=== PATIENT | male | born 1995 | race Caucasian/White ===

== ENCOUNTER 2016-11-17 14:26 | Emergency (ER) | payer OTHER ==
[~2016-11-17] VITALS: Ht 172.7 cm; Wt 90.5 kg
[~2016-11-17 14:26] MED LIST: DIVA500T35 PO; LEVO50 PO; LITH600 PO; QUET200T PO; QUET300T2 PO
[2016-11-17] MEDS ORDERED: [UNRECOGNIZED DRUG - OTHER] PO (16:15)
[2016-11-17 19:36] LABS: BASOPHILS % (AUTO) 0.3 % (0.0-2.0); EOSINOPHILS % (AUTO) 1.9 % (1.0-6.0); HEMOGLOBIN 12.9 g/dL (13.5-17.5); LYMPHOCYTES # (AUTO) 1.8 K/uL (1.0-4.8); LYMPHOCYTES % (AUTO) 23.8 % (22.0-44.0); MEAN CORPUSCULAR HEMOGLOBIN 28.4 pg (26.0-34.0); MEAN CORPUSCULAR HGB CONC 32.3 G/dL (31.0-37.0); MEAN CORPUSCULAR VOLUME 88 fL (80-100); MONOCYTES # (AUTO) 0.7 K/uL (0.1-1.0); NEUTROPHILS # (AUTO) 4.8 K/uL (1.8-7.7); PLATELET COUNT (AUTO) 282 K/uL (150-450); RED BLOOD CELL COUNT(AUTO) 4.56 MIL/uL (4.50-5.90); RED CELL DISTRIBUTION WIDTH 13.2 % (11.5-14.5); WHITE BLOOD COUNT (AUTO) 7.4 K/uL (4.5-11.0)
[2016-11-17 19:43] LABS: ANION GAP 9 mmol/L (8-16); CALCIUM, TOTAL 9.4 mg/dL (8.8-10.5); CARBON DIOXIDE 28 mmol/L (22-29); CHLORIDE 104 mmol/L (98-107); CREATININE 1.08 mg/dL (0.60-1.30); GLOMERULAR FILTR. RATE CALC > 60 mL/min (>60); POTASSIUM 4.3 mmol/L (3.5-5.1); SODIUM SERUM 141 mmol/L (136-145); UREA NITROGEN, BLOOD 19 mg/dL (7-18)
[2016-11-17 20:30] VITALS: BP 132/82
== END 2016-11-17 20:56 | disposition home or self-care (01) ==
LOC: EMS 14:27
DX: R21 Rash and other nonspecific skin eruption (principal); R03.0 Elevated blood-pressure reading, without diagnosis of hypertension; M79.89 Other specified soft tissue disorders; E03.9 Hypothyroidism, unspecified; Z88.1 Allergy status to other antibiotic agents
CPT/HCPCS: 93970; 99285

== ENCOUNTER 2017-03-15 11:52 | Inpatient (IN) | payer MEDICAID, OTHER ==
[~2017-03-15] VITALS: Ht 172.7 cm; Wt 91.3 kg
[~2017-03-15 11:52] MED LIST changes: +[UNRECOGNIZED DRUG - OTHER] PO
[2017-03-15] MEDS ORDERED: PRAZ2 PO (12:03)
[2017-03-15 12:47] LABS: BASOPHILS % (AUTO) 0.4 % (0.0-2.0); EOSINOPHILS % (AUTO) 2.5 % (1.0-6.0); HEMATOCRIT 40.1 % (41-53); HEMOGLOBIN 13.7 g/dL (13.5-17.5); LYMPHOCYTES # (AUTO) 1.6 K/uL (1.0-4.8); LYMPHOCYTES % (AUTO) 26.2 % (22.0-44.0); MEAN CORPUSCULAR HEMOGLOBIN 29.6 pg (26.0-34.0); MEAN CORPUSCULAR HGB CONC 34.3 G/dL (31.0-37.0); MEAN CORPUSCULAR VOLUME 86 fL (80-100); MONOCYTES # (AUTO) 0.7 K/uL (0.1-1.0); MONOCYTES % (AUTO) 11.8 % (2.0-9.0); NEUTROPHILS # (AUTO) 3.6 K/uL (1.8-7.7); NEUTROPHILS % (AUTO) 59.1 % (40.0-70.0); PLATELET COUNT (AUTO) 258 K/uL (150-450); RED BLOOD CELL COUNT(AUTO) 4.65 MIL/uL (4.50-5.90); RED CELL DISTRIBUTION WIDTH 13.3 % (11.5-14.5); WHITE BLOOD COUNT (AUTO) 6.1 K/uL (4.5-11.0)
[2017-03-15 13:01] LABS: ALANINE AMINOTRANSFERASE 48 U/L (12-78); ALBUMIN 4.1 g/dL (3.4-5.0); ANION GAP 11 mmol/L (8-16); ASPARTATE AMINOTRANSFERASE 25 U/L (15-37); BILIRUBIN,TOTAL 0.2 mg/dL (0.1-1.0); CARBON DIOXIDE 26 mmol/L (22-29); CHLORIDE 106 mmol/L (98-107); CREATININE 1.01 mg/dL (0.60-1.30); GLOMERULAR FILTR. RATE CALC > 60 mL/min (>60); POTASSIUM 3.7 mmol/L (3.5-5.1); SODIUM SERUM 143 mmol/L (136-145); TOTAL PROTEIN, SERUM 7.9 g/dL (6.4-8.2); UREA NITROGEN, BLOOD 13 mg/dL (7-18)
[2017-03-15 13:10] LABS: CALCIUM, TOTAL 9.3 mg/dL (8.8-10.5)
[2017-03-15] MEDS: HALOPERIDOL 5 MG TABLET PO PRN (17:11)
[2017-03-15] MEDS: LORazepam 2 MG TABLET PO PRN (17:11)
[2017-03-15 17:16] VITALS: BP 115/80
[2017-03-15] MEDS: LITHIUM CARBONATE 600 MG CAPSULE PO SCH (21:00)
[2017-03-15] MEDS: DIVALPROEX SODIUM 500 MG DR TABLET PO SCH (21:00)
[2017-03-15] MEDS: PRAZOSIN HCL 2 MG CAPSULE PO SCH (21:00)
[2017-03-16 01:38] VITALS: BP 137/85
[2017-03-16 08:47] VITALS: BP 126/82
[2017-03-16 08:48] LABS: CHOL/HDL RATIO 8.5 (4.2-7.3)
[2017-03-16] MEDS: LORazepam 2 MG TABLET PO PRN ×2 (08:48→16:51)
[2017-03-16] MEDS: DIVALPROEX SODIUM 500 MG DR TABLET PO SCH ×2 (08:49→16:51)
[2017-03-16] MEDS: LITHIUM CARBONATE 600 MG CAPSULE PO SCH ×2 (08:49→16:51)
[2017-03-16] MEDS: QUEtiapine FUMARATE 200 MG TABLET PO SCH (08:50)
[2017-03-16 16:00] VITALS: BP 132/83
[2017-03-16] MEDS: HALOPERIDOL 5 MG TABLET PO PRN (16:51)
[2017-03-16] MEDS: PRAZOSIN HCL 2 MG CAPSULE PO SCH (20:40)
[2017-03-16] MEDS: ZOLPIDEM TARTRATE 10 MG TABLET PO PRN (20:40)
[2017-03-16] MEDS ORDERED: ACETAMINOPHEN 325 MG TABLET PO PRN (22:00)
[2017-03-16] MEDS ORDERED: IBUPROFEN 400 MG TABLET PO PRN (22:00)
[2017-03-17 05:55] VITALS: BP 139/86
[2017-03-17] MEDS: LEVOTHYROXINE SODIUM 50 MCG TABLET PO SCH (06:18)
[2017-03-17 08:07] LABS: BASOPHILS # (AUTO) 0.04 K/uL (0.00-0.20); BASOPHILS % (AUTO) 0.6 % (0.0-2.0); EOSINOPHILS # (AUTO) 0.18 K/uL (0.00-0.70); EOSINOPHILS % (AUTO) 2.61 % (1.0-6.0); HEMATOCRIT 40.5 % (41-53); HEMOGLOBIN 13.6 g/dL (13.5-17.5); LYMPHOCYTES # (AUTO) 2.2 K/uL (1.0-4.8); MEAN CORPUSCULAR HEMOGLOBIN 29.2 pg (26.0-34.0); MEAN CORPUSCULAR HGB CONC 33.7 G/dL (31.0-37.0); MEAN CORPUSCULAR VOLUME 87 fL (80-100); MONOCYTES # (AUTO) 0.6 K/uL (0.1-1.0); MONOCYTES % (AUTO) 8.3 % (2.0-9.0); NEUTROPHILS # (AUTO) 3.9 K/uL (1.8-7.7); NEUTROPHILS % (AUTO) 56.5 % (40.0-70.0); PLATELET COUNT (AUTO) 252 K/uL (150-450); RED BLOOD CELL COUNT(AUTO) 4.68 MIL/uL (4.50-5.90); RED CELL DISTRIBUTION WIDTH 13.5 % (11.5-14.5); WHITE BLOOD COUNT (AUTO) 6.9 K/uL (4.5-11.0)
[2017-03-17 08:10] VITALS: BP 139/76
[2017-03-17] MEDS: DIVALPROEX SODIUM 500 MG DR TABLET PO SCH ×2 (08:12→17:06)
[2017-03-17] MEDS: LITHIUM CARBONATE 600 MG CAPSULE PO SCH ×2 (08:12→17:06)
[2017-03-17] MEDS: QUEtiapine FUMARATE 200 MG TABLET PO SCH (08:14)
[2017-03-17 09:01] LABS: ALANINE AMINOTRANSFERASE 42 U/L (12-78); ALBUMIN 3.9 g/dL (3.4-5.0); ANION GAP 11 mmol/L (8-16); ASPARTATE AMINOTRANSFERASE 19 U/L (15-37); BILIRUBIN,TOTAL 0.3 mg/dL (0.1-1.0); CALCIUM, TOTAL 9.2 mg/dL (8.8-10.5); CARBON DIOXIDE 26 mmol/L (22-29); CHLORIDE 103 mmol/L (98-107); CHOL/HDL RATIO 7.5 (4.2-7.3); CREATININE 1.15 mg/dL (0.60-1.30); GLOMERULAR FILTR. RATE CALC > 60 mL/min (>60); SODIUM SERUM 140 mmol/L (136-145); TOTAL PROTEIN, SERUM 7.5 g/dL (6.4-8.2); UREA NITROGEN, BLOOD 14 mg/dL (7-18)
[2017-03-17 09:17] LABS: HEMOGLOBIN A1C 5.9 % (4.5-6.2)
[2017-03-17 16:25] VITALS: BP 125/78
[2017-03-17] MEDS: HALOPERIDOL 5 MG TABLET PO PRN (17:06)
[2017-03-17] MEDS: LORazepam 2 MG TABLET PO PRN (17:06)
[2017-03-17] MEDS: PRAZOSIN HCL 2 MG CAPSULE PO SCH (20:27)
[2017-03-18] MEDS: LEVOTHYROXINE SODIUM 50 MCG TABLET PO SCH (06:33)
[2017-03-18 06:40] VITALS: BP 120/84
[2017-03-18 08:01] VITALS: BP 137/78
[2017-03-18] MEDS: DIVALPROEX SODIUM 500 MG DR TABLET PO SCH ×2 (08:23→16:45)
[2017-03-18] MEDS: LITHIUM CARBONATE 600 MG CAPSULE PO SCH ×2 (08:23→16:45)
[2017-03-18] MEDS: QUEtiapine FUMARATE 200 MG TABLET PO SCH (08:23)
[2017-03-18 16:18] VITALS: BP 127/83
[2017-03-18] MEDS: LORazepam 2 MG TABLET PO PRN (18:25)
[2017-03-18] MEDS: HALOPERIDOL 5 MG TABLET PO PRN (18:25)
[2017-03-18] MEDS: ZOLPIDEM TARTRATE 10 MG TABLET PO PRN (20:17)
[2017-03-18] MEDS: PRAZOSIN HCL 2 MG CAPSULE PO SCH (20:18)
[2017-03-19 02:47] VITALS: BP 131/90
[2017-03-19] MEDS: LEVOTHYROXINE SODIUM 50 MCG TABLET PO SCH (06:32)
[2017-03-19] MEDS: QUEtiapine FUMARATE 200 MG TABLET PO SCH (08:35)
[2017-03-19] MEDS: LITHIUM CARBONATE 600 MG CAPSULE PO SCH ×2 (08:35→17:40)
[2017-03-19] MEDS: LORazepam 2 MG TABLET PO PRN ×2 (08:35→13:36)
[2017-03-19] MEDS: DIVALPROEX SODIUM 500 MG DR TABLET PO SCH ×2 (08:36→17:40)
[2017-03-19 09:13] VITALS: BP 123/70
[2017-03-19] MEDS: HALOPERIDOL 5 MG TABLET PO PRN (13:36)
[2017-03-19 16:00] VITALS: BP 132/86
[2017-03-19] MEDS: PRAZOSIN HCL 2 MG CAPSULE PO SCH (20:15)
[2017-03-20 03:22] VITALS: BP 120/77
[2017-03-20] MEDS: LEVOTHYROXINE SODIUM 50 MCG TABLET PO SCH (06:33)
[2017-03-20 08:00] VITALS: BP 133/88
[2017-03-20] MEDS: LORazepam 2 MG TABLET PO PRN ×2 (09:20→16:29)
[2017-03-20] MEDS: QUEtiapine FUMARATE 200 MG TABLET PO SCH (09:20)
[2017-03-20] MEDS: LITHIUM CARBONATE 600 MG CAPSULE PO SCH ×2 (09:20→16:29)
[2017-03-20] MEDS: DIVALPROEX SODIUM 500 MG DR TABLET PO SCH ×2 (09:20→16:29)
[2017-03-20 16:00] VITALS: BP 120/84
[2017-03-20] MEDS: HALOPERIDOL 5 MG TABLET PO PRN (16:29)
[2017-03-20] MEDS: PRAZOSIN HCL 2 MG CAPSULE PO SCH (20:21)
[2017-03-21 05:25] VITALS: BP 124/78
[2017-03-21] MEDS: LEVOTHYROXINE SODIUM 50 MCG TABLET PO SCH (06:35)
[2017-03-21 08:04] VITALS: BP 123/82
[2017-03-21] MEDS: LITHIUM CARBONATE 600 MG CAPSULE PO SCH (08:52)
[2017-03-21] MEDS: QUEtiapine FUMARATE 200 MG TABLET PO SCH (08:52)
[2017-03-21] MEDS: LORazepam 2 MG TABLET PO PRN (08:52)
[2017-03-21] MEDS: DIVALPROEX SODIUM 500 MG DR TABLET PO SCH (08:52)
== END 2017-03-21 13:15 | disposition home or self-care (01) | DRG 753 ==
LOC: EMS 11:53 → AHU 14:46 → B3A 23:25
DX: F31.5 Bipolar disorder, current episode depressed, severe, with psychotic features (principal); F84.0 Autistic disorder; E78.5 Hyperlipidemia, unspecified; E03.9 Hypothyroidism, unspecified; Z79.899 Other long term (current) drug therapy; Z88.1 Allergy status to other antibiotic agents
CPT/HCPCS: 83036; 84443; 99285; G0480

== ENCOUNTER 2017-04-07 20:49 | Emergency (ER) | payer MEDICAID, OTHER ==
[~2017-04-07] VITALS: Ht 172.7 cm; Wt 90.5 kg
[~2017-04-07 20:49] MED LIST changes: +PRAZ2 PO; -QUET300T2 PO; -[UNRECOGNIZED DRUG - OTHER] PO
[2017-04-07] MEDS ORDERED: RISP1 PO (20:55)
[2017-04-07] MEDS ORDERED: SENN-175 PO (20:55)
[2017-04-07] MEDS ORDERED: CLON.5 PO (20:55)
[2017-04-07] MEDS ORDERED: KETOROLAC TROMETHAMINE 60 MG/2 ML VIAL IM ONE (22:00)
[2017-04-07] MEDS ORDERED: METHOCARBAMOL 500 MG TABLET PO ONE (22:00)
[2017-04-07 22:17] VITALS: BP 137/96
== END 2017-04-07 22:31 | disposition home or self-care (01) ==
LOC: EMS 20:52
DX: M54.5 Low back pain (principal); G89.29 Other chronic pain; E03.9 Hypothyroidism, unspecified; Z88.1 Allergy status to other antibiotic agents
CPT/HCPCS: 96372; 99283; J1885

== ENCOUNTER 2017-04-09 14:48 | Emergency (ER) | payer OTHER ==
[~2017-04-09] VITALS: Ht 172.7 cm; Wt 81.4 kg
[~2017-04-09 14:48] MED LIST changes: +CLON.5 PO; -DIVA500T35 PO; -LEVO50 PO; -QUET200T PO; +RISP1 PO; +SENN-175 PO
[2017-04-09] MEDS ORDERED: NAPR-1193 PO (14:58)
[2017-04-09] MEDS ORDERED: SODIUM PHOS/SODIUM BIPHOS 133 ML ENEMA PR ONE (15:30)
[2017-04-09 16:25] LABS: BASOPHILS % (AUTO) 0.4 % (0.0-2.0); EOSINOPHILS % (AUTO) 0.9 % (1.0-6.0); LYMPHOCYTES # (AUTO) 1.4 K/uL (1.0-4.8); LYMPHOCYTES % (AUTO) 17.4 % (22.0-44.0); MEAN CORPUSCULAR HEMOGLOBIN 29.3 pg (26.0-34.0); MEAN CORPUSCULAR HGB CONC 34.2 G/dL (31.0-37.0); MEAN CORPUSCULAR VOLUME 86 fL (80-100); MONOCYTES # (AUTO) 0.6 K/uL (0.1-1.0); NEUTROPHILS # (AUTO) 6.1 K/uL (1.8-7.7); NEUTROPHILS % (AUTO) 74.3 % (40.0-70.0); PLATELET COUNT (AUTO) 338 K/uL (150-450); RED BLOOD CELL COUNT(AUTO) 4.78 MIL/uL (4.50-5.90); RED CELL DISTRIBUTION WIDTH 13.7 % (11.5-14.5); WHITE BLOOD COUNT (AUTO) 8.2 K/uL (4.5-11.0)
[2017-04-09 16:48] LABS: ANION GAP 10 mmol/L (8-16); CALCIUM, TOTAL 9.7 mg/dL (8.8-10.5); CARBON DIOXIDE 26 mmol/L (22-29); CHLORIDE 104 mmol/L (98-107); CREATININE 1.25 mg/dL (0.60-1.30); GLOMERULAR FILTR. RATE CALC > 60 mL/min (>60); SODIUM SERUM 140 mmol/L (136-145); UREA NITROGEN, BLOOD 10 mg/dL (7-18)
[2017-04-09 16:52] LABS: ALANINE AMINOTRANSFERASE 122 U/L (12-78); ALBUMIN 5.2 g/dL (3.4-5.0); ASPARTATE AMINOTRANSFERASE 56 U/L (15-37); BILIRUBIN,TOTAL 0.5 mg/dL (0.1-1.0); TOTAL PROTEIN, SERUM 8.5 g/dL (6.4-8.2)
[2017-04-09 17:04] LABS: LITHIUM 1.29 mmol/L (0.60-1.20)
[2017-04-09 17:18] VITALS: BP 126/90
== END 2017-04-09 17:26 | disposition home or self-care (01) ==
LOC: EMS 14:53
DX: K59.00 Constipation, unspecified (principal); F20.9 Schizophrenia, unspecified; E03.9 Hypothyroidism, unspecified; F31.9 Bipolar disorder, unspecified; R63.4 Abnormal weight loss; Z88.0 Allergy status to penicillin; Z68.27 Body mass index [BMI] 27.0-27.9, adult
CPT/HCPCS: 99284

== ENCOUNTER 2017-08-31 20:29 | Emergency (ER) | payer OTHER ==
[~2017-08-31] VITALS: Ht 172.7 cm; Wt 79.5 kg
[~2017-08-31 20:29] MED LIST changes: +NAPR-1193 PO
[2017-08-31] MEDS ORDERED: MACR100 PO (21:23)
[2017-08-31] MEDS ORDERED: TAMS0.4C32 PO (21:23)
[2017-08-31] MEDS ORDERED: DOXY50 PO (21:23)
[2017-08-31 23:40] VITALS: BP 134/88
== END 2017-08-31 23:48 | disposition home or self-care (01) ==
LOC: EMS 20:33
DX: Z46.6 Encounter for fitting and adjustment of urinary device (principal); E03.9 Hypothyroidism, unspecified; Z88.0 Allergy status to penicillin
CPT/HCPCS: 99283

== ENCOUNTER 2017-10-19 16:10 | Emergency (ER) | payer MEDICAID, OTHER ==
[~2017-10-19] VITALS: Ht 185.4 cm; Wt 77.0 kg
[~2017-10-19 16:10] MED LIST changes: -CLON.5 PO; +FLUO-191 PO; +LEVO125T95 PO; -LITH600 PO; +LURA80 PO; -PRAZ2 PO; -RISP1 PO; -SENN-175 PO; +TAMS0.4C32 PO
[2017-10-19 17:02] LABS: BASOPHILS % (AUTO) 0.8 % (0.0-2.0); EOSINOPHILS % (AUTO) 1.9 % (1.0-6.0); HEMATOCRIT 40.6 % (41-53); HEMOGLOBIN 13.8 g/dL (13.5-17.5); LYMPHOCYTES # (AUTO) 2.6 K/uL (1.0-4.8); LYMPHOCYTES % (AUTO) 31.6 % (22.0-44.0); MEAN CORPUSCULAR HEMOGLOBIN 26.8 pg (26.0-34.0); MEAN CORPUSCULAR HGB CONC 34.1 G/dL (31.0-37.0); MEAN CORPUSCULAR VOLUME 79 fL (80-100); MONOCYTES # (AUTO) 0.5 K/uL (0.1-1.0); MONOCYTES % (AUTO) 6.7 % (2.0-9.0); NEUTROPHILS # (AUTO) 4.9 K/uL (1.8-7.7); PLATELET COUNT (AUTO) 314 K/uL (150-450); RED BLOOD CELL COUNT(AUTO) 5.17 MIL/uL (4.50-5.90); RED CELL DISTRIBUTION WIDTH 13.3 % (11.5-14.5)
[2017-10-19 17:06] LABS: APPEARANCE,URINE CLEAR (CLEAR); BILIRUBIN,URINE NEGATIVE (NEGATIVE); GLUCOSE, URINE (UA) NEGATIVE (NEGATIVE); KETONES,URINE NEGATIVE (NEGATIVE); LEUKOCYTE ESTERASE ,URINE NEGATIVE (NEGATIVE); NITRATE,URINE NEGATIVE (NEGATIVE); OCCULT BLOOD,URINE NEGATIVE (NEGATIVE); PROTEIN,URINE NEGATIVE (NEGATIVE); UROBILINOGEN,URINE 0.2 mg/dL (<=1.0)
[2017-10-19 17:36] LABS: ANION GAP 9 mmol/L (8-16); CALCIUM, TOTAL 9.4 mg/dL (8.8-10.5); CARBON DIOXIDE 27 mmol/L (22-29); CHLORIDE 103 mmol/L (98-107); CREATININE 1.04 mg/dL (0.60-1.30); GLOMERULAR FILTR. RATE CALC > 60 mL/min (>60); GLUCOSE,RANDOM 102 mg/dL (70-110); POTASSIUM 3.5 mmol/L (3.5-5.1); SODIUM SERUM 139 mmol/L (136-145); UREA NITROGEN, BLOOD 13 mg/dL (7-18)
[2017-10-19 17:41] LABS: ALANINE AMINOTRANSFERASE 44 U/L (12-78); ALBUMIN 4.1 g/dL (3.4-5.0); ALKALINE PHOSPHATASE 60 U/L (46-116); ASPARTATE AMINOTRANSFERASE 20 U/L (15-37); BILIRUBIN,TOTAL 0.6 mg/dL (0.1-1.0); TOTAL PROTEIN, SERUM 7.6 g/dL (6.4-8.2)
[2017-10-19 20:15] VITALS: BP 127/81
== END 2017-10-19 20:48 | disposition home or self-care (01) ==
LOC: EMS 16:12
DX: M62.838 Other muscle spasm (principal); R10.9 Unspecified abdominal pain; E03.9 Hypothyroidism, unspecified; F12.90 Cannabis use, unspecified, uncomplicated
CPT/HCPCS: 74176; 99285

== ENCOUNTER 2017-11-13 19:37 | Inpatient (IN) | payer MEDICAID, OTHER ==
[~2017-11-13] VITALS: Ht 172.7 cm; Wt 72.5 kg
[~2017-11-13 19:37] MED LIST changes: -NAPR-1193 PO
[2017-11-13] MEDS ORDERED: GABA-529 PO (20:48)
[2017-11-13] MEDS ORDERED: CEPH500 PO (20:48)
[2017-11-13] MEDS ORDERED: CEPHALEXIN MONOHYDRATE 500 MG CAPSULE PO ONE (21:30)
[2017-11-13] MEDS ORDERED: GABAPENTIN 100 MG CAPSULE PO ONE (21:30)
[2017-11-13 21:34] LABS: BASOPHILS % (AUTO) 0.8 % (0.0-2.0); EOSINOPHILS % (AUTO) 2.2 % (1.0-6.0); HEMATOCRIT 40.5 % (41-53); HEMOGLOBIN 13.9 g/dL (13.5-17.5); LYMPHOCYTES # (AUTO) 2.1 K/uL (1.0-4.8); LYMPHOCYTES % (AUTO) 33.1 % (22.0-44.0); MEAN CORPUSCULAR HEMOGLOBIN 27.1 pg (26.0-34.0); MEAN CORPUSCULAR HGB CONC 34.3 G/dL (31.0-37.0); MEAN CORPUSCULAR VOLUME 79 fL (80-100); MONOCYTES # (AUTO) 0.5 K/uL (0.1-1.0); MONOCYTES % (AUTO) 8.1 % (2.0-9.0); NEUTROPHILS # (AUTO) 3.6 K/uL (1.8-7.7); NEUTROPHILS % (AUTO) 55.8 % (40.0-70.0); PLATELET COUNT (AUTO) 322 K/uL (150-450); RED BLOOD CELL COUNT(AUTO) 5.13 MIL/uL (4.50-5.90); RED CELL DISTRIBUTION WIDTH 13.8 % (11.5-14.5)
[2017-11-13 21:48] LABS: ANION GAP 8 mmol/L (8-16); CALCIUM, TOTAL 9.3 mg/dL (8.8-10.5); CARBON DIOXIDE 30 mmol/L (22-29); CHLORIDE 102 mmol/L (98-107); CREATININE 1.01 mg/dL (0.60-1.30); GLOMERULAR FILTR. RATE CALC > 60 mL/min (>60); GLUCOSE,RANDOM 100 mg/dL (70-110); POTASSIUM 3.8 mmol/L (3.5-5.1); SODIUM SERUM 140 mmol/L (136-145); UREA NITROGEN, BLOOD 19 mg/dL (7-18)
[2017-11-13 21:52] LABS: ALBUMIN 4.2 g/dL (3.4-5.0)
[2017-11-13 22:03] LABS: AMPHET/METH SCREEN,URINE NEGATIVE (NEGATIVE); BARBITURATE SCREEN, URINE NEGATIVE (NEGATIVE); BENZODIAZEPINES SCREEN,URINE NEGATIVE (NEGATIVE); CANNABINOID SCREEN,URINE NEGATIVE (NEGATIVE); COCAINE SCREEN,URINE NEGATIVE (NEGATIVE); METHADONE SCREEN, URINE NEGATIVE (NEGATIVE); OPIATE SCREEN,URINE NEGATIVE (NEGATIVE); PHENCYCLIDINE SCREEN,URINE NEGATIVE (NEGATIVE)
[2017-11-13 22:05] LABS: ALANINE AMINOTRANSFERASE 64 U/L (12-78); ALKALINE PHOSPHATASE 79 U/L (46-116); ASPARTATE AMINOTRANSFERASE 28 U/L (15-37); BILIRUBIN,TOTAL 0.3 mg/dL (0.1-1.0)
[2017-11-13] MEDS ORDERED: LORazepam 2 MG/ML VIAL IM ONE (22:30)
[2017-11-13] MEDS ORDERED: DiphenhydrAMINE HCL 50 MG/ML VIAL IM ONE (22:30)
[2017-11-14 05:03] LABS: HEMOGLOBIN A1C 6.1 % (4.5-6.2)
[2017-11-14] MEDS: LORazepam 2 MG TABLET PO PRN ×2 (08:45→22:44)
[2017-11-14] MEDS: ZOLPIDEM TARTRATE 10 MG TABLET PO PRN (20:52)
[2017-11-15 00:03] VITALS: BP 134/77
[2017-11-15 08:18] VITALS: BP 121/82
[2017-11-15] MEDS: HALOPERIDOL 5 MG TABLET PO PRN (08:21)
[2017-11-15] MEDS: LORazepam 2 MG TABLET PO PRN ×2 (08:21→17:23)
[2017-11-15] MEDS: BACITRACIN 28.4 GM OINTMENT TP SCH ×2 (09:33→17:24)
[2017-11-15 16:05] VITALS: BP 123/72
[2017-11-15] MEDS ORDERED: IBUPROFEN 400 MG TABLET PO PRN (16:15)
[2017-11-15] MEDS ORDERED: ACETAMINOPHEN 325 MG TABLET PO PRN (16:15)
[2017-11-15] MEDS: GABAPENTIN 100 MG CAPSULE PO SCH (17:23)
[2017-11-15] MEDS: LACTULOSE 20 GM/30 ML SOLUTION UDCUP PO PRN (19:06)
[2017-11-15] MEDS: ZOLPIDEM TARTRATE 10 MG TABLET PO PRN (21:16)
[2017-11-16] MEDS: LEVOTHYROXINE SODIUM 137 MCG TABLET PO SCH (06:25)
[2017-11-16] MEDS: LORazepam 2 MG TABLET PO PRN ×2 (06:30→12:10)
[2017-11-16 06:45] VITALS: BP 126/71
[2017-11-16] MEDS: LACTULOSE 20 GM/30 ML SOLUTION UDCUP PO PRN ×2 (06:58→20:59)
[2017-11-16] MEDS ORDERED: *PATIENT'S OWN MED [ENTER DRUG, DOSE, FREQUENCY IN COMMENTS] CLINICAL ONE (08:00)
[2017-11-16 08:11] VITALS: BP 121/88
[2017-11-16] MEDS: FLUoxetine HCL 20 MG CAPSULE PO SCH (08:29)
[2017-11-16] MEDS: TAMSULOSIN HCL 0.4 MG CAPSULE PO SCH (08:29)
[2017-11-16] MEDS: GABAPENTIN 100 MG CAPSULE PO SCH ×3 (08:29→16:54)
[2017-11-16] MEDS: BACITRACIN 28.4 GM OINTMENT TP SCH ×2 (08:29→16:54)
[2017-11-16 10:37] LABS: CHOL/HDL RATIO 4.5 (4.2-7.3); CHOLESTEROL 170 mg/dL (131-200); HDL CHOLESTEROL 38 mg/dL (40-60); LDL CHOL (CALC.) 111 mg/dL (0-130); TRIGLYCERIDES 105 mg/dL (15-150)
[2017-11-16 11:13] LABS: THYROID STIMULATING HORMONE < 0.01 uIU/mL (0.36-3.74)
[2017-11-16 16:00] VITALS: BP 131/85
[2017-11-16] MEDS: LATUDA 80MG TABLET PO SCH (16:56)
[2017-11-16] MEDS: ZOLPIDEM TARTRATE 10 MG TABLET PO PRN (20:59)
[2017-11-17 00:54] VITALS: BP 135/86
[2017-11-17] MEDS: LEVOTHYROXINE SODIUM 137 MCG TABLET PO SCH (06:38)
[2017-11-17] MEDS: LATUDA 80MG TABLET PO SCH ×2 (06:39→16:37)
[2017-11-17] MEDS: FLUoxetine HCL 20 MG CAPSULE PO SCH (08:07)
[2017-11-17] MEDS: TAMSULOSIN HCL 0.4 MG CAPSULE PO SCH (08:07)
[2017-11-17] MEDS: BACITRACIN 28.4 GM OINTMENT TP SCH ×2 (08:07→16:37)
[2017-11-17] MEDS: GABAPENTIN 100 MG CAPSULE PO SCH ×3 (08:07→16:36)
[2017-11-17 08:10] VITALS: BP 120/61
[2017-11-17] MEDS: LACTULOSE 20 GM/30 ML SOLUTION UDCUP PO PRN ×2 (08:37→20:36)
[2017-11-17 16:00] VITALS: BP 112/68
[2017-11-17] MEDS: LORazepam 2 MG TABLET PO PRN ×2 (16:36→20:36)
[2017-11-17] MEDS: HALOPERIDOL 5 MG TABLET PO PRN (19:46)
[2017-11-17] MEDS: ZOLPIDEM TARTRATE 10 MG TABLET PO PRN (20:40)
[2017-11-18] MEDS: LACTULOSE 20 GM/30 ML SOLUTION UDCUP PO PRN ×2 (06:14→20:49)
[2017-11-18 06:18] VITALS: BP 100/60
[2017-11-18] MEDS: LATUDA 80MG TABLET PO SCH ×2 (06:35→16:17)
[2017-11-18] MEDS: LEVOTHYROXINE SODIUM 137 MCG TABLET PO SCH (06:35)
[2017-11-18 08:20] VITALS: BP 120/79
[2017-11-18] MEDS: TAMSULOSIN HCL 0.4 MG CAPSULE PO SCH (08:40)
[2017-11-18] MEDS: GABAPENTIN 100 MG CAPSULE PO SCH ×3 (08:40→16:16)
[2017-11-18] MEDS: FLUoxetine HCL 20 MG CAPSULE PO SCH (08:40)
[2017-11-18] MEDS: BACITRACIN 28.4 GM OINTMENT TP SCH ×2 (08:40→16:17)
[2017-11-18] MEDS: HALOPERIDOL 5 MG TABLET PO PRN ×2 (11:08→15:08)
[2017-11-18] MEDS: LORazepam 2 MG TABLET PO PRN (11:08)
[2017-11-18] MEDS ORDERED: LEVO137T24 PO (14:15)
[2017-11-18] MEDS: ClonazePAM 0.5 MG TABLET PO PRN (14:56)
[2017-11-18 16:00] VITALS: BP 112/74
[2017-11-18] MEDS: TraZODone HCL 100 MG TABLET PO SCH (20:49)
[2017-11-19] MEDS: LATUDA 80MG TABLET PO SCH ×2 (06:28→17:24)
[2017-11-19] MEDS: LEVOTHYROXINE SODIUM 137 MCG TABLET PO SCH (06:28)
[2017-11-19] MEDS: LACTULOSE 20 GM/30 ML SOLUTION UDCUP PO PRN ×2 (06:29→17:25)
[2017-11-19 06:30] VITALS: BP 100/69
[2017-11-19] MEDS: TAMSULOSIN HCL 0.4 MG CAPSULE PO SCH (08:35)
[2017-11-19] MEDS: GABAPENTIN 100 MG CAPSULE PO SCH ×3 (08:35→17:24)
[2017-11-19] MEDS: FLUoxetine HCL 20 MG CAPSULE PO SCH (08:35)
[2017-11-19] MEDS: BACITRACIN 28.4 GM OINTMENT TP SCH ×2 (08:35→17:24)
[2017-11-19 08:48] VITALS: BP 123/76
[2017-11-19] MEDS: ClonazePAM 0.5 MG TABLET PO PRN ×2 (10:48→17:24)
[2017-11-19 16:32] VITALS: BP 124/78
[2017-11-19] MEDS: HALOPERIDOL 5 MG TABLET PO PRN (17:24)
[2017-11-19] MEDS: ZOLPIDEM TARTRATE 10 MG TABLET PO PRN (20:53)
[2017-11-19] MEDS: TraZODone HCL 100 MG TABLET PO SCH (20:53)
[2017-11-20] MEDS: LEVOTHYROXINE SODIUM 137 MCG TABLET PO SCH (06:15)
[2017-11-20] MEDS: LATUDA 80MG TABLET PO SCH (06:16)
[2017-11-20 06:25] VITALS: BP 113/69
[2017-11-20] MEDS: LACTULOSE 20 GM/30 ML SOLUTION UDCUP PO PRN (06:59)
[2017-11-20 08:20] VITALS: BP 114/75
[2017-11-20] MEDS: BACITRACIN 28.4 GM OINTMENT TP SCH (08:36)
[2017-11-20] MEDS: GABAPENTIN 100 MG CAPSULE PO SCH ×2 (08:36→12:48)
[2017-11-20] MEDS: FLUoxetine HCL 20 MG CAPSULE PO SCH (08:36)
[2017-11-20] MEDS: TAMSULOSIN HCL 0.4 MG CAPSULE PO SCH (08:36)
[2017-11-20] MEDS ORDERED: TRAZ-147 PO (11:22)
[2017-11-20] MEDS ORDERED: FLUO40CA7 PO (11:22)
== END 2017-11-20 15:18 | disposition home or self-care (01) | DRG 750 ==
LOC: EMS 19:38 → B3A 11-14 21:40
PROVIDERS: ADMIT Psychiatry & Neurology Psychiatry; ATTEND Psychiatry & Neurology Psychiatry
DX: F25.0 Schizoaffective disorder, bipolar type (principal); G21.0 Malignant neuroleptic syndrome; R45.851 Suicidal ideations; F41.9 Anxiety disorder, unspecified; N40.0 Benign prostatic hyperplasia without lower urinary tract symptoms; K59.00 Constipation, unspecified; E03.9 Hypothyroidism, unspecified; F32.9 Major depressive disorder, single episode, unspecified; F84.0 Autistic disorder; M54.9 Dorsalgia, unspecified; F60.3 Borderline personality disorder; F12.10 Cannabis abuse, uncomplicated; Z79.899 Other long term (current) drug therapy; Z91.5 Personal history of self-harm; Z81.8 Family history of other mental and behavioral disorders; Z71.51 Drug abuse counseling and surveillance of drug abuser
CPT/HCPCS: 83036; 84443; 99285; G0480; J1200; J2060

== ENCOUNTER 2017-11-23 21:20 | Emergency (ER) | payer MEDICAID, OTHER ==
[~2017-11-23] VITALS: Ht 172.7 cm; Wt 76.0 kg
[~2017-11-23 21:20] MED LIST changes: -FLUO-191 PO; +FLUO40CA7 PO; +GABA-529 PO; -LEVO125T95 PO; +LEVO137T24 PO; +TRAZ-147 PO
[2017-11-23] MEDS ORDERED: CEPH500 PO (21:55)
[2017-11-23] MEDS ORDERED: FLUO-191 PO (21:56)
[2017-11-23 22:45] LABS: BASOPHILS % (AUTO) 0.9 % (0.0-2.0); HEMATOCRIT 37.8 % (41-53); HEMOGLOBIN 13.1 g/dL (13.5-17.5); LYMPHOCYTES # (AUTO) 2.2 K/uL (1.0-4.8); LYMPHOCYTES % (AUTO) 29.8 % (22.0-44.0); MEAN CORPUSCULAR HEMOGLOBIN 27.1 pg (26.0-34.0); MEAN CORPUSCULAR HGB CONC 34.7 G/dL (31.0-37.0); MEAN CORPUSCULAR VOLUME 78 fL (80-100); MONOCYTES # (AUTO) 0.6 K/uL (0.1-1.0); MONOCYTES % (AUTO) 8.2 % (2.0-9.0); NEUTROPHILS # (AUTO) 4.3 K/uL (1.8-7.7); NEUTROPHILS % (AUTO) 58.1 % (40.0-70.0); PLATELET COUNT (AUTO) 271 K/uL (150-450); RED BLOOD CELL COUNT(AUTO) 4.83 MIL/uL (4.50-5.90); RED CELL DISTRIBUTION WIDTH 13.6 % (11.5-14.5)
[2017-11-23 22:48] LABS: APPEARANCE,URINE CLEAR (CLEAR); BILIRUBIN,URINE NEGATIVE (NEGATIVE); GLUCOSE, URINE (UA) NEGATIVE (NEGATIVE); KETONES,URINE NEGATIVE (NEGATIVE); LEUKOCYTE ESTERASE ,URINE NEGATIVE (NEGATIVE); NITRATE,URINE NEGATIVE (NEGATIVE); OCCULT BLOOD,URINE NEGATIVE (NEGATIVE); PROTEIN,URINE NEGATIVE (NEGATIVE); UROBILINOGEN,URINE 0.2 mg/dL (<=1.0)
[2017-11-23 22:59] LABS: ANION GAP 6 mmol/L (8-16); CARBON DIOXIDE 29 mmol/L (22-29); CHLORIDE 102 mmol/L (98-107); CREATININE 1.43 mg/dL (0.60-1.30); GLOMERULAR FILTR. RATE CALC > 60 mL/min (>60); GLUCOSE,RANDOM 98 mg/dL (70-110); SODIUM SERUM 137 mmol/L (136-145); UREA NITROGEN, BLOOD 19 mg/dL (7-18)
[2017-11-23 23:06] LABS: ALANINE AMINOTRANSFERASE 39 U/L (12-78); ALBUMIN 3.8 g/dL (3.4-5.0); ALKALINE PHOSPHATASE 71 U/L (46-116); ASPARTATE AMINOTRANSFERASE 18 U/L (15-37); BILIRUBIN,TOTAL 0.4 mg/dL (0.1-1.0); LIPASE 134 U/L (73-393); TOTAL PROTEIN, SERUM 7.4 g/dL (6.4-8.2)
[2017-11-24] MEDS ORDERED: MAGNESIUM CITRATE 300 ML ORAL SOLUTION PO ONE (01:00)
[2017-11-24 02:17] VITALS: BP 120/78
== END 2017-11-24 02:53 | disposition home or self-care (01) ==
LOC: EMS 21:21
DX: K59.00 Constipation, unspecified (principal); R47.81 Slurred speech; E03.9 Hypothyroidism, unspecified
CPT/HCPCS: 74018; 99285

== ENCOUNTER 2017-11-30 12:55 | Emergency (ER) | payer OTHER ==
[~2017-11-30] VITALS: Ht 172.7 cm; Wt 76.8 kg
[~2017-11-30 12:55] MED LIST changes: +CEPH500 PO; +FLUO-191 PO; -FLUO40CA7 PO
[2017-11-30] MEDS ORDERED: CLON.5 PO (13:02)
[2017-11-30] MEDS ORDERED: KETOROLAC TROMETHAMINE 30 MG/ML VIAL IVP ONE (15:30)
[2017-11-30] MEDS ORDERED: SODIUM CHLORIDE 0.9% 1,000 ML IV ONE (15:30)
[2017-11-30 15:54] LABS: BASOPHILS % (AUTO) 0.9 % (0.0-2.0); EOSINOPHILS % (AUTO) 2.7 % (1.0-6.0); HEMATOCRIT 39.7 % (41-53); HEMOGLOBIN 13.6 g/dL (13.5-17.5); LYMPHOCYTES # (AUTO) 1.8 K/uL (1.0-4.8); LYMPHOCYTES % (AUTO) 25.6 % (22.0-44.0); MEAN CORPUSCULAR HEMOGLOBIN 27.2 pg (26.0-34.0); MEAN CORPUSCULAR HGB CONC 34.3 G/dL (31.0-37.0); MEAN CORPUSCULAR VOLUME 79 fL (80-100); MONOCYTES # (AUTO) 0.5 K/uL (0.1-1.0); MONOCYTES % (AUTO) 7.6 % (2.0-9.0); NEUTROPHILS # (AUTO) 4.4 K/uL (1.8-7.7); NEUTROPHILS % (AUTO) 63.2 % (40.0-70.0); PLATELET COUNT (AUTO) 298 K/uL (150-450)
[2017-11-30 16:02] LABS: ANION GAP 7 mmol/L (8-16); CALCIUM, TOTAL 9.2 mg/dL (8.8-10.5); CARBON DIOXIDE 29 mmol/L (22-29); CHLORIDE 105 mmol/L (98-107); CREATININE 1.17 mg/dL (0.60-1.30); GLOMERULAR FILTR. RATE CALC > 60 mL/min (>60); GLUCOSE,RANDOM 89 mg/dL (70-110); POTASSIUM 4.7 mmol/L (3.5-5.1); SODIUM SERUM 141 mmol/L (136-145); UREA NITROGEN, BLOOD 14 mg/dL (7-18)
[2017-11-30 16:06] LABS: D-DIMER 0.17 mg/L FEU (0.00-0.50); INR 1.1 (0.9-1.1); PROTHROMBIN TIME 11.4 SEC (9.4-11.6)
[2017-11-30 16:09] LABS: ALANINE AMINOTRANSFERASE 45 U/L (12-78); ALKALINE PHOSPHATASE 78 U/L (46-116); ASPARTATE AMINOTRANSFERASE 25 U/L (15-37); BILIRUBIN,TOTAL 0.3 mg/dL (0.1-1.0); CREATINE KINASE, TOTAL 58 U/L (39-308); PHOSPHORUS 4.2 mg/dL (2.5-4.9); TOTAL PROTEIN, SERUM 7.5 g/dL (6.4-8.2)
[2017-11-30 17:07] LABS: ERYTHROCYTE SEDIMENTATION RATE 13 MM/HR (0-15)
[2017-11-30 17:34] VITALS: BP 107/64
== END 2017-11-30 17:55 | disposition home or self-care (01) ==
LOC: EMS 12:57
DX: F84.0 Autistic disorder (principal); F12.10 Cannabis abuse, uncomplicated; F32.9 Major depressive disorder, single episode, unspecified; F20.9 Schizophrenia, unspecified; E03.9 Hypothyroidism, unspecified; R79.1 Abnormal coagulation profile; Z79.899 Other long term (current) drug therapy
CPT/HCPCS: 36415; 80053; 82550; 83735; 84100; 85025; 85379; 85610; 85651; 85730; 96374; 99284; J1885; J7030

== ENCOUNTER 2017-12-02 18:51 | Emergency (ER) | payer OTHER ==
[~2017-12-02] VITALS: Ht 172.7 cm; Wt 76.8 kg
[~2017-12-02 18:51] MED LIST changes: +CLON.5 PO
[2017-12-02 21:13] VITALS: BP 120/74
== END 2017-12-02 21:52 | disposition home or self-care (01) ==
LOC: EMS 18:52
DX: S09.90XA Unspecified injury of head, initial encounter (principal); F12.10 Cannabis abuse, uncomplicated; F20.9 Schizophrenia, unspecified; F32.9 Major depressive disorder, single episode, unspecified; F84.0 Autistic disorder; E03.9 Hypothyroidism, unspecified; Z79.899 Other long term (current) drug therapy; W07.XXXA Fall from chair, initial encounter; Y93.89 Activity, other specified; Y92.89 Other specified places as the place of occurrence of the external cause; Y99.8 Other external cause status
CPT/HCPCS: 70450; 99284

== ENCOUNTER 2017-12-12 11:05 | Emergency (ER) | payer OTHER ==
[~2017-12-12] VITALS: Ht 172.7 cm; Wt 72.7 kg
[~2017-12-12 11:05] MED LIST changes: -CEPH500 PO
[2017-12-12 12:42] VITALS: BP 141/86
[2017-12-12 12:44] LABS: BASOPHILS % (AUTO) 0.6 % (0.0-2.0); EOSINOPHILS % (AUTO) 0.2 % (1.0-6.0); HEMATOCRIT 39.9 % (41-53); HEMOGLOBIN 13.9 g/dL (13.5-17.5); LYMPHOCYTES % (AUTO) 12.2 % (22.0-44.0); MEAN CORPUSCULAR HEMOGLOBIN 27.5 pg (26.0-34.0); MEAN CORPUSCULAR HGB CONC 34.8 G/dL (31.0-37.0); MEAN CORPUSCULAR VOLUME 79 fL (80-100); MONOCYTES # (AUTO) 0.5 K/uL (0.1-1.0); MONOCYTES % (AUTO) 6.3 % (2.0-9.0); NEUTROPHILS # (AUTO) 6.3 K/uL (1.8-7.7); NEUTROPHILS % (AUTO) 80.7 % (40.0-70.0); PLATELET COUNT (AUTO) 299 K/uL (150-450); RED BLOOD CELL COUNT(AUTO) 5.06 MIL/uL (4.50-5.90); RED CELL DISTRIBUTION WIDTH 14.1 % (11.5-14.5)
[2017-12-12 13:01] LABS: ANION GAP 11 mmol/L (8-16); CALCIUM, TOTAL 9.1 mg/dL (8.8-10.5); CARBON DIOXIDE 25 mmol/L (22-29); CHLORIDE 102 mmol/L (98-107); CREATININE 1.14 mg/dL (0.60-1.30); GLOMERULAR FILTR. RATE CALC > 60 mL/min (>60); GLUCOSE,RANDOM 118 mg/dL (70-110); POTASSIUM 3.6 mmol/L (3.5-5.1); SODIUM SERUM 138 mmol/L (136-145); UREA NITROGEN, BLOOD 15 mg/dL (7-18)
[2017-12-12 13:21] LABS: ALANINE AMINOTRANSFERASE 44 U/L (12-78); ALBUMIN 4.5 g/dL (3.4-5.0); ALKALINE PHOSPHATASE 60 U/L (46-116); ASPARTATE AMINOTRANSFERASE 17 U/L (15-37); BILIRUBIN,TOTAL 0.7 mg/dL (0.1-1.0); TOTAL PROTEIN, SERUM 7.9 g/dL (6.4-8.2)
[2017-12-12 13:39] LABS: APPEARANCE,URINE CLEAR (CLEAR); BILIRUBIN,URINE NEGATIVE (NEGATIVE); GLUCOSE, URINE (UA) NEGATIVE (NEGATIVE); KETONES,URINE NEGATIVE (NEGATIVE); LEUKOCYTE ESTERASE ,URINE NEGATIVE (NEGATIVE); NITRATE,URINE NEGATIVE (NEGATIVE); OCCULT BLOOD,URINE NEGATIVE (NEGATIVE); PROTEIN,URINE NEGATIVE (NEGATIVE); UROBILINOGEN,URINE 0.2 mg/dL (<=1.0)
[2017-12-12 14:00] LABS: BACTERIA,URINE None Seen /HPF (None Seen); RBC,URINE None Seen /HPF (0-2); WBC,URINE 0-2 /HPF (0-5)
[2017-12-12 14:02] LABS: SQUAMOUS EPITHELIAL CELL,UR None Seen /LPF (None Seen)
== END 2017-12-12 13:12 | disposition home or self-care (01) ==
LOC: EMS 11:06
DX: R30.0 Dysuria (principal); F12.10 Cannabis abuse, uncomplicated; F20.9 Schizophrenia, unspecified; E03.9 Hypothyroidism, unspecified; F31.9 Bipolar disorder, unspecified; F84.0 Autistic disorder; Z79.899 Other long term (current) drug therapy
CPT/HCPCS: 99284

== ENCOUNTER 2018-02-24 17:17 | Emergency (ER) | payer OTHER ==
[~2018-02-24] VITALS: Ht 172.7 cm; Wt 71.4 kg
[~2018-02-24 17:17] MED LIST changes: -TAMS0.4C32 PO; -TRAZ-147 PO; +TRAZ-220 PO
[2018-02-24] MEDS ORDERED: SODIUM CHLORIDE 0.9% 1,000 ML IV ONE (18:30)
[2018-02-24 19:04] LABS: BASOPHILS % (AUTO) 0.6 % (0.0-2.0); EOSINOPHILS % (AUTO) 1.5 % (1.0-6.0); HEMOGLOBIN 13.2 g/dL (13.5-17.5); LYMPHOCYTES # (AUTO) 1.9 K/uL (1.0-4.8); LYMPHOCYTES % (AUTO) 28.9 % (22.0-44.0); MEAN CORPUSCULAR HEMOGLOBIN 27.1 pg (26.0-34.0); MEAN CORPUSCULAR HGB CONC 33.9 G/dL (31.0-37.0); MEAN CORPUSCULAR VOLUME 80 fL (80-100); MONOCYTES # (AUTO) 0.6 K/uL (0.1-1.0); MONOCYTES % (AUTO) 8.5 % (2.0-9.0); NEUTROPHILS # (AUTO) 3.9 K/uL (1.8-7.7); NEUTROPHILS % (AUTO) 60.5 % (40.0-70.0); PLATELET COUNT (AUTO) 262 K/uL (150-450); RED BLOOD CELL COUNT(AUTO) 4.88 MIL/uL (4.50-5.90)
[2018-02-24 19:21] LABS: AMPHET/METH SCREEN,URINE NEGATIVE (NEGATIVE); BARBITURATE SCREEN, URINE NEGATIVE (NEGATIVE); BENZODIAZEPINES SCREEN,URINE NEGATIVE (NEGATIVE); CANNABINOID SCREEN,URINE POSITIVE (NEGATIVE); COCAINE SCREEN,URINE NEGATIVE (NEGATIVE); METHADONE SCREEN, URINE NEGATIVE (NEGATIVE); OPIATE SCREEN,URINE NEGATIVE (NEGATIVE); PHENCYCLIDINE SCREEN,URINE NEGATIVE (NEGATIVE)
[2018-02-24 19:24] LABS: ANION GAP 10 mmol/L (8-16); CALCIUM, TOTAL 9.4 mg/dL (8.8-10.5); CARBON DIOXIDE 27 mmol/L (22-29); CHLORIDE 106 mmol/L (98-107); CREATININE 1.09 mg/dL (0.60-1.30); GLOMERULAR FILTR. RATE CALC > 60 mL/min (>60); GLUCOSE,RANDOM 92 mg/dL (70-110); POTASSIUM 3.2 mmol/L (3.5-5.1); SODIUM SERUM 143 mmol/L (136-145); UREA NITROGEN, BLOOD 14 mg/dL (7-18)
[2018-02-24 19:26] LABS: APPEARANCE,URINE CLEAR (CLEAR); BILIRUBIN,URINE NEGATIVE (NEGATIVE); GLUCOSE, URINE (UA) NEGATIVE (NEGATIVE); KETONES,URINE TRACE mg/dL (NEGATIVE); LEUKOCYTE ESTERASE ,URINE NEGATIVE (NEGATIVE); NITRATE,URINE NEGATIVE (NEGATIVE); OCCULT BLOOD,URINE NEGATIVE (NEGATIVE); PROTEIN,URINE NEGATIVE (NEGATIVE); UROBILINOGEN,URINE 0.2 mg/dL (<=1.0)
[2018-02-24 19:39] LABS: ALANINE AMINOTRANSFERASE 29 U/L (12-78); ALBUMIN 4.2 g/dL (3.4-5.0); ALKALINE PHOSPHATASE 62 U/L (46-116); BILIRUBIN,TOTAL 0.5 mg/dL (0.1-1.0); TOTAL PROTEIN, SERUM 7.7 g/dL (6.4-8.2)
[2018-02-24 19:51] LABS: ASPARTATE AMINOTRANSFERASE 18 U/L (15-37)
[2018-02-24 20:11] LABS: THYROID STIMULATING HORMONE < 0.01 uIU/mL (0.36-3.74)
[2018-02-24] MEDS ORDERED: LORazepam 2 MG/ML VIAL IVP ONE (21:15)
[2018-02-24 21:35] LABS: FREE T4 (FREE THYROXINE) 2.69 ng/dL (0.76-1.46)
[2018-02-24] MEDS ORDERED: POTASSIUM CHLORIDE 20 MEQ ER TABLET PO ONE (22:45)
[2018-02-24 23:00] VITALS: BP 111/74
== END 2018-02-24 23:13 | disposition home or self-care (01) ==
LOC: EMS 17:18
DX: F84.0 Autistic disorder (principal); F20.9 Schizophrenia, unspecified; E05.90 Thyrotoxicosis, unspecified without thyrotoxic crisis or storm; E03.9 Hypothyroidism, unspecified; F31.9 Bipolar disorder, unspecified; F12.90 Cannabis use, unspecified, uncomplicated; Z79.899 Other long term (current) drug therapy
CPT/HCPCS: 36415; 70450; 72125; 80053; 80307; 81003; 84439; 84443; 85025; 93005; 96374; 99285; G0480; J2060; J7030; 45505

== ENCOUNTER 2018-10-31 13:31 | Inpatient (IN) | payer MEDICAID, OTHER ==
[~2018-10-31] VITALS: Ht 170.2 cm; Wt 64.4 kg
[~2018-10-31 13:31] MED LIST changes: -CLON.5 PO; -FLUO-191 PO; -LEVO137T24 PO; -TRAZ-220 PO
[2018-10-31] MEDS ORDERED: DiphenhydrAMINE HCL 50 MG/ML VIAL IM ONE (14:15)
[2018-10-31] MEDS ORDERED: HALOPERIDOL LACTATE 5 MG/ML VIAL IM ONE (14:15)
[2018-10-31] MEDS ORDERED: LORazepam 2 MG/ML VIAL IM ONE (14:15)
[2018-10-31 14:49] LABS: AMPHET/METH SCREEN,URINE NEGATIVE (NEGATIVE); BARBITURATE SCREEN, URINE NEGATIVE (NEGATIVE); BENZODIAZEPINES SCREEN,URINE NEGATIVE (NEGATIVE); CANNABINOID SCREEN,URINE POSITIVE (NEGATIVE); COCAINE SCREEN,URINE NEGATIVE (NEGATIVE); METHADONE SCREEN, URINE NEGATIVE (NEGATIVE); OPIATE SCREEN,URINE NEGATIVE (NEGATIVE)
[2018-10-31 14:50] LABS: APPEARANCE,URINE CLEAR (CLEAR); BILIRUBIN,URINE NEGATIVE (NEGATIVE); GLUCOSE, URINE (UA) NEGATIVE (NEGATIVE); KETONES,URINE NEGATIVE (NEGATIVE); LEUKOCYTE ESTERASE ,URINE NEGATIVE (NEGATIVE); NITRATE,URINE NEGATIVE (NEGATIVE); OCCULT BLOOD,URINE NEGATIVE (NEGATIVE); PH,URINE 6.5 (5.0-8.0); PROTEIN,URINE NEGATIVE (NEGATIVE); UROBILINOGEN,URINE 0.2 mg/dL (<=1.0)
[2018-10-31 14:57] LABS: PHENCYCLIDINE SCREEN,URINE NEGATIVE (NEGATIVE)
[2018-10-31] MEDS ORDERED: ACETAMINOPHEN 325 MG TABLET PO PRN (15:15)
[2018-10-31 16:13] LABS: BASOPHILS % (AUTO) 0.5 % (0.0-2.0); EOSINOPHILS % (AUTO) 0.1 % (1.0-6.0); HEMATOCRIT 39.7 % (41-53); HEMOGLOBIN 13.6 g/dL (13.5-17.5); LYMPHOCYTES # (AUTO) 1.5 K/uL (1.0-4.8); LYMPHOCYTES % (AUTO) 15.4 % (22.0-44.0); MEAN CORPUSCULAR HEMOGLOBIN 28.9 pg (26.0-34.0); MEAN CORPUSCULAR HGB CONC 34.3 G/dL (31.0-37.0); MEAN CORPUSCULAR VOLUME 84 fL (80-100); MONOCYTES # (AUTO) 0.8 K/uL (0.1-1.0); MONOCYTES % (AUTO) 8.2 % (2.0-9.0); NEUTROPHILS # (AUTO) 7.2 K/uL (1.8-7.7); NEUTROPHILS % (AUTO) 75.8 % (40.0-70.0); PLATELET COUNT (AUTO) 376 K/uL (150-450); RED BLOOD CELL COUNT(AUTO) 4.71 MIL/uL (4.50-5.90); RED CELL DISTRIBUTION WIDTH 12.9 % (11.5-14.5)
[2018-10-31 16:35] LABS: ANION GAP 7 mmol/L (8-16); CALCIUM, TOTAL 9.5 mg/dL (8.8-10.5); CARBON DIOXIDE 32 mmol/L (22-29); CHLORIDE 106 mmol/L (98-107); GLOMERULAR FILTR. RATE CALC > 60 mL/min (>60); GLUCOSE,RANDOM 82 mg/dL (70-110); POTASSIUM 3.6 mmol/L (3.5-5.1); SODIUM SERUM 145 mmol/L (136-145); UREA NITROGEN, BLOOD 14 mg/dL (7-18)
[2018-10-31 16:43] LABS: ALANINE AMINOTRANSFERASE 24 U/L (12-78); ALBUMIN 3.9 g/dL (3.4-5.0); ALKALINE PHOSPHATASE 61 U/L (46-116); ASPARTATE AMINOTRANSFERASE 37 U/L (15-37); BILIRUBIN,TOTAL 0.3 mg/dL (0.1-1.0); TOTAL PROTEIN, SERUM 7.5 g/dL (6.4-8.2)
[2018-10-31] MEDS ORDERED: TAMS-1 PO (18:18)
[2018-10-31] MEDS ORDERED: BUSP15 PO (18:18)
[2018-10-31] MEDS ORDERED: FLUO-191 PO (18:18)
[2018-10-31] MEDS ORDERED: DIVA-78 PO (18:18)
[2018-10-31] MEDS ORDERED: DEUT6TAB PO (18:18)
[2018-10-31] MEDS ORDERED: DIVA500T52 PO (18:18)
[2018-10-31] MEDS ORDERED: TRAZ-220 PO (18:18)
[2018-10-31] MEDS ORDERED: DIVA-76 PO (18:18)
[2018-11-01] MEDS: ZOLPIDEM TARTRATE 10 MG TABLET PO PRN (00:31)
[2018-11-01] MEDS: LORazepam 2 MG TABLET PO PRN ×3 (00:31→13:25)
[2018-11-01 00:51] VITALS: BP 118/91
[2018-11-01 06:34] LABS: BASOPHILS % (AUTO) 1.2 % (0.0-2.0); EOSINOPHILS % (AUTO) 1.2 % (1.0-6.0); HEMATOCRIT 40.3 % (41-53); HEMOGLOBIN 13.4 g/dL (13.5-17.5); LYMPHOCYTES # (AUTO) 2.2 K/uL (1.0-4.8); LYMPHOCYTES % (AUTO) 27.3 % (22.0-44.0); MEAN CORPUSCULAR HEMOGLOBIN 28.3 pg (26.0-34.0); MEAN CORPUSCULAR HGB CONC 33.2 G/dL (31.0-37.0); MEAN CORPUSCULAR VOLUME 85 fL (80-100); MONOCYTES # (AUTO) 0.9 K/uL (0.1-1.0); MONOCYTES % (AUTO) 10.8 % (2.0-9.0); NEUTROPHILS # (AUTO) 4.9 K/uL (1.8-7.7); NEUTROPHILS % (AUTO) 59.5 % (40.0-70.0); PLATELET COUNT (AUTO) 373 K/uL (150-450); RED BLOOD CELL COUNT(AUTO) 4.72 MIL/uL (4.50-5.90); RED CELL DISTRIBUTION WIDTH 13.2 % (11.5-14.5)
[2018-11-01 06:49] LABS: HEMOGLOBIN A1C 5.7 % (4.5-6.2)
[2018-11-01 07:05] LABS: ALANINE AMINOTRANSFERASE 36 U/L (12-78); ALBUMIN 3.8 g/dL (3.4-5.0); ALKALINE PHOSPHATASE 60 U/L (46-116); ANION GAP 7 mmol/L (8-16); ASPARTATE AMINOTRANSFERASE 49 U/L (15-37); BILIRUBIN,TOTAL 0.5 mg/dL (0.1-1.0); CALCIUM, TOTAL 9.6 mg/dL (8.8-10.5); CARBON DIOXIDE 31 mmol/L (22-29); CHLORIDE 106 mmol/L (98-107); CHOL/HDL RATIO 4.2 (4.2-7.3); CHOLESTEROL 178 mg/dL (131-200); CREATININE 1.15 mg/dL (0.60-1.30); GLOMERULAR FILTR. RATE CALC > 60 mL/min (>60); GLUCOSE,RANDOM 86 mg/dL (70-110); HDL CHOLESTEROL 42 mg/dL (40-60); LDL CHOL (CALC.) 118 mg/dL (0-130); POTASSIUM 4.2 mmol/L (3.5-5.1); SODIUM SERUM 144 mmol/L (136-145); THYROID STIMULATING HORMONE 1.96 uIU/mL (0.36-3.74); TOTAL PROTEIN, SERUM 6.8 g/dL (6.4-8.2); TRIGLYCERIDES 90 mg/dL (15-150); UREA NITROGEN, BLOOD 17 mg/dL (7-18)
[2018-11-01] MEDS: IBUPROFEN 400 MG TABLET PO PRN (09:46)
[2018-11-01] MEDS: BusPIRone HCL 15 MG TABLET PO SCH ×2 (12:27→18:25)
[2018-11-01] MEDS: GABAPENTIN 400 MG CAPSULE PO SCH ×2 (12:27→18:25)
[2018-11-01] MEDS: TAMSULOSIN HCL 0.4 MG CAPSULE PO SCH (13:25)
[2018-11-01] MEDS: HALOPERIDOL 5 MG TABLET PO PRN (13:25)
[2018-11-01 16:14] VITALS: BP 117/74
[2018-11-01] MEDS: TraZODone HCL 100 MG TABLET PO SCH (20:35)
[2018-11-01] MEDS: DIVALPROEX SODIUM 500 MG ER TABLET PO SCH (20:35)
[2018-11-02 04:40] VITALS: BP 120/77
[2018-11-02] MEDS: IBUPROFEN 400 MG TABLET PO PRN (04:47)
[2018-11-02] MEDS: HALOPERIDOL 5 MG TABLET PO PRN ×2 (07:45→12:45)
[2018-11-02] MEDS: LORazepam 2 MG TABLET PO PRN ×2 (07:45→12:45)
[2018-11-02] MEDS: FLUoxetine HCL 20 MG CAPSULE PO SCH (07:45)
[2018-11-02] MEDS: TAMSULOSIN HCL 0.4 MG CAPSULE PO SCH (07:45)
[2018-11-02] MEDS: BusPIRone HCL 15 MG TABLET PO SCH ×3 (07:45→17:34)
[2018-11-02] MEDS: GABAPENTIN 400 MG CAPSULE PO SCH ×3 (07:45→17:34)
[2018-11-02 08:37] VITALS: BP 120/90
[2018-11-02 16:28] VITALS: BP 123/73
[2018-11-02] MEDS: TraZODone HCL 100 MG TABLET PO SCH (20:23)
[2018-11-02] MEDS: DIVALPROEX SODIUM 500 MG ER TABLET PO SCH (20:23)
[2018-11-03] MEDS: LURASIDONE HCL 80 MG TABLET PO SCH ×2 (07:11→17:01)
[2018-11-03] MEDS: GABAPENTIN 400 MG CAPSULE PO SCH ×3 (08:13→17:01)
[2018-11-03] MEDS: TAMSULOSIN HCL 0.4 MG CAPSULE PO SCH (08:13)
[2018-11-03] MEDS: HALOPERIDOL 5 MG TABLET PO PRN ×2 (08:14→13:12)
[2018-11-03] MEDS: BusPIRone HCL 15 MG TABLET PO SCH ×3 (08:14→17:01)
[2018-11-03] MEDS: FLUoxetine HCL 20 MG CAPSULE PO SCH (08:14)
[2018-11-03] MEDS: LORazepam 2 MG TABLET PO PRN ×2 (08:16→13:12)
[2018-11-03] MEDS ORDERED: *PATIENT'S OWN MED [ENTER DRUG, DOSE, FREQUENCY IN COMMENTS] CLINICAL ONE (09:00)
[2018-11-03 09:03] VITALS: BP 132/82
[2018-11-03 16:07] VITALS: BP 124/78
[2018-11-03 18:32] LABS: ALANINE AMINOTRANSFERASE 36 U/L (12-78); ALBUMIN 3.5 g/dL (3.4-5.0); ALKALINE PHOSPHATASE 64 U/L (46-116); ANION GAP 8 mmol/L (8-16); ASPARTATE AMINOTRANSFERASE 32 U/L (15-37); BILIRUBIN,TOTAL 0.4 mg/dL (0.1-1.0); CARBON DIOXIDE 29 mmol/L (22-29); CHLORIDE 104 mmol/L (98-107); CREATININE 1.04 mg/dL (0.60-1.30); GLOMERULAR FILTR. RATE CALC > 60 mL/min (>60); GLUCOSE,RANDOM 98 mg/dL (70-110); POTASSIUM 4.3 mmol/L (3.5-5.1); SODIUM SERUM 141 mmol/L (136-145); TOTAL PROTEIN, SERUM 7.1 g/dL (6.4-8.2); UREA NITROGEN, BLOOD 23 mg/dL (7-18); VALPROIC ACID 77 mcg/mL (50-100)
[2018-11-03 18:33] LABS: BASOPHILS % (AUTO) 1.3 % (0.0-2.0); EOSINOPHILS % (AUTO) 2.4 % (1.0-6.0); LYMPHOCYTES % (AUTO) 25.6 % (22.0-44.0); MEAN CORPUSCULAR HEMOGLOBIN 28.3 pg (26.0-34.0); MEAN CORPUSCULAR HGB CONC 33.3 G/dL (31.0-37.0); MEAN CORPUSCULAR VOLUME 85 fL (80-100); MONOCYTES # (AUTO) 0.6 K/uL (0.1-1.0); MONOCYTES % (AUTO) 7.8 % (2.0-9.0); NEUTROPHILS # (AUTO) 4.9 K/uL (1.8-7.7); NEUTROPHILS % (AUTO) 62.9 % (40.0-70.0); PLATELET COUNT (AUTO) 360 K/uL (150-450); RED BLOOD CELL COUNT(AUTO) 4.59 MIL/uL (4.50-5.90)
[2018-11-03] MEDS: DIVALPROEX SODIUM 500 MG ER TABLET PO SCH (20:00)
[2018-11-03] MEDS: TraZODone HCL 100 MG TABLET PO SCH (20:00)
[2018-11-04] MEDS: LORazepam 2 MG TABLET PO PRN ×2 (04:09→14:54)
[2018-11-04] MEDS: HALOPERIDOL 5 MG TABLET PO PRN (04:09)
[2018-11-04] MEDS: LURASIDONE HCL 80 MG TABLET PO SCH ×2 (07:09→16:09)
[2018-11-04] MEDS: FLUoxetine HCL 20 MG CAPSULE PO SCH (08:25)
[2018-11-04] MEDS: BusPIRone HCL 15 MG TABLET PO SCH ×3 (08:25→16:09)
[2018-11-04] MEDS: GABAPENTIN 400 MG CAPSULE PO SCH ×3 (08:25→16:09)
[2018-11-04] MEDS: TAMSULOSIN HCL 0.4 MG CAPSULE PO SCH (08:25)
[2018-11-04 09:09] VITALS: BP 118/73
[2018-11-04] MEDS: IBUPROFEN 400 MG TABLET PO PRN (09:09)
[2018-11-04 16:08] VITALS: BP 102/70
[2018-11-04] MEDS: DIVALPROEX SODIUM 500 MG ER TABLET PO SCH (20:08)
[2018-11-04] MEDS: TraZODone HCL 100 MG TABLET PO SCH (20:08)
[2018-11-05] MEDS: LURASIDONE HCL 80 MG TABLET PO SCH ×2 (06:41→17:29)
[2018-11-05] MEDS: BusPIRone HCL 15 MG TABLET PO SCH ×3 (08:24→17:29)
[2018-11-05] MEDS: GABAPENTIN 400 MG CAPSULE PO SCH ×3 (08:24→17:29)
[2018-11-05] MEDS: FLUoxetine HCL 20 MG CAPSULE PO SCH (08:24)
[2018-11-05] MEDS: TAMSULOSIN HCL 0.4 MG CAPSULE PO SCH (08:24)
[2018-11-05] MEDS ORDERED: DOCUSATE SODIUM 100 MG CAPSULE PO PRN (09:00)
[2018-11-05 09:09] VITALS: BP 112/61
[2018-11-05 16:02] VITALS: BP 122/71
[2018-11-05] MEDS: TraZODone HCL 100 MG TABLET PO SCH (20:30)
[2018-11-05] MEDS: DIVALPROEX SODIUM 500 MG ER TABLET PO SCH (20:30)
[2018-11-06] MEDS: LURASIDONE HCL 80 MG TABLET PO SCH ×2 (06:42→17:10)
[2018-11-06] MEDS: GABAPENTIN 400 MG CAPSULE PO SCH ×3 (08:27→17:09)
[2018-11-06] MEDS: LORazepam 2 MG TABLET PO PRN ×2 (08:28→12:45)
[2018-11-06] MEDS: TAMSULOSIN HCL 0.4 MG CAPSULE PO SCH (08:28)
[2018-11-06] MEDS: BusPIRone HCL 15 MG TABLET PO SCH ×3 (08:28→17:10)
[2018-11-06] MEDS: FLUoxetine HCL 20 MG CAPSULE PO SCH (08:28)
[2018-11-06 08:59] VITALS: BP 123/63
[2018-11-06 16:30] VITALS: BP 118/64
[2018-11-06] MEDS: DIVALPROEX SODIUM 500 MG ER TABLET PO SCH (20:34)
[2018-11-06] MEDS: TraZODone HCL 100 MG TABLET PO SCH (20:34)
[2018-11-07 05:14] VITALS: BP 119/85
[2018-11-07] MEDS: LURASIDONE HCL 80 MG TABLET PO SCH ×2 (06:56→17:34)
[2018-11-07] MEDS: GABAPENTIN 400 MG CAPSULE PO SCH ×3 (07:38→17:34)
[2018-11-07] MEDS: FLUoxetine HCL 20 MG CAPSULE PO SCH (07:38)
[2018-11-07] MEDS: HALOPERIDOL 5 MG TABLET PO PRN (07:38)
[2018-11-07] MEDS: LORazepam 2 MG TABLET PO PRN ×2 (07:38→17:35)
[2018-11-07] MEDS: TAMSULOSIN HCL 0.4 MG CAPSULE PO SCH (07:38)
[2018-11-07] MEDS: BusPIRone HCL 15 MG TABLET PO SCH ×3 (07:38→17:34)
[2018-11-07 08:00] VITALS: BP 118/76
[2018-11-07 16:01] VITALS: BP 114/81
[2018-11-07] MEDS: DIVALPROEX SODIUM 500 MG ER TABLET PO SCH (20:28)
[2018-11-07] MEDS: TraZODone HCL 100 MG TABLET PO SCH (20:28)
[2018-11-08] MEDS: LURASIDONE HCL 80 MG TABLET PO SCH ×2 (07:04→16:21)
[2018-11-08] MEDS: GABAPENTIN 400 MG CAPSULE PO SCH ×3 (10:16→16:21)
[2018-11-08] MEDS: FLUoxetine HCL 20 MG CAPSULE PO SCH (10:16)
[2018-11-08] MEDS: BusPIRone HCL 15 MG TABLET PO SCH ×3 (10:16→16:21)
[2018-11-08] MEDS: TAMSULOSIN HCL 0.4 MG CAPSULE PO SCH (10:16)
[2018-11-08] MEDS: LORazepam 2 MG TABLET PO PRN (16:21)
[2018-11-08 16:44] VITALS: BP 105/63
[2018-11-08] MEDS: TraZODone HCL 100 MG TABLET PO SCH (20:16)
[2018-11-08] MEDS: DIVALPROEX SODIUM 500 MG ER TABLET PO SCH (20:17)
[2018-11-09] MEDS: LURASIDONE HCL 80 MG TABLET PO SCH ×2 (07:02→16:55)
[2018-11-09] MEDS: FLUoxetine HCL 20 MG CAPSULE PO SCH (08:51)
[2018-11-09] MEDS: TAMSULOSIN HCL 0.4 MG CAPSULE PO SCH (08:51)
[2018-11-09] MEDS: GABAPENTIN 400 MG CAPSULE PO SCH ×3 (08:51→16:55)
[2018-11-09] MEDS: BusPIRone HCL 15 MG TABLET PO SCH ×3 (08:51→16:55)
[2018-11-09] MEDS: LORazepam 2 MG TABLET PO PRN (08:57)
[2018-11-09] MEDS: HALOPERIDOL 5 MG TABLET PO PRN (08:57)
[2018-11-09 13:15] VITALS: BP 117/76
[2018-11-09 16:08] VITALS: BP 137/78
[2018-11-09] MEDS: DIVALPROEX SODIUM 500 MG ER TABLET PO SCH (20:43)
[2018-11-09] MEDS: TraZODone HCL 100 MG TABLET PO SCH (20:43)
[2018-11-10 00:04] VITALS: BP 130/88
[2018-11-10] MEDS: ZOLPIDEM TARTRATE 10 MG TABLET PO PRN (02:01)
[2018-11-10] MEDS: LURASIDONE HCL 80 MG TABLET PO SCH ×2 (06:48→16:04)
[2018-11-10] MEDS: GABAPENTIN 400 MG CAPSULE PO SCH ×3 (08:29→16:03)
[2018-11-10] MEDS: BusPIRone HCL 15 MG TABLET PO SCH ×3 (08:29→16:04)
[2018-11-10] MEDS: TAMSULOSIN HCL 0.4 MG CAPSULE PO SCH (08:29)
[2018-11-10] MEDS: FLUoxetine HCL 20 MG CAPSULE PO SCH (08:30)
[2018-11-10] MEDS: HALOPERIDOL 5 MG TABLET PO PRN (08:35)
[2018-11-10] MEDS: LORazepam 2 MG TABLET PO PRN (08:35)
[2018-11-10 08:44] VITALS: BP 129/69
[2018-11-10] MEDS ORDERED: GABA-533 PO (12:07)
== END 2018-11-10 17:20 | disposition home or self-care (01) | DRG 750 ==
LOC: EMS 13:31 → 3EC 23:30
PROVIDERS: ADMIT Psychiatry & Neurology Psychiatry; ATTEND Psychiatry & Neurology Psychiatry
DX: F25.0 Schizoaffective disorder, bipolar type (principal); G21.0 Malignant neuroleptic syndrome; R45.851 Suicidal ideations; E03.9 Hypothyroidism, unspecified; Z88.1 Allergy status to other antibiotic agents; Z88.8 Allergy status to other drugs, medicaments and biological substances; F43.10 Post-traumatic stress disorder, unspecified; F84.0 Autistic disorder; Z81.8 Family history of other mental and behavioral disorders; F60.3 Borderline personality disorder; N40.0 Benign prostatic hyperplasia without lower urinary tract symptoms; D64.9 Anemia, unspecified; G89.29 Other chronic pain; R74.0 Nonspecific elevation of levels of transaminase and lactic acid dehydrogenase [LDH]; F12.90 Cannabis use, unspecified, uncomplicated; F41.0 Panic disorder [episodic paroxysmal anxiety]; G47.00 Insomnia, unspecified; Z79.899 Other long term (current) drug therapy; Z91.5 Personal history of self-harm; M54.9 Dorsalgia, unspecified
CPT/HCPCS: 83036; 84443; 96372; G0480; J1200; J1630; J2060

== ENCOUNTER 2018-12-21 22:07 | Emergency (ER) | payer MEDICAID, OTHER ==
[~2018-12-21] VITALS: Ht 157.5 cm; Wt 72.1 kg
[~2018-12-21 22:07] MED LIST changes: +BUSP15 PO; +DIVA500T52 PO; +FLUO-191 PO; -GABA-529 PO; +GABA-533 PO; +TAMS-1 PO; +TRAZ-220 PO
[2018-12-21] MEDS ORDERED: LACT30L PO (22:43)
[2018-12-21] MEDS ORDERED: FLUO-191 PO (22:43)
[2018-12-21] MEDS ORDERED: DEUT6TAB PO (22:43)
[2018-12-21] MEDS ORDERED: GABA-533 PO (22:43)
[2018-12-21 22:50] LABS: BASOPHILS % (AUTO) 1.2 % (0.0-2.0); EOSINOPHILS % (AUTO) 1.9 % (1.0-6.0); HEMATOCRIT 43.4 % (41-53); HEMOGLOBIN 14.4 g/dL (13.5-17.5); LYMPHOCYTES % (AUTO) 35.2 % (22.0-44.0); MEAN CORPUSCULAR HEMOGLOBIN 29.4 pg (26.0-34.0); MEAN CORPUSCULAR HGB CONC 33.3 G/dL (31.0-37.0); MEAN CORPUSCULAR VOLUME 88 fL (80-100); MONOCYTES # (AUTO) 0.6 K/uL (0.1-1.0); MONOCYTES % (AUTO) 10.7 % (2.0-9.0); NEUTROPHILS # (AUTO) 2.8 K/uL (1.8-7.7); PLATELET COUNT (AUTO) 209 K/uL (150-450); RED BLOOD CELL COUNT(AUTO) 4.92 MIL/uL (4.50-5.90); RED CELL DISTRIBUTION WIDTH 15.6 % (11.5-14.5)
[2018-12-21] MEDS ORDERED: LORazepam 2 MG TABLET PO ONE (23:00)
[2018-12-21] MEDS ORDERED: HALOPERIDOL 5 MG TABLET PO ONE (23:00)
[2018-12-21] MEDS ORDERED: DiphenhydrAMINE HCL 25 MG CAPSULE PO ONE (23:00)
[2018-12-21 23:01] LABS: ANION GAP 8 mmol/L (8-16); CALCIUM, TOTAL 9.7 mg/dL (8.8-10.5); CARBON DIOXIDE 31 mmol/L (22-29); CHLORIDE 101 mmol/L (98-107); CREATININE 1.23 mg/dL (0.60-1.30); GLOMERULAR FILTR. RATE CALC > 60 mL/min (>60); GLUCOSE,RANDOM 101 mg/dL (70-110); POTASSIUM 3.7 mmol/L (3.5-5.1); SODIUM SERUM 140 mmol/L (136-145); UREA NITROGEN, BLOOD 22 mg/dL (7-18)
[2018-12-21 23:09] LABS: ALANINE AMINOTRANSFERASE 11 U/L (12-78); ALBUMIN 3.9 g/dL (3.4-5.0); ALKALINE PHOSPHATASE 64 U/L (46-116); ASPARTATE AMINOTRANSFERASE 12 U/L (15-37); BILIRUBIN,TOTAL 0.2 mg/dL (0.1-1.0)
[2018-12-22 00:04] LABS: AMPHET/METH SCREEN,URINE NEGATIVE (NEGATIVE); BARBITURATE SCREEN, URINE NEGATIVE (NEGATIVE); BENZODIAZEPINES SCREEN,URINE NEGATIVE (NEGATIVE); CANNABINOID SCREEN,URINE POSITIVE (NEGATIVE); COCAINE SCREEN,URINE NEGATIVE (NEGATIVE); METHADONE SCREEN, URINE NEGATIVE (NEGATIVE); OPIATE SCREEN,URINE NEGATIVE (NEGATIVE); PHENCYCLIDINE SCREEN,URINE NEGATIVE (NEGATIVE)
[2018-12-22 03:46] VITALS: BP 128/71
== END 2018-12-22 05:07 | disposition home or self-care (01) ==
LOC: EMS 22:09
DX: F29 Unspecified psychosis not due to a substance or known physiological condition (principal); E03.9 Hypothyroidism, unspecified; F20.9 Schizophrenia, unspecified; F31.9 Bipolar disorder, unspecified; F43.10 Post-traumatic stress disorder, unspecified; F12.90 Cannabis use, unspecified, uncomplicated; Z79.899 Other long term (current) drug therapy; Z88.1 Allergy status to other antibiotic agents
CPT/HCPCS: 36415; 80053; 80307; 85025; 99284; G0480

== ENCOUNTER 2019-01-11 19:47 | Inpatient (IN) | payer MEDICAID, OTHER ==
[~2019-01-11] VITALS: Ht 170.2 cm; Wt 68.8 kg
[~2019-01-11 19:47] MED LIST changes: +DEUT6TAB PO; +LACT30L PO
[2019-01-11 22:35] LABS: BASOPHILS % (AUTO) 0.5 % (0.0-2.0); EOSINOPHILS % (AUTO) 1.2 % (1.0-6.0); HEMATOCRIT 42.3 % (41-53); HEMOGLOBIN 13.9 g/dL (13.5-17.5); LYMPHOCYTES # (AUTO) 1.8 K/uL (1.0-4.8); LYMPHOCYTES % (AUTO) 26.3 % (22.0-44.0); MEAN CORPUSCULAR HEMOGLOBIN 29.4 pg (26.0-34.0); MEAN CORPUSCULAR HGB CONC 32.9 G/dL (31.0-37.0); MEAN CORPUSCULAR VOLUME 89 fL (80-100); MONOCYTES # (AUTO) 0.8 K/uL (0.1-1.0); MONOCYTES % (AUTO) 11.2 % (2.0-9.0); NEUTROPHILS # (AUTO) 4.2 K/uL (1.8-7.7); NEUTROPHILS % (AUTO) 60.8 % (40.0-70.0); PLATELET COUNT (AUTO) 146 K/uL (150-450); RED BLOOD CELL COUNT(AUTO) 4.74 MIL/uL (4.50-5.90); RED CELL DISTRIBUTION WIDTH 15.5 % (11.5-14.5)
[2019-01-11 22:51] LABS: CARBON DIOXIDE 29 mmol/L (22-29); CHLORIDE 100 mmol/L (98-107); CREATININE 1.37 mg/dL (0.60-1.30); GLOMERULAR FILTR. RATE CALC > 60 mL/min (>60); GLUCOSE,RANDOM 90 mg/dL (70-110); UREA NITROGEN, BLOOD 20 mg/dL (7-18)
[2019-01-11 22:57] LABS: ALANINE AMINOTRANSFERASE 7 U/L (12-78); ALBUMIN 3.9 g/dL (3.4-5.0); ALKALINE PHOSPHATASE 47 U/L (46-116); ANION GAP 9 mmol/L (8-16); ASPARTATE AMINOTRANSFERASE 17 U/L (15-37); BILIRUBIN,TOTAL 0.2 mg/dL (0.1-1.0); SODIUM SERUM 138 mmol/L (136-145); TOTAL PROTEIN, SERUM 8.1 g/dL (6.4-8.2)
[2019-01-11 22:58] LABS: AMPHET/METH SCREEN,URINE NEGATIVE (NEGATIVE); BARBITURATE SCREEN, URINE NEGATIVE (NEGATIVE); BENZODIAZEPINES SCREEN,URINE NEGATIVE (NEGATIVE); CANNABINOID SCREEN,URINE POSITIVE (NEGATIVE); COCAINE SCREEN,URINE NEGATIVE (NEGATIVE); METHADONE SCREEN, URINE NEGATIVE (NEGATIVE); OPIATE SCREEN,URINE NEGATIVE (NEGATIVE)
[2019-01-11 22:59] LABS: PHENCYCLIDINE SCREEN,URINE NEGATIVE (NEGATIVE)
[2019-01-12] MEDS ORDERED: HALOPERIDOL LACTATE 5 MG/ML VIAL IM ONE (01:30)
[2019-01-12] MEDS ORDERED: LORazepam 2 MG/ML VIAL IM ONE (01:30)
[2019-01-12] MEDS ORDERED: DiphenhydrAMINE HCL 50 MG/ML VIAL IM ONE (01:30)
[2019-01-12 09:07] LABS: APPEARANCE,URINE CLEAR (CLEAR); BILIRUBIN,URINE NEGATIVE (NEGATIVE); GLUCOSE, URINE (UA) NEGATIVE (NEGATIVE); KETONES,URINE NEGATIVE (NEGATIVE); LEUKOCYTE ESTERASE ,URINE NEGATIVE (NEGATIVE); NITRATE,URINE NEGATIVE (NEGATIVE); OCCULT BLOOD,URINE NEGATIVE (NEGATIVE); PROTEIN,URINE NEGATIVE (NEGATIVE)
[2019-01-12] MEDS ORDERED: MAGNESIUM HYDROXIDE SUSPENSION 30 ML UDCUP PO PRN (11:30)
[2019-01-12] MEDS ORDERED: ONDANSETRON HCL 4 MG TABLET PO PRN (11:30)
[2019-01-12] MEDS ORDERED: DOCUSATE SODIUM 100 MG CAPSULE PO PRN (11:30)
[2019-01-12] MEDS ORDERED: ALBUTEROL SULFATE HFA 90 MCG/PUFF 8 GM INHALER IH PRN (11:30)
[2019-01-12] MEDS ORDERED: CloNIDine HCL 0.1 MG TABLET PO PRN (11:30)
[2019-01-12] MEDS ORDERED: IBUPROFEN 400 MG TABLET PO PRN (11:30)
[2019-01-12] MEDS ORDERED: GuaiFENesin/D-METHORPHAN [SUGAR-FREE] 200-20MG/10 ML SYRUP UDCUP PO PRN (11:30)
[2019-01-12] MEDS ORDERED: ACETAMINOPHEN 325 MG TABLET PO PRN (11:30)
[2019-01-12] MEDS ORDERED: MAG HYDROX/AL HYDROX/SIMETH ES 30 ML SUSPENSION UDCUP PO PRN (11:30)
[2019-01-12] MEDS ORDERED: NICOTINE 14 MG/24 HOUR PATCH TD PRN (11:30)
[2019-01-12] MEDS ORDERED: LOPERAMIDE HCL 2 MG CAPSULE PO PRN (11:30)
[2019-01-12] MEDS ORDERED: PETROLATUM,WHITE 28 GM JELLY TP PRN (11:30)
[2019-01-12] MEDS ORDERED: GABA-529 PO (11:32)
[2019-01-12] MEDS ORDERED: TAMSULOSIN HCL 0.4 MG CAPSULE PO ONE (16:45)
[2019-01-12] MEDS: GABAPENTIN 100 MG CAPSULE PO SCH (20:16)
[2019-01-12] MEDS: GABAPENTIN 400 MG CAPSULE PO SCH (20:16)
[2019-01-12] MEDS: DIVALPROEX SODIUM 500 MG ER TABLET PO SCH (20:18)
[2019-01-12] MEDS: ZOLPIDEM TARTRATE 10 MG TABLET PO PRN (21:34)
[2019-01-13] MEDS: HALOPERIDOL 5 MG TABLET PO PRN ×2 (01:13→10:27)
[2019-01-13] MEDS: LORazepam 2 MG TABLET PO PRN ×3 (01:13→20:29)
[2019-01-13] MEDS: TAMSULOSIN HCL 0.4 MG CAPSULE PO SCH (08:24)
[2019-01-13] MEDS: GABAPENTIN 100 MG CAPSULE PO SCH ×2 (08:24→16:54)
[2019-01-13] MEDS: GABAPENTIN 400 MG CAPSULE PO SCH ×2 (08:24→16:55)
[2019-01-13] MEDS: LACTULOSE 20 GM/30 ML SOLUTION UDCUP PO SCH (08:25)
[2019-01-13 08:43] LABS: CHOL/HDL RATIO 4.5 (4.2-7.3)
[2019-01-13 11:59] VITALS: BP 130/87
[2019-01-13] MEDS: BusPIRone HCL 15 MG TABLET PO SCH ×2 (14:02→16:54)
[2019-01-13] MEDS: LURASIDONE HCL 80 MG TABLET PO SCH (16:55)
[2019-01-13] MEDS: DIVALPROEX SODIUM 500 MG ER TABLET PO SCH (20:41)
[2019-01-13] MEDS: TraZODone HCL 100 MG TABLET PO SCH (20:41)
[2019-01-14] MEDS: ZOLPIDEM TARTRATE 10 MG TABLET PO PRN (00:02)
[2019-01-14] MEDS: HALOPERIDOL 5 MG TABLET PO PRN ×3 (00:02→20:19)
[2019-01-14] MEDS: LURASIDONE HCL 80 MG TABLET PO SCH ×2 (06:38→16:39)
[2019-01-14] MEDS: LORazepam 2 MG TABLET PO PRN ×2 (08:26→20:19)
[2019-01-14] MEDS: FLUoxetine HCL 20 MG CAPSULE PO SCH (08:28)
[2019-01-14] MEDS: BusPIRone HCL 15 MG TABLET PO SCH ×3 (08:28→16:38)
[2019-01-14] MEDS: GABAPENTIN 100 MG CAPSULE PO SCH ×2 (08:28→16:38)
[2019-01-14] MEDS: GABAPENTIN 400 MG CAPSULE PO SCH ×2 (08:28→16:38)
[2019-01-14] MEDS: LACTULOSE 20 GM/30 ML SOLUTION UDCUP PO SCH (08:28)
[2019-01-14] MEDS: TAMSULOSIN HCL 0.4 MG CAPSULE PO SCH (08:28)
[2019-01-14 08:40] VITALS: BP 102/61
[2019-01-14 16:10] VITALS: BP 107/81
[2019-01-14] MEDS: TraZODone HCL 100 MG TABLET PO SCH (21:06)
[2019-01-14] MEDS: DIVALPROEX SODIUM 500 MG ER TABLET PO SCH (21:06)
[2019-01-15] MEDS: LORazepam 2 MG TABLET PO PRN ×3 (00:23→15:47)
[2019-01-15] MEDS: HALOPERIDOL 5 MG TABLET PO PRN ×2 (00:23→15:47)
[2019-01-15] MEDS: ZOLPIDEM TARTRATE 10 MG TABLET PO PRN ×2 (00:23→20:06)
[2019-01-15] MEDS: LURASIDONE HCL 80 MG TABLET PO SCH ×2 (06:54→17:24)
[2019-01-15] MEDS: GABAPENTIN 400 MG CAPSULE PO SCH ×2 (09:12→17:24)
[2019-01-15] MEDS: FLUoxetine HCL 20 MG CAPSULE PO SCH (09:13)
[2019-01-15] MEDS: BusPIRone HCL 15 MG TABLET PO SCH ×3 (09:13→17:24)
[2019-01-15] MEDS: GABAPENTIN 100 MG CAPSULE PO SCH ×2 (09:13→17:24)
[2019-01-15] MEDS: LACTULOSE 20 GM/30 ML SOLUTION UDCUP PO SCH (09:14)
[2019-01-15] MEDS: TAMSULOSIN HCL 0.4 MG CAPSULE PO SCH (09:15)
[2019-01-15 12:53] VITALS: BP 115/72
[2019-01-15] MEDS: DIVALPROEX SODIUM 500 MG ER TABLET PO SCH (20:06)
[2019-01-15] MEDS: TraZODone HCL 100 MG TABLET PO SCH (20:06)
[2019-01-16 00:04] VITALS: BP 114/79
[2019-01-16] MEDS: HALOPERIDOL 5 MG TABLET PO PRN ×2 (00:33→18:10)
[2019-01-16] MEDS: LORazepam 2 MG TABLET PO PRN ×2 (00:33→18:10)
[2019-01-16] MEDS: LURASIDONE HCL 80 MG TABLET PO SCH ×2 (06:45→16:33)
[2019-01-16] MEDS: TAMSULOSIN HCL 0.4 MG CAPSULE PO SCH (08:42)
[2019-01-16] MEDS: FLUoxetine HCL 20 MG CAPSULE PO SCH (08:42)
[2019-01-16] MEDS: BusPIRone HCL 15 MG TABLET PO SCH ×3 (08:42→16:33)
[2019-01-16] MEDS: GABAPENTIN 100 MG CAPSULE PO SCH ×2 (08:45→16:33)
[2019-01-16] MEDS: GABAPENTIN 400 MG CAPSULE PO SCH ×2 (08:45→16:33)
[2019-01-16] MEDS: LACTULOSE 20 GM/30 ML SOLUTION UDCUP PO SCH (08:45)
[2019-01-16 09:03] VITALS: BP 114/78
[2019-01-16] MEDS: ZOLPIDEM TARTRATE 10 MG TABLET PO PRN (20:08)
[2019-01-16] MEDS: DIVALPROEX SODIUM 500 MG ER TABLET PO SCH (20:08)
[2019-01-16] MEDS: TraZODone HCL 100 MG TABLET PO SCH (20:08)
[2019-01-16 20:41] VITALS: BP 122/79
[2019-01-17 01:22] VITALS: BP 127/85
[2019-01-17] MEDS: LURASIDONE HCL 80 MG TABLET PO SCH ×2 (07:07→16:36)
[2019-01-17 08:00] VITALS: BP 121/67
[2019-01-17] MEDS: BusPIRone HCL 15 MG TABLET PO SCH ×3 (08:29→16:36)
[2019-01-17] MEDS: GABAPENTIN 400 MG CAPSULE PO SCH ×2 (08:29→16:35)
[2019-01-17] MEDS: LACTULOSE 20 GM/30 ML SOLUTION UDCUP PO SCH (08:29)
[2019-01-17] MEDS: FLUoxetine HCL 20 MG CAPSULE PO SCH (08:30)
[2019-01-17] MEDS: LORazepam 2 MG TABLET PO PRN (08:30)
[2019-01-17] MEDS: TAMSULOSIN HCL 0.4 MG CAPSULE PO SCH (08:30)
[2019-01-17] MEDS: GABAPENTIN 100 MG CAPSULE PO SCH ×2 (08:30→16:35)
[2019-01-17] MEDS: HALOPERIDOL 5 MG TABLET PO PRN (08:31)
[2019-01-17 16:00] VITALS: BP 103/71
[2019-01-17] MEDS: DIVALPROEX SODIUM 500 MG ER TABLET PO SCH (20:35)
[2019-01-17] MEDS: TraZODone HCL 100 MG TABLET PO SCH (20:36)
[2019-01-18] MEDS: ZOLPIDEM TARTRATE 10 MG TABLET PO PRN (02:20)
[2019-01-18] MEDS: LORazepam 2 MG TABLET PO PRN (02:20)
[2019-01-18 06:55] LABS: ANION GAP 5 mmol/L (8-16); CALCIUM, TOTAL 9.2 mg/dL (8.8-10.5); CARBON DIOXIDE 32 mmol/L (22-29); CHLORIDE 103 mmol/L (98-107); CREATININE 1.29 mg/dL (0.60-1.30); GLOMERULAR FILTR. RATE CALC > 60 mL/min (>60); GLUCOSE,RANDOM 90 mg/dL (70-110); POTASSIUM 3.6 mmol/L (3.5-5.1); SODIUM SERUM 140 mmol/L (136-145); UREA NITROGEN, BLOOD 20 mg/dL (7-18)
[2019-01-18] MEDS: LURASIDONE HCL 80 MG TABLET PO SCH ×2 (07:04→16:35)
[2019-01-18] MEDS: GABAPENTIN 100 MG CAPSULE PO SCH ×2 (08:08→16:35)
[2019-01-18] MEDS: GABAPENTIN 400 MG CAPSULE PO SCH ×2 (08:08→16:36)
[2019-01-18] MEDS: LACTULOSE 20 GM/30 ML SOLUTION UDCUP PO SCH (08:09)
[2019-01-18] MEDS: FLUoxetine HCL 20 MG CAPSULE PO SCH (08:09)
[2019-01-18] MEDS: BusPIRone HCL 15 MG TABLET PO SCH ×3 (08:09→16:35)
[2019-01-18] MEDS: TAMSULOSIN HCL 0.4 MG CAPSULE PO SCH (08:09)
[2019-01-18 08:15] VITALS: BP 95/58
[2019-01-18 16:30] VITALS: BP 109/72
[2019-01-18] MEDS ORDERED: LORA0.5T2 PO ×2 (16:38→16:42)
[2019-01-18] MEDS: TraZODone HCL 100 MG TABLET PO SCH (20:14)
[2019-01-18] MEDS: DIVALPROEX SODIUM 500 MG ER TABLET PO SCH (20:14)
[2019-01-19 00:20] VITALS: BP 114/63
[2019-01-19] MEDS: ZOLPIDEM TARTRATE 10 MG TABLET PO PRN (00:21)
[2019-01-19] MEDS: LORazepam 2 MG TABLET PO PRN (00:21)
[2019-01-19] MEDS: LURASIDONE HCL 80 MG TABLET PO SCH (06:31)
[2019-01-19 09:07] VITALS: BP 137/78
[2019-01-19] MEDS: FLUoxetine HCL 20 MG CAPSULE PO SCH (09:34)
[2019-01-19] MEDS: TAMSULOSIN HCL 0.4 MG CAPSULE PO SCH (09:34)
[2019-01-19] MEDS: BusPIRone HCL 15 MG TABLET PO SCH ×2 (09:34→13:39)
[2019-01-19] MEDS: LACTULOSE 20 GM/30 ML SOLUTION UDCUP PO SCH (09:34)
[2019-01-19] MEDS: GABAPENTIN 400 MG CAPSULE PO SCH (09:34)
[2019-01-19] MEDS: GABAPENTIN 100 MG CAPSULE PO SCH (09:34)
[2019-01-19] MEDS ORDERED: LORA0.5T2 PO (13:37)
== END 2019-01-19 15:26 | disposition home or self-care (01) | DRG 750 ==
LOC: EMS 19:49 → 3EC 01-13 10:54 → 3EI 01-18 16:44
PROVIDERS: ADMIT Psychiatry & Neurology Psychiatry; ATTEND Psychiatry & Neurology Psychiatry
DX: F25.0 Schizoaffective disorder, bipolar type (principal); F30.9 Manic episode, unspecified; R45.851 Suicidal ideations; E03.9 Hypothyroidism, unspecified; F12.90 Cannabis use, unspecified, uncomplicated; F41.0 Panic disorder [episodic paroxysmal anxiety]; F43.10 Post-traumatic stress disorder, unspecified; F84.0 Autistic disorder; G40.909 Epilepsy, unspecified, not intractable, without status epilepticus; Z91.5 Personal history of self-harm; Z81.8 Family history of other mental and behavioral disorders; Z79.899 Other long term (current) drug therapy; N40.1 Benign prostatic hyperplasia with lower urinary tract symptoms; N18.9 Chronic kidney disease, unspecified; G47.00 Insomnia, unspecified; F60.3 Borderline personality disorder
CPT/HCPCS: 96372; G0480; J1200; J1630; J2060

== ENCOUNTER 2019-05-14 18:59 | Inpatient (IN) | payer MEDICAID, OTHER ==
[~2019-05-14] VITALS: Ht 170.2 cm; Wt 72.9 kg
[~2019-05-14 18:59] MED LIST changes: -DEUT6TAB PO; +GABA-529 PO; +LORA-999 PO
[2019-05-14] MEDS ORDERED: DEUT6TAB PO (19:20)
[2019-05-14 19:58] LABS: AMPHET/METH SCREEN,URINE NEGATIVE (NEGATIVE); BARBITURATE SCREEN, URINE NEGATIVE (NEGATIVE); BENZODIAZEPINES SCREEN,URINE NEGATIVE (NEGATIVE); CANNABINOID SCREEN,URINE POSITIVE (NEGATIVE); COCAINE SCREEN,URINE NEGATIVE (NEGATIVE); METHADONE SCREEN, URINE NEGATIVE (NEGATIVE); OPIATE SCREEN,URINE NEGATIVE (NEGATIVE)
[2019-05-14 19:59] LABS: BASOPHILS % (AUTO) 0.6 % (0.0-2.0); EOSINOPHILS % (AUTO) 1.3 % (1.0-6.0); HEMATOCRIT 41.5 % (41-53); LYMPHOCYTES # (AUTO) 1.7 K/uL (1.0-4.8); LYMPHOCYTES % (AUTO) 31.6 % (22.0-44.0); MEAN CORPUSCULAR HEMOGLOBIN 30.5 pg (26.0-34.0); MEAN CORPUSCULAR HGB CONC 33.8 G/dL (31.0-37.0); MEAN CORPUSCULAR VOLUME 90 fL (80-100); MONOCYTES # (AUTO) 0.6 K/uL (0.1-1.0); MONOCYTES % (AUTO) 10.9 % (2.0-9.0); NEUTROPHILS # (AUTO) 2.9 K/uL (1.8-7.7); NEUTROPHILS % (AUTO) 55.6 % (40.0-70.0); PLATELET COUNT (AUTO) 156 K/uL (150-450); RED BLOOD CELL COUNT(AUTO) 4.59 MIL/uL (4.50-5.90); RED CELL DISTRIBUTION WIDTH 13.6 % (11.5-14.5)
[2019-05-14 20:01] LABS: APPEARANCE,URINE CLEAR (CLEAR); BILIRUBIN,URINE NEGATIVE (NEGATIVE); GLUCOSE, URINE (UA) NEGATIVE (NEGATIVE); KETONES,URINE NEGATIVE (NEGATIVE); LEUKOCYTE ESTERASE ,URINE NEGATIVE (NEGATIVE); NITRATE,URINE NEGATIVE (NEGATIVE); OCCULT BLOOD,URINE NEGATIVE (NEGATIVE); PROTEIN,URINE NEGATIVE (NEGATIVE); UROBILINOGEN,URINE 0.2 mg/dL (<=1.0)
[2019-05-14 20:02] LABS: PHENCYCLIDINE SCREEN,URINE NEGATIVE (NEGATIVE)
[2019-05-14 20:12] LABS: ANION GAP 8 mmol/L (8-16); CALCIUM, TOTAL 9.2 mg/dL (8.8-10.5); CARBON DIOXIDE 30 mmol/L (22-29); CHLORIDE 101 mmol/L (98-107); CREATININE 1.08 mg/dL (0.60-1.30); GLOMERULAR FILTR. RATE CALC > 60 mL/min (>60); GLUCOSE,RANDOM 78 mg/dL (70-110); POTASSIUM 4.3 mmol/L (3.5-5.1); SODIUM SERUM 139 mmol/L (136-145); UREA NITROGEN, BLOOD 20 mg/dL (7-18)
[2019-05-14 20:18] LABS: ALANINE AMINOTRANSFERASE 15 U/L (12-78); ALBUMIN 3.7 g/dL (3.4-5.0); ALKALINE PHOSPHATASE 49 U/L (46-116); ASPARTATE AMINOTRANSFERASE 18 U/L (15-37); BILIRUBIN,TOTAL 0.3 mg/dL (0.1-1.0); TOTAL PROTEIN, SERUM 7.9 g/dL (6.4-8.2)
[2019-05-14] MEDS ORDERED: DiphenhydrAMINE HCL 50 MG/ML VIAL IM ONE (20:45)
[2019-05-14] MEDS ORDERED: HALOPERIDOL LACTATE 5 MG/ML VIAL IM ONE (20:45)
[2019-05-14] MEDS ORDERED: LORazepam 2 MG/ML VIAL IM ONE (20:45)
[2019-05-15 03:19] LABS: CHOL/HDL RATIO 4.8 (4.2-7.3); CHOLESTEROL 224 mg/dL (131-200); HDL CHOLESTEROL 47 mg/dL (40-60); LDL CHOL (CALC.) 136 mg/dL (0-130); TRIGLYCERIDES 206 mg/dL (15-150)
[2019-05-15] MEDS: LORazepam 2 MG TABLET PO PRN (09:09)
[2019-05-15] MEDS: HALOPERIDOL 5 MG TABLET PO PRN (09:09)
[2019-05-15 09:23] VITALS: BP 119/82
[2019-05-15] MEDS ORDERED: ACETAMINOPHEN 325 MG TABLET PO PRN (09:30)
[2019-05-15] MEDS ORDERED: IBUPROFEN 400 MG TABLET PO PRN (09:30)
[2019-05-15] MEDS ORDERED: GuaiFENesin/D-METHORPHAN [SUGAR-FREE] 200-20MG/10 ML SYRUP UDCUP PO PRN (09:30)
[2019-05-15] MEDS ORDERED: ALBUTEROL SULFATE HFA 90 MCG/PUFF 8 GM INHALER IH PRN (09:30)
[2019-05-15] MEDS ORDERED: ONDANSETRON HCL 4 MG TABLET PO PRN (09:30)
[2019-05-15] MEDS ORDERED: DOCUSATE SODIUM 100 MG CAPSULE PO PRN (09:30)
[2019-05-15] MEDS ORDERED: MAGNESIUM HYDROXIDE SUSPENSION 30 ML UDCUP PO PRN (09:30)
[2019-05-15] MEDS ORDERED: PETROLATUM,WHITE 28 GM JELLY TP PRN (09:30)
[2019-05-15] MEDS ORDERED: LOPERAMIDE HCL 2 MG CAPSULE PO PRN (09:30)
[2019-05-15] MEDS ORDERED: MAG HYDROX/AL HYDROX/SIMETH ES 30 ML SUSPENSION UDCUP PO PRN (09:30)
[2019-05-15] MEDS ORDERED: NICOTINE 14 MG/24 HOUR PATCH TD PRN (09:30)
[2019-05-15] MEDS ORDERED: CloNIDine HCL 0.1 MG TABLET PO PRN (09:30)
[2019-05-15] MEDS ORDERED: INFLUENZA VIRUS VACCINE QVS 2019-20 (3YR+)/PF 60 MCG/0.5 ML SYRINGE IM ONE (11:00)
[2019-05-15] MEDS: BusPIRone HCL 15 MG TABLET PO SCH (13:21)
[2019-05-15 20:27] VITALS: BP 123/88
[2019-05-15] MEDS: TraZODone HCL 100 MG TABLET PO SCH (21:21)
[2019-05-15] MEDS: DIVALPROEX SODIUM 500 MG ER TABLET PO SCH (21:21)
[2019-05-16] MEDS: LURASIDONE HCL 80 MG TABLET PO SCH ×2 (07:04→09:23)
[2019-05-16 07:17] LABS: BASOPHILS % (AUTO) 0.5 % (0.0-2.0); HEMATOCRIT 41.5 % (41-53); LYMPHOCYTES # (AUTO) 2.6 K/uL (1.0-4.8); LYMPHOCYTES % (AUTO) 36.5 % (22.0-44.0); MEAN CORPUSCULAR HEMOGLOBIN 30.5 pg (26.0-34.0); MEAN CORPUSCULAR HGB CONC 33.6 G/dL (31.0-37.0); MEAN CORPUSCULAR VOLUME 91 fL (80-100); MONOCYTES # (AUTO) 0.9 K/uL (0.1-1.0); MONOCYTES % (AUTO) 12.8 % (2.0-9.0); NEUTROPHILS # (AUTO) 3.6 K/uL (1.8-7.7); NEUTROPHILS % (AUTO) 49.2 % (40.0-70.0); PLATELET COUNT (AUTO) 166 K/uL (150-450); RED BLOOD CELL COUNT(AUTO) 4.58 MIL/uL (4.50-5.90); RED CELL DISTRIBUTION WIDTH 13.4 % (11.5-14.5)
[2019-05-16 07:29] LABS: HEMOGLOBIN A1C 5.4 % (4.5-6.2)
[2019-05-16 07:51] LABS: ALANINE AMINOTRANSFERASE 22 U/L (12-78); ALBUMIN 3.5 g/dL (3.4-5.0); ALKALINE PHOSPHATASE 44 U/L (46-116); ANION GAP 9 mmol/L (8-16); ASPARTATE AMINOTRANSFERASE 27 U/L (15-37); BILIRUBIN,TOTAL 0.4 mg/dL (0.1-1.0); CARBON DIOXIDE 28 mmol/L (22-29); CHLORIDE 103 mmol/L (98-107); CHOLESTEROL 221 mg/dL (131-200); CREATININE 1.23 mg/dL (0.60-1.30); GLOMERULAR FILTR. RATE CALC > 60 mL/min (>60); GLUCOSE,RANDOM 85 mg/dL (70-110); HDL CHOLESTEROL 44 mg/dL (40-60); LDL CHOL (CALC.) 152 mg/dL (0-130); POTASSIUM 4.2 mmol/L (3.5-5.1); SODIUM SERUM 140 mmol/L (136-145); THYROID STIMULATING HORMONE 3.15 uIU/mL (0.36-3.74); TOTAL PROTEIN, SERUM 7.4 g/dL (6.4-8.2); TRIGLYCERIDES 125 mg/dL (15-150); UREA NITROGEN, BLOOD 26 mg/dL (7-18)
[2019-05-16 08:00] VITALS: BP 125/77
[2019-05-16] MEDS: GABAPENTIN 400 MG CAPSULE PO SCH ×3 (08:45→16:19)
[2019-05-16] MEDS: LORazepam 0.5 MG TABLET PO SCH ×3 (08:45→16:19)
[2019-05-16] MEDS: BusPIRone HCL 15 MG TABLET PO SCH ×4 (08:47→16:19)
[2019-05-16] MEDS: FLUoxetine HCL 20 MG CAPSULE PO SCH (08:47)
[2019-05-16 16:02] VITALS: BP 115/92
[2019-05-16] MEDS: DIVALPROEX SODIUM 500 MG ER TABLET PO SCH (20:25)
[2019-05-16] MEDS: TraZODone HCL 100 MG TABLET PO SCH (20:25)
[2019-05-17] MEDS: LURASIDONE HCL 80 MG TABLET PO SCH ×2 (07:02→17:30)
[2019-05-17] MEDS: FLUoxetine HCL 20 MG CAPSULE PO SCH (09:21)
[2019-05-17] MEDS: GABAPENTIN 400 MG CAPSULE PO SCH ×2 (09:21→16:22)
[2019-05-17] MEDS: BusPIRone HCL 15 MG TABLET PO SCH ×3 (09:21→16:22)
[2019-05-17] MEDS: LORazepam 0.5 MG TABLET PO SCH ×2 (09:21→16:22)
[2019-05-17 13:25] VITALS: BP 134/96
[2019-05-17 16:39] VITALS: BP 115/79
[2019-05-17] MEDS: DIVALPROEX SODIUM 500 MG ER TABLET PO SCH (21:00)
[2019-05-17] MEDS: TraZODone HCL 100 MG TABLET PO SCH (21:00)
[2019-05-18] MEDS: LORazepam 2 MG TABLET PO PRN (00:39)
[2019-05-18] MEDS: ZOLPIDEM TARTRATE 10 MG TABLET PO PRN (00:39)
[2019-05-18] MEDS: LURASIDONE HCL 80 MG TABLET PO SCH ×2 (06:44→20:01)
[2019-05-18] MEDS: GABAPENTIN 400 MG CAPSULE PO SCH ×2 (10:31→20:01)
[2019-05-18] MEDS: FLUoxetine HCL 20 MG CAPSULE PO SCH (10:31)
[2019-05-18] MEDS: LORazepam 0.5 MG TABLET PO SCH ×2 (10:32→20:01)
[2019-05-18] MEDS: BusPIRone HCL 15 MG TABLET PO SCH ×3 (10:32→20:01)
[2019-05-18 11:28] VITALS: BP 110/73
[2019-05-18 16:13] VITALS: BP 116/77
[2019-05-18] MEDS: TAMSULOSIN HCL 0.4 MG CAPSULE PO SCH (20:02)
[2019-05-18] MEDS: DIVALPROEX SODIUM 500 MG ER TABLET PO SCH (20:02)
[2019-05-18] MEDS: TraZODone HCL 100 MG TABLET PO SCH (20:02)
[2019-05-19] MEDS: ZOLPIDEM TARTRATE 10 MG TABLET PO PRN (00:12)
[2019-05-19] MEDS: LORazepam 2 MG TABLET PO PRN (00:13)
[2019-05-19] MEDS: LURASIDONE HCL 80 MG TABLET PO SCH ×2 (06:57→16:40)
[2019-05-19] MEDS: GABAPENTIN 400 MG CAPSULE PO SCH ×2 (09:20→16:40)
[2019-05-19] MEDS: FLUoxetine HCL 20 MG CAPSULE PO SCH (09:20)
[2019-05-19] MEDS: BusPIRone HCL 15 MG TABLET PO SCH ×3 (09:20→16:40)
[2019-05-19] MEDS: LORazepam 0.5 MG TABLET PO SCH ×2 (09:21→16:40)
[2019-05-19 16:03] VITALS: BP 119/73
[2019-05-19] MEDS: TAMSULOSIN HCL 0.4 MG CAPSULE PO SCH (20:36)
[2019-05-19] MEDS: TraZODone HCL 100 MG TABLET PO SCH (20:36)
[2019-05-19] MEDS: DIVALPROEX SODIUM 500 MG ER TABLET PO SCH (20:36)
[2019-05-20 00:06] VITALS: BP 131/74
[2019-05-20] MEDS: ZOLPIDEM TARTRATE 10 MG TABLET PO PRN ×2 (00:17→21:09)
[2019-05-20] MEDS: LORazepam 2 MG TABLET PO PRN (00:17)
[2019-05-20] MEDS: LURASIDONE HCL 80 MG TABLET PO SCH ×2 (07:04→17:36)
[2019-05-20] MEDS: GABAPENTIN 400 MG CAPSULE PO SCH ×2 (08:27→17:19)
[2019-05-20] MEDS: BusPIRone HCL 15 MG TABLET PO SCH ×3 (08:27→17:19)
[2019-05-20] MEDS: FLUoxetine HCL 20 MG CAPSULE PO SCH (08:27)
[2019-05-20] MEDS: LORazepam 0.5 MG TABLET PO SCH ×2 (08:28→17:19)
[2019-05-20 09:43] VITALS: BP 147/92
[2019-05-20 16:08] VITALS: BP 119/74
[2019-05-20] MEDS: DIVALPROEX SODIUM 500 MG ER TABLET PO SCH (20:48)
[2019-05-20] MEDS: TAMSULOSIN HCL 0.4 MG CAPSULE PO SCH (20:48)
[2019-05-20] MEDS: TraZODone HCL 100 MG TABLET PO SCH (20:48)
[2019-05-21] MEDS: HALOPERIDOL 5 MG TABLET PO PRN (03:13)
[2019-05-21] MEDS: LORazepam 2 MG TABLET PO PRN (03:13)
[2019-05-21] MEDS: LURASIDONE HCL 80 MG TABLET PO SCH (06:49)
[2019-05-21] MEDS: GABAPENTIN 400 MG CAPSULE PO SCH (09:06)
[2019-05-21] MEDS: LORazepam 0.5 MG TABLET PO SCH (09:07)
[2019-05-21] MEDS: FLUoxetine HCL 20 MG CAPSULE PO SCH (09:07)
[2019-05-21] MEDS: BusPIRone HCL 15 MG TABLET PO SCH ×2 (09:07→12:45)
[2019-05-21 11:59] VITALS: BP 104/84
[2019-05-21] MEDS ORDERED: BUSP30TA2 PO (12:45)
[2019-05-21] MEDS ORDERED: FLUO40CA7 PO (12:46)
[2019-05-21] MEDS ORDERED: DIVA250T60 PO (12:46)
[2019-05-21] MEDS ORDERED: GABA800T PO (12:47)
[2019-05-21] MEDS ORDERED: LURA20TA PO (12:48)
[2019-05-21] MEDS ORDERED: LORA0.5T83 PO (12:48)
[2019-05-21] MEDS ORDERED: TAMS-1 PO (12:49)
[2019-05-21] MEDS ORDERED: TRAZ-186 PO (12:50)
== END 2019-05-21 14:20 | disposition home or self-care (01) | DRG 750 ==
LOC: EMS 18:59 → B3A 05-15 06:50 → 3EC 05-15 07:40
PROVIDERS: ADMIT Psychiatry & Neurology Psychiatry; ATTEND Psychiatry & Neurology Psychiatry
DX: F25.0 Schizoaffective disorder, bipolar type (principal); G21.0 Malignant neuroleptic syndrome; R45.851 Suicidal ideations; K72.90 Hepatic failure, unspecified without coma; E03.9 Hypothyroidism, unspecified; F41.0 Panic disorder [episodic paroxysmal anxiety]; F32.9 Major depressive disorder, single episode, unspecified; F43.10 Post-traumatic stress disorder, unspecified; F84.0 Autistic disorder; F12.10 Cannabis abuse, uncomplicated; F60.3 Borderline personality disorder; G40.909 Epilepsy, unspecified, not intractable, without status epilepticus; G47.00 Insomnia, unspecified; R33.8 Other retention of urine; N18.9 Chronic kidney disease, unspecified; N40.1 Benign prostatic hyperplasia with lower urinary tract symptoms; Z79.899 Other long term (current) drug therapy; Z81.8 Family history of other mental and behavioral disorders; Z91.5 Personal history of self-harm; Z28.21 Immunization not carried out because of patient refusal; Z88.1 Allergy status to other antibiotic agents; Z71.51 Drug abuse counseling and surveillance of drug abuser; Z72.89 Other problems related to lifestyle; Z71.41 Alcohol abuse counseling and surveillance of alcoholic
CPT/HCPCS: 83036; 84443; 97162; 97530; 99291; G0480; J1200; J1630; J2060

== ENCOUNTER 2019-05-15 15:49 | Emergency (ER) | payer MEDICAID ==
[~2019-05-15] VITALS: Ht 180.3 cm; Wt 79.5 kg
[~2019-05-15 15:49] MED LIST changes: +DEUT6TAB PO
[2019-05-15 17:17] VITALS: BP 155/75
== END 2019-05-15 19:00 | disposition other institution (70) ==
LOC: EMS 15:51
DX: F25.9 Schizoaffective disorder, unspecified (principal); F31.9 Bipolar disorder, unspecified; E03.9 Hypothyroidism, unspecified; F12.90 Cannabis use, unspecified, uncomplicated; Z79.899 Other long term (current) drug therapy; Z98.890 Other specified postprocedural states; Z88.1 Allergy status to other antibiotic agents

== ENCOUNTER 2021-10-22 18:51 | Emergency (ER) | payer OTHER ==
[~2021-10-22] VITALS: Ht 175.3 cm; Wt 82.0 kg
[~2021-10-22 18:51] MED LIST changes: -BUSP15 PO; +BUSP30TA2 PO; -DEUT6TAB PO; +DIVA250T60 PO; -DIVA500T52 PO; -FLUO-191 PO; +FLUO40CA7 PO; -GABA-529 PO; -GABA-533 PO; +GABA800T PO; -LACT30L PO; -LORA-999 PO; +LORA0.5T83 PO; +LURA20TA PO; -LURA80 PO; +TRAZ-186 PO; -TRAZ-220 PO
[2021-10-22 19:51] LABS: BASOPHILS % (AUTO) 0.6 % (0.0-2.0); EOSINOPHILS % (AUTO) 1.7 % (1.0-6.0); HEMATOCRIT 38.4 % (41-53); LYMPHOCYTES # (AUTO) 2.7 K/uL (1.0-4.8); LYMPHOCYTES % (AUTO) 28.3 % (22.0-44.0); MEAN CORPUSCULAR HGB CONC 33.8 G/dL (31.0-37.0); MEAN CORPUSCULAR VOLUME 83 fL (80-100); MONOCYTES # (AUTO) 0.7 K/uL (0.1-1.0); MONOCYTES % (AUTO) 7.1 % (2.0-9.0); NEUTROPHILS # (AUTO) 5.9 K/uL (1.8-7.7); NEUTROPHILS % (AUTO) 62.3 % (40.0-70.0); PLATELET COUNT (AUTO) 277 K/uL (150-450); RED BLOOD CELL COUNT(AUTO) 4.64 MIL/uL (4.50-5.90); RED CELL DISTRIBUTION WIDTH 12.8 % (11.5-14.5)
[2021-10-22 20:01] LABS: ANION GAP 8 mmol/L (8-16); CARBON DIOXIDE 29 mmol/L (22-29); CHLORIDE 101 mmol/L (98-107); CREATININE 1.11 mg/dL (0.60-1.30); GLOMERULAR FILTR. RATE CALC > 60 mL/min (>60); GLUCOSE,RANDOM 117 mg/dL (70-110); POTASSIUM 3.5 mmol/L (3.5-5.1); SODIUM SERUM 138 mmol/L (136-145); UREA NITROGEN, BLOOD 11 mg/dL (7-18)
[2021-10-22 20:04] LABS: PROTHROMBIN TIME 10.9 SEC (9.4-11.6)
[2021-10-22 20:07] LABS: ALANINE AMINOTRANSFERASE 65 U/L (12-78); ALBUMIN 3.7 g/dL (3.4-5.0); ALKALINE PHOSPHATASE 77 U/L (46-116); ASPARTATE AMINOTRANSFERASE 37 U/L (15-37); BILIRUBIN,TOTAL 0.2 mg/dL (0.1-1.0); TOTAL PROTEIN, SERUM 7.1 g/dL (6.4-8.2)
[2021-10-22 21:09] VITALS: BP 142/85
== END 2021-10-22 21:00 | disposition home or self-care (01) ==
LOC: EMS 18:55
DX: K62.5 Hemorrhage of anus and rectum (principal); F31.9 Bipolar disorder, unspecified; E03.9 Hypothyroidism, unspecified; F20.9 Schizophrenia, unspecified; F84.0 Autistic disorder; F12.90 Cannabis use, unspecified, uncomplicated; Z86.59 Personal history of other mental and behavioral disorders; Z86.69 Personal history of other diseases of the nervous system and sense organs; Z87.448 Personal history of other diseases of urinary system; Z88.1 Allergy status to other antibiotic agents
CPT/HCPCS: 80053; 84484; 85025; 85610; 85730; 93005; 99284

== ENCOUNTER 2021-10-30 09:18 | Inpatient (IN) | payer MEDICAID, OTHER ==
[~2021-10-30] VITALS: Ht 172.7 cm; Wt 86.2 kg
[2021-10-30 10:53] LABS: BASOPHILS % (AUTO) 1.2 % (0.0-2.0); EOSINOPHILS % (AUTO) 0.8 % (1.0-6.0); HEMOGLOBIN 13.8 g/dL (13.5-17.5); LYMPHOCYTES # (AUTO) 1.6 K/uL (1.0-4.8); LYMPHOCYTES % (AUTO) 21.5 % (22.0-44.0); MEAN CORPUSCULAR HEMOGLOBIN 27.9 pg (26.0-34.0); MEAN CORPUSCULAR HGB CONC 33.6 G/dL (31.0-37.0); MEAN CORPUSCULAR VOLUME 83 fL (80-100); MONOCYTES # (AUTO) 0.5 K/uL (0.1-1.0); NEUTROPHILS # (AUTO) 5.3 K/uL (1.8-7.7); NEUTROPHILS % (AUTO) 70.5 % (40.0-70.0); PLATELET COUNT (AUTO) 297 K/uL (150-450); RED BLOOD CELL COUNT(AUTO) 4.93 MIL/uL (4.50-5.90); RED CELL DISTRIBUTION WIDTH 13.1 % (11.5-14.5)
[2021-10-30 10:57] LABS: COVID AG,FIA SOURCE NASOPHARYNGEAL
[2021-10-30 11:02] LABS: ANION GAP 9 mmol/L (8-16); CALCIUM, TOTAL 9.4 mg/dL (8.8-10.5); CARBON DIOXIDE 30 mmol/L (22-29); CHLORIDE 102 mmol/L (98-107); CREATININE 1.03 mg/dL (0.60-1.30); GLOMERULAR FILTR. RATE CALC > 60 mL/min (>60); GLUCOSE,RANDOM 101 mg/dL (70-110); POTASSIUM 3.8 mmol/L (3.5-5.1); SODIUM SERUM 141 mmol/L (136-145); UREA NITROGEN, BLOOD 13 mg/dL (7-18)
[2021-10-30 11:05] LABS: ALANINE AMINOTRANSFERASE 70 U/L (12-78); ALBUMIN 4.1 g/dL (3.4-5.0); ALKALINE PHOSPHATASE 72 U/L (46-116); ASPARTATE AMINOTRANSFERASE 24 U/L (15-37); BILIRUBIN,TOTAL 0.3 mg/dL (0.1-1.0); TOTAL PROTEIN, SERUM 7.7 g/dL (6.4-8.2)
[2021-10-30 11:06] LABS: VALPROIC ACID < 3 mcg/mL (50-100)
[2021-10-30 16:30] VITALS: BP 128/84
[2021-10-30] MEDS: HALOPERIDOL 5 MG TABLET PO PRN (16:43)
[2021-10-30] MEDS: LORazepam 2 MG TABLET PO PRN ×2 (16:43→20:44)
[2021-10-30 18:31] VITALS: BP 128/84
[2021-10-30] MEDS: ZOLPIDEM TARTRATE 10 MG TABLET PO PRN (20:45)
[2021-10-31] MEDS: LORazepam 2 MG TABLET PO PRN ×3 (01:56→17:39)
[2021-10-31] MEDS: HALOPERIDOL 5 MG TABLET PO PRN ×2 (01:56→08:02)
[2021-10-31 05:16] VITALS: BP 155/104
[2021-10-31] MEDS: FLUoxetine HCL 20 MG CAPSULE PO SCH (08:02)
[2021-10-31] MEDS: LOXAPINE SUCCINATE 25 MG CAPSULE PO SCH ×3 (08:03→16:36)
[2021-10-31] MEDS: LOXAPINE SUCCINATE 5 MG CAPSULE PO SCH ×3 (08:03→16:37)
[2021-10-31] MEDS: GABAPENTIN 300 MG CAPSULE PO SCH ×3 (08:03→16:36)
[2021-10-31 08:25] VITALS: BP 125/82
[2021-10-31] MEDS: TAMSULOSIN HCL 0.4 MG CAPSULE PO SCH ×2 (09:10→16:36)
[2021-10-31] MEDS ORDERED: DOCUSATE SODIUM 100 MG CAPSULE PO PRN (11:00)
[2021-10-31] MEDS ORDERED: ALBUTEROL SULFATE HFA 90 MCG/PUFF 8 GM INHALER IH PRN (11:00)
[2021-10-31] MEDS ORDERED: GuaiFENesin/D-METHORPHAN [SUGAR-FREE] 200-20MG/10 ML SYRUP UDCUP PO PRN (11:00)
[2021-10-31] MEDS ORDERED: PETROLATUM,WHITE 28 GM JELLY TP PRN (11:00)
[2021-10-31] MEDS ORDERED: NICOTINE 14 MG/24 HOUR PATCH TD PRN (11:00)
[2021-10-31] MEDS: IBUPROFEN 400 MG TABLET PO PRN (12:16)
[2021-10-31 16:08] VITALS: BP 110/62
[2021-10-31] MEDS: DOCUSATE SODIUM 100 MG CAPSULE PO PRN (17:24)
[2021-10-31] MEDS: TraZODone HCL 100 MG TABLET PO SCH (20:34)
[2021-10-31] MEDS: MELATONIN 5 MG TABLET PO SCH (20:34)
[2021-10-31] MEDS: PRAZOSIN HCL 2 MG CAPSULE PO SCH (20:35)
[2021-11-01] MEDS: IBUPROFEN 400 MG TABLET PO PRN (01:19)
[2021-11-01] MEDS: DOCUSATE SODIUM 100 MG CAPSULE PO PRN (02:32)
[2021-11-01 03:51] VITALS: BP 108/71
[2021-11-01] MEDS: MAGNESIUM HYDROXIDE SUSPENSION 30 ML UDCUP PO PRN (05:32)
[2021-11-01] MEDS: LOXAPINE SUCCINATE 25 MG CAPSULE PO SCH ×3 (08:03→16:32)
[2021-11-01] MEDS: GABAPENTIN 300 MG CAPSULE PO SCH ×3 (08:04→16:32)
[2021-11-01] MEDS: FLUoxetine HCL 20 MG CAPSULE PO SCH (08:04)
[2021-11-01] MEDS: LOXAPINE SUCCINATE 5 MG CAPSULE PO SCH ×3 (08:04→16:32)
[2021-11-01] MEDS: TAMSULOSIN HCL 0.4 MG CAPSULE PO SCH ×2 (08:04→16:32)
[2021-11-01] MEDS: LORazepam 2 MG TABLET PO PRN ×2 (08:05→15:54)
[2021-11-01 08:10] VITALS: BP 121/76
[2021-11-01] MEDS: HALOPERIDOL 5 MG TABLET PO PRN ×2 (08:38→15:54)
[2021-11-01 16:12] VITALS: BP 113/77
[2021-11-01] MEDS: TraZODone HCL 100 MG TABLET PO SCH (20:26)
[2021-11-01] MEDS: MELATONIN 5 MG TABLET PO SCH (20:27)
[2021-11-01] MEDS: PRAZOSIN HCL 2 MG CAPSULE PO SCH (20:28)
[2021-11-02 03:30] VITALS: BP 117/72
[2021-11-02] MEDS: IBUPROFEN 400 MG TABLET PO PRN ×2 (05:21→20:54)
[2021-11-02 08:08] VITALS: BP 109/69
[2021-11-02] MEDS: GABAPENTIN 300 MG CAPSULE PO SCH ×3 (08:20→16:24)
[2021-11-02] MEDS: FLUoxetine HCL 20 MG CAPSULE PO SCH (08:21)
[2021-11-02] MEDS: LORazepam 2 MG TABLET PO PRN ×3 (08:21→20:41)
[2021-11-02] MEDS: HALOPERIDOL 5 MG TABLET PO PRN ×2 (08:21→16:23)
[2021-11-02] MEDS: TAMSULOSIN HCL 0.4 MG CAPSULE PO SCH ×2 (08:21→16:24)
[2021-11-02] MEDS: LOXAPINE SUCCINATE 5 MG CAPSULE PO SCH ×3 (08:22→16:24)
[2021-11-02] MEDS: LOXAPINE SUCCINATE 25 MG CAPSULE PO SCH ×3 (08:22→16:24)
[2021-11-02] MEDS: DOCUSATE SODIUM 100 MG CAPSULE PO PRN (09:20)
[2021-11-02] MEDS ORDERED: BUSP15 PO (12:58)
[2021-11-02] MEDS ORDERED: LURA80TA2 PO (12:58)
[2021-11-02] MEDS ORDERED: DIVA-80 PO (12:58)
[2021-11-02] MEDS ORDERED: GABA-1201 PO (12:58)
[2021-11-02 16:09] VITALS: BP 129/86
[2021-11-02] MEDS: MELATONIN 5 MG TABLET PO SCH (20:40)
[2021-11-02] MEDS: TraZODone HCL 100 MG TABLET PO SCH (20:40)
[2021-11-02] MEDS: PRAZOSIN HCL 2 MG CAPSULE PO SCH (20:41)
[2021-11-03 00:07] VITALS: BP 126/93
[2021-11-03] MEDS: ACETAMINOPHEN 325 MG TABLET PO PRN (00:12)
[2021-11-03] MEDS: LORazepam 2 MG TABLET PO PRN ×3 (00:12→20:32)
[2021-11-03] MEDS: LOXAPINE SUCCINATE 25 MG CAPSULE PO SCH ×3 (08:11→16:13)
[2021-11-03] MEDS: LOXAPINE SUCCINATE 5 MG CAPSULE PO SCH ×3 (08:12→16:13)
[2021-11-03] MEDS: FLUoxetine HCL 20 MG CAPSULE PO SCH (08:12)
[2021-11-03] MEDS: TAMSULOSIN HCL 0.4 MG CAPSULE PO SCH ×2 (08:12→16:13)
[2021-11-03] MEDS: GABAPENTIN 300 MG CAPSULE PO SCH ×3 (08:12→16:14)
[2021-11-03 08:20] VITALS: BP 120/62
[2021-11-03] MEDS: DOCUSATE SODIUM 100 MG CAPSULE PO PRN (12:44)
[2021-11-03] MEDS: HALOPERIDOL 5 MG TABLET PO PRN ×2 (12:44→16:48)
[2021-11-03 16:18] VITALS: BP 148/82
[2021-11-03] MEDS: TraZODone HCL 100 MG TABLET PO SCH (20:32)
[2021-11-03] MEDS: MELATONIN 5 MG TABLET PO SCH (20:32)
[2021-11-03] MEDS: PRAZOSIN HCL 2 MG CAPSULE PO SCH (20:32)
[2021-11-04] MEDS: ACETAMINOPHEN 325 MG TABLET PO PRN (00:19)
[2021-11-04 01:13] VITALS: BP 117/78
[2021-11-04 08:12] VITALS: BP 110/76
[2021-11-04] MEDS: LORazepam 2 MG TABLET PO PRN (08:22)
[2021-11-04] MEDS: DOCUSATE SODIUM 100 MG CAPSULE PO SCH (08:22)
[2021-11-04] MEDS: TAMSULOSIN HCL 0.4 MG CAPSULE PO SCH ×2 (08:22→18:21)
[2021-11-04] MEDS: FLUoxetine HCL 20 MG CAPSULE PO SCH (08:22)
[2021-11-04] MEDS: GABAPENTIN 300 MG CAPSULE PO SCH ×3 (08:23→18:37)
[2021-11-04] MEDS: LOXAPINE SUCCINATE 5 MG CAPSULE PO SCH ×3 (08:23→18:21)
[2021-11-04] MEDS: LOXAPINE SUCCINATE 25 MG CAPSULE PO SCH ×3 (08:23→18:21)
[2021-11-04] MEDS: IBUPROFEN 400 MG TABLET PO PRN ×2 (13:34→18:39)
[2021-11-04 16:13] VITALS: BP 118/70
[2021-11-04] MEDS: MELATONIN 5 MG TABLET PO SCH (21:05)
[2021-11-04] MEDS: TraZODone HCL 100 MG TABLET PO SCH (21:05)
[2021-11-04] MEDS: PRAZOSIN HCL 2 MG CAPSULE PO SCH (21:05)
[2021-11-05 02:51] VITALS: BP 121/72
[2021-11-05] MEDS: IBUPROFEN 400 MG TABLET PO PRN ×2 (03:00→13:23)
[2021-11-05 04:34] VITALS: BP 135/91
[2021-11-05 08:08] VITALS: BP 149/95
[2021-11-05] MEDS: TAMSULOSIN HCL 0.4 MG CAPSULE PO SCH ×2 (08:19→16:33)
[2021-11-05] MEDS: DOCUSATE SODIUM 100 MG CAPSULE PO SCH (08:19)
[2021-11-05] MEDS: LORazepam 2 MG TABLET PO PRN (08:19)
[2021-11-05] MEDS: FLUoxetine HCL 20 MG CAPSULE PO SCH (08:19)
[2021-11-05] MEDS: GABAPENTIN 300 MG CAPSULE PO SCH ×3 (08:20→16:33)
[2021-11-05] MEDS: LOXAPINE SUCCINATE 5 MG CAPSULE PO SCH ×3 (08:20→16:33)
[2021-11-05] MEDS: LOXAPINE SUCCINATE 25 MG CAPSULE PO SCH ×3 (08:20→16:33)
[2021-11-05 16:12] VITALS: BP 131/92
[2021-11-05] MEDS: MELATONIN 5 MG TABLET PO SCH (20:20)
[2021-11-05] MEDS: PRAZOSIN HCL 2 MG CAPSULE PO SCH (20:20)
[2021-11-05] MEDS: TraZODone HCL 100 MG TABLET PO SCH (20:20)
[2021-11-06] MEDS: IBUPROFEN 400 MG TABLET PO PRN (00:33)
[2021-11-06 01:05] VITALS: BP 124/83
[2021-11-06] MEDS: LORazepam 2 MG TABLET PO PRN (08:18)
[2021-11-06] MEDS: DOCUSATE SODIUM 100 MG CAPSULE PO SCH (08:19)
[2021-11-06] MEDS: TAMSULOSIN HCL 0.4 MG CAPSULE PO SCH ×2 (08:19→16:14)
[2021-11-06] MEDS: FLUoxetine HCL 20 MG CAPSULE PO SCH (08:19)
[2021-11-06] MEDS: LOXAPINE SUCCINATE 5 MG CAPSULE PO SCH ×3 (08:20→16:14)
[2021-11-06] MEDS: GABAPENTIN 300 MG CAPSULE PO SCH ×3 (08:20→16:14)
[2021-11-06] MEDS: LOXAPINE SUCCINATE 25 MG CAPSULE PO SCH ×3 (08:20→16:15)
[2021-11-06 08:31] VITALS: BP 120/83
[2021-11-06 16:08] VITALS: BP 129/82
[2021-11-06] MEDS: MELATONIN 5 MG TABLET PO SCH (20:33)
[2021-11-06] MEDS: TraZODone HCL 100 MG TABLET PO SCH (20:34)
[2021-11-06] MEDS: PRAZOSIN HCL 2 MG CAPSULE PO SCH (20:34)
[2021-11-07 05:01] VITALS: BP 121/82
[2021-11-07] MEDS: TAMSULOSIN HCL 0.4 MG CAPSULE PO SCH ×2 (08:05→16:20)
[2021-11-07] MEDS: LOXAPINE SUCCINATE 25 MG CAPSULE PO SCH ×3 (08:05→16:20)
[2021-11-07] MEDS: DOCUSATE SODIUM 100 MG CAPSULE PO SCH (08:05)
[2021-11-07] MEDS: FLUoxetine HCL 20 MG CAPSULE PO SCH (08:05)
[2021-11-07] MEDS: LOXAPINE SUCCINATE 5 MG CAPSULE PO SCH ×3 (08:05→16:20)
[2021-11-07] MEDS: GABAPENTIN 300 MG CAPSULE PO SCH ×3 (08:05→16:20)
[2021-11-07] MEDS: LORazepam 2 MG TABLET PO PRN ×3 (08:06→17:34)
[2021-11-07 08:12] VITALS: BP 118/76
[2021-11-07] MEDS: HALOPERIDOL 5 MG TABLET PO PRN ×2 (13:24→17:34)
[2021-11-07 16:10] VITALS: BP 136/89
[2021-11-07] MEDS: PRAZOSIN HCL 2 MG CAPSULE PO SCH (20:37)
[2021-11-07] MEDS: ZOLPIDEM TARTRATE 10 MG TABLET PO PRN (20:37)
[2021-11-07] MEDS: MELATONIN 5 MG TABLET PO SCH (20:37)
[2021-11-07] MEDS: TraZODone HCL 100 MG TABLET PO SCH (20:37)
[2021-11-08 00:42] VITALS: BP 122/82
[2021-11-08] MEDS: GABAPENTIN 300 MG CAPSULE PO SCH ×3 (08:11→16:02)
[2021-11-08] MEDS: LOXAPINE SUCCINATE 25 MG CAPSULE PO SCH ×3 (08:12→16:02)
[2021-11-08] MEDS: DOCUSATE SODIUM 100 MG CAPSULE PO SCH (08:12)
[2021-11-08] MEDS: TAMSULOSIN HCL 0.4 MG CAPSULE PO SCH ×2 (08:12→16:02)
[2021-11-08] MEDS: LORazepam 2 MG TABLET PO PRN ×2 (08:12→16:02)
[2021-11-08] MEDS: LOXAPINE SUCCINATE 5 MG CAPSULE PO SCH ×3 (08:12→16:02)
[2021-11-08] MEDS: FLUoxetine HCL 20 MG CAPSULE PO SCH (08:12)
[2021-11-08 08:25] VITALS: BP 128/83
[2021-11-08] MEDS: HALOPERIDOL 5 MG TABLET PO PRN ×2 (09:05→16:02)
[2021-11-08] MEDS: IBUPROFEN 400 MG TABLET PO PRN (10:24)
[2021-11-08] MEDS ORDERED: LORazepam 2 MG/ML VIAL ONE (11:44)
[2021-11-08] MEDS ORDERED: ChlorproMAZINE HCL 50 MG/2 ML AMP ONE (11:44)
[2021-11-08] MEDS ORDERED: LORazepam 2 MG/ML VIAL IM ONE (11:45)
[2021-11-08] MEDS ORDERED: ChlorproMAZINE HCL 50 MG/2 ML AMP IM ONE (11:45)
[2021-11-08 15:58] VITALS: BP 123/84
[2021-11-08] MEDS: LURASIDONE HCL 40 MG TABLET PO SCH (16:02)
[2021-11-08 17:57] VITALS: BP 123/84
[2021-11-08] MEDS: MELATONIN 5 MG TABLET PO SCH (20:19)
[2021-11-08] MEDS: TraZODone HCL 100 MG TABLET PO SCH (20:20)
[2021-11-08] MEDS: PRAZOSIN HCL 2 MG CAPSULE PO SCH (20:20)
[2021-11-08 23:52] LABS: GLUCOMETER DEV NAME(LOC) POC.BV
[2021-11-09] MEDS: LURASIDONE HCL 40 MG TABLET PO SCH ×2 (06:24→17:00)
[2021-11-09] MEDS: LORazepam 2 MG TABLET PO PRN ×4 (07:58→21:02)
[2021-11-09] MEDS: HALOPERIDOL 5 MG TABLET PO PRN ×4 (07:58→21:02)
[2021-11-09] MEDS: DOCUSATE SODIUM 100 MG CAPSULE PO SCH (08:00)
[2021-11-09] MEDS: TAMSULOSIN HCL 0.4 MG CAPSULE PO SCH ×2 (08:01→16:58)
[2021-11-09] MEDS: GABAPENTIN 300 MG CAPSULE PO SCH ×3 (08:02→16:58)
[2021-11-09] MEDS: FLUoxetine HCL 20 MG CAPSULE PO SCH (08:02)
[2021-11-09] MEDS: LOXAPINE SUCCINATE 25 MG CAPSULE PO SCH ×3 (08:02→16:58)
[2021-11-09] MEDS: LOXAPINE SUCCINATE 5 MG CAPSULE PO SCH ×3 (08:02→16:57)
[2021-11-09 08:13] VITALS: BP 134/98
[2021-11-09 16:10] VITALS: BP 130/79
[2021-11-09] MEDS ORDERED: DiphenhydrAMINE HCL 50 MG/ML VIAL IM ONE (17:45)
[2021-11-09] MEDS ORDERED: ChlorproMAZINE HCL 50 MG/2 ML AMP IM ONE (17:45)
[2021-11-09] MEDS: ZOLPIDEM TARTRATE 10 MG TABLET PO PRN (20:31)
[2021-11-09] MEDS: MELATONIN 5 MG TABLET PO SCH (20:31)
[2021-11-09] MEDS: TraZODone HCL 100 MG TABLET PO SCH (20:31)
[2021-11-09] MEDS: PRAZOSIN HCL 2 MG CAPSULE PO SCH (20:31)
[2021-11-10 04:20] VITALS: BP 128/88
[2021-11-10] MEDS: LURASIDONE HCL 40 MG TABLET PO SCH ×2 (06:26→17:04)
[2021-11-10] MEDS ORDERED: LORazepam 2 MG/ML VIAL ONE (07:56)
[2021-11-10] MEDS ORDERED: LORazepam 2 MG/ML VIAL IM ONE ×2 (08:00→14:00)
[2021-11-10] MEDS ORDERED: HALOPERIDOL LACTATE 5 MG/ML VIAL IM ONE (08:00)
[2021-11-10] MEDS ORDERED: DiphenhydrAMINE HCL 50 MG/ML VIAL IM ONE (08:00)
[2021-11-10] MEDS: DOCUSATE SODIUM 100 MG CAPSULE PO SCH (08:13)
[2021-11-10] MEDS: TAMSULOSIN HCL 0.4 MG CAPSULE PO SCH ×2 (08:14→17:04)
[2021-11-10] MEDS: LOXAPINE SUCCINATE 25 MG CAPSULE PO SCH ×3 (08:14→17:04)
[2021-11-10] MEDS: LOXAPINE SUCCINATE 5 MG CAPSULE PO SCH ×3 (08:14→17:04)
[2021-11-10] MEDS: FLUoxetine HCL 20 MG CAPSULE PO SCH (08:16)
[2021-11-10] MEDS: GABAPENTIN 300 MG CAPSULE PO SCH ×3 (08:16→17:05)
[2021-11-10 08:18] VITALS: BP 134/74
[2021-11-10] MEDS: LORazepam 2 MG TABLET PO PRN (10:02)
[2021-11-10] MEDS: HALOPERIDOL 5 MG TABLET PO PRN (10:02)
[2021-11-10] MEDS: IBUPROFEN 400 MG TABLET PO PRN (13:32)
[2021-11-10] MEDS ORDERED: ChlorproMAZINE HCL 50 MG/2 ML AMP ONE (13:58)
[2021-11-10] MEDS ORDERED: ChlorproMAZINE HCL 50 MG/2 ML AMP IM ONE (14:00)
[2021-11-10 16:17] VITALS: BP 102/68
[2021-11-10] MEDS: PRAZOSIN HCL 2 MG CAPSULE PO SCH (20:46)
[2021-11-10] MEDS: MELATONIN 5 MG TABLET PO SCH (20:46)
[2021-11-10] MEDS: TraZODone HCL 100 MG TABLET PO SCH (20:46)
[2021-11-11 06:22] VITALS: BP 110/68
[2021-11-11] MEDS: LURASIDONE HCL 40 MG TABLET PO SCH ×2 (06:51→16:44)
[2021-11-11] MEDS: DOCUSATE SODIUM 100 MG CAPSULE PO SCH (08:21)
[2021-11-11] MEDS: GABAPENTIN 300 MG CAPSULE PO SCH ×3 (08:21→16:44)
[2021-11-11] MEDS: TAMSULOSIN HCL 0.4 MG CAPSULE PO SCH ×2 (08:21→16:44)
[2021-11-11] MEDS: FLUoxetine HCL 20 MG CAPSULE PO SCH (08:21)
[2021-11-11] MEDS: LOXAPINE SUCCINATE 25 MG CAPSULE PO SCH ×3 (08:21→16:45)
[2021-11-11] MEDS: LOXAPINE SUCCINATE 5 MG CAPSULE PO SCH ×3 (08:22→16:44)
[2021-11-11 08:24] VITALS: BP 123/86
[2021-11-11] MEDS: LORazepam 2 MG TABLET PO PRN ×3 (08:25→20:26)
[2021-11-11] MEDS: HALOPERIDOL 5 MG TABLET PO PRN ×3 (08:25→20:26)
[2021-11-11] MEDS ORDERED: DiphenhydrAMINE HCL 50 MG/ML VIAL IM ONE (09:45)
[2021-11-11] MEDS ORDERED: LORazepam 2 MG/ML VIAL IM ONE (09:45)
[2021-11-11] MEDS ORDERED: HALOPERIDOL LACTATE 5 MG/ML VIAL IM ONE (09:45)
[2021-11-11 16:21] VITALS: BP 140/96
[2021-11-11] MEDS: PRAZOSIN HCL 2 MG CAPSULE PO SCH (20:26)
[2021-11-11] MEDS: MELATONIN 5 MG TABLET PO SCH (20:26)
[2021-11-11] MEDS: TraZODone HCL 100 MG TABLET PO SCH (20:26)
[2021-11-11] MEDS: ZOLPIDEM TARTRATE 10 MG TABLET PO PRN (20:26)
[2021-11-12 00:22] VITALS: BP 131/93
[2021-11-12] MEDS: LORazepam 2 MG TABLET PO PRN ×3 (06:11→20:54)
[2021-11-12] MEDS: LURASIDONE HCL 40 MG TABLET PO SCH ×2 (06:42→16:49)
[2021-11-12] MEDS: LOXAPINE SUCCINATE 5 MG CAPSULE PO SCH ×3 (08:38→16:49)
[2021-11-12] MEDS: LOXAPINE SUCCINATE 25 MG CAPSULE PO SCH ×3 (08:38→16:49)
[2021-11-12] MEDS: FLUoxetine HCL 20 MG CAPSULE PO SCH (08:39)
[2021-11-12] MEDS: DOCUSATE SODIUM 100 MG CAPSULE PO SCH (08:39)
[2021-11-12] MEDS: TAMSULOSIN HCL 0.4 MG CAPSULE PO SCH ×2 (08:39→16:49)
[2021-11-12] MEDS: GABAPENTIN 300 MG CAPSULE PO SCH ×3 (08:39→16:49)
[2021-11-12 08:44] VITALS: BP 134/89
[2021-11-12 16:09] VITALS: BP 120/83
[2021-11-12] MEDS: HALOPERIDOL 5 MG TABLET PO PRN ×2 (16:50→20:54)
[2021-11-12] MEDS: PRAZOSIN HCL 2 MG CAPSULE PO SCH (20:34)
[2021-11-12] MEDS: TraZODone HCL 100 MG TABLET PO SCH (20:34)
[2021-11-12] MEDS: ZOLPIDEM TARTRATE 10 MG TABLET PO PRN (20:34)
[2021-11-12] MEDS: MELATONIN 5 MG TABLET PO SCH (20:34)
[2021-11-13] MEDS: IBUPROFEN 400 MG TABLET PO PRN ×2 (00:46→17:39)
[2021-11-13 00:52] VITALS: BP 123/86
[2021-11-13] MEDS: ONDANSETRON HCL 4 MG TABLET PO PRN (04:07)
[2021-11-13] MEDS: LURASIDONE HCL 40 MG TABLET PO SCH ×2 (06:38→17:03)
[2021-11-13] MEDS: FLUoxetine HCL 20 MG CAPSULE PO SCH (08:12)
[2021-11-13] MEDS: LOXAPINE SUCCINATE 5 MG CAPSULE PO SCH ×3 (08:12→17:02)
[2021-11-13] MEDS: TAMSULOSIN HCL 0.4 MG CAPSULE PO SCH ×2 (08:12→17:02)
[2021-11-13] MEDS: LOXAPINE SUCCINATE 25 MG CAPSULE PO SCH ×3 (08:12→17:02)
[2021-11-13] MEDS: DOCUSATE SODIUM 100 MG CAPSULE PO SCH (08:12)
[2021-11-13] MEDS: GABAPENTIN 300 MG CAPSULE PO SCH ×3 (08:12→17:03)
[2021-11-13] MEDS: HALOPERIDOL 5 MG TABLET PO PRN ×3 (08:13→21:19)
[2021-11-13] MEDS: LORazepam 2 MG TABLET PO PRN ×3 (08:13→21:19)
[2021-11-13 08:16] VITALS: BP 137/94
[2021-11-13 16:07] VITALS: BP 132/72
[2021-11-13] MEDS: TraZODone HCL 100 MG TABLET PO SCH (21:19)
[2021-11-13] MEDS: PRAZOSIN HCL 2 MG CAPSULE PO SCH (21:19)
[2021-11-13] MEDS: ZOLPIDEM TARTRATE 10 MG TABLET PO PRN (21:19)
[2021-11-13] MEDS: MELATONIN 5 MG TABLET PO SCH (21:19)
[2021-11-14 06:13] VITALS: BP 127/84
[2021-11-14] MEDS: LURASIDONE HCL 40 MG TABLET PO SCH ×2 (06:58→16:48)
[2021-11-14] MEDS: DOCUSATE SODIUM 100 MG CAPSULE PO SCH (08:15)
[2021-11-14] MEDS: FLUoxetine HCL 20 MG CAPSULE PO SCH (08:15)
[2021-11-14] MEDS: LORazepam 2 MG TABLET PO PRN (08:15)
[2021-11-14] MEDS: TAMSULOSIN HCL 0.4 MG CAPSULE PO SCH ×2 (08:16→16:48)
[2021-11-14] MEDS: GABAPENTIN 300 MG CAPSULE PO SCH ×3 (08:16→16:48)
[2021-11-14] MEDS: HALOPERIDOL 5 MG TABLET PO PRN (08:16)
[2021-11-14] MEDS: LOXAPINE SUCCINATE 25 MG CAPSULE PO SCH ×3 (08:19→16:59)
[2021-11-14] MEDS: LOXAPINE SUCCINATE 5 MG CAPSULE PO SCH ×3 (08:19→16:59)
[2021-11-14 08:37] VITALS: BP 131/91
[2021-11-14] MEDS: MAGNESIUM HYDROXIDE SUSPENSION 30 ML UDCUP PO PRN (09:23)
[2021-11-14 16:09] VITALS: BP 112/64
[2021-11-14] MEDS: PRAZOSIN HCL 2 MG CAPSULE PO SCH (20:30)
[2021-11-14] MEDS: TraZODone HCL 100 MG TABLET PO SCH (20:30)
[2021-11-14] MEDS: MELATONIN 5 MG TABLET PO SCH (20:30)
[2021-11-15 04:05] VITALS: BP 116/77
[2021-11-15] MEDS: LURASIDONE HCL 40 MG TABLET PO SCH ×2 (06:33→16:39)
[2021-11-15 08:35] VITALS: BP 133/82
[2021-11-15] MEDS: LORazepam 2 MG TABLET PO PRN ×3 (08:53→20:40)
[2021-11-15] MEDS: DOCUSATE SODIUM 100 MG CAPSULE PO SCH (08:53)
[2021-11-15] MEDS: HALOPERIDOL 5 MG TABLET PO PRN ×2 (08:53→20:30)
[2021-11-15] MEDS: LOXAPINE SUCCINATE 5 MG CAPSULE PO SCH ×3 (08:53→16:39)
[2021-11-15] MEDS: LOXAPINE SUCCINATE 25 MG CAPSULE PO SCH ×3 (08:53→16:39)
[2021-11-15] MEDS: GABAPENTIN 300 MG CAPSULE PO SCH ×3 (08:53→16:39)
[2021-11-15] MEDS: FLUoxetine HCL 20 MG CAPSULE PO SCH (08:54)
[2021-11-15] MEDS: TAMSULOSIN HCL 0.4 MG CAPSULE PO SCH ×2 (08:54→16:39)
[2021-11-15] MEDS: MAGNESIUM HYDROXIDE SUSPENSION 30 ML UDCUP PO PRN (12:44)
[2021-11-15 16:13] VITALS: BP 131/92
[2021-11-15] MEDS: PRAZOSIN HCL 2 MG CAPSULE PO SCH (20:29)
[2021-11-15] MEDS: TraZODone HCL 100 MG TABLET PO SCH (20:29)
[2021-11-15] MEDS: MELATONIN 5 MG TABLET PO SCH (20:29)
[2021-11-16 05:43] VITALS: BP 133/90
[2021-11-16] MEDS: LURASIDONE HCL 40 MG TABLET PO SCH ×2 (06:45→16:39)
[2021-11-16] MEDS: LOXAPINE SUCCINATE 5 MG CAPSULE PO SCH ×3 (08:26→16:39)
[2021-11-16] MEDS: LOXAPINE SUCCINATE 25 MG CAPSULE PO SCH ×3 (08:26→16:39)
[2021-11-16] MEDS: FLUoxetine HCL 20 MG CAPSULE PO SCH (08:27)
[2021-11-16] MEDS: DOCUSATE SODIUM 100 MG CAPSULE PO SCH (08:27)
[2021-11-16] MEDS: LORazepam 2 MG TABLET PO PRN ×2 (08:27→20:13)
[2021-11-16] MEDS: GABAPENTIN 300 MG CAPSULE PO SCH ×3 (08:27→16:40)
[2021-11-16] MEDS: TAMSULOSIN HCL 0.4 MG CAPSULE PO SCH ×2 (08:27→16:39)
[2021-11-16] MEDS: HALOPERIDOL 5 MG TABLET PO PRN ×2 (08:27→20:13)
[2021-11-16 08:29] VITALS: BP 111/75
[2021-11-16 09:12] LABS: GLUCOMETER DEV NAME(LOC) POC.BV
[2021-11-16] MEDS: MAGNESIUM HYDROXIDE SUSPENSION 30 ML UDCUP PO PRN (14:39)
[2021-11-16 16:17] VITALS: BP 124/87
[2021-11-16] MEDS: MELATONIN 5 MG TABLET PO SCH (20:12)
[2021-11-16] MEDS: TraZODone HCL 100 MG TABLET PO SCH (20:12)
[2021-11-16] MEDS: PRAZOSIN HCL 2 MG CAPSULE PO SCH (21:03)
[2021-11-17 01:24] VITALS: BP 133/89
[2021-11-17] MEDS: LURASIDONE HCL 40 MG TABLET PO SCH ×2 (06:34→16:36)
[2021-11-17 08:20] VITALS: BP 110/64
[2021-11-17] MEDS: LOXAPINE SUCCINATE 5 MG CAPSULE PO SCH ×3 (08:22→16:36)
[2021-11-17] MEDS: LOXAPINE SUCCINATE 25 MG CAPSULE PO SCH ×3 (08:22→16:36)
[2021-11-17] MEDS: GABAPENTIN 300 MG CAPSULE PO SCH ×3 (08:22→16:36)
[2021-11-17] MEDS: DOCUSATE SODIUM 100 MG CAPSULE PO SCH (08:23)
[2021-11-17] MEDS: LORazepam 2 MG TABLET PO PRN ×2 (08:23→16:36)
[2021-11-17] MEDS: TAMSULOSIN HCL 0.4 MG CAPSULE PO SCH ×2 (08:23→16:36)
[2021-11-17] MEDS: HALOPERIDOL 5 MG TABLET PO PRN ×2 (08:23→16:36)
[2021-11-17] MEDS: FLUoxetine HCL 20 MG CAPSULE PO SCH (08:23)
[2021-11-17] MEDS ORDERED: LORazepam 2 MG/ML VIAL ONE (13:22)
[2021-11-17] MEDS ORDERED: ChlorproMAZINE HCL 50 MG/2 ML AMP IM ONE (13:25)
[2021-11-17] MEDS ORDERED: LORazepam 2 MG/ML VIAL IM ONE (13:25)
[2021-11-17 16:15] VITALS: BP 127/67
[2021-11-17] MEDS: MELATONIN 5 MG TABLET PO SCH (21:11)
[2021-11-17] MEDS: TraZODone HCL 100 MG TABLET PO SCH (21:11)
[2021-11-17] MEDS: PRAZOSIN HCL 2 MG CAPSULE PO SCH (21:11)
[2021-11-18 05:36] VITALS: BP 112/60
[2021-11-18] MEDS: LURASIDONE HCL 40 MG TABLET PO SCH ×2 (06:59→17:16)
[2021-11-18] MEDS: DOCUSATE SODIUM 100 MG CAPSULE PO SCH (08:11)
[2021-11-18] MEDS: FLUoxetine HCL 20 MG CAPSULE PO SCH (08:11)
[2021-11-18] MEDS: LOXAPINE SUCCINATE 25 MG CAPSULE PO SCH ×3 (08:11→17:16)
[2021-11-18] MEDS: LORazepam 2 MG TABLET PO PRN ×2 (08:11→17:16)
[2021-11-18] MEDS: LOXAPINE SUCCINATE 5 MG CAPSULE PO SCH ×3 (08:11→17:16)
[2021-11-18] MEDS: GABAPENTIN 300 MG CAPSULE PO SCH ×3 (08:11→17:16)
[2021-11-18] MEDS: TAMSULOSIN HCL 0.4 MG CAPSULE PO SCH ×2 (08:11→17:16)
[2021-11-18] MEDS: HALOPERIDOL 5 MG TABLET PO PRN ×2 (08:11→17:16)
[2021-11-18 08:19] VITALS: BP 129/88
[2021-11-18 16:18] VITALS: BP 130/83
[2021-11-18] MEDS: PRAZOSIN HCL 2 MG CAPSULE PO SCH (20:30)
[2021-11-18] MEDS: MELATONIN 5 MG TABLET PO SCH (20:31)
[2021-11-18] MEDS: TraZODone HCL 100 MG TABLET PO SCH (20:31)
[2021-11-19 04:07] VITALS: BP 125/85
[2021-11-19] MEDS: LURASIDONE HCL 40 MG TABLET PO SCH ×2 (06:43→17:03)
[2021-11-19 08:25] VITALS: BP 110/64
[2021-11-19] MEDS: HALOPERIDOL 5 MG TABLET PO PRN ×2 (08:25→17:03)
[2021-11-19] MEDS: GABAPENTIN 300 MG CAPSULE PO SCH ×3 (08:25→17:03)
[2021-11-19] MEDS: LOXAPINE SUCCINATE 25 MG CAPSULE PO SCH ×3 (08:25→17:03)
[2021-11-19] MEDS: TAMSULOSIN HCL 0.4 MG CAPSULE PO SCH ×2 (08:25→17:03)
[2021-11-19] MEDS: LOXAPINE SUCCINATE 5 MG CAPSULE PO SCH ×3 (08:25→17:03)
[2021-11-19] MEDS: LORazepam 2 MG TABLET PO PRN ×2 (08:25→17:03)
[2021-11-19] MEDS: FLUoxetine HCL 20 MG CAPSULE PO SCH (08:25)
[2021-11-19] MEDS: DOCUSATE SODIUM 100 MG CAPSULE PO SCH (08:25)
[2021-11-19] MEDS: IBUPROFEN 400 MG TABLET PO PRN (12:00)
[2021-11-19] MEDS: MAG HYDROX/AL HYDROX/SIMETH ES 30 ML SUSPENSION UDCUP PO PRN (12:15)
[2021-11-19 16:08] VITALS: BP 112/68
[2021-11-19] MEDS: PRAZOSIN HCL 2 MG CAPSULE PO SCH (20:24)
[2021-11-19] MEDS: MELATONIN 5 MG TABLET PO SCH (20:24)
[2021-11-19] MEDS: TraZODone HCL 100 MG TABLET PO SCH (20:24)
[2021-11-20 04:00] VITALS: BP 123/78
[2021-11-20] MEDS: LURASIDONE HCL 40 MG TABLET PO SCH ×2 (06:31→16:19)
[2021-11-20 08:16] VITALS: BP 124/75
[2021-11-20] MEDS: FLUoxetine HCL 20 MG CAPSULE PO SCH (08:17)
[2021-11-20] MEDS: HALOPERIDOL 5 MG TABLET PO PRN ×2 (08:17→13:11)
[2021-11-20] MEDS: GABAPENTIN 300 MG CAPSULE PO SCH ×3 (08:17→16:19)
[2021-11-20] MEDS: LORazepam 2 MG TABLET PO PRN ×2 (08:17→13:11)
[2021-11-20] MEDS: DOCUSATE SODIUM 100 MG CAPSULE PO SCH (08:17)
[2021-11-20] MEDS: LOXAPINE SUCCINATE 5 MG CAPSULE PO SCH ×3 (08:18→16:19)
[2021-11-20] MEDS: TAMSULOSIN HCL 0.4 MG CAPSULE PO SCH ×2 (08:18→16:19)
[2021-11-20] MEDS: LOXAPINE SUCCINATE 25 MG CAPSULE PO SCH ×3 (08:18→16:19)
[2021-11-20] MEDS: PALIPERIDONE PALMITATE 234 MG/1.5 ML SYRINGE IM SCH (08:18)
[2021-11-20 16:14] VITALS: BP 109/63
[2021-11-20] MEDS: MELATONIN 5 MG TABLET PO SCH (20:40)
[2021-11-20] MEDS: PRAZOSIN HCL 2 MG CAPSULE PO SCH (20:40)
[2021-11-20] MEDS: TraZODone HCL 100 MG TABLET PO SCH (20:40)
[2021-11-21] MEDS: LURASIDONE HCL 40 MG TABLET PO SCH ×2 (06:34→16:57)
[2021-11-21 07:03] VITALS: BP 123/91
[2021-11-21] MEDS: HALOPERIDOL 5 MG TABLET PO PRN (08:21)
[2021-11-21] MEDS: TAMSULOSIN HCL 0.4 MG CAPSULE PO SCH ×2 (08:21→16:57)
[2021-11-21] MEDS: LOXAPINE SUCCINATE 5 MG CAPSULE PO SCH ×3 (08:21→16:57)
[2021-11-21] MEDS: FLUoxetine HCL 20 MG CAPSULE PO SCH (08:21)
[2021-11-21] MEDS: LOXAPINE SUCCINATE 25 MG CAPSULE PO SCH ×3 (08:21→16:57)
[2021-11-21] MEDS: GABAPENTIN 300 MG CAPSULE PO SCH ×3 (08:21→16:57)
[2021-11-21] MEDS: DOCUSATE SODIUM 100 MG CAPSULE PO SCH (08:21)
[2021-11-21] MEDS: LORazepam 2 MG TABLET PO PRN ×2 (08:21→17:56)
[2021-11-21 08:29] VITALS: BP 113/78
[2021-11-21 16:12] VITALS: BP 128/81
[2021-11-21] MEDS: PRAZOSIN HCL 2 MG CAPSULE PO SCH (20:10)
[2021-11-21] MEDS: TraZODone HCL 100 MG TABLET PO SCH (20:10)
[2021-11-21] MEDS: MELATONIN 5 MG TABLET PO SCH (20:10)
[2021-11-22 00:01] VITALS: BP 131/85
[2021-11-22] MEDS: LORazepam 2 MG TABLET PO PRN ×2 (00:06→13:02)
[2021-11-22] MEDS: HALOPERIDOL 5 MG TABLET PO PRN (00:06)
[2021-11-22] MEDS: LURASIDONE HCL 40 MG TABLET PO SCH ×2 (06:34→17:04)
[2021-11-22] MEDS: LOXAPINE SUCCINATE 25 MG CAPSULE PO SCH ×3 (08:04→16:53)
[2021-11-22] MEDS: LOXAPINE SUCCINATE 5 MG CAPSULE PO SCH ×3 (08:04→16:53)
[2021-11-22] MEDS: DOCUSATE SODIUM 100 MG CAPSULE PO SCH (08:05)
[2021-11-22] MEDS: GABAPENTIN 300 MG CAPSULE PO SCH ×3 (08:05→16:54)
[2021-11-22] MEDS: FLUoxetine HCL 20 MG CAPSULE PO SCH (08:05)
[2021-11-22] MEDS: TAMSULOSIN HCL 0.4 MG CAPSULE PO SCH ×2 (08:05→16:53)
[2021-11-22 08:15] VITALS: BP 132/18
[2021-11-22 16:07] VITALS: BP 138/90
[2021-11-22] MEDS: PRAZOSIN HCL 2 MG CAPSULE PO SCH (21:13)
[2021-11-22] MEDS: MELATONIN 5 MG TABLET PO SCH (21:13)
[2021-11-22] MEDS: TraZODone HCL 100 MG TABLET PO SCH (21:13)
[2021-11-23 01:01] VITALS: BP 139/83
[2021-11-23] MEDS: LURASIDONE HCL 40 MG TABLET PO SCH ×2 (06:37→17:13)
[2021-11-23 08:08] VITALS: BP 130/80
[2021-11-23] MEDS: DOCUSATE SODIUM 100 MG CAPSULE PO SCH (09:03)
[2021-11-23] MEDS: GABAPENTIN 300 MG CAPSULE PO SCH ×3 (09:03→17:13)
[2021-11-23] MEDS: FLUoxetine HCL 20 MG CAPSULE PO SCH (09:03)
[2021-11-23] MEDS: TAMSULOSIN HCL 0.4 MG CAPSULE PO SCH ×2 (09:03→17:12)
[2021-11-23] MEDS: LOXAPINE SUCCINATE 5 MG CAPSULE PO SCH ×3 (09:04→17:13)
[2021-11-23] MEDS: LOXAPINE SUCCINATE 25 MG CAPSULE PO SCH ×3 (09:04→17:13)
[2021-11-23] MEDS: HALOPERIDOL 5 MG TABLET PO PRN ×2 (11:00→17:45)
[2021-11-23] MEDS: LORazepam 2 MG TABLET PO PRN ×2 (11:00→15:03)
[2021-11-23 18:02] VITALS: BP 144/86
[2021-11-23] MEDS: TraZODone HCL 100 MG TABLET PO SCH (20:05)
[2021-11-23] MEDS: MELATONIN 5 MG TABLET PO SCH (20:05)
[2021-11-23] MEDS: PRAZOSIN HCL 2 MG CAPSULE PO SCH (20:05)
[2021-11-24 00:40] VITALS: BP 141/78
[2021-11-24] MEDS: LURASIDONE HCL 40 MG TABLET PO SCH ×2 (07:02→16:39)
[2021-11-24 07:16] LABS: GLUCOMETER DEV NAME(LOC) POC.BV
[2021-11-24] MEDS: DOCUSATE SODIUM 100 MG CAPSULE PO SCH (08:16)
[2021-11-24] MEDS: FLUoxetine HCL 20 MG CAPSULE PO SCH (08:16)
[2021-11-24] MEDS: GABAPENTIN 300 MG CAPSULE PO SCH ×3 (08:17→16:39)
[2021-11-24] MEDS: LOXAPINE SUCCINATE 5 MG CAPSULE PO SCH ×3 (08:18→16:38)
[2021-11-24] MEDS: LOXAPINE SUCCINATE 25 MG CAPSULE PO SCH ×3 (08:19→16:39)
[2021-11-24] MEDS: TAMSULOSIN HCL 0.4 MG CAPSULE PO SCH ×2 (08:19→16:39)
[2021-11-24 08:38] VITALS: BP_SYST 140; BP_SYST 66; BP_DIAS 140; BP_DIAS 84
[2021-11-24] MEDS: HALOPERIDOL 5 MG TABLET PO PRN ×2 (10:29→19:24)
[2021-11-24] MEDS: LORazepam 2 MG TABLET PO PRN ×2 (12:50→17:07)
[2021-11-24 16:09] VITALS: BP 125/75
[2021-11-24 20:30] VITALS: BP 123/76
[2021-11-24] MEDS: TraZODone HCL 100 MG TABLET PO SCH (20:31)
[2021-11-24] MEDS: MELATONIN 5 MG TABLET PO SCH (20:31)
[2021-11-24] MEDS: PRAZOSIN HCL 2 MG CAPSULE PO SCH (20:32)
[2021-11-25 00:33] VITALS: BP 140/86
[2021-11-25] MEDS: LURASIDONE HCL 40 MG TABLET PO SCH ×2 (06:27→16:34)
[2021-11-25 08:02] VITALS: BP 142/96
[2021-11-25] MEDS: TAMSULOSIN HCL 0.4 MG CAPSULE PO SCH ×2 (08:44→16:34)
[2021-11-25] MEDS: GABAPENTIN 300 MG CAPSULE PO SCH ×3 (08:44→16:34)
[2021-11-25] MEDS: FLUoxetine HCL 20 MG CAPSULE PO SCH (08:44)
[2021-11-25] MEDS: DOCUSATE SODIUM 100 MG CAPSULE PO SCH (08:44)
[2021-11-25] MEDS: LOXAPINE SUCCINATE 25 MG CAPSULE PO SCH ×3 (08:45→16:33)
[2021-11-25] MEDS: LOXAPINE SUCCINATE 5 MG CAPSULE PO SCH ×3 (08:45→16:34)
[2021-11-25] MEDS: LORazepam 2 MG TABLET PO PRN ×2 (09:48→18:25)
[2021-11-25 16:06] VITALS: BP 139/84
[2021-11-25 16:46] LABS: GLUCOMETER DEV NAME(LOC) POC.BV
[2021-11-25 20:27] VITALS: BP 116/73
[2021-11-25] MEDS: MELATONIN 5 MG TABLET PO SCH (20:28)
[2021-11-25] MEDS: TraZODone HCL 100 MG TABLET PO SCH (20:28)
[2021-11-25] MEDS: PRAZOSIN HCL 2 MG CAPSULE PO SCH (20:28)
[2021-11-26 00:39] VITALS: BP 124/79
[2021-11-26] MEDS: LURASIDONE HCL 40 MG TABLET PO SCH (06:18)
[2021-11-26 08:04] VITALS: BP 133/90
[2021-11-26] MEDS: TAMSULOSIN HCL 0.4 MG CAPSULE PO SCH ×2 (08:10→16:52)
[2021-11-26] MEDS: DOCUSATE SODIUM 100 MG CAPSULE PO SCH (08:10)
[2021-11-26] MEDS: LOXAPINE SUCCINATE 5 MG CAPSULE PO SCH ×3 (08:11→16:52)
[2021-11-26] MEDS: LOXAPINE SUCCINATE 25 MG CAPSULE PO SCH ×3 (08:11→16:52)
[2021-11-26] MEDS: FLUoxetine HCL 20 MG CAPSULE PO SCH (08:11)
[2021-11-26] MEDS: GABAPENTIN 300 MG CAPSULE PO SCH ×3 (08:11→16:52)
[2021-11-26] MEDS: LORazepam 2 MG TABLET PO PRN ×2 (09:37→13:50)
[2021-11-26] MEDS: HALOPERIDOL 5 MG TABLET PO PRN (11:35)
[2021-11-26] MEDS: LURASIDONE HCL 60 MG TABLET PO SCH (16:52)
[2021-11-26] MEDS: TraZODone HCL 100 MG TABLET PO SCH (21:06)
[2021-11-26] MEDS: MELATONIN 5 MG TABLET PO SCH (21:06)
[2021-11-26] MEDS: PRAZOSIN HCL 2 MG CAPSULE PO SCH (21:07)
[2021-11-27 00:26] VITALS: BP 128/77
[2021-11-27] MEDS: LURASIDONE HCL 60 MG TABLET PO SCH ×2 (06:33→16:26)
[2021-11-27] MEDS: DOCUSATE SODIUM 100 MG CAPSULE PO SCH (08:05)
[2021-11-27] MEDS: LOXAPINE SUCCINATE 5 MG CAPSULE PO SCH ×3 (08:06→16:26)
[2021-11-27] MEDS: LORazepam 2 MG TABLET PO PRN ×2 (08:06→15:31)
[2021-11-27] MEDS: FLUoxetine HCL 20 MG CAPSULE PO SCH (08:06)
[2021-11-27] MEDS: TAMSULOSIN HCL 0.4 MG CAPSULE PO SCH ×2 (08:06→16:26)
[2021-11-27] MEDS: LOXAPINE SUCCINATE 25 MG CAPSULE PO SCH ×3 (08:06→16:26)
[2021-11-27] MEDS: GABAPENTIN 300 MG CAPSULE PO SCH ×3 (08:06→16:26)
[2021-11-27 08:14] VITALS: BP 135/85
[2021-11-27 16:09] VITALS: BP 145/84
[2021-11-27 20:25] VITALS: BP 138/78
[2021-11-27] MEDS: MELATONIN 5 MG TABLET PO SCH (20:26)
[2021-11-27] MEDS: PRAZOSIN HCL 2 MG CAPSULE PO SCH (20:26)
[2021-11-27] MEDS: TraZODone HCL 100 MG TABLET PO SCH (20:26)
[2021-11-28 06:54] VITALS: BP 132/68
[2021-11-28] MEDS: LURASIDONE HCL 60 MG TABLET PO SCH ×2 (07:14→16:44)
[2021-11-28] MEDS: DOCUSATE SODIUM 100 MG CAPSULE PO SCH (08:14)
[2021-11-28] MEDS: LOXAPINE SUCCINATE 5 MG CAPSULE PO SCH ×3 (08:14→16:44)
[2021-11-28] MEDS: TAMSULOSIN HCL 0.4 MG CAPSULE PO SCH ×2 (08:14→16:44)
[2021-11-28] MEDS: GABAPENTIN 300 MG CAPSULE PO SCH ×3 (08:14→16:44)
[2021-11-28] MEDS: FLUoxetine HCL 20 MG CAPSULE PO SCH (08:14)
[2021-11-28] MEDS: LOXAPINE SUCCINATE 25 MG CAPSULE PO SCH ×3 (08:14→16:44)
[2021-11-28 08:15] VITALS: BP 134/96
[2021-11-28] MEDS: LORazepam 2 MG TABLET PO PRN (15:23)
[2021-11-28] MEDS: HALOPERIDOL 5 MG TABLET PO PRN (15:23)
[2021-11-28 16:10] VITALS: BP 135/86
[2021-11-28] MEDS: MUPIROCIN CALCIUM 2% 22 GM OINTMENT NASAL SCH (16:44)
[2021-11-28] MEDS: PRAZOSIN HCL 2 MG CAPSULE PO SCH (20:17)
[2021-11-28] MEDS: TraZODone HCL 100 MG TABLET PO SCH (20:17)
[2021-11-28] MEDS: MELATONIN 5 MG TABLET PO SCH (20:17)
[2021-11-29 00:33] VITALS: BP 132/81
[2021-11-29] MEDS: LURASIDONE HCL 60 MG TABLET PO SCH ×2 (06:45→16:31)
[2021-11-29 08:05] VITALS: BP 124/85
[2021-11-29] MEDS: DOCUSATE SODIUM 100 MG CAPSULE PO SCH (08:12)
[2021-11-29] MEDS: LOXAPINE SUCCINATE 5 MG CAPSULE PO SCH ×3 (08:13→16:32)
[2021-11-29] MEDS: TAMSULOSIN HCL 0.4 MG CAPSULE PO SCH ×2 (08:13→16:32)
[2021-11-29] MEDS: LOXAPINE SUCCINATE 25 MG CAPSULE PO SCH ×3 (08:13→16:32)
[2021-11-29] MEDS: MUPIROCIN CALCIUM 2% 22 GM OINTMENT NASAL SCH ×2 (08:13→16:31)
[2021-11-29] MEDS: FLUoxetine HCL 20 MG CAPSULE PO SCH (08:13)
[2021-11-29] MEDS: GABAPENTIN 300 MG CAPSULE PO SCH ×3 (08:13→16:31)
[2021-11-29] MEDS: LORazepam 2 MG TABLET PO PRN (15:33)
[2021-11-29 16:14] VITALS: BP 115/80
[2021-11-29 20:47] VITALS: BP 117/72
[2021-11-29] MEDS: TraZODone HCL 100 MG TABLET PO SCH (20:47)
[2021-11-29] MEDS: PRAZOSIN HCL 2 MG CAPSULE PO SCH (20:47)
[2021-11-29] MEDS: MELATONIN 5 MG TABLET PO SCH (20:47)
[2021-11-30 00:24] VITALS: BP 119/76
[2021-11-30] MEDS: LURASIDONE HCL 60 MG TABLET PO SCH ×2 (06:13→16:18)
[2021-11-30 08:44] VITALS: BP 123/79
[2021-11-30] MEDS: MUPIROCIN CALCIUM 2% 22 GM OINTMENT NASAL SCH ×2 (08:57→16:11)
[2021-11-30] MEDS: FLUoxetine HCL 20 MG CAPSULE PO SCH (08:57)
[2021-11-30] MEDS: TAMSULOSIN HCL 0.4 MG CAPSULE PO SCH ×2 (08:57→16:18)
[2021-11-30] MEDS: LOXAPINE SUCCINATE 25 MG CAPSULE PO SCH ×3 (08:58→16:18)
[2021-11-30] MEDS: DOCUSATE SODIUM 100 MG CAPSULE PO SCH (08:58)
[2021-11-30] MEDS: LOXAPINE SUCCINATE 5 MG CAPSULE PO SCH ×3 (08:58→16:18)
[2021-11-30] MEDS: GABAPENTIN 300 MG CAPSULE PO SCH ×3 (08:58→16:18)
[2021-11-30] MEDS: LORazepam 2 MG TABLET PO PRN (12:32)
[2021-11-30 16:09] VITALS: BP 128/82
[2021-11-30] MEDS: PRAZOSIN HCL 2 MG CAPSULE PO SCH (20:33)
[2021-11-30] MEDS: MELATONIN 5 MG TABLET PO SCH (20:33)
[2021-11-30] MEDS: TraZODone HCL 100 MG TABLET PO SCH (20:33)
[2021-12-01 06:18] VITALS: BP 125/78
[2021-12-01] MEDS: LURASIDONE HCL 60 MG TABLET PO SCH ×2 (06:40→16:38)
[2021-12-01] MEDS: DOCUSATE SODIUM 100 MG CAPSULE PO SCH (08:47)
[2021-12-01] MEDS: GABAPENTIN 300 MG CAPSULE PO SCH ×3 (08:47→16:38)
[2021-12-01] MEDS: MUPIROCIN CALCIUM 2% 22 GM OINTMENT NASAL SCH ×2 (08:47→16:38)
[2021-12-01] MEDS: LOXAPINE SUCCINATE 25 MG CAPSULE PO SCH ×3 (08:48→16:38)
[2021-12-01] MEDS: LOXAPINE SUCCINATE 5 MG CAPSULE PO SCH ×3 (08:48→16:38)
[2021-12-01] MEDS: FLUoxetine HCL 20 MG CAPSULE PO SCH (08:48)
[2021-12-01] MEDS: TAMSULOSIN HCL 0.4 MG CAPSULE PO SCH ×2 (08:49→16:38)
[2021-12-01 10:15] VITALS: BP 126/71
[2021-12-01 16:40] VITALS: BP 123/83
[2021-12-01 20:34] VITALS: BP 142/85
[2021-12-01] MEDS: TraZODone HCL 100 MG TABLET PO SCH (20:36)
[2021-12-01] MEDS: PRAZOSIN HCL 2 MG CAPSULE PO SCH (20:36)
[2021-12-01] MEDS: MELATONIN 5 MG TABLET PO SCH (20:36)
[2021-12-02 00:21] VITALS: BP 127/78
[2021-12-02] MEDS: LURASIDONE HCL 60 MG TABLET PO SCH ×2 (06:32→16:52)
[2021-12-02] MEDS: LORazepam 2 MG TABLET PO PRN ×2 (07:59→12:24)
[2021-12-02] MEDS: GABAPENTIN 300 MG CAPSULE PO SCH ×3 (08:00→16:53)
[2021-12-02] MEDS: FLUoxetine HCL 20 MG CAPSULE PO SCH (08:00)
[2021-12-02] MEDS: LOXAPINE SUCCINATE 5 MG CAPSULE PO SCH ×3 (08:00→16:53)
[2021-12-02] MEDS: LOXAPINE SUCCINATE 25 MG CAPSULE PO SCH ×3 (08:00→16:53)
[2021-12-02] MEDS: DOCUSATE SODIUM 100 MG CAPSULE PO SCH (08:00)
[2021-12-02 08:15] VITALS: BP 138/88
[2021-12-02 09:20] LABS: GLUCOMETER DEV NAME(LOC) POC.BV
[2021-12-02] MEDS: TAMSULOSIN HCL 0.4 MG CAPSULE PO SCH ×2 (09:55→16:52)
[2021-12-02] MEDS: MUPIROCIN CALCIUM 2% 22 GM OINTMENT NASAL SCH ×2 (09:56→16:53)
[2021-12-02 16:14] VITALS: BP 126/83
[2021-12-02 20:33] VITALS: BP 114/68
[2021-12-02] MEDS: PRAZOSIN HCL 2 MG CAPSULE PO SCH (20:35)
[2021-12-02] MEDS: MELATONIN 5 MG TABLET PO SCH (20:35)
[2021-12-02] MEDS: TraZODone HCL 100 MG TABLET PO SCH (20:35)
[2021-12-03 00:24] VITALS: BP 117/68
[2021-12-03] MEDS: LORazepam 2 MG TABLET PO PRN ×3 (01:57→16:11)
[2021-12-03] MEDS: LURASIDONE HCL 60 MG TABLET PO SCH ×2 (06:47→16:07)
[2021-12-03 08:13] VITALS: BP 121/83
[2021-12-03] MEDS: LOXAPINE SUCCINATE 5 MG CAPSULE PO SCH ×3 (08:13→16:07)
[2021-12-03] MEDS: LOXAPINE SUCCINATE 25 MG CAPSULE PO SCH ×3 (08:13→16:07)
[2021-12-03] MEDS: TAMSULOSIN HCL 0.4 MG CAPSULE PO SCH ×2 (08:13→16:07)
[2021-12-03] MEDS: DOCUSATE SODIUM 100 MG CAPSULE PO SCH (08:13)
[2021-12-03] MEDS: FLUoxetine HCL 20 MG CAPSULE PO SCH (08:14)
[2021-12-03] MEDS: GABAPENTIN 300 MG CAPSULE PO SCH ×3 (08:14→16:08)
[2021-12-03] MEDS: MUPIROCIN CALCIUM 2% 22 GM OINTMENT NASAL SCH (08:15)
[2021-12-03 16:23] VITALS: BP 129/90
[2021-12-03 20:00] VITALS: BP 119/62
[2021-12-03] MEDS: PRAZOSIN HCL 2 MG CAPSULE PO SCH (20:01)
[2021-12-03] MEDS: MELATONIN 5 MG TABLET PO SCH (20:01)
[2021-12-03] MEDS: TraZODone HCL 100 MG TABLET PO SCH (20:02)
[2021-12-04 00:14] VITALS: BP 116/62
[2021-12-04] MEDS: LURASIDONE HCL 60 MG TABLET PO SCH ×2 (06:23→16:34)
[2021-12-04] MEDS: DOCUSATE SODIUM 100 MG CAPSULE PO SCH (08:00)
[2021-12-04] MEDS: FLUoxetine HCL 20 MG CAPSULE PO SCH (08:01)
[2021-12-04] MEDS: LOXAPINE SUCCINATE 5 MG CAPSULE PO SCH ×3 (08:01→16:34)
[2021-12-04] MEDS: GABAPENTIN 300 MG CAPSULE PO SCH ×3 (08:01→16:34)
[2021-12-04] MEDS: LOXAPINE SUCCINATE 25 MG CAPSULE PO SCH ×3 (08:01→16:33)
[2021-12-04] MEDS: TAMSULOSIN HCL 0.4 MG CAPSULE PO SCH ×2 (08:01→16:34)
[2021-12-04 08:22] VITALS: BP 140/90
[2021-12-04] MEDS: LORazepam 2 MG TABLET PO PRN (15:57)
[2021-12-04 16:04] VITALS: BP 135/79
[2021-12-04 20:29] VITALS: BP 122/90
[2021-12-04] MEDS: TraZODone HCL 100 MG TABLET PO SCH (20:30)
[2021-12-04] MEDS: PRAZOSIN HCL 2 MG CAPSULE PO SCH (20:31)
[2021-12-04] MEDS: MELATONIN 5 MG TABLET PO SCH (20:32)
[2021-12-05 00:12] VITALS: BP 118/82
[2021-12-05] MEDS: LURASIDONE HCL 60 MG TABLET PO SCH ×2 (06:17→16:21)
[2021-12-05] MEDS: TAMSULOSIN HCL 0.4 MG CAPSULE PO SCH ×2 (08:06→16:21)
[2021-12-05] MEDS: DOCUSATE SODIUM 100 MG CAPSULE PO SCH (08:06)
[2021-12-05] MEDS: LOXAPINE SUCCINATE 5 MG CAPSULE PO SCH ×3 (08:07→16:21)
[2021-12-05] MEDS: GABAPENTIN 300 MG CAPSULE PO SCH ×3 (08:07→16:21)
[2021-12-05] MEDS: FLUoxetine HCL 20 MG CAPSULE PO SCH (08:07)
[2021-12-05] MEDS: LOXAPINE SUCCINATE 25 MG CAPSULE PO SCH ×3 (08:07→16:21)
[2021-12-05 08:17] VITALS: BP 134/87
[2021-12-05] MEDS: LORazepam 2 MG TABLET PO PRN ×2 (08:40→13:05)
[2021-12-05] MEDS: HALOPERIDOL 5 MG TABLET PO PRN (13:05)
[2021-12-05 16:07] VITALS: BP 134/90
[2021-12-05] MEDS: TraZODone HCL 100 MG TABLET PO SCH (20:29)
[2021-12-05] MEDS: PRAZOSIN HCL 2 MG CAPSULE PO SCH (20:29)
[2021-12-05] MEDS: MELATONIN 5 MG TABLET PO SCH (20:29)
[2021-12-06 00:22] VITALS: BP 130/85
[2021-12-06] MEDS: LURASIDONE HCL 60 MG TABLET PO SCH ×2 (06:44→17:08)
[2021-12-06] MEDS: LORazepam 2 MG TABLET PO PRN ×2 (07:24→16:24)
[2021-12-06 08:45] VITALS: BP 141/67
[2021-12-06] MEDS: FLUoxetine HCL 20 MG CAPSULE PO SCH (09:02)
[2021-12-06] MEDS: TAMSULOSIN HCL 0.4 MG CAPSULE PO SCH ×2 (09:02→16:31)
[2021-12-06] MEDS: GABAPENTIN 300 MG CAPSULE PO SCH ×3 (09:03→16:32)
[2021-12-06] MEDS: LOXAPINE SUCCINATE 25 MG CAPSULE PO SCH ×3 (09:03→16:32)
[2021-12-06] MEDS: LOXAPINE SUCCINATE 5 MG CAPSULE PO SCH ×3 (09:03→16:32)
[2021-12-06] MEDS: DOCUSATE SODIUM 100 MG CAPSULE PO SCH (09:03)
[2021-12-06 16:13] VITALS: BP 121/73
[2021-12-06] MEDS: TraZODone HCL 100 MG TABLET PO SCH (21:49)
[2021-12-06] MEDS: MELATONIN 5 MG TABLET PO SCH (21:49)
[2021-12-06] MEDS: PRAZOSIN HCL 2 MG CAPSULE PO SCH (21:50)
[2021-12-07 00:37] VITALS: BP 125/70
[2021-12-07] MEDS: LURASIDONE HCL 60 MG TABLET PO SCH ×2 (06:30→16:43)
[2021-12-07 06:40] VITALS: BP 131/89
[2021-12-07] MEDS: LORazepam 2 MG TABLET PO PRN ×2 (06:40→11:08)
[2021-12-07] MEDS: HALOPERIDOL 5 MG TABLET PO PRN ×2 (06:40→11:08)
[2021-12-07] MEDS: DOCUSATE SODIUM 100 MG CAPSULE PO SCH (08:08)
[2021-12-07] MEDS: LOXAPINE SUCCINATE 5 MG CAPSULE PO SCH ×3 (08:08→16:43)
[2021-12-07] MEDS: LOXAPINE SUCCINATE 25 MG CAPSULE PO SCH ×3 (08:08→16:43)
[2021-12-07] MEDS: TAMSULOSIN HCL 0.4 MG CAPSULE PO SCH ×2 (08:08→16:43)
[2021-12-07] MEDS: FLUoxetine HCL 20 MG CAPSULE PO SCH (08:09)
[2021-12-07] MEDS: GABAPENTIN 300 MG CAPSULE PO SCH ×3 (08:09→16:43)
[2021-12-07 08:18] VITALS: BP 133/86
[2021-12-07 16:29] VITALS: BP 114/76
[2021-12-07 20:33] VITALS: BP 113/70
[2021-12-07] MEDS: TraZODone HCL 100 MG TABLET PO SCH (20:35)
[2021-12-07] MEDS: MELATONIN 5 MG TABLET PO SCH (20:35)
[2021-12-07] MEDS: PRAZOSIN HCL 2 MG CAPSULE PO SCH (20:35)
[2021-12-08 03:39] VITALS: BP 126/72
[2021-12-08 07:04] LABS: APPEARANCE,URINE HAZY (CLEAR); BILIRUBIN,URINE NEGATIVE (NEGATIVE); GLUCOSE, URINE (UA) NEGATIVE (NEGATIVE); KETONES,URINE NEGATIVE (NEGATIVE); LEUKOCYTE ESTERASE ,URINE NEGATIVE (NEGATIVE); NITRATE,URINE NEGATIVE (NEGATIVE); OCCULT BLOOD,URINE NEGATIVE (NEGATIVE); PROTEIN,URINE NEGATIVE (NEGATIVE); SPECIFIC GRAVITIY, URINE 1.004 (1.003-1.030); UROBILINOGEN,URINE <=1.0 mg/dL (<=1.0)
[2021-12-08] MEDS: LURASIDONE HCL 60 MG TABLET PO SCH ×2 (07:04→16:52)
[2021-12-08 07:56] LABS: SQUAMOUS EPITHELIAL CELL,UR Moderate /LPF (None Seen)
[2021-12-08 07:57] LABS: BACTERIA,URINE None Seen /HPF (None Seen); RBC,URINE None Seen /HPF (0-2); WBC,URINE 0-2 /HPF (0-5)
[2021-12-08] MEDS: LOXAPINE SUCCINATE 25 MG CAPSULE PO SCH ×3 (08:17→16:52)
[2021-12-08] MEDS: LOXAPINE SUCCINATE 5 MG CAPSULE PO SCH ×3 (08:17→16:52)
[2021-12-08] MEDS: FLUoxetine HCL 20 MG CAPSULE PO SCH (08:18)
[2021-12-08] MEDS: TAMSULOSIN HCL 0.4 MG CAPSULE PO SCH ×2 (08:18→16:52)
[2021-12-08] MEDS: GABAPENTIN 300 MG CAPSULE PO SCH ×3 (08:18→16:52)
[2021-12-08] MEDS: DOCUSATE SODIUM 100 MG CAPSULE PO SCH (08:18)
[2021-12-08 08:23] VITALS: BP 143/98
[2021-12-08] MEDS: HALOPERIDOL 5 MG TABLET PO PRN (10:13)
[2021-12-08] MEDS: LORazepam 2 MG TABLET PO PRN ×2 (10:13→16:14)
[2021-12-08] MEDS: MAG HYDROX/AL HYDROX/SIMETH ES 30 ML SUSPENSION UDCUP PO PRN (12:28)
[2021-12-08 16:03] VITALS: BP 135/86
[2021-12-08 20:44] VITALS: BP 119/69
[2021-12-08] MEDS: PRAZOSIN HCL 2 MG CAPSULE PO SCH (20:45)
[2021-12-08] MEDS: MELATONIN 5 MG TABLET PO SCH (20:45)
[2021-12-08] MEDS: TraZODone HCL 100 MG TABLET PO SCH (20:45)
[2021-12-09 02:44] VITALS: BP 137/87
[2021-12-09] MEDS: LURASIDONE HCL 60 MG TABLET PO SCH ×2 (06:34→16:16)
[2021-12-09] MEDS: DOCUSATE SODIUM 100 MG CAPSULE PO SCH (08:01)
[2021-12-09] MEDS: LOXAPINE SUCCINATE 5 MG CAPSULE PO SCH ×3 (08:02→16:16)
[2021-12-09] MEDS: FLUoxetine HCL 20 MG CAPSULE PO SCH (08:02)
[2021-12-09] MEDS: LOXAPINE SUCCINATE 25 MG CAPSULE PO SCH ×3 (08:02→16:16)
[2021-12-09] MEDS: GABAPENTIN 300 MG CAPSULE PO SCH ×3 (08:02→16:16)
[2021-12-09] MEDS: TAMSULOSIN HCL 0.4 MG CAPSULE PO SCH ×2 (08:02→16:16)
[2021-12-09 08:04] VITALS: BP 112/71
[2021-12-09] MEDS: LORazepam 2 MG TABLET PO PRN ×2 (10:50→14:55)
[2021-12-09] MEDS: HALOPERIDOL 5 MG TABLET PO PRN ×2 (10:50→14:55)
[2021-12-09 13:11] LABS: GLUCOMETER DEV NAME(LOC) POC.BV
[2021-12-09 16:06] VITALS: BP 132/83
[2021-12-09] MEDS: TraZODone HCL 100 MG TABLET PO SCH (20:17)
[2021-12-09] MEDS: MELATONIN 5 MG TABLET PO SCH (20:17)
[2021-12-09] MEDS: PRAZOSIN HCL 2 MG CAPSULE PO SCH (20:17)
[2021-12-10 00:34] VITALS: BP 127/81
[2021-12-10] MEDS: LURASIDONE HCL 60 MG TABLET PO SCH ×2 (06:26→16:08)
[2021-12-10] MEDS: TAMSULOSIN HCL 0.4 MG CAPSULE PO SCH ×2 (08:10→16:08)
[2021-12-10] MEDS: FLUoxetine HCL 20 MG CAPSULE PO SCH (08:10)
[2021-12-10] MEDS: DOCUSATE SODIUM 100 MG CAPSULE PO SCH (08:11)
[2021-12-10] MEDS: GABAPENTIN 300 MG CAPSULE PO SCH ×3 (08:11→16:08)
[2021-12-10] MEDS: LOXAPINE SUCCINATE 25 MG CAPSULE PO SCH ×3 (08:13→16:08)
[2021-12-10] MEDS: LOXAPINE SUCCINATE 5 MG CAPSULE PO SCH ×3 (08:13→16:08)
[2021-12-10 08:23] VITALS: BP 143/90
[2021-12-10] MEDS: HALOPERIDOL 5 MG TABLET PO PRN (09:59)
[2021-12-10] MEDS: LORazepam 2 MG TABLET PO PRN (09:59)
[2021-12-10 16:03] VITALS: BP 139/85
[2021-12-10] MEDS: MELATONIN 5 MG TABLET PO SCH (20:05)
[2021-12-10] MEDS: TraZODone HCL 100 MG TABLET PO SCH (20:05)
[2021-12-10] MEDS: PRAZOSIN HCL 2 MG CAPSULE PO SCH (20:05)
[2021-12-11 00:15] VITALS: BP 128/79
[2021-12-11] MEDS: LURASIDONE HCL 60 MG TABLET PO SCH ×2 (06:56→16:12)
[2021-12-11] MEDS: LORazepam 2 MG TABLET PO PRN (07:43)
[2021-12-11] MEDS: LOXAPINE SUCCINATE 25 MG CAPSULE PO SCH ×3 (08:06→16:12)
[2021-12-11] MEDS: LOXAPINE SUCCINATE 5 MG CAPSULE PO SCH ×3 (08:06→16:12)
[2021-12-11] MEDS: FLUoxetine HCL 20 MG CAPSULE PO SCH (08:06)
[2021-12-11] MEDS: TAMSULOSIN HCL 0.4 MG CAPSULE PO SCH ×2 (08:06→16:12)
[2021-12-11] MEDS: GABAPENTIN 300 MG CAPSULE PO SCH ×3 (08:06→16:12)
[2021-12-11] MEDS: DOCUSATE SODIUM 100 MG CAPSULE PO SCH (08:06)
[2021-12-11 08:24] VITALS: BP 123/71
[2021-12-11] MEDS: HALOPERIDOL 5 MG TABLET PO PRN (12:21)
[2021-12-11 16:05] VITALS: BP 124/83
[2021-12-11] MEDS: MELATONIN 5 MG TABLET PO SCH (20:05)
[2021-12-11] MEDS: PRAZOSIN HCL 2 MG CAPSULE PO SCH (20:05)
[2021-12-11] MEDS: TraZODone HCL 100 MG TABLET PO SCH (20:05)
[2021-12-12 00:24] VITALS: BP 125/79
[2021-12-12] MEDS: LURASIDONE HCL 60 MG TABLET PO SCH ×2 (06:45→16:02)
[2021-12-12 08:15] VITALS: BP 130/79
[2021-12-12] MEDS: DOCUSATE SODIUM 100 MG CAPSULE PO SCH (08:25)
[2021-12-12] MEDS: TAMSULOSIN HCL 0.4 MG CAPSULE PO SCH ×2 (08:25→16:02)
[2021-12-12] MEDS: LOXAPINE SUCCINATE 25 MG CAPSULE PO SCH ×3 (08:26→16:02)
[2021-12-12] MEDS: FLUoxetine HCL 20 MG CAPSULE PO SCH (08:26)
[2021-12-12] MEDS: GABAPENTIN 300 MG CAPSULE PO SCH ×3 (08:26→16:02)
[2021-12-12] MEDS: LOXAPINE SUCCINATE 5 MG CAPSULE PO SCH ×3 (08:26→16:02)
[2021-12-12] MEDS: LORazepam 2 MG TABLET PO PRN ×2 (10:29→19:28)
[2021-12-12] MEDS: HALOPERIDOL 5 MG TABLET PO PRN ×2 (10:29→19:28)
[2021-12-12 16:06] VITALS: BP 125/87
[2021-12-12] MEDS: TraZODone HCL 100 MG TABLET PO SCH (20:04)
[2021-12-12] MEDS: MELATONIN 5 MG TABLET PO SCH (20:04)
[2021-12-12] MEDS: PRAZOSIN HCL 2 MG CAPSULE PO SCH (20:04)
[2021-12-13] MEDS: LORazepam 2 MG TABLET PO PRN ×2 (04:54→14:30)
[2021-12-13] MEDS: HALOPERIDOL 5 MG TABLET PO PRN ×2 (04:54→14:30)
[2021-12-13] MEDS: LURASIDONE HCL 60 MG TABLET PO SCH ×2 (06:31→16:54)
[2021-12-13 08:08] VITALS: BP 138/90
[2021-12-13] MEDS: LOXAPINE SUCCINATE 5 MG CAPSULE PO SCH ×3 (08:11→16:54)
[2021-12-13] MEDS: LOXAPINE SUCCINATE 25 MG CAPSULE PO SCH ×3 (08:11→16:54)
[2021-12-13] MEDS: DOCUSATE SODIUM 100 MG CAPSULE PO SCH (08:11)
[2021-12-13] MEDS: FLUoxetine HCL 20 MG CAPSULE PO SCH (08:12)
[2021-12-13] MEDS: TAMSULOSIN HCL 0.4 MG CAPSULE PO SCH ×2 (08:12→16:54)
[2021-12-13] MEDS: GABAPENTIN 300 MG CAPSULE PO SCH ×3 (08:12→16:54)
[2021-12-13 16:12] VITALS: BP 121/84
[2021-12-13 20:00] VITALS: BP 120/82
[2021-12-13] MEDS: MELATONIN 5 MG TABLET PO SCH (20:03)
[2021-12-13] MEDS: PRAZOSIN HCL 2 MG CAPSULE PO SCH (20:03)
[2021-12-13] MEDS: TraZODone HCL 100 MG TABLET PO SCH (20:03)
[2021-12-14 01:51] VITALS: BP 113/77
[2021-12-14] MEDS: LORazepam 2 MG TABLET PO PRN ×4 (01:54→18:57)
[2021-12-14] MEDS: HALOPERIDOL 5 MG TABLET PO PRN ×4 (01:54→18:56)
[2021-12-14 02:00] VITALS: BP 124/88
[2021-12-14] MEDS: IBUPROFEN 400 MG TABLET PO PRN ×3 (02:02→21:41)
[2021-12-14] MEDS: LURASIDONE HCL 60 MG TABLET PO SCH ×2 (06:23→16:03)
[2021-12-14] MEDS: GABAPENTIN 300 MG CAPSULE PO SCH ×3 (08:04→16:02)
[2021-12-14] MEDS: DOCUSATE SODIUM 100 MG CAPSULE PO SCH (08:04)
[2021-12-14] MEDS: LOXAPINE SUCCINATE 25 MG CAPSULE PO SCH ×3 (08:04→16:02)
[2021-12-14] MEDS: LOXAPINE SUCCINATE 5 MG CAPSULE PO SCH ×3 (08:04→16:02)
[2021-12-14] MEDS: FLUoxetine HCL 20 MG CAPSULE PO SCH (08:04)
[2021-12-14 08:20] VITALS: BP 131/70
[2021-12-14 08:23] LABS: APPEARANCE,URINE CLEAR (CLEAR); BILIRUBIN,URINE NEGATIVE (NEGATIVE); GLUCOSE, URINE (UA) NEGATIVE (NEGATIVE); KETONES,URINE NEGATIVE (NEGATIVE); LEUKOCYTE ESTERASE ,URINE NEGATIVE (NEGATIVE); NITRATE,URINE NEGATIVE (NEGATIVE); OCCULT BLOOD,URINE NEGATIVE (NEGATIVE); PH,URINE 5.5 (5.0-8.0); PROTEIN,URINE NEGATIVE (NEGATIVE); SPECIFIC GRAVITIY, URINE 1.005 (1.003-1.030); UROBILINOGEN,URINE <=1.0 mg/dL (<=1.0)
[2021-12-14] MEDS: TAMSULOSIN HCL 0.4 MG CAPSULE PO SCH ×2 (08:23→16:02)
[2021-12-14 16:16] VITALS: BP 127/75
[2021-12-14] MEDS: ACETAMINOPHEN 325 MG TABLET PO PRN (19:32)
[2021-12-14] MEDS: PRAZOSIN HCL 2 MG CAPSULE PO SCH (21:11)
[2021-12-14] MEDS: TraZODone HCL 100 MG TABLET PO SCH (21:11)
[2021-12-14] MEDS: MELATONIN 5 MG TABLET PO SCH (21:12)
[2021-12-14 21:41] VITALS: BP 126/90
[2021-12-15 00:33] VITALS: BP 135/92
[2021-12-15] MEDS: ZOLPIDEM TARTRATE 10 MG TABLET PO PRN (00:57)
[2021-12-15] MEDS: LURASIDONE HCL 60 MG TABLET PO SCH ×2 (06:15→16:12)
[2021-12-15 08:05] VITALS: BP 142/83
[2021-12-15] MEDS: FLUoxetine HCL 20 MG CAPSULE PO SCH (08:08)
[2021-12-15] MEDS: DOCUSATE SODIUM 100 MG CAPSULE PO SCH (08:08)
[2021-12-15] MEDS: LOXAPINE SUCCINATE 5 MG CAPSULE PO SCH ×3 (08:09→16:11)
[2021-12-15] MEDS: LOXAPINE SUCCINATE 25 MG CAPSULE PO SCH ×3 (08:09→16:11)
[2021-12-15] MEDS: GABAPENTIN 300 MG CAPSULE PO SCH ×3 (08:09→16:11)
[2021-12-15] MEDS: TAMSULOSIN HCL 0.4 MG CAPSULE PO SCH ×2 (08:09→16:11)
[2021-12-15] MEDS: HALOPERIDOL 5 MG TABLET PO PRN ×2 (09:55→18:10)
[2021-12-15] MEDS: LORazepam 2 MG TABLET PO PRN ×2 (09:55→18:10)
[2021-12-15] MEDS: IBUPROFEN 400 MG TABLET PO PRN ×2 (10:16→18:44)
[2021-12-15] MEDS: PHENAZOPYRIDINE HCL 200 MG TABLET PO SCH (16:12)
[2021-12-15 16:29] VITALS: BP 131/97
[2021-12-15] MEDS: ACETAMINOPHEN 325 MG TABLET PO PRN (17:18)
[2021-12-15] MEDS: MELATONIN 5 MG TABLET PO SCH (21:12)
[2021-12-15] MEDS: PRAZOSIN HCL 2 MG CAPSULE PO SCH (21:12)
[2021-12-15] MEDS: TraZODone HCL 100 MG TABLET PO SCH (21:12)
[2021-12-16 00:35] VITALS: BP 139/98
[2021-12-16] MEDS: ACETAMINOPHEN 325 MG TABLET PO PRN ×3 (01:17→23:02)
[2021-12-16] MEDS: ZOLPIDEM TARTRATE 10 MG TABLET PO PRN (01:17)
[2021-12-16] MEDS: LURASIDONE HCL 60 MG TABLET PO SCH ×2 (06:26→17:03)
[2021-12-16 08:16] VITALS: BP 130/81
[2021-12-16] MEDS: LORazepam 2 MG TABLET PO PRN ×3 (08:16→23:02)
[2021-12-16] MEDS: FLUoxetine HCL 20 MG CAPSULE PO SCH (08:16)
[2021-12-16] MEDS: DOCUSATE SODIUM 100 MG CAPSULE PO SCH (08:16)
[2021-12-16] MEDS: LOXAPINE SUCCINATE 5 MG CAPSULE PO SCH ×3 (08:16→17:03)
[2021-12-16] MEDS: GABAPENTIN 300 MG CAPSULE PO SCH ×3 (08:17→17:03)
[2021-12-16] MEDS: LOXAPINE SUCCINATE 25 MG CAPSULE PO SCH ×3 (08:17→17:03)
[2021-12-16] MEDS: TAMSULOSIN HCL 0.4 MG CAPSULE PO SCH ×2 (08:17→17:03)
[2021-12-16] MEDS: PHENAZOPYRIDINE HCL 200 MG TABLET PO SCH (08:19)
[2021-12-16 11:26] LABS: GLUCOMETER DEV NAME(LOC) POC.BV
[2021-12-16] MEDS: TraZODone HCL 100 MG TABLET PO SCH (20:10)
[2021-12-16] MEDS: MELATONIN 5 MG TABLET PO SCH (20:10)
[2021-12-16] MEDS: PRAZOSIN HCL 2 MG CAPSULE PO SCH (20:10)
[2021-12-16] MEDS: IBUPROFEN 400 MG TABLET PO PRN (20:11)
[2021-12-16 23:02] VITALS: BP 128/84
[2021-12-17] VITALS: BP_SYST 115; BP_SYST 98; BP_DIAS 60; BP_DIAS 68
[2021-12-17] MEDS: ZOLPIDEM TARTRATE 10 MG TABLET PO PRN (01:26)
[2021-12-17] MEDS: LURASIDONE HCL 60 MG TABLET PO SCH ×2 (06:27→17:56)
[2021-12-17] MEDS: DOCUSATE SODIUM 100 MG CAPSULE PO SCH (08:12)
[2021-12-17] MEDS: PHENAZOPYRIDINE HCL 200 MG TABLET PO SCH (08:12)
[2021-12-17] MEDS: FLUoxetine HCL 20 MG CAPSULE PO SCH (08:12)
[2021-12-17] MEDS: GABAPENTIN 300 MG CAPSULE PO SCH ×3 (08:12→17:56)
[2021-12-17] MEDS: LOXAPINE SUCCINATE 5 MG CAPSULE PO SCH ×3 (08:13→17:56)
[2021-12-17] MEDS: LOXAPINE SUCCINATE 25 MG CAPSULE PO SCH ×3 (08:13→17:56)
[2021-12-17] MEDS: TAMSULOSIN HCL 0.4 MG CAPSULE PO SCH ×2 (08:26→17:56)
[2021-12-17] MEDS: LORazepam 2 MG TABLET PO PRN ×2 (08:27→13:43)
[2021-12-17] MEDS: HALOPERIDOL 5 MG TABLET PO PRN (08:27)
[2021-12-17 08:37] VITALS: BP 137/80
[2021-12-17] MEDS ORDERED: TUBERCULIN, PURIFIED PROTEIN DERIVATIVE 5 TU/0.1 ML SYRINGE ID ONE (09:30)
[2021-12-17] MEDS: IBUPROFEN 400 MG TABLET PO PRN (13:43)
[2021-12-17 17:01] LABS: GLUCOMETER DEV NAME(LOC) POC.BV
[2021-12-17 17:36] VITALS: BP 131/89
[2021-12-17] MEDS: TraZODone HCL 100 MG TABLET PO SCH (20:05)
[2021-12-17] MEDS: MELATONIN 5 MG TABLET PO SCH (20:05)
[2021-12-17] MEDS: PRAZOSIN HCL 2 MG CAPSULE PO SCH (23:47)
[2021-12-18 06:17] VITALS: BP 124/62
[2021-12-18] MEDS: LURASIDONE HCL 60 MG TABLET PO SCH ×2 (06:40→16:35)
[2021-12-18] MEDS: FLUoxetine HCL 20 MG CAPSULE PO SCH (08:04)
[2021-12-18] MEDS: LOXAPINE SUCCINATE 25 MG CAPSULE PO SCH ×3 (08:05→16:36)
[2021-12-18] MEDS: LOXAPINE SUCCINATE 5 MG CAPSULE PO SCH ×3 (08:05→16:36)
[2021-12-18] MEDS: DOCUSATE SODIUM 100 MG CAPSULE PO SCH (08:05)
[2021-12-18] MEDS: TAMSULOSIN HCL 0.4 MG CAPSULE PO SCH ×2 (08:06→16:36)
[2021-12-18 08:11] VITALS: BP 131/78
[2021-12-18] MEDS: GABAPENTIN 300 MG CAPSULE PO SCH ×3 (08:15→16:36)
[2021-12-18] MEDS: LORazepam 2 MG TABLET PO PRN ×2 (08:17→12:27)
[2021-12-18 08:32] VITALS: BP 131/78
[2021-12-18] MEDS: IBUPROFEN 400 MG TABLET PO PRN ×2 (08:41→23:13)
[2021-12-18] MEDS: HALOPERIDOL 5 MG TABLET PO PRN ×2 (08:53→13:02)
[2021-12-18] MEDS: PALIPERIDONE PALMITATE 234 MG/1.5 ML SYRINGE IM SCH (08:57)
[2021-12-18 17:34] VITALS: BP 149/65
[2021-12-18 20:30] VITALS: BP 123/71
[2021-12-18] MEDS: MELATONIN 5 MG TABLET PO SCH (20:31)
[2021-12-18] MEDS: TraZODone HCL 100 MG TABLET PO SCH (20:31)
[2021-12-18] MEDS: PRAZOSIN HCL 2 MG CAPSULE PO SCH (20:31)
[2021-12-18 23:13] VITALS: BP 130/84
[2021-12-19 00:33] VITALS: BP 136/84
[2021-12-19] MEDS: LURASIDONE HCL 60 MG TABLET PO SCH ×2 (06:36→17:52)
[2021-12-19] MEDS: GABAPENTIN 300 MG CAPSULE PO SCH ×3 (08:08→17:51)
[2021-12-19] MEDS: LOXAPINE SUCCINATE 5 MG CAPSULE PO SCH ×3 (08:08→17:51)
[2021-12-19] MEDS: FLUoxetine HCL 20 MG CAPSULE PO SCH (08:08)
[2021-12-19] MEDS: TAMSULOSIN HCL 0.4 MG CAPSULE PO SCH ×2 (08:09→17:51)
[2021-12-19] MEDS: LOXAPINE SUCCINATE 25 MG CAPSULE PO SCH ×3 (08:09→17:51)
[2021-12-19] MEDS: DOCUSATE SODIUM 100 MG CAPSULE PO SCH (08:09)
[2021-12-19] MEDS: ACETAMINOPHEN 325 MG TABLET PO PRN (08:09)
[2021-12-19 08:42] VITALS: BP 128/95
[2021-12-19] MEDS: IBUPROFEN 400 MG TABLET PO PRN (09:01)
[2021-12-19] MEDS: LORazepam 2 MG TABLET PO PRN (13:58)
[2021-12-19 16:08] VITALS: BP 141/84
[2021-12-19] MEDS: TraZODone HCL 100 MG TABLET PO SCH (20:22)
[2021-12-19] MEDS: MELATONIN 5 MG TABLET PO SCH (20:22)
[2021-12-19] MEDS: PRAZOSIN HCL 2 MG CAPSULE PO SCH (20:22)
[2021-12-20 00:37] VITALS: BP 129/83
[2021-12-20] MEDS: LURASIDONE HCL 60 MG TABLET PO SCH ×2 (06:41→17:03)
[2021-12-20] MEDS: GABAPENTIN 300 MG CAPSULE PO SCH ×3 (08:20→17:03)
[2021-12-20] MEDS: DOCUSATE SODIUM 100 MG CAPSULE PO SCH (08:20)
[2021-12-20] MEDS: TAMSULOSIN HCL 0.4 MG CAPSULE PO SCH ×2 (08:20→17:03)
[2021-12-20 08:21] VITALS: BP 129/90
[2021-12-20] MEDS: LOXAPINE SUCCINATE 25 MG CAPSULE PO SCH ×3 (08:21→17:03)
[2021-12-20] MEDS: LOXAPINE SUCCINATE 5 MG CAPSULE PO SCH ×3 (08:21→17:03)
[2021-12-20] MEDS: FLUoxetine HCL 20 MG CAPSULE PO SCH (08:21)
[2021-12-20] MEDS: ACETAMINOPHEN 325 MG TABLET PO PRN (08:44)
[2021-12-20] MEDS: LORazepam 2 MG TABLET PO PRN (13:13)
[2021-12-20] MEDS: IBUPROFEN 400 MG TABLET PO PRN (13:13)
[2021-12-20 16:14] VITALS: BP 137/84
[2021-12-20] MEDS: PRAZOSIN HCL 2 MG CAPSULE PO SCH (20:16)
[2021-12-20] MEDS: MELATONIN 5 MG TABLET PO SCH (20:16)
[2021-12-20] MEDS: TraZODone HCL 100 MG TABLET PO SCH (20:16)
[2021-12-21 00:44] VITALS: BP 128/81
[2021-12-21] MEDS: LORazepam 2 MG TABLET PO PRN ×2 (04:28→18:23)
[2021-12-21] MEDS: HALOPERIDOL 5 MG TABLET PO PRN ×2 (04:28→18:57)
[2021-12-21] MEDS: ACETAMINOPHEN 325 MG TABLET PO PRN (04:36)
[2021-12-21] MEDS: LURASIDONE HCL 60 MG TABLET PO SCH ×2 (06:51→16:12)
[2021-12-21 08:04] VITALS: BP 129/90
[2021-12-21] MEDS: GABAPENTIN 300 MG CAPSULE PO SCH ×3 (09:49→16:13)
[2021-12-21] MEDS: LOXAPINE SUCCINATE 25 MG CAPSULE PO SCH ×3 (09:49→16:11)
[2021-12-21] MEDS: DOCUSATE SODIUM 100 MG CAPSULE PO SCH (09:49)
[2021-12-21] MEDS: FLUoxetine HCL 20 MG CAPSULE PO SCH (09:49)
[2021-12-21] MEDS: LOXAPINE SUCCINATE 5 MG CAPSULE PO SCH ×3 (09:49→16:11)
[2021-12-21] MEDS: TAMSULOSIN HCL 0.4 MG CAPSULE PO SCH ×2 (09:56→16:12)
[2021-12-21 16:48] VITALS: BP 132/98
[2021-12-21] MEDS: IBUPROFEN 400 MG TABLET PO PRN (17:52)
[2021-12-21 20:58] VITALS: BP 124/90
[2021-12-21] MEDS: PRAZOSIN HCL 2 MG CAPSULE PO SCH (21:11)
[2021-12-21] MEDS: TraZODone HCL 100 MG TABLET PO SCH (21:12)
[2021-12-21] MEDS: MELATONIN 5 MG TABLET PO SCH (21:12)
[2021-12-22 00:09] VITALS: BP 124/82
[2021-12-22] MEDS: LURASIDONE HCL 60 MG TABLET PO SCH ×2 (06:36→16:08)
[2021-12-22 08:10] VITALS: BP 151/97
[2021-12-22] MEDS: GABAPENTIN 300 MG CAPSULE PO SCH ×3 (09:08→16:08)
[2021-12-22] MEDS: TAMSULOSIN HCL 0.4 MG CAPSULE PO SCH ×2 (09:08→16:08)
[2021-12-22] MEDS: LOXAPINE SUCCINATE 25 MG CAPSULE PO SCH ×3 (09:08→16:08)
[2021-12-22] MEDS: FLUoxetine HCL 20 MG CAPSULE PO SCH (09:08)
[2021-12-22] MEDS: LOXAPINE SUCCINATE 5 MG CAPSULE PO SCH ×3 (09:08→16:08)
[2021-12-22] MEDS: DOCUSATE SODIUM 100 MG CAPSULE PO SCH (09:20)
[2021-12-22] MEDS: HALOPERIDOL 5 MG TABLET PO PRN ×2 (10:02→22:25)
[2021-12-22] MEDS: LORazepam 2 MG TABLET PO PRN ×2 (10:02→22:25)
[2021-12-22 16:01] VITALS: BP 148/95
[2021-12-22 20:29] VITALS: BP 127/78
[2021-12-22] MEDS: MELATONIN 5 MG TABLET PO SCH (20:31)
[2021-12-22] MEDS: TraZODone HCL 100 MG TABLET PO SCH (20:31)
[2021-12-22] MEDS: PRAZOSIN HCL 2 MG CAPSULE PO SCH (20:31)
[2021-12-22 22:22] VITALS: BP 116/81
[2021-12-23 04:55] VITALS: BP 129/89
[2021-12-23] MEDS: IBUPROFEN 400 MG TABLET PO PRN (05:00)
[2021-12-23] MEDS: LURASIDONE HCL 60 MG TABLET PO SCH ×2 (06:46→16:46)
[2021-12-23 08:01] VITALS: BP 127/80
[2021-12-23] MEDS: DOCUSATE SODIUM 100 MG CAPSULE PO SCH (08:27)
[2021-12-23] MEDS: LOXAPINE SUCCINATE 25 MG CAPSULE PO SCH ×3 (08:27→16:04)
[2021-12-23] MEDS: GABAPENTIN 300 MG CAPSULE PO SCH ×3 (08:28→16:05)
[2021-12-23] MEDS: LOXAPINE SUCCINATE 5 MG CAPSULE PO SCH ×3 (08:28→16:04)
[2021-12-23] MEDS: TAMSULOSIN HCL 0.4 MG CAPSULE PO SCH ×2 (08:29→16:05)
[2021-12-23] MEDS: FLUoxetine HCL 20 MG CAPSULE PO SCH (08:29)
[2021-12-23] MEDS: ACETAMINOPHEN 325 MG TABLET PO PRN (09:21)
[2021-12-23] MEDS: LORazepam 2 MG TABLET PO PRN (12:37)
[2021-12-23] MEDS: CIPROFLOXACIN HCL 0.2%/HYDROCORT 1% 10 ML OTIC SUSPENSION AD SCH ×2 (15:44→17:51)
[2021-12-23 16:03] VITALS: BP 121/84
[2021-12-23] MEDS: PRAZOSIN HCL 2 MG CAPSULE PO SCH (20:06)
[2021-12-23] MEDS: MELATONIN 5 MG TABLET PO SCH (20:06)
[2021-12-23] MEDS: TraZODone HCL 100 MG TABLET PO SCH (20:06)
[2021-12-24 00:06] VITALS: BP 132/85
[2021-12-24] MEDS: LURASIDONE HCL 60 MG TABLET PO SCH ×2 (06:42→16:34)
[2021-12-24 08:03] VITALS: BP 139/88
[2021-12-24] MEDS: CIPROFLOXACIN HCL 0.2%/HYDROCORT 1% 10 ML OTIC SUSPENSION AD SCH ×3 (08:10→16:36)
[2021-12-24] MEDS: FLUoxetine HCL 20 MG CAPSULE PO SCH (08:11)
[2021-12-24] MEDS: GABAPENTIN 300 MG CAPSULE PO SCH ×3 (08:11→16:35)
[2021-12-24] MEDS: DOCUSATE SODIUM 100 MG CAPSULE PO SCH (08:11)
[2021-12-24] MEDS: TAMSULOSIN HCL 0.4 MG CAPSULE PO SCH ×2 (08:11→16:35)
[2021-12-24] MEDS: LOXAPINE SUCCINATE 25 MG CAPSULE PO SCH ×3 (08:12→16:35)
[2021-12-24] MEDS: LOXAPINE SUCCINATE 5 MG CAPSULE PO SCH ×3 (08:12→16:35)
[2021-12-24 08:46] LABS: GLUCOMETER DEV NAME(LOC) POC.BV
[2021-12-24] MEDS: IBUPROFEN 400 MG TABLET PO PRN ×2 (08:57→13:45)
[2021-12-24] MEDS: ACETAMINOPHEN 325 MG TABLET PO PRN ×2 (11:16→20:03)
[2021-12-24] MEDS: LORazepam 2 MG TABLET PO PRN (13:44)
[2021-12-24 16:11] VITALS: BP 134/90
[2021-12-24 20:32] VITALS: BP 118/70
[2021-12-24] MEDS: TraZODone HCL 100 MG TABLET PO SCH (20:33)
[2021-12-24] MEDS: MELATONIN 5 MG TABLET PO SCH (20:33)
[2021-12-24] MEDS: PRAZOSIN HCL 2 MG CAPSULE PO SCH (20:33)
[2021-12-25] VITALS: BP 100/64
[2021-12-25] MEDS: IBUPROFEN 400 MG TABLET PO PRN ×2 (00:01→08:08)
[2021-12-25] MEDS: LURASIDONE HCL 60 MG TABLET PO SCH ×2 (06:40→16:53)
[2021-12-25] MEDS: LOXAPINE SUCCINATE 5 MG CAPSULE PO SCH ×3 (08:07→16:53)
[2021-12-25] MEDS: GABAPENTIN 300 MG CAPSULE PO SCH ×3 (08:07→16:53)
[2021-12-25] MEDS: FLUoxetine HCL 20 MG CAPSULE PO SCH (08:07)
[2021-12-25] MEDS: LOXAPINE SUCCINATE 25 MG CAPSULE PO SCH ×3 (08:07→16:53)
[2021-12-25] MEDS: DOCUSATE SODIUM 100 MG CAPSULE PO SCH (08:08)
[2021-12-25] MEDS: TAMSULOSIN HCL 0.4 MG CAPSULE PO SCH ×2 (08:08→16:53)
[2021-12-25] MEDS: CIPROFLOXACIN HCL 0.2%/HYDROCORT 1% 10 ML OTIC SUSPENSION AD SCH ×3 (08:08→16:53)
[2021-12-25 08:30] VITALS: BP 142/98
[2021-12-25] MEDS: ONDANSETRON HCL 4 MG TABLET PO PRN (08:44)
[2021-12-25] MEDS: ACETAMINOPHEN 325 MG TABLET PO PRN (10:34)
[2021-12-25] MEDS: LORazepam 2 MG TABLET PO PRN ×2 (12:02→17:41)
[2021-12-25] MEDS: HALOPERIDOL 5 MG TABLET PO PRN (17:41)
[2021-12-25] MEDS: PRAZOSIN HCL 2 MG CAPSULE PO SCH (20:01)
[2021-12-25] MEDS: TraZODone HCL 100 MG TABLET PO SCH (20:01)
[2021-12-25] MEDS: MELATONIN 5 MG TABLET PO SCH (20:02)
[2021-12-25 20:09] VITALS: BP 131/81
[2021-12-26 02:10] VITALS: BP 131/86
[2021-12-26] MEDS: LORazepam 2 MG TABLET PO PRN ×2 (02:11→18:34)
[2021-12-26] MEDS: HALOPERIDOL 5 MG TABLET PO PRN ×2 (02:11→18:34)
[2021-12-26] MEDS: LURASIDONE HCL 60 MG TABLET PO SCH ×2 (06:44→16:09)
[2021-12-26 08:06] VITALS: BP_SYST 129; BP_SYST 137; BP_DIAS 90; BP_DIAS 99
[2021-12-26] MEDS: LOXAPINE SUCCINATE 5 MG CAPSULE PO SCH ×3 (08:06→16:09)
[2021-12-26] MEDS: TAMSULOSIN HCL 0.4 MG CAPSULE PO SCH ×2 (08:06→16:10)
[2021-12-26] MEDS: LOXAPINE SUCCINATE 25 MG CAPSULE PO SCH ×3 (08:06→16:09)
[2021-12-26] MEDS: GABAPENTIN 300 MG CAPSULE PO SCH ×3 (08:06→16:10)
[2021-12-26] MEDS: FLUoxetine HCL 20 MG CAPSULE PO SCH (08:06)
[2021-12-26] MEDS: DOCUSATE SODIUM 100 MG CAPSULE PO SCH (08:06)
[2021-12-26] MEDS: IBUPROFEN 400 MG TABLET PO PRN ×2 (08:07→16:09)
[2021-12-26] MEDS: CIPROFLOXACIN HCL 0.2%/HYDROCORT 1% 10 ML OTIC SUSPENSION AD SCH ×3 (08:07→16:10)
[2021-12-26] MEDS: MELATONIN 5 MG TABLET PO SCH (20:03)
[2021-12-26] MEDS: TraZODone HCL 100 MG TABLET PO SCH (20:03)
[2021-12-26] MEDS: PRAZOSIN HCL 2 MG CAPSULE PO SCH (20:03)
[2021-12-26 20:04] VITALS: BP_SYST 138; BP_DIAS 33; BP_DIAS 83
[2021-12-27 00:41] VITALS: BP 115/68
[2021-12-27] MEDS: LURASIDONE HCL 60 MG TABLET PO SCH ×2 (06:47→16:04)
[2021-12-27 08:00] VITALS: BP 107/67
[2021-12-27] MEDS: TAMSULOSIN HCL 0.4 MG CAPSULE PO SCH ×2 (08:11→16:04)
[2021-12-27] MEDS: CIPROFLOXACIN HCL 0.2%/HYDROCORT 1% 10 ML OTIC SUSPENSION AD SCH ×3 (08:12→16:06)
[2021-12-27] MEDS: LOXAPINE SUCCINATE 5 MG CAPSULE PO SCH ×3 (08:12→16:04)
[2021-12-27] MEDS: FLUoxetine HCL 20 MG CAPSULE PO SCH (08:12)
[2021-12-27] MEDS: DOCUSATE SODIUM 100 MG CAPSULE PO SCH (08:12)
[2021-12-27] MEDS: LOXAPINE SUCCINATE 25 MG CAPSULE PO SCH ×3 (08:12→16:04)
[2021-12-27] MEDS: LORazepam 2 MG TABLET PO PRN (08:12)
[2021-12-27] MEDS: GABAPENTIN 300 MG CAPSULE PO SCH ×3 (08:12→16:04)
[2021-12-27] MEDS: ACETAMINOPHEN 325 MG TABLET PO PRN (12:18)
[2021-12-27 20:10] VITALS: BP 138/83
[2021-12-27] MEDS: MELATONIN 5 MG TABLET PO SCH (21:11)
[2021-12-27] MEDS: TraZODone HCL 100 MG TABLET PO SCH (21:11)
[2021-12-27] MEDS: PRAZOSIN HCL 2 MG CAPSULE PO SCH (21:11)
[2021-12-28 00:30] VITALS: BP 151/95
[2021-12-28] MEDS: LORazepam 2 MG TABLET PO PRN ×2 (00:36→11:10)
[2021-12-28] MEDS: HALOPERIDOL 5 MG TABLET PO PRN ×2 (00:38→11:10)
[2021-12-28] MEDS: IBUPROFEN 400 MG TABLET PO PRN (00:38)
[2021-12-28] MEDS: LURASIDONE HCL 60 MG TABLET PO SCH ×2 (06:22→17:08)
[2021-12-28 08:20] VITALS: BP 134/99
[2021-12-28] MEDS: CIPROFLOXACIN HCL 0.2%/HYDROCORT 1% 10 ML OTIC SUSPENSION AD SCH ×3 (09:07→17:42)
[2021-12-28] MEDS: LOXAPINE SUCCINATE 5 MG CAPSULE PO SCH ×3 (09:08→17:08)
[2021-12-28] MEDS: DOCUSATE SODIUM 100 MG CAPSULE PO SCH (09:08)
[2021-12-28] MEDS: LOXAPINE SUCCINATE 25 MG CAPSULE PO SCH ×3 (09:08→17:08)
[2021-12-28] MEDS: FLUoxetine HCL 20 MG CAPSULE PO SCH (09:08)
[2021-12-28] MEDS: GABAPENTIN 300 MG CAPSULE PO SCH ×3 (09:08→17:08)
[2021-12-28] MEDS: TAMSULOSIN HCL 0.4 MG CAPSULE PO SCH ×2 (09:08→17:08)
[2021-12-28] MEDS: ACETAMINOPHEN 325 MG TABLET PO PRN (13:08)
[2021-12-28] MEDS: TraZODone HCL 100 MG TABLET PO SCH (20:03)
[2021-12-28] MEDS: MELATONIN 5 MG TABLET PO SCH (20:03)
[2021-12-28] MEDS: PRAZOSIN HCL 2 MG CAPSULE PO SCH (20:03)
[2021-12-28] MEDS: MAGNESIUM HYDROXIDE SUSPENSION 30 ML UDCUP PO PRN (20:09)
[2021-12-28 20:13] VITALS: BP 120/87
[2021-12-29] MEDS: ACETAMINOPHEN 325 MG TABLET PO PRN (06:19)
[2021-12-29] MEDS: LURASIDONE HCL 60 MG TABLET PO SCH ×2 (07:10→17:00)
[2021-12-29 08:15] VITALS: BP 117/59
[2021-12-29] MEDS: FLUoxetine HCL 20 MG CAPSULE PO SCH (08:19)
[2021-12-29] MEDS: GABAPENTIN 300 MG CAPSULE PO SCH ×3 (08:19→17:01)
[2021-12-29] MEDS: DOCUSATE SODIUM 100 MG CAPSULE PO SCH (08:19)
[2021-12-29] MEDS: LOXAPINE SUCCINATE 5 MG CAPSULE PO SCH ×3 (08:20→17:01)
[2021-12-29] MEDS: CIPROFLOXACIN HCL 0.2%/HYDROCORT 1% 10 ML OTIC SUSPENSION AD SCH ×3 (08:20→17:02)
[2021-12-29] MEDS: TAMSULOSIN HCL 0.4 MG CAPSULE PO SCH ×2 (08:20→17:01)
[2021-12-29] MEDS: LOXAPINE SUCCINATE 25 MG CAPSULE PO SCH ×3 (08:20→17:01)
[2021-12-29] MEDS: LORazepam 2 MG TABLET PO PRN ×2 (10:46→16:03)
[2021-12-29] MEDS: HALOPERIDOL 5 MG TABLET PO PRN ×2 (10:46→16:03)
[2021-12-29 16:03] VITALS: BP 130/65
[2021-12-29 20:07] VITALS: BP 139/80
[2021-12-29] MEDS: PRAZOSIN HCL 2 MG CAPSULE PO SCH (21:37)
[2021-12-29] MEDS: TraZODone HCL 100 MG TABLET PO SCH (21:37)
[2021-12-29] MEDS: MELATONIN 5 MG TABLET PO SCH (21:37)
[2021-12-30] MEDS: LURASIDONE HCL 60 MG TABLET PO SCH ×2 (06:49→17:05)
[2021-12-30 08:11] VITALS: BP 129/80
[2021-12-30] MEDS: TAMSULOSIN HCL 0.4 MG CAPSULE PO SCH ×2 (08:52→17:05)
[2021-12-30] MEDS: FLUoxetine HCL 20 MG CAPSULE PO SCH (08:52)
[2021-12-30] MEDS: DOCUSATE SODIUM 100 MG CAPSULE PO SCH (08:52)
[2021-12-30] MEDS: GABAPENTIN 300 MG CAPSULE PO SCH ×3 (08:52→17:05)
[2021-12-30] MEDS: LOXAPINE SUCCINATE 25 MG CAPSULE PO SCH ×3 (08:52→17:05)
[2021-12-30] MEDS: LOXAPINE SUCCINATE 5 MG CAPSULE PO SCH ×3 (08:52→17:05)
[2021-12-30] MEDS: CIPROFLOXACIN HCL 0.2%/HYDROCORT 1% 10 ML OTIC SUSPENSION AD SCH ×2 (08:53→13:01)
[2021-12-30] MEDS: HALOPERIDOL 5 MG TABLET PO PRN ×2 (09:04→16:07)
[2021-12-30] MEDS: LORazepam 2 MG TABLET PO PRN ×2 (09:04→16:07)
[2021-12-30 16:07] VITALS: BP 135/70
[2021-12-30] MEDS: TraZODone HCL 100 MG TABLET PO SCH (20:09)
[2021-12-30 20:10] VITALS: BP 137/89
[2021-12-30] MEDS: PRAZOSIN HCL 2 MG CAPSULE PO SCH (20:10)
[2021-12-30] MEDS: MELATONIN 5 MG TABLET PO SCH (20:10)
[2021-12-31] MEDS: LURASIDONE HCL 60 MG TABLET PO SCH ×2 (06:52→16:04)
[2021-12-31 08:02] VITALS: BP 136/90
[2021-12-31] MEDS: GABAPENTIN 300 MG CAPSULE PO SCH ×3 (08:18→16:04)
[2021-12-31] MEDS: LOXAPINE SUCCINATE 5 MG CAPSULE PO SCH ×3 (08:18→16:03)
[2021-12-31] MEDS: TAMSULOSIN HCL 0.4 MG CAPSULE PO SCH ×2 (08:18→16:04)
[2021-12-31] MEDS: FLUoxetine HCL 20 MG CAPSULE PO SCH (08:18)
[2021-12-31] MEDS: LOXAPINE SUCCINATE 25 MG CAPSULE PO SCH ×3 (08:18→16:03)
[2021-12-31] MEDS: DOCUSATE SODIUM 100 MG CAPSULE PO SCH (08:18)
[2021-12-31] MEDS: HALOPERIDOL 5 MG TABLET PO PRN (08:58)
[2021-12-31] MEDS: LORazepam 2 MG TABLET PO PRN (08:58)
[2021-12-31 10:20] LABS: GLUCOMETER DEV NAME(LOC) POC.BV
[2021-12-31 18:02] VITALS: BP 130/85
[2021-12-31] MEDS: IBUPROFEN 400 MG TABLET PO PRN (18:04)
[2021-12-31] MEDS: TraZODone HCL 100 MG TABLET PO SCH (20:06)
[2021-12-31] MEDS: MELATONIN 5 MG TABLET PO SCH (20:06)
[2021-12-31] MEDS: PRAZOSIN HCL 2 MG CAPSULE PO SCH (20:06)
[2021-12-31 20:27] VITALS: BP 132/88
[2022-01-01] MEDS: LORazepam 2 MG TABLET PO PRN ×2 (04:55→19:53)
[2022-01-01] MEDS: LURASIDONE HCL 60 MG TABLET PO SCH ×2 (06:26→16:35)
[2022-01-01] MEDS: TAMSULOSIN HCL 0.4 MG CAPSULE PO SCH ×2 (08:09→16:35)
[2022-01-01] MEDS: DOCUSATE SODIUM 100 MG CAPSULE PO SCH (08:09)
[2022-01-01] MEDS: GABAPENTIN 300 MG CAPSULE PO SCH ×3 (08:09→16:35)
[2022-01-01] MEDS: LOXAPINE SUCCINATE 5 MG CAPSULE PO SCH ×3 (08:10→16:35)
[2022-01-01] MEDS: LOXAPINE SUCCINATE 25 MG CAPSULE PO SCH ×3 (08:10→16:35)
[2022-01-01] MEDS: FLUoxetine HCL 20 MG CAPSULE PO SCH (08:10)
[2022-01-01 08:18] VITALS: BP 118/81
[2022-01-01] MEDS: HALOPERIDOL 5 MG TABLET PO PRN ×2 (08:55→20:00)
[2022-01-01 20:09] VITALS: BP 125/87
[2022-01-01] MEDS: MELATONIN 5 MG TABLET PO SCH (20:34)
[2022-01-01] MEDS: PRAZOSIN HCL 2 MG CAPSULE PO SCH (20:34)
[2022-01-01] MEDS: TraZODone HCL 100 MG TABLET PO SCH (20:35)
[2022-01-02] MEDS: LURASIDONE HCL 60 MG TABLET PO SCH ×2 (06:18→17:01)
[2022-01-02] MEDS: DOCUSATE SODIUM 100 MG CAPSULE PO SCH (08:04)
[2022-01-02] MEDS: FLUoxetine HCL 20 MG CAPSULE PO SCH (08:04)
[2022-01-02] MEDS: GABAPENTIN 300 MG CAPSULE PO SCH ×3 (08:04→17:01)
[2022-01-02] MEDS: TAMSULOSIN HCL 0.4 MG CAPSULE PO SCH ×2 (08:04→17:01)
[2022-01-02] MEDS: LOXAPINE SUCCINATE 25 MG CAPSULE PO SCH ×3 (08:04→17:01)
[2022-01-02] MEDS: LOXAPINE SUCCINATE 5 MG CAPSULE PO SCH ×3 (08:04→17:01)
[2022-01-02 08:53] VITALS: BP 148/99
[2022-01-02] MEDS: HALOPERIDOL 5 MG TABLET PO PRN (09:15)
[2022-01-02] MEDS: TraZODone HCL 100 MG TABLET PO SCH (20:09)
[2022-01-02] MEDS: MELATONIN 5 MG TABLET PO SCH (20:09)
[2022-01-02] MEDS: MAGNESIUM HYDROXIDE SUSPENSION 30 ML UDCUP PO PRN (20:09)
[2022-01-02] MEDS: PRAZOSIN HCL 2 MG CAPSULE PO SCH (20:09)
[2022-01-02 20:49] VITALS: BP 145/82
[2022-01-03] MEDS: LURASIDONE HCL 60 MG TABLET PO SCH ×2 (06:06→16:28)
[2022-01-03] MEDS: LOXAPINE SUCCINATE 5 MG CAPSULE PO SCH ×3 (08:48→16:28)
[2022-01-03] MEDS: DOCUSATE SODIUM 100 MG CAPSULE PO SCH (08:48)
[2022-01-03] MEDS: GABAPENTIN 300 MG CAPSULE PO SCH ×3 (08:48→16:28)
[2022-01-03] MEDS: LOXAPINE SUCCINATE 25 MG CAPSULE PO SCH ×3 (08:48→17:56)
[2022-01-03] MEDS: FLUoxetine HCL 20 MG CAPSULE PO SCH (08:48)
[2022-01-03] MEDS: TAMSULOSIN HCL 0.4 MG CAPSULE PO SCH ×2 (08:49→16:28)
[2022-01-03 08:50] VITALS: BP 140/100
[2022-01-03] MEDS: MELATONIN 5 MG TABLET PO SCH (20:18)
[2022-01-03] MEDS: PRAZOSIN HCL 2 MG CAPSULE PO SCH (20:18)
[2022-01-03] MEDS: TraZODone HCL 100 MG TABLET PO SCH (20:18)
[2022-01-03 20:39] VITALS: BP 123/81
[2022-01-03] MEDS: ACETAMINOPHEN 325 MG TABLET PO PRN (23:11)
[2022-01-03] MEDS: ZOLPIDEM TARTRATE 10 MG TABLET PO PRN (23:35)
[2022-01-04] MEDS: LORazepam 2 MG TABLET PO PRN (02:01)
[2022-01-04] MEDS: LURASIDONE HCL 60 MG TABLET PO SCH ×2 (06:59→17:09)
[2022-01-04 08:19] VITALS: BP 111/64
[2022-01-04] MEDS: GABAPENTIN 300 MG CAPSULE PO SCH ×3 (08:42→17:09)
[2022-01-04] MEDS: FLUoxetine HCL 20 MG CAPSULE PO SCH (08:42)
[2022-01-04] MEDS: TAMSULOSIN HCL 0.4 MG CAPSULE PO SCH ×2 (08:42→17:09)
[2022-01-04] MEDS: DOCUSATE SODIUM 100 MG CAPSULE PO SCH (08:42)
[2022-01-04] MEDS: LOXAPINE SUCCINATE 25 MG CAPSULE PO SCH ×3 (08:42→17:09)
[2022-01-04] MEDS: LOXAPINE SUCCINATE 5 MG CAPSULE PO SCH ×3 (08:42→17:09)
[2022-01-04 20:11] VITALS: BP 125/72
[2022-01-04] MEDS: PRAZOSIN HCL 2 MG CAPSULE PO SCH (20:14)
[2022-01-04] MEDS: TraZODone HCL 100 MG TABLET PO SCH (20:14)
[2022-01-04] MEDS: MELATONIN 5 MG TABLET PO SCH (20:14)
[2022-01-04] MEDS: ZOLPIDEM TARTRATE 10 MG TABLET PO PRN (20:21)
[2022-01-05] MEDS: LURASIDONE HCL 60 MG TABLET PO SCH ×2 (06:11→16:35)
[2022-01-05] MEDS: LOXAPINE SUCCINATE 5 MG CAPSULE PO SCH ×3 (08:07→16:34)
[2022-01-05] MEDS: LOXAPINE SUCCINATE 25 MG CAPSULE PO SCH ×3 (08:07→16:34)
[2022-01-05] MEDS: TAMSULOSIN HCL 0.4 MG CAPSULE PO SCH ×2 (08:08→16:35)
[2022-01-05] MEDS: GABAPENTIN 300 MG CAPSULE PO SCH ×3 (08:08→16:35)
[2022-01-05] MEDS: FLUoxetine HCL 20 MG CAPSULE PO SCH (08:08)
[2022-01-05] MEDS: DOCUSATE SODIUM 100 MG CAPSULE PO SCH (08:09)
[2022-01-05 08:33] VITALS: BP 140/80
[2022-01-05] MEDS: IBUPROFEN 400 MG TABLET PO PRN (12:28)
[2022-01-05 20:30] VITALS: BP 117/64
[2022-01-05] MEDS: MELATONIN 5 MG TABLET PO SCH (20:32)
[2022-01-05] MEDS: TraZODone HCL 100 MG TABLET PO SCH (20:32)
[2022-01-05] MEDS: PRAZOSIN HCL 2 MG CAPSULE PO SCH (20:33)
[2022-01-06] MEDS: LURASIDONE HCL 60 MG TABLET PO SCH ×2 (05:57→16:44)
[2022-01-06] MEDS: TAMSULOSIN HCL 0.4 MG CAPSULE PO SCH ×2 (08:18→16:44)
[2022-01-06] MEDS: FLUoxetine HCL 20 MG CAPSULE PO SCH (08:18)
[2022-01-06] MEDS: DOCUSATE SODIUM 100 MG CAPSULE PO SCH (08:18)
[2022-01-06] MEDS: GABAPENTIN 300 MG CAPSULE PO SCH ×3 (08:18→16:44)
[2022-01-06] MEDS: LOXAPINE SUCCINATE 5 MG CAPSULE PO SCH ×3 (08:19→16:44)
[2022-01-06] MEDS: LOXAPINE SUCCINATE 25 MG CAPSULE PO SCH ×3 (08:19→16:44)
[2022-01-06] MEDS: LORazepam 2 MG TABLET PO PRN ×2 (08:27→17:38)
[2022-01-06 08:28] VITALS: BP 128/88
[2022-01-06 20:17] VITALS: BP 135/94
[2022-01-06 20:32] VITALS: BP 113/70
[2022-01-06] MEDS: PRAZOSIN HCL 2 MG CAPSULE PO SCH (20:53)
[2022-01-06] MEDS: MELATONIN 5 MG TABLET PO SCH (20:53)
[2022-01-06] MEDS: TraZODone HCL 100 MG TABLET PO SCH (20:54)
[2022-01-07 01:43] VITALS: BP 126/88
[2022-01-07] MEDS: IBUPROFEN 400 MG TABLET PO PRN (01:50)
[2022-01-07] MEDS: LURASIDONE HCL 60 MG TABLET PO SCH ×2 (06:14→17:11)
[2022-01-07 08:15] VITALS: BP 137/90
[2022-01-07] MEDS: FLUoxetine HCL 20 MG CAPSULE PO SCH (08:41)
[2022-01-07] MEDS: GABAPENTIN 300 MG CAPSULE PO SCH ×3 (08:41→17:11)
[2022-01-07] MEDS: LOXAPINE SUCCINATE 5 MG CAPSULE PO SCH ×3 (08:42→17:11)
[2022-01-07] MEDS: LOXAPINE SUCCINATE 25 MG CAPSULE PO SCH ×3 (08:42→17:11)
[2022-01-07] MEDS: TAMSULOSIN HCL 0.4 MG CAPSULE PO SCH ×2 (08:42→17:11)
[2022-01-07] MEDS: DOCUSATE SODIUM 100 MG CAPSULE PO SCH (08:42)
[2022-01-07 16:21] LABS: GLUCOMETER DEV NAME(LOC) POC.BV
[2022-01-07] MEDS: MELATONIN 5 MG TABLET PO SCH (20:07)
[2022-01-07] MEDS: PRAZOSIN HCL 2 MG CAPSULE PO SCH (20:07)
[2022-01-07] MEDS: TraZODone HCL 100 MG TABLET PO SCH (20:07)
[2022-01-07 20:11] VITALS: BP 120/66
[2022-01-08] MEDS: LORazepam 2 MG TABLET PO PRN (00:40)
[2022-01-08] MEDS: HALOPERIDOL 5 MG TABLET PO PRN (00:40)
[2022-01-08] MEDS: LURASIDONE HCL 60 MG TABLET PO SCH ×2 (06:31→17:11)
[2022-01-08] MEDS: FLUoxetine HCL 20 MG CAPSULE PO SCH (08:29)
[2022-01-08] MEDS: LOXAPINE SUCCINATE 25 MG CAPSULE PO SCH ×3 (08:29→17:11)
[2022-01-08] MEDS: TAMSULOSIN HCL 0.4 MG CAPSULE PO SCH ×2 (08:29→17:11)
[2022-01-08] MEDS: GABAPENTIN 300 MG CAPSULE PO SCH ×3 (08:29→17:11)
[2022-01-08] MEDS: LOXAPINE SUCCINATE 5 MG CAPSULE PO SCH ×3 (08:29→17:11)
[2022-01-08] MEDS: DOCUSATE SODIUM 100 MG CAPSULE PO SCH (08:29)
[2022-01-08 09:06] VITALS: BP 131/89
[2022-01-08] MEDS: IBUPROFEN 400 MG TABLET PO PRN (10:22)
[2022-01-08] MEDS: BACITRACIN 28 GM OINTMENT TP SCH (17:11)
[2022-01-08 20:12] VITALS: BP 127/85
[2022-01-08] MEDS: TraZODone HCL 100 MG TABLET PO SCH (20:24)
[2022-01-08] MEDS: MELATONIN 5 MG TABLET PO SCH (20:24)
[2022-01-08] MEDS: PRAZOSIN HCL 2 MG CAPSULE PO SCH (20:24)
[2022-01-08] MEDS: ZOLPIDEM TARTRATE 10 MG TABLET PO PRN (22:48)
[2022-01-09] MEDS: LURASIDONE HCL 60 MG TABLET PO SCH ×2 (06:41→16:17)
[2022-01-09] MEDS: LOXAPINE SUCCINATE 5 MG CAPSULE PO SCH ×3 (08:24→16:17)
[2022-01-09] MEDS: DOCUSATE SODIUM 100 MG CAPSULE PO SCH (08:24)
[2022-01-09] MEDS: FLUoxetine HCL 20 MG CAPSULE PO SCH (08:24)
[2022-01-09] MEDS: GABAPENTIN 300 MG CAPSULE PO SCH ×3 (08:25→16:17)
[2022-01-09] MEDS: TAMSULOSIN HCL 0.4 MG CAPSULE PO SCH ×2 (08:25→16:17)
[2022-01-09] MEDS: LOXAPINE SUCCINATE 25 MG CAPSULE PO SCH ×3 (08:25→16:17)
[2022-01-09 08:39] VITALS: BP 130/78
[2022-01-09] MEDS: BACITRACIN 28 GM OINTMENT TP SCH ×2 (09:09→16:18)
[2022-01-09] MEDS: LORazepam 2 MG TABLET PO PRN (12:55)
[2022-01-09] MEDS: MELATONIN 5 MG TABLET PO SCH (20:08)
[2022-01-09] MEDS: PRAZOSIN HCL 2 MG CAPSULE PO SCH (20:08)
[2022-01-09] MEDS: TraZODone HCL 100 MG TABLET PO SCH (20:09)
[2022-01-09 20:16] VITALS: BP 133/88
[2022-01-10] MEDS: IBUPROFEN 400 MG TABLET PO PRN (01:31)
[2022-01-10 01:32] VITALS: BP 130/76
[2022-01-10] MEDS: LURASIDONE HCL 60 MG TABLET PO SCH ×2 (06:48→16:51)
[2022-01-10 08:15] VITALS: BP 113/78
[2022-01-10] MEDS: TAMSULOSIN HCL 0.4 MG CAPSULE PO SCH ×2 (08:34→16:52)
[2022-01-10] MEDS: DOCUSATE SODIUM 100 MG CAPSULE PO SCH (08:34)
[2022-01-10] MEDS: GABAPENTIN 300 MG CAPSULE PO SCH ×3 (08:34→16:51)
[2022-01-10] MEDS: FLUoxetine HCL 20 MG CAPSULE PO SCH (08:35)
[2022-01-10] MEDS: LOXAPINE SUCCINATE 25 MG CAPSULE PO SCH ×3 (08:35→16:52)
[2022-01-10] MEDS: LOXAPINE SUCCINATE 5 MG CAPSULE PO SCH ×3 (08:35→16:52)
[2022-01-10] MEDS: BACITRACIN 28 GM OINTMENT TP SCH ×2 (08:36→16:58)
[2022-01-10] MEDS: HALOPERIDOL 5 MG TABLET PO PRN (12:05)
[2022-01-10] MEDS: LORazepam 2 MG TABLET PO PRN (12:05)
[2022-01-10 20:15] VITALS: BP 132/84
[2022-01-10] MEDS: PRAZOSIN HCL 2 MG CAPSULE PO SCH (20:30)
[2022-01-10] MEDS: TraZODone HCL 100 MG TABLET PO SCH (20:30)
[2022-01-10] MEDS: MELATONIN 5 MG TABLET PO SCH (20:30)
[2022-01-11] MEDS: HALOPERIDOL 5 MG TABLET PO PRN (05:43)
[2022-01-11] MEDS: LORazepam 2 MG TABLET PO PRN (05:43)
[2022-01-11] MEDS: LURASIDONE HCL 60 MG TABLET PO SCH ×2 (06:47→16:50)
[2022-01-11 08:23] VITALS: BP 156/100
[2022-01-11] MEDS: DOCUSATE SODIUM 100 MG CAPSULE PO SCH (08:37)
[2022-01-11] MEDS: LOXAPINE SUCCINATE 5 MG CAPSULE PO SCH ×3 (08:37→16:38)
[2022-01-11] MEDS: GABAPENTIN 300 MG CAPSULE PO SCH ×3 (08:37→16:37)
[2022-01-11] MEDS: LOXAPINE SUCCINATE 25 MG CAPSULE PO SCH ×3 (08:37→16:38)
[2022-01-11] MEDS: BACITRACIN 28 GM OINTMENT TP SCH ×2 (08:38→16:50)
[2022-01-11] MEDS: FLUoxetine HCL 20 MG CAPSULE PO SCH (08:38)
[2022-01-11] MEDS: TAMSULOSIN HCL 0.4 MG CAPSULE PO SCH ×2 (09:52→16:37)
[2022-01-11 20:24] VITALS: BP 142/92
[2022-01-11] MEDS: MELATONIN 5 MG TABLET PO SCH (20:38)
[2022-01-11] MEDS: PRAZOSIN HCL 2 MG CAPSULE PO SCH (20:38)
[2022-01-11] MEDS: TraZODone HCL 100 MG TABLET PO SCH (20:38)
[2022-01-12 00:40] VITALS: BP 139/89
[2022-01-12] MEDS: ZOLPIDEM TARTRATE 10 MG TABLET PO PRN (00:55)
[2022-01-12] MEDS: LURASIDONE HCL 60 MG TABLET PO SCH ×2 (06:52→17:24)
[2022-01-12 08:40] VITALS: BP 113/72
[2022-01-12] MEDS: LORazepam 2 MG TABLET PO PRN ×2 (08:55→17:49)
[2022-01-12] MEDS: FLUoxetine HCL 20 MG CAPSULE PO SCH (09:02)
[2022-01-12] MEDS: TAMSULOSIN HCL 0.4 MG CAPSULE PO SCH ×2 (09:02→17:25)
[2022-01-12] MEDS: DOCUSATE SODIUM 100 MG CAPSULE PO SCH (09:02)
[2022-01-12] MEDS: LOXAPINE SUCCINATE 25 MG CAPSULE PO SCH ×3 (09:02→17:24)
[2022-01-12] MEDS: LOXAPINE SUCCINATE 5 MG CAPSULE PO SCH ×3 (09:02→17:24)
[2022-01-12] MEDS: GABAPENTIN 300 MG CAPSULE PO SCH ×3 (09:02→17:24)
[2022-01-12] MEDS: BACITRACIN 28 GM OINTMENT TP SCH ×2 (09:02→17:25)
[2022-01-12] MEDS: MAGNESIUM HYDROXIDE SUSPENSION 30 ML UDCUP PO PRN (14:15)
[2022-01-12] MEDS: HALOPERIDOL 5 MG TABLET PO PRN (17:49)
[2022-01-12 20:20] VITALS: BP 130/96
[2022-01-12] MEDS: PRAZOSIN HCL 2 MG CAPSULE PO SCH (20:32)
[2022-01-12] MEDS: TraZODone HCL 100 MG TABLET PO SCH (20:32)
[2022-01-12] MEDS: MELATONIN 5 MG TABLET PO SCH (20:32)
[2022-01-13] MEDS: LURASIDONE HCL 60 MG TABLET PO SCH ×2 (06:08→16:38)
[2022-01-13] MEDS: LOXAPINE SUCCINATE 5 MG CAPSULE PO SCH ×3 (08:01→16:38)
[2022-01-13] MEDS: LOXAPINE SUCCINATE 25 MG CAPSULE PO SCH ×3 (08:01→16:38)
[2022-01-13] MEDS: BACITRACIN 28 GM OINTMENT TP SCH ×2 (08:02→16:38)
[2022-01-13] MEDS: DOCUSATE SODIUM 100 MG CAPSULE PO SCH (08:02)
[2022-01-13] MEDS: TAMSULOSIN HCL 0.4 MG CAPSULE PO SCH ×2 (08:02→16:38)
[2022-01-13] MEDS: FLUoxetine HCL 20 MG CAPSULE PO SCH (08:02)
[2022-01-13] MEDS: GABAPENTIN 300 MG CAPSULE PO SCH ×3 (08:02→16:38)
[2022-01-13] MEDS: LORazepam 2 MG TABLET PO PRN ×2 (08:02→18:30)
[2022-01-13 08:31] VITALS: BP 117/87
[2022-01-13 20:15] VITALS: BP 146/84
[2022-01-13] MEDS: PRAZOSIN HCL 2 MG CAPSULE PO SCH (20:33)
[2022-01-13] MEDS: TraZODone HCL 100 MG TABLET PO SCH (20:33)
[2022-01-13] MEDS: MELATONIN 5 MG TABLET PO SCH (20:34)
[2022-01-14] MEDS: LURASIDONE HCL 60 MG TABLET PO SCH ×2 (07:04→16:28)
[2022-01-14] MEDS: TAMSULOSIN HCL 0.4 MG CAPSULE PO SCH ×2 (08:31→16:29)
[2022-01-14] MEDS: LOXAPINE SUCCINATE 5 MG CAPSULE PO SCH ×3 (08:31→16:28)
[2022-01-14] MEDS: DOCUSATE SODIUM 100 MG CAPSULE PO SCH (08:31)
[2022-01-14] MEDS: FLUoxetine HCL 20 MG CAPSULE PO SCH (08:31)
[2022-01-14] MEDS: LOXAPINE SUCCINATE 25 MG CAPSULE PO SCH ×3 (08:31→16:28)
[2022-01-14] MEDS: GABAPENTIN 300 MG CAPSULE PO SCH ×3 (08:31→16:29)
[2022-01-14] MEDS: BACITRACIN 28 GM OINTMENT TP SCH ×2 (08:33→16:35)
[2022-01-14 08:47] VITALS: BP 140/90
[2022-01-14 09:32] LABS: GLUCOMETER DEV NAME(LOC) POC.BV
[2022-01-14] MEDS: MELATONIN 5 MG TABLET PO SCH (20:13)
[2022-01-14] MEDS: TraZODone HCL 100 MG TABLET PO SCH (20:13)
[2022-01-14] MEDS: PRAZOSIN HCL 2 MG CAPSULE PO SCH (20:13)
[2022-01-14 20:24] VITALS: BP 134/83
[2022-01-15] MEDS: LURASIDONE HCL 60 MG TABLET PO SCH ×2 (06:50→16:20)
[2022-01-15 08:26] VITALS: BP 131/81
[2022-01-15] MEDS: DOCUSATE SODIUM 100 MG CAPSULE PO SCH (08:29)
[2022-01-15] MEDS: LOXAPINE SUCCINATE 5 MG CAPSULE PO SCH ×3 (08:29→16:21)
[2022-01-15] MEDS: TAMSULOSIN HCL 0.4 MG CAPSULE PO SCH ×2 (08:29→16:20)
[2022-01-15] MEDS: FLUoxetine HCL 20 MG CAPSULE PO SCH (08:29)
[2022-01-15] MEDS: LOXAPINE SUCCINATE 25 MG CAPSULE PO SCH ×3 (08:29→16:21)
[2022-01-15] MEDS: BACITRACIN 28 GM OINTMENT TP SCH ×2 (08:30→16:21)
[2022-01-15] MEDS: GABAPENTIN 300 MG CAPSULE PO SCH ×3 (08:30→16:21)
[2022-01-15] MEDS: PALIPERIDONE PALMITATE 234 MG/1.5 ML SYRINGE IM SCH (09:17)
[2022-01-15] MEDS: TraZODone HCL 100 MG TABLET PO SCH (20:03)
[2022-01-15] MEDS: PRAZOSIN HCL 2 MG CAPSULE PO SCH (20:03)
[2022-01-15] MEDS: MELATONIN 5 MG TABLET PO SCH (20:03)
[2022-01-15 20:13] VITALS: BP 133/85
[2022-01-15] MEDS: ONDANSETRON HCL 4 MG TABLET PO PRN (20:31)
[2022-01-15] MEDS: ACETAMINOPHEN 325 MG TABLET PO PRN (21:27)
[2022-01-16] MEDS: HALOPERIDOL 5 MG TABLET PO PRN (03:16)
[2022-01-16] MEDS: LURASIDONE HCL 60 MG TABLET PO SCH ×2 (06:52→17:07)
[2022-01-16 08:35] VITALS: BP 122/83
[2022-01-16] MEDS: LOXAPINE SUCCINATE 25 MG CAPSULE PO SCH ×3 (09:00→17:07)
[2022-01-16] MEDS: DOCUSATE SODIUM 100 MG CAPSULE PO SCH (09:00)
[2022-01-16] MEDS: FLUoxetine HCL 20 MG CAPSULE PO SCH (09:00)
[2022-01-16] MEDS: LOXAPINE SUCCINATE 5 MG CAPSULE PO SCH ×3 (09:01→17:07)
[2022-01-16] MEDS: GABAPENTIN 300 MG CAPSULE PO SCH ×3 (09:01→17:07)
[2022-01-16] MEDS: TAMSULOSIN HCL 0.4 MG CAPSULE PO SCH ×2 (09:01→17:07)
[2022-01-16] MEDS: LORazepam 2 MG TABLET PO PRN ×2 (09:34→18:05)
[2022-01-16] MEDS: BACITRACIN 28 GM OINTMENT TP SCH ×2 (10:32→17:07)
[2022-01-16] MEDS: TERBINAFINE HCL 1% 30 GM CREAM TP SCH ×2 (10:33→17:09)
[2022-01-16 20:05] VITALS: BP 136/83
[2022-01-16] MEDS: PRAZOSIN HCL 2 MG CAPSULE PO SCH (20:21)
[2022-01-16] MEDS: MELATONIN 5 MG TABLET PO SCH (20:21)
[2022-01-16] MEDS: TraZODone HCL 100 MG TABLET PO SCH (20:22)
[2022-01-17] MEDS: LURASIDONE HCL 60 MG TABLET PO SCH ×2 (07:06→16:39)
[2022-01-17] MEDS: FLUoxetine HCL 20 MG CAPSULE PO SCH (08:07)
[2022-01-17] MEDS: TAMSULOSIN HCL 0.4 MG CAPSULE PO SCH ×2 (08:07→16:39)
[2022-01-17] MEDS: DOCUSATE SODIUM 100 MG CAPSULE PO SCH (08:07)
[2022-01-17] MEDS: GABAPENTIN 300 MG CAPSULE PO SCH ×3 (08:07→16:39)
[2022-01-17] MEDS: LOXAPINE SUCCINATE 25 MG CAPSULE PO SCH ×3 (08:08→16:39)
[2022-01-17] MEDS: TERBINAFINE HCL 1% 30 GM CREAM TP SCH ×2 (08:08→16:47)
[2022-01-17] MEDS: LOXAPINE SUCCINATE 5 MG CAPSULE PO SCH ×3 (08:08→16:39)
[2022-01-17 08:15] VITALS: BP 142/82
[2022-01-17] MEDS: BACITRACIN 28 GM OINTMENT TP SCH ×2 (09:11→16:40)
[2022-01-17] MEDS: LORazepam 2 MG TABLET PO PRN (09:34)
[2022-01-17 20:13] VITALS: BP 133/87
[2022-01-17] MEDS: PRAZOSIN HCL 2 MG CAPSULE PO SCH (20:20)
[2022-01-17] MEDS: TraZODone HCL 100 MG TABLET PO SCH (20:20)
[2022-01-17] MEDS: MELATONIN 5 MG TABLET PO SCH (20:20)
[2022-01-18] MEDS: LURASIDONE HCL 60 MG TABLET PO SCH ×2 (06:19→16:04)
[2022-01-18 08:41] VITALS: BP 132/80
[2022-01-18] MEDS: LOXAPINE SUCCINATE 25 MG CAPSULE PO SCH ×3 (09:03→16:04)
[2022-01-18] MEDS: LOXAPINE SUCCINATE 5 MG CAPSULE PO SCH ×3 (09:03→16:04)
[2022-01-18] MEDS: FLUoxetine HCL 20 MG CAPSULE PO SCH (09:04)
[2022-01-18] MEDS: TAMSULOSIN HCL 0.4 MG CAPSULE PO SCH ×2 (09:04→16:04)
[2022-01-18] MEDS: DOCUSATE SODIUM 100 MG CAPSULE PO SCH (09:04)
[2022-01-18] MEDS: GABAPENTIN 300 MG CAPSULE PO SCH ×3 (09:04→16:04)
[2022-01-18] MEDS: BACITRACIN 28 GM OINTMENT TP SCH ×2 (10:43→16:04)
[2022-01-18] MEDS: TERBINAFINE HCL 1% 30 GM CREAM TP SCH ×2 (10:44→16:05)
[2022-01-18] MEDS: MELATONIN 5 MG TABLET PO SCH (20:19)
[2022-01-18] MEDS: PRAZOSIN HCL 2 MG CAPSULE PO SCH (20:19)
[2022-01-18] MEDS: TraZODone HCL 100 MG TABLET PO SCH (20:19)
[2022-01-18 20:28] VITALS: BP 142/76
[2022-01-19] MEDS: LURASIDONE HCL 60 MG TABLET PO SCH ×2 (06:42→16:30)
[2022-01-19 08:06] VITALS: BP 140/97
[2022-01-19] MEDS: DOCUSATE SODIUM 100 MG CAPSULE PO SCH (09:46)
[2022-01-19] MEDS: TAMSULOSIN HCL 0.4 MG CAPSULE PO SCH ×2 (09:46→16:30)
[2022-01-19] MEDS: LOXAPINE SUCCINATE 5 MG CAPSULE PO SCH ×3 (09:47→16:29)
[2022-01-19] MEDS: LOXAPINE SUCCINATE 25 MG CAPSULE PO SCH ×3 (09:47→16:29)
[2022-01-19] MEDS: TERBINAFINE HCL 1% 30 GM CREAM TP SCH ×2 (09:48→16:31)
[2022-01-19] MEDS: FLUoxetine HCL 20 MG CAPSULE PO SCH (09:48)
[2022-01-19] MEDS: BACITRACIN 28 GM OINTMENT TP SCH ×2 (09:48→16:30)
[2022-01-19] MEDS: GABAPENTIN 300 MG CAPSULE PO SCH ×3 (09:48→16:30)
[2022-01-19] MEDS: HYDROCORTISONE 2.5% 30 GM CREAM TP PRN (16:31)
[2022-01-19 20:14] VITALS: BP 116/83
[2022-01-19] MEDS: TraZODone HCL 100 MG TABLET PO SCH (20:37)
[2022-01-19] MEDS: PRAZOSIN HCL 2 MG CAPSULE PO SCH (20:37)
[2022-01-19] MEDS: MELATONIN 5 MG TABLET PO SCH (20:37)
[2022-01-20] MEDS: HALOPERIDOL 5 MG TABLET PO PRN ×2 (05:23→13:53)
[2022-01-20] MEDS: LURASIDONE HCL 60 MG TABLET PO SCH ×2 (06:39→17:03)
[2022-01-20 08:10] VITALS: BP 146/97
[2022-01-20] MEDS: DOCUSATE SODIUM 100 MG CAPSULE PO SCH (08:21)
[2022-01-20] MEDS: TAMSULOSIN HCL 0.4 MG CAPSULE PO SCH ×2 (08:21→17:04)
[2022-01-20] MEDS: LOXAPINE SUCCINATE 5 MG CAPSULE PO SCH ×3 (08:22→17:03)
[2022-01-20] MEDS: LOXAPINE SUCCINATE 25 MG CAPSULE PO SCH ×3 (08:22→17:03)
[2022-01-20] MEDS: FLUoxetine HCL 20 MG CAPSULE PO SCH (08:22)
[2022-01-20] MEDS: GABAPENTIN 300 MG CAPSULE PO SCH ×3 (08:22→17:03)
[2022-01-20] MEDS: ACETAMINOPHEN 325 MG TABLET PO PRN (09:15)
[2022-01-20] MEDS: BACITRACIN 28 GM OINTMENT TP SCH ×2 (09:58→17:04)
[2022-01-20] MEDS: TERBINAFINE HCL 1% 30 GM CREAM TP SCH ×2 (09:58→17:04)
[2022-01-20] MEDS: IBUPROFEN 400 MG TABLET PO PRN (13:10)
[2022-01-20 15:46] LABS: GLUCOMETER DEV NAME(LOC) POC.BV
[2022-01-20 20:20] VITALS: BP 115/84
[2022-01-20] MEDS: TraZODone HCL 100 MG TABLET PO SCH (20:49)
[2022-01-20] MEDS: PRAZOSIN HCL 2 MG CAPSULE PO SCH (20:49)
[2022-01-20] MEDS: MELATONIN 5 MG TABLET PO SCH (20:49)
[2022-01-21] MEDS: LORazepam 2 MG TABLET PO PRN (05:33)
[2022-01-21] MEDS: LURASIDONE HCL 60 MG TABLET PO SCH ×2 (06:28→16:49)
[2022-01-21] MEDS: DOCUSATE SODIUM 100 MG CAPSULE PO SCH (08:19)
[2022-01-21] MEDS: LOXAPINE SUCCINATE 5 MG CAPSULE PO SCH ×3 (08:19→16:49)
[2022-01-21] MEDS: LOXAPINE SUCCINATE 25 MG CAPSULE PO SCH ×3 (08:19→16:49)
[2022-01-21] MEDS: TAMSULOSIN HCL 0.4 MG CAPSULE PO SCH ×2 (08:19→16:48)
[2022-01-21] MEDS: FLUoxetine HCL 20 MG CAPSULE PO SCH (08:19)
[2022-01-21] MEDS: GABAPENTIN 300 MG CAPSULE PO SCH ×3 (08:22→16:48)
[2022-01-21 08:35] VITALS: BP 137/82
[2022-01-21] MEDS: BACITRACIN 28 GM OINTMENT TP SCH ×2 (09:05→17:09)
[2022-01-21] MEDS: TERBINAFINE HCL 1% 30 GM CREAM TP SCH ×2 (09:06→17:09)
[2022-01-21 20:08] VITALS: BP 100/61
[2022-01-21] MEDS: MELATONIN 5 MG TABLET PO SCH (20:20)
[2022-01-21] MEDS: PRAZOSIN HCL 2 MG CAPSULE PO SCH (20:20)
[2022-01-21 20:21] VITALS: BP 107/66
[2022-01-21] MEDS: TraZODone HCL 100 MG TABLET PO SCH (20:21)
[2022-01-22] MEDS: LURASIDONE HCL 60 MG TABLET PO SCH ×2 (06:37→17:04)
[2022-01-22] MEDS: FLUoxetine HCL 20 MG CAPSULE PO SCH (08:05)
[2022-01-22] MEDS: GABAPENTIN 300 MG CAPSULE PO SCH ×3 (08:05→17:04)
[2022-01-22] MEDS: TAMSULOSIN HCL 0.4 MG CAPSULE PO SCH ×2 (08:05→17:04)
[2022-01-22] MEDS: LOXAPINE SUCCINATE 5 MG CAPSULE PO SCH ×3 (08:05→17:04)
[2022-01-22] MEDS: LOXAPINE SUCCINATE 25 MG CAPSULE PO SCH ×3 (08:05→17:04)
[2022-01-22] MEDS: DOCUSATE SODIUM 100 MG CAPSULE PO SCH (08:05)
[2022-01-22] MEDS: TERBINAFINE HCL 1% 30 GM CREAM TP SCH ×2 (08:06→17:07)
[2022-01-22] MEDS: BACITRACIN 28 GM OINTMENT TP SCH ×2 (08:10→17:04)
[2022-01-22 08:32] VITALS: BP 131/82
[2022-01-22] MEDS: LORazepam 2 MG TABLET PO PRN (10:35)
[2022-01-22 20:14] VITALS: BP 140/90
[2022-01-22] MEDS: TraZODone HCL 100 MG TABLET PO SCH (22:01)
[2022-01-22] MEDS: PRAZOSIN HCL 2 MG CAPSULE PO SCH (22:01)
[2022-01-22] MEDS: MELATONIN 5 MG TABLET PO SCH (22:01)
[2022-01-23] MEDS: LURASIDONE HCL 60 MG TABLET PO SCH ×2 (06:13→16:16)
[2022-01-23 08:05] VITALS: BP 134/90
[2022-01-23] MEDS: FLUoxetine HCL 20 MG CAPSULE PO SCH (08:09)
[2022-01-23] MEDS: GABAPENTIN 300 MG CAPSULE PO SCH ×3 (08:09→16:16)
[2022-01-23] MEDS: LOXAPINE SUCCINATE 25 MG CAPSULE PO SCH ×3 (08:09→16:16)
[2022-01-23] MEDS: LOXAPINE SUCCINATE 5 MG CAPSULE PO SCH ×3 (08:09→16:16)
[2022-01-23] MEDS: TAMSULOSIN HCL 0.4 MG CAPSULE PO SCH ×2 (08:09→16:16)
[2022-01-23] MEDS: DOCUSATE SODIUM 100 MG CAPSULE PO SCH (08:09)
[2022-01-23] MEDS: BACITRACIN 28 GM OINTMENT TP SCH ×2 (08:14→16:17)
[2022-01-23] MEDS: TERBINAFINE HCL 1% 30 GM CREAM TP SCH ×2 (08:15→16:17)
[2022-01-23] MEDS: IBUPROFEN 400 MG TABLET PO PRN (13:20)
[2022-01-23 20:06] VITALS: BP 113/77
[2022-01-23] MEDS: PRAZOSIN HCL 2 MG CAPSULE PO SCH (20:09)
[2022-01-23] MEDS: TraZODone HCL 100 MG TABLET PO SCH (20:09)
[2022-01-23] MEDS: MELATONIN 5 MG TABLET PO SCH (20:09)
[2022-01-24] MEDS: LURASIDONE HCL 60 MG TABLET PO SCH ×2 (06:14→17:24)
[2022-01-24 08:04] VITALS: BP 130/78
[2022-01-24] MEDS: GABAPENTIN 300 MG CAPSULE PO SCH ×3 (08:50→17:24)
[2022-01-24] MEDS: LOXAPINE SUCCINATE 5 MG CAPSULE PO SCH ×3 (08:50→17:24)
[2022-01-24] MEDS: DOCUSATE SODIUM 100 MG CAPSULE PO SCH (08:50)
[2022-01-24] MEDS: LOXAPINE SUCCINATE 25 MG CAPSULE PO SCH ×3 (08:50→17:24)
[2022-01-24] MEDS: TAMSULOSIN HCL 0.4 MG CAPSULE PO SCH ×2 (08:50→17:24)
[2022-01-24] MEDS: FLUoxetine HCL 20 MG CAPSULE PO SCH (08:50)
[2022-01-24] MEDS: TERBINAFINE HCL 1% 30 GM CREAM TP SCH ×2 (09:00→17:25)
[2022-01-24] MEDS: IBUPROFEN 400 MG TABLET PO PRN (09:08)
[2022-01-24] MEDS: BACITRACIN 28 GM OINTMENT TP SCH ×2 (11:24→17:24)
[2022-01-24] MEDS: HALOPERIDOL 5 MG TABLET PO PRN (13:38)
[2022-01-24 20:13] VITALS: BP 142/92
[2022-01-24] MEDS: MELATONIN 5 MG TABLET PO SCH (20:29)
[2022-01-24] MEDS: TraZODone HCL 100 MG TABLET PO SCH (20:29)
[2022-01-24] MEDS: PRAZOSIN HCL 2 MG CAPSULE PO SCH (20:29)
[2022-01-25] MEDS: LURASIDONE HCL 60 MG TABLET PO SCH ×2 (06:40→17:04)
[2022-01-25 08:22] VITALS: BP 107/61
[2022-01-25] MEDS: TAMSULOSIN HCL 0.4 MG CAPSULE PO SCH ×2 (08:43→17:04)
[2022-01-25] MEDS: FLUoxetine HCL 20 MG CAPSULE PO SCH (08:43)
[2022-01-25] MEDS: GABAPENTIN 300 MG CAPSULE PO SCH ×3 (08:44→17:05)
[2022-01-25] MEDS: LOXAPINE SUCCINATE 25 MG CAPSULE PO SCH ×3 (08:44→17:05)
[2022-01-25] MEDS: LOXAPINE SUCCINATE 5 MG CAPSULE PO SCH ×3 (08:44→17:05)
[2022-01-25] MEDS: DOCUSATE SODIUM 100 MG CAPSULE PO SCH (08:44)
[2022-01-25] MEDS: TERBINAFINE HCL 1% 30 GM CREAM TP SCH ×2 (08:49→17:05)
[2022-01-25] MEDS: HALOPERIDOL 5 MG TABLET PO PRN (08:50)
[2022-01-25 17:38] VITALS: BP 133/95
[2022-01-25] MEDS: TraZODone HCL 100 MG TABLET PO SCH (20:29)
[2022-01-25] MEDS: MELATONIN 5 MG TABLET PO SCH (20:29)
[2022-01-25] MEDS: PRAZOSIN HCL 2 MG CAPSULE PO SCH (20:29)
[2022-01-26] MEDS: LURASIDONE HCL 60 MG TABLET PO SCH ×2 (06:23→17:13)
[2022-01-26] MEDS: TAMSULOSIN HCL 0.4 MG CAPSULE PO SCH ×2 (08:27→17:13)
[2022-01-26] MEDS: GABAPENTIN 300 MG CAPSULE PO SCH ×3 (08:27→17:13)
[2022-01-26] MEDS: FLUoxetine HCL 20 MG CAPSULE PO SCH (08:27)
[2022-01-26] MEDS: LOXAPINE SUCCINATE 5 MG CAPSULE PO SCH ×3 (08:27→17:13)
[2022-01-26] MEDS: LOXAPINE SUCCINATE 25 MG CAPSULE PO SCH ×3 (08:27→17:13)
[2022-01-26] MEDS: DOCUSATE SODIUM 100 MG CAPSULE PO SCH (08:27)
[2022-01-26] MEDS: TERBINAFINE HCL 1% 30 GM CREAM TP SCH ×2 (08:32→17:14)
[2022-01-26 08:46] VITALS: BP 109/79
[2022-01-26 20:12] VITALS: BP 104/75
[2022-01-26] MEDS: PRAZOSIN HCL 2 MG CAPSULE PO SCH (20:41)
[2022-01-26] MEDS: TraZODone HCL 100 MG TABLET PO SCH (20:41)
[2022-01-26] MEDS: MELATONIN 5 MG TABLET PO SCH (20:42)
[2022-01-27] MEDS: IBUPROFEN 400 MG TABLET PO PRN (03:25)
[2022-01-27 03:26] VITALS: BP 129/93
[2022-01-27] MEDS: LURASIDONE HCL 60 MG TABLET PO SCH ×2 (05:58→16:16)
[2022-01-27 08:24] VITALS: BP 140/90
[2022-01-27] MEDS: LOXAPINE SUCCINATE 25 MG CAPSULE PO SCH ×3 (08:54→16:16)
[2022-01-27] MEDS: DOCUSATE SODIUM 100 MG CAPSULE PO SCH (08:54)
[2022-01-27] MEDS: LOXAPINE SUCCINATE 5 MG CAPSULE PO SCH ×3 (08:54→16:16)
[2022-01-27] MEDS: FLUoxetine HCL 20 MG CAPSULE PO SCH (08:54)
[2022-01-27] MEDS: GABAPENTIN 300 MG CAPSULE PO SCH ×3 (08:54→16:16)
[2022-01-27] MEDS: TAMSULOSIN HCL 0.4 MG CAPSULE PO SCH ×2 (08:55→16:16)
[2022-01-27] MEDS: TERBINAFINE HCL 1% 30 GM CREAM TP SCH ×2 (09:45→16:24)
[2022-01-27 20:01] VITALS: BP 134/86
[2022-01-27] MEDS: MELATONIN 5 MG TABLET PO SCH (20:09)
[2022-01-27] MEDS: TraZODone HCL 100 MG TABLET PO SCH (20:09)
[2022-01-27] MEDS: PRAZOSIN HCL 2 MG CAPSULE PO SCH (20:09)
[2022-01-28 03:17] VITALS: BP 126/84
[2022-01-28] MEDS: LURASIDONE HCL 60 MG TABLET PO SCH ×2 (06:26→16:10)
[2022-01-28 07:36] LABS: GLUCOMETER DEV NAME(LOC) POC.BV
[2022-01-28] MEDS: FLUoxetine HCL 20 MG CAPSULE PO SCH (08:04)
[2022-01-28] MEDS: DOCUSATE SODIUM 100 MG CAPSULE PO SCH (08:04)
[2022-01-28] MEDS: TAMSULOSIN HCL 0.4 MG CAPSULE PO SCH ×2 (08:04→16:10)
[2022-01-28] MEDS: LOXAPINE SUCCINATE 25 MG CAPSULE PO SCH ×3 (08:04→16:10)
[2022-01-28] MEDS: LOXAPINE SUCCINATE 5 MG CAPSULE PO SCH ×3 (08:04→16:10)
[2022-01-28] MEDS: GABAPENTIN 300 MG CAPSULE PO SCH ×3 (08:04→16:10)
[2022-01-28 08:08] VITALS: BP 123/84
[2022-01-28] MEDS: TERBINAFINE HCL 1% 30 GM CREAM TP SCH ×2 (08:09→16:14)
[2022-01-28 15:42] VITALS: BP 112/78
[2022-01-28 21:09] VITALS: BP 121/69
[2022-01-28] MEDS: PRAZOSIN HCL 2 MG CAPSULE PO SCH (21:12)
[2022-01-28] MEDS: TraZODone HCL 100 MG TABLET PO SCH (21:12)
[2022-01-28] MEDS: MELATONIN 5 MG TABLET PO SCH (21:12)
[2022-01-29] MEDS: LURASIDONE HCL 60 MG TABLET PO SCH ×2 (06:08→16:16)
[2022-01-29] MEDS: DOCUSATE SODIUM 100 MG CAPSULE PO SCH (08:07)
[2022-01-29] MEDS: TAMSULOSIN HCL 0.4 MG CAPSULE PO SCH ×2 (08:07→16:09)
[2022-01-29] MEDS: GABAPENTIN 300 MG CAPSULE PO SCH ×3 (08:08→16:18)
[2022-01-29] MEDS: LOXAPINE SUCCINATE 5 MG CAPSULE PO SCH ×3 (08:08→16:09)
[2022-01-29] MEDS: TERBINAFINE HCL 1% 30 GM CREAM TP SCH ×2 (08:08→16:18)
[2022-01-29] MEDS: LOXAPINE SUCCINATE 25 MG CAPSULE PO SCH ×3 (08:08→16:09)
[2022-01-29] MEDS: FLUoxetine HCL 20 MG CAPSULE PO SCH (08:08)
[2022-01-29 08:27] VITALS: BP 132/79
[2022-01-29] MEDS: ACETAMINOPHEN 325 MG TABLET PO PRN (19:04)
[2022-01-29 20:05] VITALS: BP 135/75
[2022-01-29] MEDS: IBUPROFEN 400 MG TABLET PO PRN (20:35)
[2022-01-29] MEDS: PRAZOSIN HCL 2 MG CAPSULE PO SCH (21:45)
[2022-01-29] MEDS: MELATONIN 5 MG TABLET PO SCH (21:46)
[2022-01-29] MEDS: TraZODone HCL 100 MG TABLET PO SCH (21:46)
[2022-01-29 21:47] VITALS: BP 118/63
[2022-01-30 01:15] VITALS: BP 125/78
[2022-01-30] MEDS: LURASIDONE HCL 60 MG TABLET PO SCH (07:30)
[2022-01-30 08:45] VITALS: BP 145/96
[2022-01-30] MEDS: GABAPENTIN 300 MG CAPSULE PO SCH ×3 (08:48→16:34)
[2022-01-30] MEDS: FLUoxetine HCL 20 MG CAPSULE PO SCH (08:48)
[2022-01-30] MEDS: TAMSULOSIN HCL 0.4 MG CAPSULE PO SCH ×2 (08:48→16:35)
[2022-01-30] MEDS: DOCUSATE SODIUM 100 MG CAPSULE PO SCH (08:49)
[2022-01-30] MEDS: LOXAPINE SUCCINATE 5 MG CAPSULE PO SCH ×3 (10:06→17:13)
[2022-01-30] MEDS: LOXAPINE SUCCINATE 25 MG CAPSULE PO SCH ×3 (10:06→17:13)
[2022-01-30] MEDS: TERBINAFINE HCL 1% 30 GM CREAM TP SCH ×2 (13:25→16:35)
[2022-01-30 16:06] VITALS: BP 149/97
[2022-01-30] MEDS: TraZODone HCL 100 MG TABLET PO SCH (21:38)
[2022-01-30] MEDS: MELATONIN 5 MG TABLET PO SCH (21:38)
[2022-01-30] MEDS: PRAZOSIN HCL 2 MG CAPSULE PO SCH (22:10)
[2022-01-30 22:12] VITALS: BP 122/76
[2022-01-31 04:00] VITALS: BP 146/66
[2022-01-31] MEDS: LURASIDONE HCL 60 MG TABLET PO SCH ×2 (06:55→16:07)
[2022-01-31 08:00] VITALS: BP 131/96
[2022-01-31] MEDS: DOCUSATE SODIUM 100 MG CAPSULE PO SCH (09:07)
[2022-01-31] MEDS: LOXAPINE SUCCINATE 25 MG CAPSULE PO SCH ×3 (09:07→16:07)
[2022-01-31] MEDS: FLUoxetine HCL 20 MG CAPSULE PO SCH (09:07)
[2022-01-31] MEDS: TAMSULOSIN HCL 0.4 MG CAPSULE PO SCH ×2 (09:07→16:07)
[2022-01-31] MEDS: GABAPENTIN 300 MG CAPSULE PO SCH ×3 (09:07→16:07)
[2022-01-31] MEDS: LOXAPINE SUCCINATE 5 MG CAPSULE PO SCH ×3 (09:08→16:07)
[2022-01-31] MEDS: TERBINAFINE HCL 1% 30 GM CREAM TP SCH ×2 (09:13→16:07)
[2022-01-31] MEDS: MAGNESIUM HYDROXIDE SUSPENSION 30 ML UDCUP PO PRN (10:45)
[2022-01-31 12:19] VITALS: BP 128/82
[2022-01-31] MEDS: IBUPROFEN 400 MG TABLET PO PRN (12:19)
[2022-01-31 13:19] VITALS: BP 132/84
[2022-01-31 16:19] VITALS: BP 118/78
[2022-01-31] MEDS: MELATONIN 5 MG TABLET PO SCH (21:43)
[2022-01-31] MEDS: PRAZOSIN HCL 2 MG CAPSULE PO SCH (21:43)
[2022-01-31] MEDS: TraZODone HCL 100 MG TABLET PO SCH (21:43)
[2022-02-01 04:28] VITALS: BP 134/95
[2022-02-01] MEDS: LURASIDONE HCL 60 MG TABLET PO SCH ×2 (06:52→17:34)
[2022-02-01 08:29] VITALS: BP 143/92
[2022-02-01] MEDS: LOXAPINE SUCCINATE 25 MG CAPSULE PO SCH ×3 (08:59→17:26)
[2022-02-01] MEDS: FLUoxetine HCL 20 MG CAPSULE PO SCH (08:59)
[2022-02-01] MEDS: TAMSULOSIN HCL 0.4 MG CAPSULE PO SCH ×2 (08:59→17:26)
[2022-02-01] MEDS: GABAPENTIN 300 MG CAPSULE PO SCH ×3 (08:59→17:26)
[2022-02-01] MEDS: DOCUSATE SODIUM 100 MG CAPSULE PO SCH (08:59)
[2022-02-01] MEDS: TERBINAFINE HCL 1% 30 GM CREAM TP SCH ×2 (09:00→17:27)
[2022-02-01] MEDS: LOXAPINE SUCCINATE 5 MG CAPSULE PO SCH ×3 (09:00→17:26)
[2022-02-01 16:16] VITALS: BP 132/79
[2022-02-01] MEDS: MUPIROCIN CALCIUM 2% 22 GM OINTMENT NASAL SCH (17:28)
[2022-02-01] MEDS: TraZODone HCL 100 MG TABLET PO SCH (20:50)
[2022-02-01] MEDS: PRAZOSIN HCL 2 MG CAPSULE PO SCH (20:50)
[2022-02-01] MEDS: MELATONIN 5 MG TABLET PO SCH (21:13)
[2022-02-02] MEDS: LURASIDONE HCL 60 MG TABLET PO SCH ×2 (07:01→17:15)
[2022-02-02] MEDS: MUPIROCIN CALCIUM 2% 22 GM OINTMENT NASAL SCH ×2 (08:38→17:16)
[2022-02-02] MEDS: LOXAPINE SUCCINATE 5 MG CAPSULE PO SCH ×3 (08:38→16:14)
[2022-02-02] MEDS: TAMSULOSIN HCL 0.4 MG CAPSULE PO SCH ×2 (08:38→16:14)
[2022-02-02] MEDS: GABAPENTIN 300 MG CAPSULE PO SCH ×3 (08:38→16:14)
[2022-02-02] MEDS: LOXAPINE SUCCINATE 25 MG CAPSULE PO SCH ×3 (08:38→16:14)
[2022-02-02] MEDS: FLUoxetine HCL 20 MG CAPSULE PO SCH (08:38)
[2022-02-02] MEDS: DOCUSATE SODIUM 100 MG CAPSULE PO SCH (08:39)
[2022-02-02 09:07] VITALS: BP 129/94
[2022-02-02] MEDS: TERBINAFINE HCL 1% 30 GM CREAM TP SCH ×2 (13:33→16:15)
[2022-02-02] MEDS: LORazepam 2 MG TABLET PO PRN (13:33)
[2022-02-02 17:02] VITALS: BP 123/36
[2022-02-02] MEDS: PRAZOSIN HCL 2 MG CAPSULE PO SCH (21:59)
[2022-02-02] MEDS: MELATONIN 5 MG TABLET PO SCH (21:59)
[2022-02-02] MEDS: TraZODone HCL 100 MG TABLET PO SCH (21:59)
[2022-02-03] MEDS: LURASIDONE HCL 60 MG TABLET PO SCH ×2 (07:01→17:19)
[2022-02-03] MEDS: DOCUSATE SODIUM 100 MG CAPSULE PO SCH (08:55)
[2022-02-03] MEDS: LOXAPINE SUCCINATE 25 MG CAPSULE PO SCH ×3 (08:55→16:09)
[2022-02-03] MEDS: GABAPENTIN 300 MG CAPSULE PO SCH ×3 (08:55→16:08)
[2022-02-03] MEDS: LOXAPINE SUCCINATE 5 MG CAPSULE PO SCH ×3 (08:55→16:09)
[2022-02-03] MEDS: TAMSULOSIN HCL 0.4 MG CAPSULE PO SCH ×2 (08:55→16:08)
[2022-02-03] MEDS: FLUoxetine HCL 20 MG CAPSULE PO SCH (08:55)
[2022-02-03] MEDS: TERBINAFINE HCL 1% 30 GM CREAM TP SCH ×2 (08:56→16:09)
[2022-02-03] MEDS: MUPIROCIN CALCIUM 2% 22 GM OINTMENT NASAL SCH ×2 (09:04→16:07)
[2022-02-03 09:18] VITALS: BP 140/96
[2022-02-03 16:13] VITALS: BP 138/85
[2022-02-03] MEDS: MELATONIN 5 MG TABLET PO SCH (22:21)
[2022-02-03] MEDS: TraZODone HCL 100 MG TABLET PO SCH (22:21)
[2022-02-03] MEDS: PRAZOSIN HCL 2 MG CAPSULE PO SCH (22:21)
[2022-02-04] MEDS: LURASIDONE HCL 60 MG TABLET PO SCH ×2 (06:35→17:27)
[2022-02-04 06:36] LABS: COVID AG,FIA SOURCE NASAL SWAB
[2022-02-04 08:20] VITALS: BP 137/90
[2022-02-04] MEDS: DOCUSATE SODIUM 100 MG CAPSULE PO SCH (08:42)
[2022-02-04] MEDS: FLUoxetine HCL 20 MG CAPSULE PO SCH (08:42)
[2022-02-04] MEDS: GABAPENTIN 300 MG CAPSULE PO SCH ×3 (08:42→17:26)
[2022-02-04] MEDS: TAMSULOSIN HCL 0.4 MG CAPSULE PO SCH ×2 (08:42→17:26)
[2022-02-04] MEDS: LOXAPINE SUCCINATE 5 MG CAPSULE PO SCH ×3 (08:43→17:26)
[2022-02-04] MEDS: LOXAPINE SUCCINATE 25 MG CAPSULE PO SCH ×3 (08:43→17:26)
[2022-02-04] MEDS: MUPIROCIN CALCIUM 2% 22 GM OINTMENT NASAL SCH ×2 (08:46→17:26)
[2022-02-04] MEDS: TERBINAFINE HCL 1% 30 GM CREAM TP SCH ×2 (08:53→17:26)
[2022-02-04 17:32] VITALS: BP 141/89
[2022-02-04] MEDS: PRAZOSIN HCL 2 MG CAPSULE PO SCH (20:16)
[2022-02-04] MEDS: TraZODone HCL 100 MG TABLET PO SCH (20:16)
[2022-02-04] MEDS: MELATONIN 5 MG TABLET PO SCH (20:16)
[2022-02-05] MEDS: ZOLPIDEM TARTRATE 10 MG TABLET PO PRN (02:54)
[2022-02-05] MEDS: LORazepam 2 MG TABLET PO PRN ×2 (03:56→15:07)
[2022-02-05] MEDS: HALOPERIDOL 5 MG TABLET PO PRN ×2 (03:56→15:07)
[2022-02-05 04:04] VITALS: BP 160/78
[2022-02-05] MEDS: LURASIDONE HCL 60 MG TABLET PO SCH ×2 (06:51→17:55)
[2022-02-05 08:20] VITALS: BP 136/82
[2022-02-05] MEDS: TAMSULOSIN HCL 0.4 MG CAPSULE PO SCH ×2 (08:34→16:00)
[2022-02-05] MEDS: LOXAPINE SUCCINATE 25 MG CAPSULE PO SCH ×3 (08:34→16:00)
[2022-02-05] MEDS: FLUoxetine HCL 20 MG CAPSULE PO SCH (08:34)
[2022-02-05] MEDS: LOXAPINE SUCCINATE 5 MG CAPSULE PO SCH ×3 (08:35→16:00)
[2022-02-05] MEDS: DOCUSATE SODIUM 100 MG CAPSULE PO SCH (08:36)
[2022-02-05] MEDS: GABAPENTIN 300 MG CAPSULE PO SCH ×3 (08:36→16:00)
[2022-02-05] MEDS: MUPIROCIN CALCIUM 2% 22 GM OINTMENT NASAL SCH ×2 (08:37→16:01)
[2022-02-05] MEDS: TERBINAFINE HCL 1% 30 GM CREAM TP SCH ×2 (10:31→16:00)
[2022-02-05 16:03] VITALS: BP 151/96
[2022-02-05] MEDS: TraZODone HCL 100 MG TABLET PO SCH (22:15)
[2022-02-05] MEDS: PRAZOSIN HCL 2 MG CAPSULE PO SCH (22:15)
[2022-02-05] MEDS: MELATONIN 5 MG TABLET PO SCH (22:16)
[2022-02-06] MEDS: LURASIDONE HCL 60 MG TABLET PO SCH ×2 (06:56→17:04)
[2022-02-06 08:41] VITALS: BP 132/80
[2022-02-06] MEDS: TAMSULOSIN HCL 0.4 MG CAPSULE PO SCH ×2 (09:19→16:21)
[2022-02-06] MEDS: GABAPENTIN 300 MG CAPSULE PO SCH ×3 (09:19→16:21)
[2022-02-06] MEDS: LOXAPINE SUCCINATE 5 MG CAPSULE PO SCH ×3 (09:19→16:21)
[2022-02-06] MEDS: DOCUSATE SODIUM 100 MG CAPSULE PO SCH (09:19)
[2022-02-06] MEDS: FLUoxetine HCL 20 MG CAPSULE PO SCH (09:19)
[2022-02-06] MEDS: TERBINAFINE HCL 1% 30 GM CREAM TP SCH ×2 (09:20→16:22)
[2022-02-06] MEDS: LOXAPINE SUCCINATE 25 MG CAPSULE PO SCH ×3 (09:20→16:21)
[2022-02-06] MEDS: MUPIROCIN CALCIUM 2% 22 GM OINTMENT NASAL SCH (09:24)
[2022-02-06 13:20] VITALS: BP 126/72
[2022-02-06] MEDS: IBUPROFEN 400 MG TABLET PO PRN (13:20)
[2022-02-06 16:09] VITALS: BP 125/78
[2022-02-06] MEDS: MELATONIN 5 MG TABLET PO SCH (20:06)
[2022-02-06] MEDS: TraZODone HCL 100 MG TABLET PO SCH (20:06)
[2022-02-06] MEDS: PRAZOSIN HCL 2 MG CAPSULE PO SCH (20:06)
[2022-02-07] VITALS (7 sets, daily range): BP systolic 100–136; BP diastolic 70–80
[2022-02-07] MEDS: LURASIDONE HCL 60 MG TABLET PO SCH ×2 (07:06→17:00)
[2022-02-07] MEDS: IBUPROFEN 400 MG TABLET PO PRN ×2 (07:48→14:18)
[2022-02-07] MEDS: FLUoxetine HCL 20 MG CAPSULE PO SCH (09:15)
[2022-02-07] MEDS: GABAPENTIN 300 MG CAPSULE PO SCH ×3 (09:15→17:00)
[2022-02-07] MEDS: LOXAPINE SUCCINATE 5 MG CAPSULE PO SCH ×3 (09:15→16:59)
[2022-02-07] MEDS: TAMSULOSIN HCL 0.4 MG CAPSULE PO SCH ×2 (09:16→17:00)
[2022-02-07] MEDS: TERBINAFINE HCL 1% 30 GM CREAM TP SCH ×2 (09:16→17:00)
[2022-02-07] MEDS: LOXAPINE SUCCINATE 25 MG CAPSULE PO SCH ×3 (09:16→16:59)
[2022-02-07] MEDS: DOCUSATE SODIUM 100 MG CAPSULE PO SCH (09:16)
[2022-02-07] MEDS: ACETAMINOPHEN 325 MG TABLET PO PRN (12:04)
[2022-02-07] MEDS: BENZOCAINE 10% 7 GM GEL TP PRN (13:11)
[2022-02-07] MEDS: LORazepam 2 MG TABLET PO PRN (14:52)
[2022-02-07] MEDS: HALOPERIDOL 5 MG TABLET PO PRN (14:52)
[2022-02-07] MEDS: CLINDAMYCIN HCL 300 MG CAPSULE PO SCH (17:00)
[2022-02-07] MEDS ORDERED: AMOX TR/POT CLAV 500 MG/125 MG TABLET PO SCH (17:00)
[2022-02-07] MEDS: TraZODone HCL 100 MG TABLET PO SCH (21:36)
[2022-02-07] MEDS: PRAZOSIN HCL 2 MG CAPSULE PO SCH (21:37)
[2022-02-07] MEDS: MELATONIN 5 MG TABLET PO SCH (21:37)
[2022-02-08 02:40] VITALS: BP 135/79
[2022-02-08] MEDS: IBUPROFEN 400 MG TABLET PO PRN (02:46)
[2022-02-08] MEDS: LURASIDONE HCL 60 MG TABLET PO SCH ×2 (06:40→16:43)
[2022-02-08 08:00] VITALS: BP 139/95
[2022-02-08] MEDS: GABAPENTIN 300 MG CAPSULE PO SCH ×3 (08:33→16:41)
[2022-02-08] MEDS: DOCUSATE SODIUM 100 MG CAPSULE PO SCH (08:33)
[2022-02-08] MEDS: TAMSULOSIN HCL 0.4 MG CAPSULE PO SCH ×2 (08:33→16:42)
[2022-02-08] MEDS: FLUoxetine HCL 20 MG CAPSULE PO SCH (08:33)
[2022-02-08] MEDS: LOXAPINE SUCCINATE 25 MG CAPSULE PO SCH ×3 (08:34→16:41)
[2022-02-08] MEDS: LOXAPINE SUCCINATE 5 MG CAPSULE PO SCH ×3 (08:34→16:42)
[2022-02-08] MEDS: CLINDAMYCIN HCL 300 MG CAPSULE PO SCH ×3 (08:35→16:42)
[2022-02-08] MEDS: TERBINAFINE HCL 1% 30 GM CREAM TP SCH ×2 (08:35→16:42)
[2022-02-08 16:08] VITALS: BP 108/68
[2022-02-08] MEDS: BENZOCAINE 10% 7 GM GEL TP PRN (17:54)
[2022-02-08 20:25] VITALS: BP 116/66
[2022-02-08] MEDS: TraZODone HCL 100 MG TABLET PO SCH (20:27)
[2022-02-08] MEDS: PRAZOSIN HCL 2 MG CAPSULE PO SCH (20:27)
[2022-02-08] MEDS: MELATONIN 5 MG TABLET PO SCH (20:27)
[2022-02-09 05:11] VITALS: BP 110/71
[2022-02-09] MEDS: IBUPROFEN 400 MG TABLET PO PRN (05:11)
[2022-02-09] MEDS: LURASIDONE HCL 60 MG TABLET PO SCH ×2 (06:45→18:20)
[2022-02-09] MEDS: GABAPENTIN 300 MG CAPSULE PO SCH ×3 (08:38→16:05)
[2022-02-09] MEDS: TAMSULOSIN HCL 0.4 MG CAPSULE PO SCH ×2 (08:38→16:05)
[2022-02-09] MEDS: FLUoxetine HCL 20 MG CAPSULE PO SCH (08:38)
[2022-02-09] MEDS: DOCUSATE SODIUM 100 MG CAPSULE PO SCH (08:39)
[2022-02-09] MEDS: LOXAPINE SUCCINATE 25 MG CAPSULE PO SCH ×3 (08:39→16:04)
[2022-02-09] MEDS: LOXAPINE SUCCINATE 5 MG CAPSULE PO SCH ×3 (08:39→16:05)
[2022-02-09] MEDS: CLINDAMYCIN HCL 300 MG CAPSULE PO SCH ×3 (08:40→16:04)
[2022-02-09] MEDS: TERBINAFINE HCL 1% 30 GM CREAM TP SCH ×2 (08:40→16:05)
[2022-02-09] MEDS: BENZOCAINE 10% 7 GM GEL TP PRN (08:41)
[2022-02-09 09:00] VITALS: BP 139/100
[2022-02-09 16:04] VITALS: BP 108/72
[2022-02-09] MEDS: PRAZOSIN HCL 2 MG CAPSULE PO SCH (21:11)
[2022-02-09] MEDS: MELATONIN 5 MG TABLET PO SCH (21:12)
[2022-02-09] MEDS: TraZODone HCL 100 MG TABLET PO SCH (21:12)
[2022-02-10 04:55] VITALS: BP 124/79
[2022-02-10] MEDS: IBUPROFEN 400 MG TABLET PO PRN (04:55)
[2022-02-10] MEDS: LURASIDONE HCL 60 MG TABLET PO SCH ×2 (06:43→17:45)
[2022-02-10 08:00] VITALS: BP 104/74
[2022-02-10] MEDS: LOXAPINE SUCCINATE 5 MG CAPSULE PO SCH ×3 (08:34→17:44)
[2022-02-10] MEDS: LOXAPINE SUCCINATE 25 MG CAPSULE PO SCH ×3 (08:34→17:44)
[2022-02-10] MEDS: CLINDAMYCIN HCL 300 MG CAPSULE PO SCH ×3 (08:34→17:43)
[2022-02-10] MEDS: HALOPERIDOL 5 MG TABLET PO PRN (08:34)
[2022-02-10] MEDS: GABAPENTIN 300 MG CAPSULE PO SCH ×3 (08:41→17:44)
[2022-02-10] MEDS: DOCUSATE SODIUM 100 MG CAPSULE PO SCH (08:41)
[2022-02-10] MEDS: TAMSULOSIN HCL 0.4 MG CAPSULE PO SCH ×2 (08:42→17:43)
[2022-02-10] MEDS: FLUoxetine HCL 20 MG CAPSULE PO SCH (08:44)
[2022-02-10] MEDS: LORazepam 2 MG TABLET PO PRN (08:45)
[2022-02-10] MEDS: TERBINAFINE HCL 1% 30 GM CREAM TP SCH ×2 (09:00→17:45)
[2022-02-10 16:00] VITALS: BP 106/71
[2022-02-10] MEDS: MAG HYDROX/AL HYDROX/SIMETH ES 30 ML SUSPENSION UDCUP PO PRN (17:00)
[2022-02-10] MEDS: MELATONIN 5 MG TABLET PO SCH (21:05)
[2022-02-10] MEDS: TraZODone HCL 100 MG TABLET PO SCH (21:05)
[2022-02-10] MEDS: PRAZOSIN HCL 2 MG CAPSULE PO SCH (21:05)
[2022-02-11 06:22] LABS: COVID AG,FIA SOURCE NASAL SWAB
[2022-02-11] MEDS: LURASIDONE HCL 60 MG TABLET PO SCH ×2 (06:41→16:13)
[2022-02-11 08:30] VITALS: BP 125/79
[2022-02-11] MEDS: DOCUSATE SODIUM 100 MG CAPSULE PO SCH ×2 (09:00→09:19)
[2022-02-11] MEDS: LOXAPINE SUCCINATE 5 MG CAPSULE PO SCH ×3 (09:17→16:13)
[2022-02-11] MEDS: GABAPENTIN 300 MG CAPSULE PO SCH ×3 (09:18→16:12)
[2022-02-11] MEDS: LOXAPINE SUCCINATE 25 MG CAPSULE PO SCH ×3 (09:18→16:13)
[2022-02-11] MEDS: CLINDAMYCIN HCL 300 MG CAPSULE PO SCH ×3 (09:19→16:12)
[2022-02-11] MEDS: TAMSULOSIN HCL 0.4 MG CAPSULE PO SCH ×2 (09:19→16:12)
[2022-02-11] MEDS: FLUoxetine HCL 20 MG CAPSULE PO SCH (09:19)
[2022-02-11] MEDS: TERBINAFINE HCL 1% 30 GM CREAM TP SCH ×2 (09:25→16:13)
[2022-02-11 16:14] VITALS: BP 122/82
[2022-02-11] MEDS: LOPERAMIDE HCL 2 MG CAPSULE PO PRN (16:40)
[2022-02-11] MEDS: PRAZOSIN HCL 2 MG CAPSULE PO SCH (20:39)
[2022-02-11] MEDS: MELATONIN 5 MG TABLET PO SCH (20:40)
[2022-02-11] MEDS: TraZODone HCL 100 MG TABLET PO SCH (20:40)
[2022-02-12] MEDS: LURASIDONE HCL 60 MG TABLET PO SCH ×2 (06:44→16:11)
[2022-02-12] MEDS: LOXAPINE SUCCINATE 5 MG CAPSULE PO SCH ×3 (08:47→16:10)
[2022-02-12] MEDS: GABAPENTIN 300 MG CAPSULE PO SCH ×3 (08:47→16:10)
[2022-02-12] MEDS: FLUoxetine HCL 20 MG CAPSULE PO SCH (08:48)
[2022-02-12] MEDS: LOXAPINE SUCCINATE 25 MG CAPSULE PO SCH ×3 (08:48→16:10)
[2022-02-12] MEDS: CLINDAMYCIN HCL 300 MG CAPSULE PO SCH ×3 (08:48→16:10)
[2022-02-12] MEDS: DOCUSATE SODIUM 100 MG CAPSULE PO SCH (08:49)
[2022-02-12] MEDS: TERBINAFINE HCL 1% 30 GM CREAM TP SCH ×2 (08:49→16:11)
[2022-02-12] MEDS: TAMSULOSIN HCL 0.4 MG CAPSULE PO SCH ×2 (08:49→16:10)
[2022-02-12] MEDS: PALIPERIDONE PALMITATE 234 MG/1.5 ML SYRINGE IM SCH (09:15)
[2022-02-12 16:10] VITALS: BP 121/83
[2022-02-12] MEDS: TraZODone HCL 100 MG TABLET PO SCH (20:48)
[2022-02-12] MEDS: PRAZOSIN HCL 2 MG CAPSULE PO SCH (20:48)
[2022-02-12] MEDS: MELATONIN 5 MG TABLET PO SCH (20:48)
[2022-02-13] MEDS: LURASIDONE HCL 60 MG TABLET PO SCH ×2 (06:36→16:40)
[2022-02-13 08:00] VITALS: BP 141/98
[2022-02-13] MEDS: DOCUSATE SODIUM 100 MG CAPSULE PO SCH (08:36)
[2022-02-13] MEDS: FLUoxetine HCL 20 MG CAPSULE PO SCH (08:36)
[2022-02-13] MEDS: GABAPENTIN 300 MG CAPSULE PO SCH ×3 (08:36→16:40)
[2022-02-13] MEDS: TAMSULOSIN HCL 0.4 MG CAPSULE PO SCH ×2 (08:36→16:40)
[2022-02-13] MEDS: CLINDAMYCIN HCL 300 MG CAPSULE PO SCH ×3 (08:37→16:40)
[2022-02-13] MEDS: LOXAPINE SUCCINATE 5 MG CAPSULE PO SCH ×3 (08:37→16:39)
[2022-02-13] MEDS: LOXAPINE SUCCINATE 25 MG CAPSULE PO SCH ×3 (08:37→16:39)
[2022-02-13] MEDS: TERBINAFINE HCL 1% 30 GM CREAM TP SCH ×2 (08:38→16:41)
[2022-02-13] MEDS: LORazepam 2 MG TABLET PO PRN (11:31)
[2022-02-13 14:51] LABS: ALANINE AMINOTRANSFERASE 59 U/L (12-78); ALBUMIN 4.1 g/dL (3.4-5.0); ALKALINE PHOSPHATASE 65 U/L (46-116); ANION GAP 8 mmol/L (8-16); ASPARTATE AMINOTRANSFERASE 18 U/L (15-37); BILIRUBIN,TOTAL 0.3 mg/dL (0.1-1.0); CALCIUM, TOTAL 9.6 mg/dL (8.8-10.5); CARBON DIOXIDE 31 mmol/L (22-29); CHLORIDE 102 mmol/L (98-107); CREATININE 1.17 mg/dL (0.60-1.30); GLUCOSE,RANDOM 88 mg/dL (70-110); POTASSIUM 3.8 mmol/L (3.5-5.1); SODIUM SERUM 141 mmol/L (136-145); TOTAL PROTEIN, SERUM 8.1 g/dL (6.4-8.2); UREA NITROGEN, BLOOD 14 mg/dL (7-18)
[2022-02-13 14:52] LABS: GLOMERULAR FILTR. RATE CALC > 60 mL/min (>60)
[2022-02-13 16:00] VITALS: BP 115/83
[2022-02-13] MEDS: PRAZOSIN HCL 2 MG CAPSULE PO SCH (20:53)
[2022-02-13] MEDS: MELATONIN 5 MG TABLET PO SCH (20:53)
[2022-02-13] MEDS: TraZODone HCL 100 MG TABLET PO SCH (20:53)
[2022-02-14 06:43] VITALS: BP 135/99
[2022-02-14] MEDS: IBUPROFEN 400 MG TABLET PO PRN (06:43)
[2022-02-14] MEDS: LURASIDONE HCL 60 MG TABLET PO SCH ×2 (07:01→16:37)
[2022-02-14 08:00] VITALS: BP 116/77
[2022-02-14] MEDS: DOCUSATE SODIUM 100 MG CAPSULE PO SCH (09:09)
[2022-02-14] MEDS: FLUoxetine HCL 20 MG CAPSULE PO SCH (09:09)
[2022-02-14] MEDS: GABAPENTIN 300 MG CAPSULE PO SCH ×3 (09:09→16:37)
[2022-02-14] MEDS: TAMSULOSIN HCL 0.4 MG CAPSULE PO SCH ×2 (09:09→16:37)
[2022-02-14] MEDS: CLINDAMYCIN HCL 300 MG CAPSULE PO SCH ×2 (09:10→13:06)
[2022-02-14] MEDS: TERBINAFINE HCL 1% 30 GM CREAM TP SCH ×2 (09:10→16:39)
[2022-02-14] MEDS: LOXAPINE SUCCINATE 25 MG CAPSULE PO SCH ×3 (09:10→16:38)
[2022-02-14] MEDS: LOXAPINE SUCCINATE 5 MG CAPSULE PO SCH ×3 (09:10→16:38)
[2022-02-14 16:00] VITALS: BP 155/90
[2022-02-14] MEDS: PRAZOSIN HCL 2 MG CAPSULE PO SCH (21:30)
[2022-02-14] MEDS: TraZODone HCL 100 MG TABLET PO SCH (21:30)
[2022-02-14] MEDS: MELATONIN 5 MG TABLET PO SCH (21:30)
[2022-02-15] MEDS: LURASIDONE HCL 60 MG TABLET PO SCH ×2 (07:03→16:24)
[2022-02-15 08:00] VITALS: BP 119/80
[2022-02-15] MEDS: DOCUSATE SODIUM 100 MG CAPSULE PO SCH (09:03)
[2022-02-15] MEDS: LORazepam 2 MG TABLET PO PRN (09:03)
[2022-02-15] MEDS: TAMSULOSIN HCL 0.4 MG CAPSULE PO SCH ×2 (09:03→16:24)
[2022-02-15] MEDS: LOXAPINE SUCCINATE 25 MG CAPSULE PO SCH ×3 (09:04→16:23)
[2022-02-15] MEDS: LOXAPINE SUCCINATE 5 MG CAPSULE PO SCH ×3 (09:04→16:23)
[2022-02-15] MEDS: FLUoxetine HCL 20 MG CAPSULE PO SCH (09:04)
[2022-02-15] MEDS: GABAPENTIN 300 MG CAPSULE PO SCH ×3 (09:04→16:24)
[2022-02-15] MEDS: HALOPERIDOL 5 MG TABLET PO PRN (09:04)
[2022-02-15] MEDS: TERBINAFINE HCL 1% 30 GM CREAM TP SCH ×2 (13:23→16:24)
[2022-02-15 16:00] VITALS: BP 118/81
[2022-02-15] MEDS: PRAZOSIN HCL 2 MG CAPSULE PO SCH (20:42)
[2022-02-15] MEDS: TraZODone HCL 100 MG TABLET PO SCH (20:42)
[2022-02-15] MEDS: MELATONIN 5 MG TABLET PO SCH (20:42)
[2022-02-16 03:20] VITALS: BP 152/116
[2022-02-16] MEDS: IBUPROFEN 400 MG TABLET PO PRN (03:24)
[2022-02-16] MEDS: LURASIDONE HCL 60 MG TABLET PO SCH ×2 (07:06→16:45)
[2022-02-16 08:00] VITALS: BP 140/81
[2022-02-16] MEDS: GABAPENTIN 300 MG CAPSULE PO SCH ×3 (08:53→16:45)
[2022-02-16] MEDS: TAMSULOSIN HCL 0.4 MG CAPSULE PO SCH ×2 (08:53→16:45)
[2022-02-16] MEDS: DOCUSATE SODIUM 100 MG CAPSULE PO SCH (08:53)
[2022-02-16] MEDS: LOXAPINE SUCCINATE 5 MG CAPSULE PO SCH ×3 (08:53→16:44)
[2022-02-16] MEDS: FLUoxetine HCL 20 MG CAPSULE PO SCH (08:53)
[2022-02-16] MEDS: LOXAPINE SUCCINATE 25 MG CAPSULE PO SCH ×3 (08:54→16:44)
[2022-02-16] MEDS: TERBINAFINE HCL 1% 30 GM CREAM TP SCH ×2 (09:10→16:46)
[2022-02-16 16:24] VITALS: BP 142/84
[2022-02-16] MEDS: PRAZOSIN HCL 2 MG CAPSULE PO SCH (20:11)
[2022-02-16] MEDS: TraZODone HCL 100 MG TABLET PO SCH (20:11)
[2022-02-16] MEDS: MELATONIN 5 MG TABLET PO SCH (20:11)
[2022-02-17] MEDS: LURASIDONE HCL 60 MG TABLET PO SCH ×2 (06:55→17:03)
[2022-02-17] MEDS: LOXAPINE SUCCINATE 25 MG CAPSULE PO SCH ×3 (08:39→16:12)
[2022-02-17] MEDS: LOXAPINE SUCCINATE 5 MG CAPSULE PO SCH ×3 (08:39→16:12)
[2022-02-17] MEDS: TAMSULOSIN HCL 0.4 MG CAPSULE PO SCH ×2 (08:40→16:12)
[2022-02-17] MEDS: GABAPENTIN 300 MG CAPSULE PO SCH ×3 (08:40→16:12)
[2022-02-17] MEDS: DOCUSATE SODIUM 100 MG CAPSULE PO SCH (08:40)
[2022-02-17] MEDS: TERBINAFINE HCL 1% 30 GM CREAM TP SCH ×2 (08:41→16:13)
[2022-02-17] MEDS: FLUoxetine HCL 20 MG CAPSULE PO SCH (08:43)
[2022-02-17 08:53] VITALS: BP 137/93
[2022-02-17] MEDS: IBUPROFEN 400 MG TABLET PO PRN (08:53)
[2022-02-17 09:53] VITALS: BP 132/84
[2022-02-17 16:42] VITALS: BP 136/89
[2022-02-17] MEDS: PRAZOSIN HCL 2 MG CAPSULE PO SCH (22:16)
[2022-02-17] MEDS: MELATONIN 5 MG TABLET PO SCH (22:16)
[2022-02-17] MEDS: TraZODone HCL 100 MG TABLET PO SCH (22:16)
[2022-02-18] MEDS: LURASIDONE HCL 60 MG TABLET PO SCH ×2 (06:55→16:38)
[2022-02-18 06:59] LABS: COVID AG,FIA SOURCE NASAL SWAB
[2022-02-18] MEDS: FLUoxetine HCL 20 MG CAPSULE PO SCH (08:23)
[2022-02-18] MEDS: DOCUSATE SODIUM 100 MG CAPSULE PO SCH (08:24)
[2022-02-18] MEDS: TAMSULOSIN HCL 0.4 MG CAPSULE PO SCH ×2 (08:24→16:22)
[2022-02-18] MEDS: GABAPENTIN 300 MG CAPSULE PO SCH ×3 (08:24→16:22)
[2022-02-18] MEDS: LOXAPINE SUCCINATE 25 MG CAPSULE PO SCH ×3 (08:25→16:22)
[2022-02-18] MEDS: LOXAPINE SUCCINATE 5 MG CAPSULE PO SCH ×3 (08:25→16:22)
[2022-02-18] MEDS: BENZOCAINE 10% 7 GM GEL TP PRN (08:26)
[2022-02-18 08:27] VITALS: BP 147/93
[2022-02-18] MEDS: TERBINAFINE HCL 1% 30 GM CREAM TP SCH ×2 (09:00→16:22)
[2022-02-18 16:40] VITALS: BP 135/87
[2022-02-18] MEDS: PRAZOSIN HCL 2 MG CAPSULE PO SCH (20:34)
[2022-02-18] MEDS: MELATONIN 5 MG TABLET PO SCH (20:35)
[2022-02-18] MEDS: TraZODone HCL 100 MG TABLET PO SCH (20:35)
[2022-02-19] MEDS: LURASIDONE HCL 60 MG TABLET PO SCH ×2 (06:49→17:30)
[2022-02-19] MEDS: LOXAPINE SUCCINATE 25 MG CAPSULE PO SCH ×3 (08:00→16:25)
[2022-02-19] MEDS: TAMSULOSIN HCL 0.4 MG CAPSULE PO SCH ×2 (08:00→16:25)
[2022-02-19] MEDS: LOXAPINE SUCCINATE 5 MG CAPSULE PO SCH ×3 (08:00→16:25)
[2022-02-19] MEDS: FLUoxetine HCL 20 MG CAPSULE PO SCH (08:00)
[2022-02-19] MEDS: DOCUSATE SODIUM 100 MG CAPSULE PO SCH (08:00)
[2022-02-19] MEDS: GABAPENTIN 300 MG CAPSULE PO SCH ×3 (08:01→16:25)
[2022-02-19] MEDS: TERBINAFINE HCL 1% 30 GM CREAM TP SCH ×2 (08:06→16:25)
[2022-02-19 08:17] VITALS: BP 136/98
[2022-02-19] MEDS: IBUPROFEN 400 MG TABLET PO PRN (08:17)
[2022-02-19 09:17] VITALS: BP 128/86
[2022-02-19 16:38] VITALS: BP 140/80
[2022-02-19] MEDS: MELATONIN 5 MG TABLET PO SCH (21:59)
[2022-02-19] MEDS: PRAZOSIN HCL 2 MG CAPSULE PO SCH (21:59)
[2022-02-19] MEDS: TraZODone HCL 100 MG TABLET PO SCH (21:59)
[2022-02-20] MEDS: LURASIDONE HCL 60 MG TABLET PO SCH ×2 (06:52→16:18)
[2022-02-20] MEDS: FLUoxetine HCL 20 MG CAPSULE PO SCH (08:07)
[2022-02-20] MEDS: GABAPENTIN 300 MG CAPSULE PO SCH ×3 (08:08→16:18)
[2022-02-20] MEDS: LOXAPINE SUCCINATE 25 MG CAPSULE PO SCH ×3 (08:08→16:18)
[2022-02-20] MEDS: DOCUSATE SODIUM 100 MG CAPSULE PO SCH (08:08)
[2022-02-20] MEDS: LOXAPINE SUCCINATE 5 MG CAPSULE PO SCH ×3 (08:08→16:18)
[2022-02-20] MEDS: TAMSULOSIN HCL 0.4 MG CAPSULE PO SCH ×2 (08:08→16:18)
[2022-02-20] MEDS: TERBINAFINE HCL 1% 30 GM CREAM TP SCH ×2 (08:08→16:19)
[2022-02-20 08:18] VITALS: BP 120/83
[2022-02-20] MEDS: IBUPROFEN 400 MG TABLET PO PRN (08:18)
[2022-02-20 09:18] VITALS: BP 124/78
[2022-02-20 09:37] VITALS: BP 158/86
[2022-02-20 16:31] VITALS: BP 110/73
[2022-02-20] MEDS: MELATONIN 5 MG TABLET PO SCH (20:33)
[2022-02-20] MEDS: PRAZOSIN HCL 2 MG CAPSULE PO SCH (20:33)
[2022-02-20] MEDS: TraZODone HCL 100 MG TABLET PO SCH (20:33)
[2022-02-21 03:57] VITALS: BP 118/71
[2022-02-21] MEDS: LURASIDONE HCL 60 MG TABLET PO SCH ×2 (06:48→16:40)
[2022-02-21] MEDS: TAMSULOSIN HCL 0.4 MG CAPSULE PO SCH ×2 (08:19→16:20)
[2022-02-21] MEDS: GABAPENTIN 300 MG CAPSULE PO SCH ×3 (08:19→16:20)
[2022-02-21] MEDS: FLUoxetine HCL 20 MG CAPSULE PO SCH (08:19)
[2022-02-21] MEDS: LOXAPINE SUCCINATE 5 MG CAPSULE PO SCH ×3 (08:19→16:20)
[2022-02-21] MEDS: DOCUSATE SODIUM 100 MG CAPSULE PO SCH (08:19)
[2022-02-21] MEDS: LOXAPINE SUCCINATE 25 MG CAPSULE PO SCH ×3 (08:20→16:20)
[2022-02-21] MEDS: IBUPROFEN 400 MG TABLET PO PRN (08:21)
[2022-02-21] MEDS: TERBINAFINE HCL 1% 30 GM CREAM TP SCH ×2 (09:00→16:20)
[2022-02-21 09:39] VITALS: BP 121/70
[2022-02-21 10:24] LABS: APPEARANCE,URINE CLEAR (CLEAR); BILIRUBIN,URINE NEGATIVE (NEGATIVE); GLUCOSE, URINE (UA) NEGATIVE (NEGATIVE); KETONES,URINE NEGATIVE (NEGATIVE); LEUKOCYTE ESTERASE ,URINE NEGATIVE (NEGATIVE); NITRATE,URINE NEGATIVE (NEGATIVE); OCCULT BLOOD,URINE TRACE (NEGATIVE); PROTEIN,URINE NEGATIVE (NEGATIVE); SPECIFIC GRAVITIY, URINE 1.003 (1.003-1.030); UROBILINOGEN,URINE <=1.0 mg/dL (<=1.0)
[2022-02-21 10:56] LABS: BACTERIA,URINE None Seen /HPF (None Seen); RBC,URINE 0-2 /HPF (0-2); WBC,URINE None Seen /HPF (0-5)
[2022-02-21] MEDS: ACETAMINOPHEN 325 MG TABLET PO PRN (14:29)
[2022-02-21] MEDS: LORazepam 2 MG TABLET PO PRN (14:43)
[2022-02-21] MEDS: HALOPERIDOL 5 MG TABLET PO PRN (14:43)
[2022-02-21 16:19] VITALS: BP 121/70
[2022-02-21] MEDS: ONDANSETRON HCL 4 MG TABLET PO PRN (16:52)
[2022-02-21 20:28] VITALS: BP 116/68
[2022-02-21] MEDS: PRAZOSIN HCL 2 MG CAPSULE PO SCH (20:28)
[2022-02-21] MEDS: TraZODone HCL 100 MG TABLET PO SCH (20:28)
[2022-02-21] MEDS: MELATONIN 5 MG TABLET PO SCH (20:28)
[2022-02-22] MEDS: IBUPROFEN 400 MG TABLET PO PRN ×2 (00:55→13:21)
[2022-02-22] MEDS: ONDANSETRON HCL 4 MG TABLET PO PRN (00:55)
[2022-02-22] MEDS: LORazepam 2 MG TABLET PO PRN (00:55)
[2022-02-22] MEDS: ACETAMINOPHEN 325 MG TABLET PO PRN (03:16)
[2022-02-22] MEDS: LURASIDONE HCL 60 MG TABLET PO SCH ×2 (06:37→17:23)
[2022-02-22] MEDS: GABAPENTIN 300 MG CAPSULE PO SCH ×3 (08:47→17:22)
[2022-02-22] MEDS: FLUoxetine HCL 20 MG CAPSULE PO SCH (08:48)
[2022-02-22] MEDS: DOCUSATE SODIUM 100 MG CAPSULE PO SCH (08:48)
[2022-02-22] MEDS: TAMSULOSIN HCL 0.4 MG CAPSULE PO SCH ×2 (08:48→17:23)
[2022-02-22] MEDS: LOXAPINE SUCCINATE 25 MG CAPSULE PO SCH ×3 (08:48→17:23)
[2022-02-22] MEDS: LOXAPINE SUCCINATE 5 MG CAPSULE PO SCH ×3 (08:48→17:22)
[2022-02-22] MEDS: TERBINAFINE HCL 1% 30 GM CREAM TP SCH ×3 (08:49→17:23)
[2022-02-22 13:21] VITALS: BP 120/68
[2022-02-22 16:03] VITALS: BP 139/74
[2022-02-22] MEDS: PRAZOSIN HCL 2 MG CAPSULE PO SCH (20:40)
[2022-02-22] MEDS: MELATONIN 5 MG TABLET PO SCH (20:40)
[2022-02-22] MEDS: TraZODone HCL 100 MG TABLET PO SCH (20:41)
[2022-02-23] MEDS: LURASIDONE HCL 60 MG TABLET PO SCH ×2 (06:53→17:14)
[2022-02-23] MEDS: TAMSULOSIN HCL 0.4 MG CAPSULE PO SCH ×2 (09:02→17:14)
[2022-02-23] MEDS: GABAPENTIN 300 MG CAPSULE PO SCH ×3 (09:02→17:14)
[2022-02-23] MEDS: LOXAPINE SUCCINATE 25 MG CAPSULE PO SCH ×3 (09:02→17:14)
[2022-02-23] MEDS: HALOPERIDOL 5 MG TABLET PO PRN (09:02)
[2022-02-23] MEDS: LORazepam 2 MG TABLET PO PRN (09:02)
[2022-02-23] MEDS: FLUoxetine HCL 20 MG CAPSULE PO SCH (09:02)
[2022-02-23] MEDS: DOCUSATE SODIUM 100 MG CAPSULE PO SCH (09:02)
[2022-02-23] MEDS: LOXAPINE SUCCINATE 5 MG CAPSULE PO SCH ×3 (09:03→17:14)
[2022-02-23] MEDS: TERBINAFINE HCL 1% 30 GM CREAM TP SCH ×2 (12:54→17:15)
[2022-02-23 18:11] VITALS: BP 135/85
[2022-02-23 21:38] VITALS: BP 139/93
[2022-02-23] MEDS: TraZODone HCL 100 MG TABLET PO SCH (21:40)
[2022-02-23] MEDS: PRAZOSIN HCL 2 MG CAPSULE PO SCH (21:40)
[2022-02-23] MEDS: MELATONIN 5 MG TABLET PO SCH (21:42)
[2022-02-24] MEDS: LURASIDONE HCL 60 MG TABLET PO SCH ×2 (07:00→17:31)
[2022-02-24] MEDS: LOXAPINE SUCCINATE 25 MG CAPSULE PO SCH ×3 (08:55→17:07)
[2022-02-24] MEDS: GABAPENTIN 300 MG CAPSULE PO SCH ×3 (08:55→17:07)
[2022-02-24] MEDS: LOXAPINE SUCCINATE 5 MG CAPSULE PO SCH ×3 (08:55→17:07)
[2022-02-24] MEDS: FLUoxetine HCL 20 MG CAPSULE PO SCH (08:55)
[2022-02-24] MEDS: DOCUSATE SODIUM 100 MG CAPSULE PO SCH (08:55)
[2022-02-24] MEDS: TERBINAFINE HCL 1% 30 GM CREAM TP SCH ×2 (08:56→17:07)
[2022-02-24] MEDS: TAMSULOSIN HCL 0.4 MG CAPSULE PO SCH ×2 (08:57→17:07)
[2022-02-24 09:19] VITALS: BP 137/96
[2022-02-24] MEDS: HALOPERIDOL 5 MG TABLET PO PRN (09:19)
[2022-02-24] MEDS: IBUPROFEN 400 MG TABLET PO PRN (09:19)
[2022-02-24] MEDS: LORazepam 2 MG TABLET PO PRN (09:19)
[2022-02-24 10:19] VITALS: BP 132/86
[2022-02-24 16:22] VITALS: BP 100/67
[2022-02-24] MEDS: MELATONIN 5 MG TABLET PO SCH (22:38)
[2022-02-24] MEDS: TraZODone HCL 100 MG TABLET PO SCH (22:38)
[2022-02-24 22:43] VITALS: BP 115/78
[2022-02-24] MEDS: PRAZOSIN HCL 2 MG CAPSULE PO SCH (22:43)
[2022-02-25] MEDS: LURASIDONE HCL 60 MG TABLET PO SCH ×2 (06:36→16:30)
[2022-02-25 07:46] LABS: COVID AG,FIA SOURCE NASAL SWAB
[2022-02-25] MEDS: LOXAPINE SUCCINATE 25 MG CAPSULE PO SCH ×3 (08:21→16:30)
[2022-02-25] MEDS: TAMSULOSIN HCL 0.4 MG CAPSULE PO SCH ×2 (08:22→16:31)
[2022-02-25] MEDS: FLUoxetine HCL 20 MG CAPSULE PO SCH (08:22)
[2022-02-25] MEDS: LOXAPINE SUCCINATE 5 MG CAPSULE PO SCH ×3 (08:22→16:30)
[2022-02-25] MEDS: GABAPENTIN 300 MG CAPSULE PO SCH ×3 (08:22→16:31)
[2022-02-25] MEDS: TERBINAFINE HCL 1% 30 GM CREAM TP SCH ×2 (08:22→16:31)
[2022-02-25] MEDS: DOCUSATE SODIUM 100 MG CAPSULE PO SCH (08:22)
[2022-02-25 10:02] VITALS: BP 135/99
[2022-02-25] MEDS: HALOPERIDOL 5 MG TABLET PO PRN (10:23)
[2022-02-25 16:05] VITALS: BP 130/69
[2022-02-25] MEDS: PRAZOSIN HCL 2 MG CAPSULE PO SCH (21:10)
[2022-02-25] MEDS: TraZODone HCL 100 MG TABLET PO SCH (21:11)
[2022-02-25] MEDS: MELATONIN 5 MG TABLET PO SCH (21:11)
[2022-02-26] MEDS: LURASIDONE HCL 60 MG TABLET PO SCH ×2 (06:33→17:36)
[2022-02-26 08:30] VITALS: BP 118/76
[2022-02-26] MEDS: GABAPENTIN 300 MG CAPSULE PO SCH ×3 (08:45→17:37)
[2022-02-26] MEDS: FLUoxetine HCL 20 MG CAPSULE PO SCH (08:45)
[2022-02-26] MEDS: TAMSULOSIN HCL 0.4 MG CAPSULE PO SCH ×2 (08:46→17:37)
[2022-02-26] MEDS: DOCUSATE SODIUM 100 MG CAPSULE PO SCH (08:46)
[2022-02-26] MEDS: LOXAPINE SUCCINATE 5 MG CAPSULE PO SCH ×3 (08:46→17:35)
[2022-02-26] MEDS: LOXAPINE SUCCINATE 25 MG CAPSULE PO SCH ×3 (08:46→17:35)
[2022-02-26] MEDS: TERBINAFINE HCL 1% 30 GM CREAM TP SCH ×2 (08:47→17:36)
[2022-02-26 16:18] VITALS: BP 126/90
[2022-02-26] MEDS: PRAZOSIN HCL 2 MG CAPSULE PO SCH (20:43)
[2022-02-26] MEDS: MELATONIN 5 MG TABLET PO SCH (20:43)
[2022-02-26] MEDS: TraZODone HCL 100 MG TABLET PO SCH (20:44)
[2022-02-27] MEDS: LURASIDONE HCL 60 MG TABLET PO SCH ×2 (06:42→17:06)
[2022-02-27] MEDS: FLUoxetine HCL 20 MG CAPSULE PO SCH (08:35)
[2022-02-27] MEDS: TAMSULOSIN HCL 0.4 MG CAPSULE PO SCH ×2 (08:36→16:20)
[2022-02-27] MEDS: DOCUSATE SODIUM 100 MG CAPSULE PO SCH (08:36)
[2022-02-27] MEDS: GABAPENTIN 300 MG CAPSULE PO SCH ×3 (08:36→16:20)
[2022-02-27] MEDS: LOXAPINE SUCCINATE 5 MG CAPSULE PO SCH ×3 (08:36→16:19)
[2022-02-27] MEDS: LOXAPINE SUCCINATE 25 MG CAPSULE PO SCH ×3 (08:36→16:19)
[2022-02-27] MEDS: TERBINAFINE HCL 1% 30 GM CREAM TP SCH ×2 (08:41→16:22)
[2022-02-27 08:45] VITALS: BP 146/97
[2022-02-27 09:34] VITALS: BP 138/84
[2022-02-27] MEDS: IBUPROFEN 400 MG TABLET PO PRN (09:34)
[2022-02-27] MEDS: MAG HYDROX/AL HYDROX/SIMETH ES 30 ML SUSPENSION UDCUP PO PRN (13:47)
[2022-02-27 16:53] VITALS: BP 140/87
[2022-02-27] MEDS: PRAZOSIN HCL 2 MG CAPSULE PO SCH (20:55)
[2022-02-27] MEDS: MELATONIN 5 MG TABLET PO SCH (20:55)
[2022-02-27] MEDS: TraZODone HCL 100 MG TABLET PO SCH (20:58)
[2022-02-28] MEDS: MAG HYDROX/AL HYDROX/SIMETH ES 30 ML SUSPENSION UDCUP PO PRN (03:54)
[2022-02-28] MEDS: LURASIDONE HCL 60 MG TABLET PO SCH ×2 (06:56→16:45)
[2022-02-28 08:28] VITALS: BP 127/85
[2022-02-28] MEDS: LOXAPINE SUCCINATE 25 MG CAPSULE PO SCH ×3 (09:46→16:45)
[2022-02-28] MEDS: LOXAPINE SUCCINATE 5 MG CAPSULE PO SCH ×3 (09:46→16:45)
[2022-02-28] MEDS: DOCUSATE SODIUM 100 MG CAPSULE PO SCH (09:47)
[2022-02-28] MEDS: TAMSULOSIN HCL 0.4 MG CAPSULE PO SCH ×2 (09:47→16:45)
[2022-02-28] MEDS: FLUoxetine HCL 20 MG CAPSULE PO SCH (09:47)
[2022-02-28] MEDS: GABAPENTIN 300 MG CAPSULE PO SCH ×3 (09:47→16:45)
[2022-02-28] MEDS: TERBINAFINE HCL 1% 30 GM CREAM TP SCH ×2 (13:04→16:46)
[2022-02-28 16:15] VITALS: BP 112/72
[2022-02-28] MEDS: PRAZOSIN HCL 2 MG CAPSULE PO SCH (20:35)
[2022-02-28] MEDS: TraZODone HCL 100 MG TABLET PO SCH (20:36)
[2022-02-28] MEDS: MELATONIN 5 MG TABLET PO SCH (20:36)
[2022-03-01] MEDS: LURASIDONE HCL 60 MG TABLET PO SCH ×2 (06:34→16:30)
[2022-03-01 06:40] VITALS: BP 115/76
[2022-03-01] MEDS: IBUPROFEN 400 MG TABLET PO PRN (06:40)
[2022-03-01 08:00] VITALS: BP 132/89
[2022-03-01] MEDS: GABAPENTIN 300 MG CAPSULE PO SCH ×3 (08:50→16:27)
[2022-03-01] MEDS: DOCUSATE SODIUM 100 MG CAPSULE PO SCH (08:50)
[2022-03-01] MEDS: TAMSULOSIN HCL 0.4 MG CAPSULE PO SCH ×2 (08:50→16:27)
[2022-03-01] MEDS: FLUoxetine HCL 20 MG CAPSULE PO SCH (08:50)
[2022-03-01] MEDS: LOXAPINE SUCCINATE 25 MG CAPSULE PO SCH ×3 (08:51→16:27)
[2022-03-01] MEDS: LOXAPINE SUCCINATE 5 MG CAPSULE PO SCH ×3 (08:51→16:27)
[2022-03-01] MEDS: TERBINAFINE HCL 1% 30 GM CREAM TP SCH ×2 (12:31→16:29)
[2022-03-01 16:00] VITALS: BP 128/92
[2022-03-01] MEDS: TraZODone HCL 100 MG TABLET PO SCH (20:59)
[2022-03-01] MEDS: PRAZOSIN HCL 2 MG CAPSULE PO SCH (21:00)
[2022-03-01] MEDS: MELATONIN 5 MG TABLET PO SCH (21:00)
[2022-03-02] MEDS: LURASIDONE HCL 60 MG TABLET PO SCH ×2 (06:38→16:56)
[2022-03-02] MEDS: FLUoxetine HCL 20 MG CAPSULE PO SCH (07:58)
[2022-03-02] MEDS: DOCUSATE SODIUM 100 MG CAPSULE PO SCH (07:58)
[2022-03-02] MEDS: TAMSULOSIN HCL 0.4 MG CAPSULE PO SCH ×2 (07:59→16:56)
[2022-03-02] MEDS: LOXAPINE SUCCINATE 5 MG CAPSULE PO SCH ×3 (07:59→16:56)
[2022-03-02] MEDS: LOXAPINE SUCCINATE 25 MG CAPSULE PO SCH ×3 (07:59→16:56)
[2022-03-02 08:00] VITALS: BP 130/70
[2022-03-02] MEDS: GABAPENTIN 300 MG CAPSULE PO SCH ×3 (08:00→16:57)
[2022-03-02] MEDS: TERBINAFINE HCL 1% 30 GM CREAM TP SCH ×2 (11:43→16:57)
[2022-03-02 16:09] VITALS: BP 138/90
[2022-03-02] MEDS: TraZODone HCL 100 MG TABLET PO SCH (21:18)
[2022-03-02] MEDS: MELATONIN 5 MG TABLET PO SCH (21:18)
[2022-03-02] MEDS: PRAZOSIN HCL 2 MG CAPSULE PO SCH (21:20)
[2022-03-03] MEDS: LURASIDONE HCL 60 MG TABLET PO SCH ×2 (06:57→16:49)
[2022-03-03] MEDS: TERBINAFINE HCL 1% 30 GM CREAM TP SCH ×2 (09:00→16:49)
[2022-03-03] MEDS: LOXAPINE SUCCINATE 5 MG CAPSULE PO SCH ×3 (09:35→16:48)
[2022-03-03] MEDS: LOXAPINE SUCCINATE 25 MG CAPSULE PO SCH ×3 (09:35→16:48)
[2022-03-03] MEDS: DOCUSATE SODIUM 100 MG CAPSULE PO SCH (09:38)
[2022-03-03] MEDS: GABAPENTIN 300 MG CAPSULE PO SCH ×3 (09:38→16:48)
[2022-03-03] MEDS: TAMSULOSIN HCL 0.4 MG CAPSULE PO SCH ×2 (09:38→16:48)
[2022-03-03] MEDS: FLUoxetine HCL 20 MG CAPSULE PO SCH (09:38)
[2022-03-03 10:02] VITALS: BP 137/95
[2022-03-03 16:00] VITALS: BP 111/75
[2022-03-03] MEDS: PRAZOSIN HCL 2 MG CAPSULE PO SCH (21:57)
[2022-03-03] MEDS: MELATONIN 5 MG TABLET PO SCH (21:57)
[2022-03-03] MEDS: TraZODone HCL 100 MG TABLET PO SCH (21:58)
[2022-03-04 06:39] LABS: COVID AG,FIA SOURCE NASAL SWAB
[2022-03-04] MEDS: LURASIDONE HCL 60 MG TABLET PO SCH ×2 (06:39→16:17)
[2022-03-04] MEDS: MAGNESIUM HYDROXIDE SUSPENSION 30 ML UDCUP PO PRN (08:29)
[2022-03-04] MEDS: TAMSULOSIN HCL 0.4 MG CAPSULE PO SCH ×2 (08:30→16:18)
[2022-03-04] MEDS: LOXAPINE SUCCINATE 5 MG CAPSULE PO SCH ×3 (08:30→16:17)
[2022-03-04] MEDS: LOXAPINE SUCCINATE 25 MG CAPSULE PO SCH ×3 (08:30→16:18)
[2022-03-04] MEDS: DOCUSATE SODIUM 100 MG CAPSULE PO SCH (08:30)
[2022-03-04] MEDS: FLUoxetine HCL 20 MG CAPSULE PO SCH (08:31)
[2022-03-04] MEDS: TERBINAFINE HCL 1% 30 GM CREAM TP SCH ×2 (08:42→16:18)
[2022-03-04] MEDS: GABAPENTIN 300 MG CAPSULE PO SCH ×3 (08:42→16:17)
[2022-03-04 09:11] VITALS: BP 180/97
[2022-03-04 16:08] VITALS: BP 113/83
[2022-03-04] MEDS: TraZODone HCL 100 MG TABLET PO SCH (21:08)
[2022-03-04] MEDS: PRAZOSIN HCL 2 MG CAPSULE PO SCH (21:08)
[2022-03-04] MEDS: MELATONIN 5 MG TABLET PO SCH (21:08)
[2022-03-04] MEDS: LORazepam 2 MG TABLET PO PRN (22:09)
[2022-03-05] MEDS: LURASIDONE HCL 60 MG TABLET PO SCH ×2 (06:37→16:51)
[2022-03-05 08:00] VITALS: BP 112/72
[2022-03-05] MEDS: GABAPENTIN 300 MG CAPSULE PO SCH ×3 (08:51→16:51)
[2022-03-05] MEDS: LOXAPINE SUCCINATE 25 MG CAPSULE PO SCH ×3 (08:51→16:51)
[2022-03-05] MEDS: LOXAPINE SUCCINATE 5 MG CAPSULE PO SCH ×3 (08:51→16:51)
[2022-03-05] MEDS: DOCUSATE SODIUM 100 MG CAPSULE PO SCH (08:51)
[2022-03-05] MEDS: FLUoxetine HCL 20 MG CAPSULE PO SCH (08:51)
[2022-03-05] MEDS: TAMSULOSIN HCL 0.4 MG CAPSULE PO SCH ×2 (08:51→16:51)
[2022-03-05] MEDS: TERBINAFINE HCL 1% 30 GM CREAM TP SCH ×2 (09:00→16:51)
[2022-03-05 16:00] VITALS: BP 111/77
[2022-03-05] MEDS: TraZODone HCL 100 MG TABLET PO SCH (21:21)
[2022-03-05] MEDS: MELATONIN 5 MG TABLET PO SCH (21:21)
[2022-03-05] MEDS: PRAZOSIN HCL 2 MG CAPSULE PO SCH (21:21)
[2022-03-06] MEDS: LURASIDONE HCL 60 MG TABLET PO SCH ×2 (06:58→16:30)
[2022-03-06 08:00] VITALS: BP 135/101
[2022-03-06] MEDS: GABAPENTIN 300 MG CAPSULE PO SCH ×3 (08:54→16:30)
[2022-03-06] MEDS: DOCUSATE SODIUM 100 MG CAPSULE PO SCH (08:54)
[2022-03-06] MEDS: TAMSULOSIN HCL 0.4 MG CAPSULE PO SCH ×2 (08:54→16:30)
[2022-03-06] MEDS: LOXAPINE SUCCINATE 5 MG CAPSULE PO SCH ×3 (08:54→16:30)
[2022-03-06] MEDS: TERBINAFINE HCL 1% 30 GM CREAM TP SCH ×2 (08:54→16:30)
[2022-03-06] MEDS: FLUoxetine HCL 20 MG CAPSULE PO SCH (08:54)
[2022-03-06] MEDS: LOXAPINE SUCCINATE 25 MG CAPSULE PO SCH ×3 (08:54→16:30)
[2022-03-06 16:05] VITALS: BP 129/94
[2022-03-06] MEDS: PRAZOSIN HCL 2 MG CAPSULE PO SCH (21:38)
[2022-03-06] MEDS: TraZODone HCL 100 MG TABLET PO SCH (21:39)
[2022-03-06] MEDS: MELATONIN 5 MG TABLET PO SCH (21:39)
[2022-03-07] MEDS: LURASIDONE HCL 60 MG TABLET PO SCH ×2 (06:30→17:35)
[2022-03-07] MEDS: TAMSULOSIN HCL 0.4 MG CAPSULE PO SCH ×2 (08:24→17:33)
[2022-03-07] MEDS: LOXAPINE SUCCINATE 25 MG CAPSULE PO SCH ×3 (08:24→17:34)
[2022-03-07] MEDS: DOCUSATE SODIUM 100 MG CAPSULE PO SCH (08:24)
[2022-03-07] MEDS: FLUoxetine HCL 20 MG CAPSULE PO SCH (08:24)
[2022-03-07] MEDS: LOXAPINE SUCCINATE 5 MG CAPSULE PO SCH ×3 (08:24→17:34)
[2022-03-07] MEDS: GABAPENTIN 300 MG CAPSULE PO SCH ×3 (08:25→17:34)
[2022-03-07 09:00] VITALS: BP 128/89
[2022-03-07] MEDS: TERBINAFINE HCL 1% 30 GM CREAM TP SCH ×2 (09:00→17:35)
[2022-03-07] MEDS: MAG HYDROX/AL HYDROX/SIMETH ES 30 ML SUSPENSION UDCUP PO PRN (10:08)
[2022-03-07 13:54] VITALS: BP 128/89
[2022-03-07 16:16] VITALS: BP 123/80
[2022-03-07] MEDS: MELATONIN 5 MG TABLET PO SCH (20:23)
[2022-03-07] MEDS: PRAZOSIN HCL 2 MG CAPSULE PO SCH (20:23)
[2022-03-07] MEDS: TraZODone HCL 100 MG TABLET PO SCH (20:23)
[2022-03-08] MEDS: LURASIDONE HCL 60 MG TABLET PO SCH ×2 (06:37→18:13)
[2022-03-08 08:05] VITALS: BP 136/85
[2022-03-08] MEDS: DOCUSATE SODIUM 100 MG CAPSULE PO SCH (08:54)
[2022-03-08] MEDS: GABAPENTIN 300 MG CAPSULE PO SCH ×3 (08:54→19:01)
[2022-03-08] MEDS: TAMSULOSIN HCL 0.4 MG CAPSULE PO SCH ×2 (08:55→18:12)
[2022-03-08] MEDS: LOXAPINE SUCCINATE 5 MG CAPSULE PO SCH ×3 (08:55→18:12)
[2022-03-08] MEDS: FLUoxetine HCL 20 MG CAPSULE PO SCH (08:55)
[2022-03-08] MEDS: LOXAPINE SUCCINATE 25 MG CAPSULE PO SCH ×3 (08:55→18:12)
[2022-03-08] MEDS: TERBINAFINE HCL 1% 30 GM CREAM TP SCH ×2 (09:00→18:14)
[2022-03-08 16:17] VITALS: BP 128/77
[2022-03-08] MEDS: TraZODone HCL 100 MG TABLET PO SCH (20:12)
[2022-03-08] MEDS: PRAZOSIN HCL 2 MG CAPSULE PO SCH (20:12)
[2022-03-08] MEDS: MELATONIN 5 MG TABLET PO SCH (20:12)
[2022-03-09] MEDS: LURASIDONE HCL 60 MG TABLET PO SCH ×2 (06:35→16:43)
[2022-03-09 08:30] VITALS: BP 144/98
[2022-03-09] MEDS: LOXAPINE SUCCINATE 25 MG CAPSULE PO SCH ×3 (08:43→16:43)
[2022-03-09] MEDS: GABAPENTIN 300 MG CAPSULE PO SCH ×3 (08:43→16:43)
[2022-03-09] MEDS: LOXAPINE SUCCINATE 5 MG CAPSULE PO SCH ×3 (08:43→16:43)
[2022-03-09] MEDS: FLUoxetine HCL 20 MG CAPSULE PO SCH (08:43)
[2022-03-09] MEDS: DOCUSATE SODIUM 100 MG CAPSULE PO SCH (08:43)
[2022-03-09] MEDS: TAMSULOSIN HCL 0.4 MG CAPSULE PO SCH ×2 (08:44→16:43)
[2022-03-09] MEDS: TERBINAFINE HCL 1% 30 GM CREAM TP SCH ×2 (09:00→16:44)
[2022-03-09 16:10] VITALS: BP 128/90
[2022-03-09] MEDS: IBUPROFEN 400 MG TABLET PO PRN (18:50)
[2022-03-09] MEDS: TraZODone HCL 100 MG TABLET PO SCH (21:36)
[2022-03-09] MEDS: MELATONIN 5 MG TABLET PO SCH (21:36)
[2022-03-09] MEDS: PRAZOSIN HCL 2 MG CAPSULE PO SCH (21:37)
[2022-03-10] MEDS: LURASIDONE HCL 60 MG TABLET PO SCH ×2 (06:42→16:18)
[2022-03-10 08:30] VITALS: BP 142/98
[2022-03-10] MEDS: LOXAPINE SUCCINATE 25 MG CAPSULE PO SCH ×3 (08:32→16:18)
[2022-03-10] MEDS: LOXAPINE SUCCINATE 5 MG CAPSULE PO SCH ×3 (08:32→16:18)
[2022-03-10] MEDS: DOCUSATE SODIUM 100 MG CAPSULE PO SCH (08:33)
[2022-03-10] MEDS: TAMSULOSIN HCL 0.4 MG CAPSULE PO SCH ×2 (08:33→16:18)
[2022-03-10] MEDS: GABAPENTIN 300 MG CAPSULE PO SCH ×3 (08:33→16:18)
[2022-03-10] MEDS: FLUoxetine HCL 20 MG CAPSULE PO SCH (08:33)
[2022-03-10] MEDS: TERBINAFINE HCL 1% 30 GM CREAM TP SCH ×2 (08:36→16:18)
[2022-03-10 16:11] VITALS: BP 125/85
[2022-03-10] MEDS: PRAZOSIN HCL 2 MG CAPSULE PO SCH (20:31)
[2022-03-10] MEDS: MELATONIN 5 MG TABLET PO SCH (20:31)
[2022-03-10] MEDS: TraZODone HCL 100 MG TABLET PO SCH (20:32)
[2022-03-10 21:27] VITALS: BP 124/83
[2022-03-11] MEDS: LURASIDONE HCL 60 MG TABLET PO SCH ×2 (06:45→17:01)
[2022-03-11 07:34] LABS: COVID AG,FIA SOURCE NASAL SWAB
[2022-03-11 08:30] VITALS: BP 139/98
[2022-03-11] MEDS: LOXAPINE SUCCINATE 5 MG CAPSULE PO SCH ×3 (08:53→17:01)
[2022-03-11] MEDS: TAMSULOSIN HCL 0.4 MG CAPSULE PO SCH ×2 (08:54→17:01)
[2022-03-11] MEDS: LOXAPINE SUCCINATE 25 MG CAPSULE PO SCH ×3 (08:54→17:01)
[2022-03-11] MEDS: GABAPENTIN 300 MG CAPSULE PO SCH ×3 (08:55→17:01)
[2022-03-11] MEDS: FLUoxetine HCL 20 MG CAPSULE PO SCH (08:55)
[2022-03-11] MEDS: DOCUSATE SODIUM 100 MG CAPSULE PO SCH (08:56)
[2022-03-11] MEDS: TERBINAFINE HCL 1% 30 GM CREAM TP SCH ×2 (08:59→17:00)
[2022-03-11 16:00] VITALS: BP 121/87
[2022-03-11] MEDS: PRAZOSIN HCL 2 MG CAPSULE PO SCH (21:20)
[2022-03-11] MEDS: TraZODone HCL 100 MG TABLET PO SCH (21:20)
[2022-03-11] MEDS: MELATONIN 5 MG TABLET PO SCH (21:21)
[2022-03-11 21:22] VITALS: BP 106/69
[2022-03-12] MEDS: LURASIDONE HCL 60 MG TABLET PO SCH ×2 (06:15→17:31)
[2022-03-12 08:30] VITALS: BP 144/92
[2022-03-12] MEDS: GABAPENTIN 300 MG CAPSULE PO SCH ×3 (09:02→16:15)
[2022-03-12] MEDS: LOXAPINE SUCCINATE 25 MG CAPSULE PO SCH ×3 (09:02→16:15)
[2022-03-12] MEDS: FLUoxetine HCL 20 MG CAPSULE PO SCH (09:02)
[2022-03-12] MEDS: LOXAPINE SUCCINATE 5 MG CAPSULE PO SCH ×3 (09:02→16:15)
[2022-03-12] MEDS: TAMSULOSIN HCL 0.4 MG CAPSULE PO SCH ×2 (09:02→16:15)
[2022-03-12] MEDS: DOCUSATE SODIUM 100 MG CAPSULE PO SCH (09:02)
[2022-03-12] MEDS: TERBINAFINE HCL 1% 30 GM CREAM TP SCH ×2 (09:04→16:19)
[2022-03-12] MEDS: PALIPERIDONE PALMITATE 234 MG/1.5 ML SYRINGE IM SCH (11:10)
[2022-03-12 16:51] VITALS: BP 103/60
[2022-03-12] MEDS: PRAZOSIN HCL 2 MG CAPSULE PO SCH (20:44)
[2022-03-12] MEDS: MELATONIN 5 MG TABLET PO SCH (20:44)
[2022-03-12] MEDS: TraZODone HCL 100 MG TABLET PO SCH (20:45)
[2022-03-13] MEDS: LURASIDONE HCL 60 MG TABLET PO SCH ×2 (06:51→17:56)
[2022-03-13] MEDS: TAMSULOSIN HCL 0.4 MG CAPSULE PO SCH ×2 (09:01→16:29)
[2022-03-13] MEDS: DOCUSATE SODIUM 100 MG CAPSULE PO SCH (09:01)
[2022-03-13] MEDS: FLUoxetine HCL 20 MG CAPSULE PO SCH (09:01)
[2022-03-13] MEDS: LOXAPINE SUCCINATE 25 MG CAPSULE PO SCH ×3 (09:02→16:28)
[2022-03-13] MEDS: GABAPENTIN 300 MG CAPSULE PO SCH ×3 (09:02→16:29)
[2022-03-13] MEDS: LOXAPINE SUCCINATE 5 MG CAPSULE PO SCH ×3 (09:02→16:28)
[2022-03-13] MEDS: TERBINAFINE HCL 1% 30 GM CREAM TP SCH ×2 (10:25→16:30)
[2022-03-13 10:46] VITALS: BP 138/79
[2022-03-13 17:57] VITALS: BP 133/85
[2022-03-13] MEDS: TraZODone HCL 100 MG TABLET PO SCH (21:23)
[2022-03-13] MEDS: MELATONIN 5 MG TABLET PO SCH (21:24)
[2022-03-13] MEDS: PRAZOSIN HCL 2 MG CAPSULE PO SCH (21:25)
[2022-03-14] MEDS: LURASIDONE HCL 60 MG TABLET PO SCH ×2 (06:54→17:34)
[2022-03-14 08:35] VITALS: BP 131/97
[2022-03-14] MEDS: LOXAPINE SUCCINATE 25 MG CAPSULE PO SCH ×3 (08:43→16:37)
[2022-03-14] MEDS: DOCUSATE SODIUM 100 MG CAPSULE PO SCH (08:44)
[2022-03-14] MEDS: FLUoxetine HCL 20 MG CAPSULE PO SCH (08:44)
[2022-03-14] MEDS: LOXAPINE SUCCINATE 5 MG CAPSULE PO SCH ×3 (08:44→16:37)
[2022-03-14] MEDS: GABAPENTIN 300 MG CAPSULE PO SCH ×3 (08:44→16:37)
[2022-03-14] MEDS: TAMSULOSIN HCL 0.4 MG CAPSULE PO SCH ×2 (08:46→16:38)
[2022-03-14] MEDS: TERBINAFINE HCL 1% 30 GM CREAM TP SCH ×2 (10:56→17:22)
[2022-03-14] MEDS: BENZOCAINE 10% 7 GM GEL TP PRN ×2 (16:13→17:24)
[2022-03-14] MEDS: IBUPROFEN 400 MG TABLET PO PRN (16:13)
[2022-03-14 16:45] VITALS: BP 139/89
[2022-03-14] MEDS: PRAZOSIN HCL 2 MG CAPSULE PO SCH (20:53)
[2022-03-14] MEDS: TraZODone HCL 100 MG TABLET PO SCH (20:54)
[2022-03-14] MEDS: MELATONIN 5 MG TABLET PO SCH (20:54)
[2022-03-15] MEDS: IBUPROFEN 400 MG TABLET PO PRN ×2 (06:42→17:44)
[2022-03-15] MEDS: LURASIDONE HCL 60 MG TABLET PO SCH ×2 (06:42→17:44)
[2022-03-15 06:44] VITALS: BP 145/90
[2022-03-15] MEDS: TAMSULOSIN HCL 0.4 MG CAPSULE PO SCH ×2 (07:12→17:44)
[2022-03-15] MEDS: LOXAPINE SUCCINATE 5 MG CAPSULE PO SCH ×3 (08:47→17:44)
[2022-03-15] MEDS: FLUoxetine HCL 20 MG CAPSULE PO SCH (08:47)
[2022-03-15] MEDS: DOCUSATE SODIUM 100 MG CAPSULE PO SCH (08:47)
[2022-03-15] MEDS: GABAPENTIN 300 MG CAPSULE PO SCH ×3 (08:47→17:44)
[2022-03-15] MEDS: LOXAPINE SUCCINATE 25 MG CAPSULE PO SCH ×3 (08:47→17:44)
[2022-03-15] MEDS: TERBINAFINE HCL 1% 30 GM CREAM TP SCH ×2 (09:00→18:04)
[2022-03-15 09:25] VITALS: BP 128/89
[2022-03-15 16:45] VITALS: BP 135/93
[2022-03-15] MEDS: PRAZOSIN HCL 2 MG CAPSULE PO SCH (20:30)
[2022-03-15] MEDS: TraZODone HCL 100 MG TABLET PO SCH (20:30)
[2022-03-15] MEDS: MELATONIN 5 MG TABLET PO SCH (20:30)
[2022-03-16] MEDS: LURASIDONE HCL 60 MG TABLET PO SCH ×2 (06:43→17:34)
[2022-03-16 08:00] VITALS: BP 140/88
[2022-03-16] MEDS: DOCUSATE SODIUM 100 MG CAPSULE PO SCH (08:31)
[2022-03-16] MEDS: LOXAPINE SUCCINATE 5 MG CAPSULE PO SCH ×3 (08:31→17:33)
[2022-03-16] MEDS: TAMSULOSIN HCL 0.4 MG CAPSULE PO SCH ×2 (08:31→17:34)
[2022-03-16] MEDS: FLUoxetine HCL 20 MG CAPSULE PO SCH (08:31)
[2022-03-16] MEDS: LOXAPINE SUCCINATE 25 MG CAPSULE PO SCH ×3 (08:31→17:33)
[2022-03-16] MEDS: GABAPENTIN 300 MG CAPSULE PO SCH ×3 (08:32→17:34)
[2022-03-16] MEDS: TERBINAFINE HCL 1% 30 GM CREAM TP SCH ×2 (10:02→18:25)
[2022-03-16] MEDS: IBUPROFEN 400 MG TABLET PO PRN (12:07)
[2022-03-16 16:45] VITALS: BP 114/76
[2022-03-16] MEDS: MELATONIN 5 MG TABLET PO SCH (21:26)
[2022-03-16] MEDS: PRAZOSIN HCL 2 MG CAPSULE PO SCH (21:26)
[2022-03-16] MEDS: TraZODone HCL 100 MG TABLET PO SCH (21:26)
[2022-03-17 05:30] VITALS: BP 112/71
[2022-03-17] MEDS: ACETAMINOPHEN 325 MG TABLET PO PRN (05:31)
[2022-03-17] MEDS: LURASIDONE HCL 60 MG TABLET PO SCH ×2 (06:44→16:28)
[2022-03-17 08:00] VITALS: BP 145/95
[2022-03-17] MEDS: TERBINAFINE HCL 1% 30 GM CREAM TP SCH ×2 (09:00→16:28)
[2022-03-17] MEDS: LOXAPINE SUCCINATE 25 MG CAPSULE PO SCH ×3 (09:07→16:25)
[2022-03-17] MEDS: GABAPENTIN 300 MG CAPSULE PO SCH ×3 (09:08→16:27)
[2022-03-17] MEDS: LOXAPINE SUCCINATE 5 MG CAPSULE PO SCH ×3 (09:08→16:26)
[2022-03-17] MEDS: FLUoxetine HCL 20 MG CAPSULE PO SCH (09:08)
[2022-03-17] MEDS: DOCUSATE SODIUM 100 MG CAPSULE PO SCH (09:08)
[2022-03-17] MEDS: TAMSULOSIN HCL 0.4 MG CAPSULE PO SCH ×2 (09:08→16:27)
[2022-03-17 16:00] VITALS: BP 148/97
[2022-03-17] MEDS: TraZODone HCL 100 MG TABLET PO SCH (21:19)
[2022-03-17] MEDS: PRAZOSIN HCL 2 MG CAPSULE PO SCH (21:19)
[2022-03-17] MEDS: MELATONIN 5 MG TABLET PO SCH (21:19)
[2022-03-18] MEDS: LURASIDONE HCL 60 MG TABLET PO SCH ×2 (06:23→17:45)
[2022-03-18 07:12] LABS: COVID AG,FIA SOURCE NASAL SWAB
[2022-03-18] MEDS: LOXAPINE SUCCINATE 5 MG CAPSULE PO SCH ×3 (08:53→16:23)
[2022-03-18] MEDS: GABAPENTIN 300 MG CAPSULE PO SCH ×3 (08:53→16:23)
[2022-03-18] MEDS: LOXAPINE SUCCINATE 25 MG CAPSULE PO SCH ×3 (08:53→16:23)
[2022-03-18] MEDS: FLUoxetine HCL 20 MG CAPSULE PO SCH (08:54)
[2022-03-18] MEDS: DOCUSATE SODIUM 100 MG CAPSULE PO SCH (08:54)
[2022-03-18] MEDS: TAMSULOSIN HCL 0.4 MG CAPSULE PO SCH ×2 (08:54→16:23)
[2022-03-18] MEDS: TERBINAFINE HCL 1% 30 GM CREAM TP SCH ×2 (09:00→17:00)
[2022-03-18 10:04] VITALS: BP 131/73
[2022-03-18 16:00] VITALS: BP 135/90
[2022-03-18] MEDS: MELATONIN 5 MG TABLET PO SCH (21:19)
[2022-03-18] MEDS: PRAZOSIN HCL 2 MG CAPSULE PO SCH (21:19)
[2022-03-18] MEDS: TraZODone HCL 100 MG TABLET PO SCH (21:19)
[2022-03-19] MEDS: LURASIDONE HCL 60 MG TABLET PO SCH ×2 (06:19→16:28)
[2022-03-19 08:00] VITALS: BP 124/88
[2022-03-19] MEDS: TAMSULOSIN HCL 0.4 MG CAPSULE PO SCH ×2 (08:56→16:26)
[2022-03-19] MEDS: LOXAPINE SUCCINATE 25 MG CAPSULE PO SCH ×3 (08:56→16:26)
[2022-03-19] MEDS: FLUoxetine HCL 20 MG CAPSULE PO SCH (08:56)
[2022-03-19] MEDS: DOCUSATE SODIUM 100 MG CAPSULE PO SCH (08:56)
[2022-03-19] MEDS: LOXAPINE SUCCINATE 5 MG CAPSULE PO SCH ×3 (08:56→16:26)
[2022-03-19] MEDS: GABAPENTIN 300 MG CAPSULE PO SCH ×3 (08:57→16:26)
[2022-03-19] MEDS: TERBINAFINE HCL 1% 30 GM CREAM TP SCH ×2 (09:00→16:26)
[2022-03-19] MEDS: TraZODone HCL 100 MG TABLET PO SCH (21:00)
[2022-03-19] MEDS: PRAZOSIN HCL 2 MG CAPSULE PO SCH (21:00)
[2022-03-19] MEDS: MELATONIN 5 MG TABLET PO SCH (21:00)
[2022-03-20] MEDS: LURASIDONE HCL 60 MG TABLET PO SCH ×2 (06:32→17:48)
[2022-03-20] MEDS: LOXAPINE SUCCINATE 25 MG CAPSULE PO SCH ×3 (08:44→16:06)
[2022-03-20] MEDS: LOXAPINE SUCCINATE 5 MG CAPSULE PO SCH ×3 (08:44→16:06)
[2022-03-20] MEDS: TERBINAFINE HCL 1% 30 GM CREAM TP SCH ×2 (08:44→16:07)
[2022-03-20] MEDS: DOCUSATE SODIUM 100 MG CAPSULE PO SCH (08:46)
[2022-03-20] MEDS: FLUoxetine HCL 20 MG CAPSULE PO SCH (08:46)
[2022-03-20] MEDS: GABAPENTIN 300 MG CAPSULE PO SCH ×3 (08:46→16:06)
[2022-03-20] MEDS: TAMSULOSIN HCL 0.4 MG CAPSULE PO SCH ×2 (08:46→16:06)
[2022-03-20 11:06] VITALS: BP 113/60
[2022-03-20 16:53] VITALS: BP 119/68
[2022-03-20] MEDS: MELATONIN 5 MG TABLET PO SCH (20:59)
[2022-03-20] MEDS: PRAZOSIN HCL 2 MG CAPSULE PO SCH (21:03)
[2022-03-20] MEDS: TraZODone HCL 100 MG TABLET PO SCH (21:04)
[2022-03-21] MEDS: LURASIDONE HCL 60 MG TABLET PO SCH ×2 (06:31→18:33)
[2022-03-21 08:54] VITALS: BP 145/98
[2022-03-21] MEDS: TERBINAFINE HCL 1% 30 GM CREAM TP SCH ×2 (09:00→18:33)
[2022-03-21] MEDS: LOXAPINE SUCCINATE 5 MG CAPSULE PO SCH ×3 (09:15→18:32)
[2022-03-21] MEDS: TAMSULOSIN HCL 0.4 MG CAPSULE PO SCH ×2 (09:17→18:32)
[2022-03-21] MEDS: FLUoxetine HCL 20 MG CAPSULE PO SCH (09:17)
[2022-03-21] MEDS: GABAPENTIN 300 MG CAPSULE PO SCH ×3 (09:18→18:34)
[2022-03-21] MEDS: LOXAPINE SUCCINATE 25 MG CAPSULE PO SCH ×3 (09:18→18:32)
[2022-03-21] MEDS: DOCUSATE SODIUM 100 MG CAPSULE PO SCH (09:19)
[2022-03-21] MEDS: PRAZOSIN HCL 2 MG CAPSULE PO SCH (20:27)
[2022-03-21] MEDS: MELATONIN 5 MG TABLET PO SCH (20:28)
[2022-03-21] MEDS: TraZODone HCL 100 MG TABLET PO SCH (20:29)
[2022-03-22 04:45] VITALS: BP 141/100
[2022-03-22] MEDS: ACETAMINOPHEN 325 MG TABLET PO PRN (04:46)
[2022-03-22] MEDS: LURASIDONE HCL 60 MG TABLET PO SCH ×2 (06:49→16:56)
[2022-03-22] MEDS: TAMSULOSIN HCL 0.4 MG CAPSULE PO SCH ×2 (08:11→16:57)
[2022-03-22] MEDS: FLUoxetine HCL 20 MG CAPSULE PO SCH (08:11)
[2022-03-22] MEDS: LOXAPINE SUCCINATE 25 MG CAPSULE PO SCH ×3 (08:12→16:56)
[2022-03-22] MEDS: DOCUSATE SODIUM 100 MG CAPSULE PO SCH (08:12)
[2022-03-22] MEDS: LOXAPINE SUCCINATE 5 MG CAPSULE PO SCH ×3 (08:12→16:56)
[2022-03-22] MEDS: GABAPENTIN 300 MG CAPSULE PO SCH ×3 (08:12→16:57)
[2022-03-22] MEDS: TERBINAFINE HCL 1% 30 GM CREAM TP SCH ×2 (08:14→16:56)
[2022-03-22 16:29] VITALS: BP 130/81
[2022-03-22] MEDS: TraZODone HCL 100 MG TABLET PO SCH (21:00)
[2022-03-22] MEDS: MELATONIN 5 MG TABLET PO SCH (21:00)
[2022-03-22] MEDS: PRAZOSIN HCL 2 MG CAPSULE PO SCH (21:01)
[2022-03-23] MEDS: MAG HYDROX/AL HYDROX/SIMETH ES 30 ML SUSPENSION UDCUP PO PRN (05:20)
[2022-03-23] MEDS: LURASIDONE HCL 60 MG TABLET PO SCH ×2 (06:52→17:15)
[2022-03-23] MEDS: LOXAPINE SUCCINATE 5 MG CAPSULE PO SCH ×3 (09:02→17:14)
[2022-03-23] MEDS: TAMSULOSIN HCL 0.4 MG CAPSULE PO SCH ×2 (09:02→17:14)
[2022-03-23] MEDS: GABAPENTIN 300 MG CAPSULE PO SCH ×3 (09:02→17:14)
[2022-03-23] MEDS: LOXAPINE SUCCINATE 25 MG CAPSULE PO SCH ×3 (09:02→17:14)
[2022-03-23] MEDS: DOCUSATE SODIUM 100 MG CAPSULE PO SCH (09:02)
[2022-03-23] MEDS: FLUoxetine HCL 20 MG CAPSULE PO SCH (09:03)
[2022-03-23] MEDS: TERBINAFINE HCL 1% 30 GM CREAM TP SCH ×2 (09:07→17:17)
[2022-03-23 16:17] VITALS: BP 119/86
[2022-03-23] MEDS: TraZODone HCL 100 MG TABLET PO SCH (20:48)
[2022-03-23] MEDS: PRAZOSIN HCL 2 MG CAPSULE PO SCH (20:48)
[2022-03-23] MEDS: MELATONIN 5 MG TABLET PO SCH (20:48)
[2022-03-24] MEDS: MAG HYDROX/AL HYDROX/SIMETH ES 30 ML SUSPENSION UDCUP PO PRN (04:47)
[2022-03-24] MEDS: LURASIDONE HCL 60 MG TABLET PO SCH ×2 (06:42→16:07)
[2022-03-24] MEDS: DOCUSATE SODIUM 100 MG CAPSULE PO SCH (09:09)
[2022-03-24 09:24] VITALS: BP 130/95
[2022-03-24] MEDS: GABAPENTIN 300 MG CAPSULE PO SCH ×3 (09:35→16:07)
[2022-03-24] MEDS: LOXAPINE SUCCINATE 5 MG CAPSULE PO SCH ×3 (09:36→16:07)
[2022-03-24] MEDS: FLUoxetine HCL 20 MG CAPSULE PO SCH (09:36)
[2022-03-24] MEDS: LOXAPINE SUCCINATE 25 MG CAPSULE PO SCH ×3 (09:36→16:07)
[2022-03-24] MEDS: TAMSULOSIN HCL 0.4 MG CAPSULE PO SCH ×2 (09:37→16:07)
[2022-03-24] MEDS: TERBINAFINE HCL 1% 30 GM CREAM TP SCH ×2 (09:38→16:07)
[2022-03-24 16:01] VITALS: BP 145/96
[2022-03-24] MEDS: MELATONIN 5 MG TABLET PO SCH (21:48)
[2022-03-24] MEDS: TraZODone HCL 100 MG TABLET PO SCH (21:48)
[2022-03-24] MEDS: PRAZOSIN HCL 2 MG CAPSULE PO SCH (21:48)
[2022-03-25] MEDS: MAG HYDROX/AL HYDROX/SIMETH ES 30 ML SUSPENSION UDCUP PO PRN (06:34)
[2022-03-25] MEDS: LURASIDONE HCL 60 MG TABLET PO SCH ×2 (06:35→17:30)
[2022-03-25 06:46] LABS: COVID AG,FIA SOURCE NASAL SWAB
[2022-03-25 08:38] VITALS: BP 123/65
[2022-03-25] MEDS: LOXAPINE SUCCINATE 5 MG CAPSULE PO SCH ×3 (09:01→16:48)
[2022-03-25] MEDS: FLUoxetine HCL 20 MG CAPSULE PO SCH (09:01)
[2022-03-25] MEDS: DOCUSATE SODIUM 100 MG CAPSULE PO SCH (09:01)
[2022-03-25] MEDS: LOXAPINE SUCCINATE 25 MG CAPSULE PO SCH ×3 (09:01→16:48)
[2022-03-25] MEDS: TAMSULOSIN HCL 0.4 MG CAPSULE PO SCH ×2 (09:02→16:48)
[2022-03-25] MEDS: TERBINAFINE HCL 1% 30 GM CREAM TP SCH ×2 (09:02→17:03)
[2022-03-25] MEDS: GABAPENTIN 300 MG CAPSULE PO SCH ×3 (09:02→16:48)
[2022-03-25 16:53] VITALS: BP 144/89
[2022-03-25] MEDS: MELATONIN 5 MG TABLET PO SCH (20:37)
[2022-03-25] MEDS: PRAZOSIN HCL 2 MG CAPSULE PO SCH (20:37)
[2022-03-25] MEDS: TraZODone HCL 100 MG TABLET PO SCH (20:38)
[2022-03-26] MEDS: LURASIDONE HCL 60 MG TABLET PO SCH ×2 (06:37→17:31)
[2022-03-26 08:00] VITALS: BP 151/99
[2022-03-26] MEDS: LOXAPINE SUCCINATE 25 MG CAPSULE PO SCH ×3 (09:12→17:32)
[2022-03-26] MEDS: LOXAPINE SUCCINATE 5 MG CAPSULE PO SCH ×3 (09:12→17:32)
[2022-03-26] MEDS: GABAPENTIN 300 MG CAPSULE PO SCH ×3 (09:12→17:32)
[2022-03-26] MEDS: DOCUSATE SODIUM 100 MG CAPSULE PO SCH (09:12)
[2022-03-26] MEDS: FLUoxetine HCL 20 MG CAPSULE PO SCH (09:12)
[2022-03-26] MEDS: TAMSULOSIN HCL 0.4 MG CAPSULE PO SCH ×2 (09:12→17:31)
[2022-03-26] MEDS: TERBINAFINE HCL 1% 30 GM CREAM TP SCH ×2 (09:13→17:31)
[2022-03-26 16:36] VITALS: BP 108/75
[2022-03-26] MEDS: MELATONIN 5 MG TABLET PO SCH (20:28)
[2022-03-26] MEDS: PRAZOSIN HCL 2 MG CAPSULE PO SCH (20:28)
[2022-03-26] MEDS: TraZODone HCL 100 MG TABLET PO SCH (20:28)
[2022-03-27] MEDS: LURASIDONE HCL 60 MG TABLET PO SCH ×2 (06:44→17:21)
[2022-03-27] MEDS: GABAPENTIN 300 MG CAPSULE PO SCH ×3 (09:07→16:57)
[2022-03-27] MEDS: TAMSULOSIN HCL 0.4 MG CAPSULE PO SCH ×2 (09:07→16:57)
[2022-03-27] MEDS: DOCUSATE SODIUM 100 MG CAPSULE PO SCH (09:07)
[2022-03-27] MEDS: LOXAPINE SUCCINATE 5 MG CAPSULE PO SCH ×3 (09:07→16:57)
[2022-03-27] MEDS: FLUoxetine HCL 20 MG CAPSULE PO SCH (09:07)
[2022-03-27] MEDS: LOXAPINE SUCCINATE 25 MG CAPSULE PO SCH ×3 (09:08→16:57)
[2022-03-27] MEDS: TERBINAFINE HCL 1% 30 GM CREAM TP SCH ×2 (09:09→16:57)
[2022-03-27 10:34] VITALS: BP 142/82
[2022-03-27 16:06] VITALS: BP 132/87
[2022-03-27] MEDS: TraZODone HCL 100 MG TABLET PO SCH (20:38)
[2022-03-27] MEDS: PRAZOSIN HCL 2 MG CAPSULE PO SCH (20:39)
[2022-03-27] MEDS: MELATONIN 5 MG TABLET PO SCH (20:39)
[2022-03-28] MEDS: LURASIDONE HCL 60 MG TABLET PO SCH ×2 (06:42→18:28)
[2022-03-28 08:14] VITALS: BP 124/86
[2022-03-28] MEDS: FLUoxetine HCL 20 MG CAPSULE PO SCH (08:39)
[2022-03-28] MEDS: LOXAPINE SUCCINATE 5 MG CAPSULE PO SCH ×3 (08:39→16:14)
[2022-03-28] MEDS: LOXAPINE SUCCINATE 25 MG CAPSULE PO SCH ×3 (08:39→16:14)
[2022-03-28] MEDS: DOCUSATE SODIUM 100 MG CAPSULE PO SCH (08:39)
[2022-03-28] MEDS: TAMSULOSIN HCL 0.4 MG CAPSULE PO SCH ×2 (08:39→16:15)
[2022-03-28] MEDS: GABAPENTIN 300 MG CAPSULE PO SCH ×3 (08:40→16:16)
[2022-03-28] MEDS: TERBINAFINE HCL 1% 30 GM CREAM TP SCH ×2 (09:00→18:31)
[2022-03-28 16:15] VITALS: BP 123/90
[2022-03-28] MEDS: MELATONIN 5 MG TABLET PO SCH (20:57)
[2022-03-28] MEDS: PRAZOSIN HCL 2 MG CAPSULE PO SCH (20:57)
[2022-03-28] MEDS: TraZODone HCL 100 MG TABLET PO SCH (20:57)
[2022-03-29] MEDS: LURASIDONE HCL 60 MG TABLET PO SCH ×2 (06:45→16:47)
[2022-03-29 08:40] VITALS: BP 149/95
[2022-03-29] MEDS: LOXAPINE SUCCINATE 25 MG CAPSULE PO SCH ×3 (08:52→16:47)
[2022-03-29] MEDS: DOCUSATE SODIUM 100 MG CAPSULE PO SCH (08:52)
[2022-03-29] MEDS: TAMSULOSIN HCL 0.4 MG CAPSULE PO SCH ×2 (08:52→16:48)
[2022-03-29] MEDS: GABAPENTIN 300 MG CAPSULE PO SCH ×3 (08:52→16:48)
[2022-03-29] MEDS: FLUoxetine HCL 20 MG CAPSULE PO SCH (08:52)
[2022-03-29] MEDS: LOXAPINE SUCCINATE 5 MG CAPSULE PO SCH ×3 (08:52→16:47)
[2022-03-29] MEDS: TERBINAFINE HCL 1% 30 GM CREAM TP SCH ×2 (13:42→18:10)
[2022-03-29 16:35] VITALS: BP 149/97
[2022-03-29] MEDS: TraZODone HCL 100 MG TABLET PO SCH (20:07)
[2022-03-29] MEDS: MELATONIN 5 MG TABLET PO SCH (20:07)
[2022-03-29] MEDS: PRAZOSIN HCL 2 MG CAPSULE PO SCH (20:07)
[2022-03-30] MEDS: LURASIDONE HCL 60 MG TABLET PO SCH ×2 (06:38→17:32)
[2022-03-30] MEDS: LOXAPINE SUCCINATE 5 MG CAPSULE PO SCH ×3 (08:11→17:32)
[2022-03-30] MEDS: DOCUSATE SODIUM 100 MG CAPSULE PO SCH (08:11)
[2022-03-30] MEDS: TAMSULOSIN HCL 0.4 MG CAPSULE PO SCH ×2 (08:11→17:32)
[2022-03-30] MEDS: FLUoxetine HCL 20 MG CAPSULE PO SCH (08:11)
[2022-03-30] MEDS: LOXAPINE SUCCINATE 25 MG CAPSULE PO SCH ×3 (08:11→17:32)
[2022-03-30] MEDS: GABAPENTIN 300 MG CAPSULE PO SCH ×3 (08:12→17:32)
[2022-03-30 08:55] VITALS: BP 128/90
[2022-03-30] MEDS: TERBINAFINE HCL 1% 30 GM CREAM TP SCH ×2 (09:17→17:46)
[2022-03-30 16:15] VITALS: BP 126/98
[2022-03-30] MEDS: PRAZOSIN HCL 2 MG CAPSULE PO SCH (20:28)
[2022-03-30] MEDS: MELATONIN 5 MG TABLET PO SCH (20:28)
[2022-03-30] MEDS: TraZODone HCL 100 MG TABLET PO SCH (20:29)
[2022-03-31] MEDS: LURASIDONE HCL 60 MG TABLET PO SCH ×2 (06:35→17:03)
[2022-03-31 08:00] VITALS: BP 153/76
[2022-03-31] MEDS: LORazepam 2 MG TABLET PO PRN (08:54)
[2022-03-31] MEDS: FLUoxetine HCL 20 MG CAPSULE PO SCH (08:54)
[2022-03-31] MEDS: GABAPENTIN 300 MG CAPSULE PO SCH ×3 (08:55→17:04)
[2022-03-31] MEDS: LOXAPINE SUCCINATE 5 MG CAPSULE PO SCH ×3 (08:56→17:03)
[2022-03-31] MEDS: PRAZOSIN HCL 2 MG CAPSULE PO SCH (08:56)
[2022-03-31] MEDS: TERBINAFINE HCL 1% 30 GM CREAM TP SCH ×2 (08:56→17:00)
[2022-03-31] MEDS: TAMSULOSIN HCL 0.4 MG CAPSULE PO SCH ×2 (08:57→17:03)
[2022-03-31] MEDS: LOXAPINE SUCCINATE 25 MG CAPSULE PO SCH ×3 (08:57→17:03)
[2022-03-31] MEDS: HALOPERIDOL 5 MG TABLET PO PRN (09:03)
[2022-03-31] MEDS: DOCUSATE SODIUM 100 MG CAPSULE PO SCH (09:04)
[2022-03-31 16:22] VITALS: BP 135/103
[2022-03-31] MEDS: TraZODone HCL 100 MG TABLET PO SCH (20:50)
[2022-03-31] MEDS: MELATONIN 5 MG TABLET PO SCH (20:50)
[2022-04-01] MEDS: LURASIDONE HCL 60 MG TABLET PO SCH ×2 (06:34→17:06)
[2022-04-01] MEDS: LOXAPINE SUCCINATE 25 MG CAPSULE PO SCH ×3 (08:27→16:30)
[2022-04-01] MEDS: LOXAPINE SUCCINATE 5 MG CAPSULE PO SCH ×3 (08:27→16:30)
[2022-04-01] MEDS: GABAPENTIN 300 MG CAPSULE PO SCH ×3 (08:29→16:29)
[2022-04-01] MEDS: DOCUSATE SODIUM 100 MG CAPSULE PO SCH (08:29)
[2022-04-01] MEDS: FLUoxetine HCL 20 MG CAPSULE PO SCH (08:29)
[2022-04-01 08:46] LABS: COVID AG,FIA SOURCE NASAL SWAB
[2022-04-01 09:46] VITALS: BP 148/69
[2022-04-01] MEDS: TERBINAFINE HCL 1% 30 GM CREAM TP SCH ×2 (10:01→17:06)
[2022-04-01] MEDS: TAMSULOSIN HCL 0.4 MG CAPSULE PO SCH ×2 (10:02→16:30)
[2022-04-01 16:35] VITALS: BP 113/63
[2022-04-01] MEDS: PRAZOSIN HCL 2 MG CAPSULE PO SCH (20:22)
[2022-04-01] MEDS: MELATONIN 5 MG TABLET PO SCH (20:23)
[2022-04-01] MEDS: TraZODone HCL 100 MG TABLET PO SCH (20:23)
[2022-04-02 01:18] VITALS: BP 131/87
[2022-04-02] MEDS: IBUPROFEN 400 MG TABLET PO PRN ×3 (01:22→15:22)
[2022-04-02] MEDS: LORazepam 2 MG TABLET PO PRN (02:12)
[2022-04-02] MEDS: MAG HYDROX/AL HYDROX/SIMETH ES 30 ML SUSPENSION UDCUP PO PRN (02:47)
[2022-04-02 03:35] VITALS: BP 147/96
[2022-04-02] MEDS: ACETAMINOPHEN 325 MG TABLET PO PRN (03:39)
[2022-04-02] MEDS: LURASIDONE HCL 60 MG TABLET PO SCH ×2 (06:54→17:19)
[2022-04-02] MEDS: LOXAPINE SUCCINATE 25 MG CAPSULE PO SCH ×3 (08:23→16:29)
[2022-04-02] MEDS: LOXAPINE SUCCINATE 5 MG CAPSULE PO SCH ×3 (08:23→16:29)
[2022-04-02] MEDS: TAMSULOSIN HCL 0.4 MG CAPSULE PO SCH ×2 (08:27→16:29)
[2022-04-02] MEDS: FLUoxetine HCL 20 MG CAPSULE PO SCH (08:27)
[2022-04-02] MEDS: GABAPENTIN 300 MG CAPSULE PO SCH ×3 (08:27→16:29)
[2022-04-02] MEDS: DOCUSATE SODIUM 100 MG CAPSULE PO SCH (08:27)
[2022-04-02] MEDS: TERBINAFINE HCL 1% 30 GM CREAM TP SCH ×2 (08:28→17:00)
[2022-04-02 08:52] VITALS: BP 155/88
[2022-04-02 16:00] VITALS: BP 134/91
[2022-04-02] MEDS: PRAZOSIN HCL 2 MG CAPSULE PO SCH (20:17)
[2022-04-02] MEDS: TraZODone HCL 100 MG TABLET PO SCH (20:17)
[2022-04-02] MEDS: MELATONIN 5 MG TABLET PO SCH (20:17)
[2022-04-02 20:36] VITALS: BP 132/86
[2022-04-03] MEDS: LURASIDONE HCL 60 MG TABLET PO SCH ×2 (06:55→16:17)
[2022-04-03] MEDS: LOXAPINE SUCCINATE 5 MG CAPSULE PO SCH ×3 (08:34→16:17)
[2022-04-03] MEDS: FLUoxetine HCL 20 MG CAPSULE PO SCH (08:34)
[2022-04-03] MEDS: LOXAPINE SUCCINATE 25 MG CAPSULE PO SCH ×3 (08:34→16:17)
[2022-04-03] MEDS: TERBINAFINE HCL 1% 30 GM CREAM TP SCH ×2 (08:35→16:18)
[2022-04-03] MEDS: TAMSULOSIN HCL 0.4 MG CAPSULE PO SCH ×2 (08:35→16:17)
[2022-04-03] MEDS: DOCUSATE SODIUM 100 MG CAPSULE PO SCH (08:35)
[2022-04-03] MEDS: GABAPENTIN 300 MG CAPSULE PO SCH ×3 (08:35→16:17)
[2022-04-03 08:52] VITALS: BP 135/68
[2022-04-03 16:38] VITALS: BP 97/65
[2022-04-03] MEDS: MELATONIN 5 MG TABLET PO SCH (21:23)
[2022-04-03] MEDS: PRAZOSIN HCL 2 MG CAPSULE PO SCH (21:23)
[2022-04-03] MEDS: TraZODone HCL 100 MG TABLET PO SCH (21:23)
[2022-04-04] MEDS: LURASIDONE HCL 60 MG TABLET PO SCH ×2 (06:33→18:48)
[2022-04-04] MEDS: TAMSULOSIN HCL 0.4 MG CAPSULE PO SCH ×2 (08:20→18:48)
[2022-04-04] MEDS: LOXAPINE SUCCINATE 25 MG CAPSULE PO SCH ×3 (08:20→18:48)
[2022-04-04] MEDS: LOXAPINE SUCCINATE 5 MG CAPSULE PO SCH ×3 (08:20→18:48)
[2022-04-04] MEDS: FLUoxetine HCL 20 MG CAPSULE PO SCH (08:20)
[2022-04-04] MEDS: GABAPENTIN 300 MG CAPSULE PO SCH ×3 (08:20→18:48)
[2022-04-04] MEDS: DOCUSATE SODIUM 100 MG CAPSULE PO SCH (08:20)
[2022-04-04] MEDS: TERBINAFINE HCL 1% 30 GM CREAM TP SCH ×2 (08:22→17:00)
[2022-04-04 08:36] VITALS: BP 143/100
[2022-04-04 16:00] VITALS: BP 149/99
[2022-04-04] MEDS: TraZODone HCL 100 MG TABLET PO SCH (20:21)
[2022-04-04] MEDS: MELATONIN 5 MG TABLET PO SCH (20:21)
[2022-04-04] MEDS: PRAZOSIN HCL 2 MG CAPSULE PO SCH (20:21)
[2022-04-05 04:36] VITALS: BP 145/89
[2022-04-05] MEDS: IBUPROFEN 400 MG TABLET PO PRN (04:36)
[2022-04-05] MEDS: LURASIDONE HCL 60 MG TABLET PO SCH ×2 (08:56→17:00)
[2022-04-05] MEDS: GABAPENTIN 300 MG CAPSULE PO SCH ×3 (08:56→16:59)
[2022-04-05] MEDS: LOXAPINE SUCCINATE 25 MG CAPSULE PO SCH ×3 (08:56→16:59)
[2022-04-05] MEDS: TAMSULOSIN HCL 0.4 MG CAPSULE PO SCH ×2 (08:56→16:59)
[2022-04-05] MEDS: DOCUSATE SODIUM 100 MG CAPSULE PO SCH (08:56)
[2022-04-05] MEDS: LOXAPINE SUCCINATE 5 MG CAPSULE PO SCH ×3 (08:56→16:59)
[2022-04-05] MEDS: FLUoxetine HCL 20 MG CAPSULE PO SCH (08:57)
[2022-04-05 09:29] VITALS: BP 146/104
[2022-04-05] MEDS: TERBINAFINE HCL 1% 30 GM CREAM TP SCH ×2 (10:01→17:00)
[2022-04-05 16:35] VITALS: BP 132/93
[2022-04-05] MEDS: MELATONIN 5 MG TABLET PO SCH (20:40)
[2022-04-05] MEDS: PRAZOSIN HCL 2 MG CAPSULE PO SCH (20:40)
[2022-04-05] MEDS: TraZODone HCL 100 MG TABLET PO SCH (20:40)
[2022-04-06] MEDS: LURASIDONE HCL 60 MG TABLET PO SCH ×2 (06:43→17:56)
[2022-04-06] MEDS: LOXAPINE SUCCINATE 25 MG CAPSULE PO SCH ×3 (08:33→17:57)
[2022-04-06] MEDS: GABAPENTIN 300 MG CAPSULE PO SCH ×3 (08:33→17:57)
[2022-04-06] MEDS: LOXAPINE SUCCINATE 5 MG CAPSULE PO SCH ×3 (08:33→17:56)
[2022-04-06] MEDS: FLUoxetine HCL 20 MG CAPSULE PO SCH (08:33)
[2022-04-06] MEDS: DOCUSATE SODIUM 100 MG CAPSULE PO SCH (08:33)
[2022-04-06] MEDS: TAMSULOSIN HCL 0.4 MG CAPSULE PO SCH ×2 (08:35→17:56)
[2022-04-06 08:47] VITALS: BP 110/73
[2022-04-06] MEDS: TERBINAFINE HCL 1% 30 GM CREAM TP SCH ×2 (09:30→18:00)
[2022-04-06] MEDS: LORazepam 2 MG TABLET PO PRN (09:37)
[2022-04-06] MEDS: ONDANSETRON HCL 4 MG TABLET PO PRN (12:02)
[2022-04-06 16:00] VITALS: BP 145/94
[2022-04-06] MEDS: PRAZOSIN HCL 2 MG CAPSULE PO SCH (20:37)
[2022-04-06] MEDS: MELATONIN 5 MG TABLET PO SCH (20:37)
[2022-04-06] MEDS: TraZODone HCL 100 MG TABLET PO SCH (20:37)
[2022-04-07] MEDS: LURASIDONE HCL 60 MG TABLET PO SCH ×2 (06:34→16:41)
[2022-04-07] MEDS: HALOPERIDOL 5 MG TABLET PO PRN ×2 (06:43→21:42)
[2022-04-07] MEDS: LORazepam 2 MG TABLET PO PRN ×3 (06:43→21:42)
[2022-04-07] MEDS: GABAPENTIN 300 MG CAPSULE PO SCH ×3 (08:15→16:40)
[2022-04-07 08:16] VITALS: BP 127/82
[2022-04-07] MEDS: FLUoxetine HCL 20 MG CAPSULE PO SCH (08:16)
[2022-04-07] MEDS: LOXAPINE SUCCINATE 25 MG CAPSULE PO SCH ×3 (08:16→16:41)
[2022-04-07] MEDS: TAMSULOSIN HCL 0.4 MG CAPSULE PO SCH ×2 (08:16→16:40)
[2022-04-07] MEDS: DOCUSATE SODIUM 100 MG CAPSULE PO SCH (08:16)
[2022-04-07] MEDS: IBUPROFEN 400 MG TABLET PO PRN (08:16)
[2022-04-07] MEDS: LOXAPINE SUCCINATE 5 MG CAPSULE PO SCH ×3 (08:17→16:41)
[2022-04-07] MEDS: TERBINAFINE HCL 1% 30 GM CREAM TP SCH ×2 (09:00→16:41)
[2022-04-07 16:57] VITALS: BP 134/77
[2022-04-07] MEDS: MELATONIN 5 MG TABLET PO SCH (20:45)
[2022-04-07] MEDS: PRAZOSIN HCL 2 MG CAPSULE PO SCH (20:45)
[2022-04-07] MEDS: TraZODone HCL 100 MG TABLET PO SCH (20:45)
[2022-04-07 22:21] VITALS: BP 130/78
[2022-04-08] MEDS: LURASIDONE HCL 60 MG TABLET PO SCH ×2 (06:57→17:01)
[2022-04-08 07:21] LABS: COVID AG,FIA SOURCE NASAL SWAB
[2022-04-08] MEDS: LOXAPINE SUCCINATE 5 MG CAPSULE PO SCH ×3 (08:47→17:01)
[2022-04-08] MEDS: FLUoxetine HCL 20 MG CAPSULE PO SCH (08:47)
[2022-04-08] MEDS: GABAPENTIN 300 MG CAPSULE PO SCH ×3 (08:47→17:01)
[2022-04-08] MEDS: LOXAPINE SUCCINATE 25 MG CAPSULE PO SCH ×3 (08:47→17:01)
[2022-04-08] MEDS: TERBINAFINE HCL 1% 30 GM CREAM TP SCH ×2 (08:48→17:00)
[2022-04-08] MEDS: TAMSULOSIN HCL 0.4 MG CAPSULE PO SCH ×2 (08:48→17:01)
[2022-04-08] MEDS: DOCUSATE SODIUM 100 MG CAPSULE PO SCH (08:48)
[2022-04-08 16:50] VITALS: BP 136/87
[2022-04-08] MEDS: TraZODone HCL 100 MG TABLET PO SCH (21:31)
[2022-04-08] MEDS: PRAZOSIN HCL 2 MG CAPSULE PO SCH (21:31)
[2022-04-08] MEDS: MELATONIN 5 MG TABLET PO SCH (21:32)
[2022-04-08] MEDS: LORazepam 2 MG TABLET PO PRN (21:34)
[2022-04-09] MEDS: LURASIDONE HCL 60 MG TABLET PO SCH ×2 (06:37→17:14)
[2022-04-09 08:00] VITALS: BP 131/78
[2022-04-09] MEDS: LOXAPINE SUCCINATE 5 MG CAPSULE PO SCH ×3 (08:50→17:14)
[2022-04-09] MEDS: TERBINAFINE HCL 1% 30 GM CREAM TP SCH ×2 (08:50→17:14)
[2022-04-09] MEDS: FLUoxetine HCL 20 MG CAPSULE PO SCH (08:50)
[2022-04-09] MEDS: DOCUSATE SODIUM 100 MG CAPSULE PO SCH (08:50)
[2022-04-09] MEDS: LOXAPINE SUCCINATE 25 MG CAPSULE PO SCH ×3 (08:50→17:14)
[2022-04-09] MEDS: TAMSULOSIN HCL 0.4 MG CAPSULE PO SCH ×2 (08:50→17:14)
[2022-04-09] MEDS: GABAPENTIN 300 MG CAPSULE PO SCH ×3 (08:53→17:14)
[2022-04-09] MEDS: PALIPERIDONE PALMITATE 234 MG/1.5 ML SYRINGE IM SCH (14:34)
[2022-04-09 16:36] VITALS: BP 129/77
[2022-04-09] MEDS: LORazepam 2 MG TABLET PO PRN (21:14)
[2022-04-09] MEDS: PRAZOSIN HCL 2 MG CAPSULE PO SCH (21:14)
[2022-04-09] MEDS: MELATONIN 5 MG TABLET PO SCH (21:14)
[2022-04-09] MEDS: TraZODone HCL 100 MG TABLET PO SCH (21:14)
[2022-04-10] MEDS: LURASIDONE HCL 60 MG TABLET PO SCH ×2 (06:30→16:12)
[2022-04-10] MEDS: FLUoxetine HCL 20 MG CAPSULE PO SCH (09:03)
[2022-04-10] MEDS: DOCUSATE SODIUM 100 MG CAPSULE PO SCH (09:03)
[2022-04-10] MEDS: TAMSULOSIN HCL 0.4 MG CAPSULE PO SCH ×2 (09:04→16:12)
[2022-04-10] MEDS: LOXAPINE SUCCINATE 5 MG CAPSULE PO SCH ×3 (09:04→16:11)
[2022-04-10] MEDS: LOXAPINE SUCCINATE 25 MG CAPSULE PO SCH ×3 (09:04→16:11)
[2022-04-10] MEDS: GABAPENTIN 300 MG CAPSULE PO SCH ×3 (09:04→16:11)
[2022-04-10] MEDS: TERBINAFINE HCL 1% 30 GM CREAM TP SCH ×2 (09:05→16:12)
[2022-04-10 10:02] VITALS: BP 142/70
[2022-04-10] MEDS: TraZODone HCL 100 MG TABLET PO SCH (20:41)
[2022-04-10] MEDS: MELATONIN 5 MG TABLET PO SCH (20:41)
[2022-04-10] MEDS: PRAZOSIN HCL 2 MG CAPSULE PO SCH (20:42)
[2022-04-10] MEDS: LORazepam 2 MG TABLET PO PRN (20:42)
[2022-04-11] MEDS: LURASIDONE HCL 60 MG TABLET PO SCH ×2 (06:28→17:29)
[2022-04-11] MEDS: LOXAPINE SUCCINATE 5 MG CAPSULE PO SCH ×3 (08:45→17:28)
[2022-04-11] MEDS: LOXAPINE SUCCINATE 25 MG CAPSULE PO SCH ×3 (08:45→17:28)
[2022-04-11] MEDS: FLUoxetine HCL 20 MG CAPSULE PO SCH (08:49)
[2022-04-11] MEDS: GABAPENTIN 300 MG CAPSULE PO SCH ×3 (08:49→17:29)
[2022-04-11] MEDS: DOCUSATE SODIUM 100 MG CAPSULE PO SCH (08:50)
[2022-04-11] MEDS: TAMSULOSIN HCL 0.4 MG CAPSULE PO SCH ×2 (08:50→17:32)
[2022-04-11] MEDS: TERBINAFINE HCL 1% 30 GM CREAM TP SCH ×2 (08:50→17:29)
[2022-04-11 09:15] VITALS: BP 160/95
[2022-04-11 17:27] VITALS: BP 118/74
[2022-04-11] MEDS: TraZODone HCL 100 MG TABLET PO SCH (20:13)
[2022-04-11] MEDS: PRAZOSIN HCL 2 MG CAPSULE PO SCH (20:14)
[2022-04-11] MEDS: MELATONIN 5 MG TABLET PO SCH (20:14)
[2022-04-12] MEDS: LURASIDONE HCL 60 MG TABLET PO SCH ×2 (06:36→17:10)
[2022-04-12 08:00] VITALS: BP 124/87
[2022-04-12] MEDS: FLUoxetine HCL 20 MG CAPSULE PO SCH (08:09)
[2022-04-12] MEDS: DOCUSATE SODIUM 100 MG CAPSULE PO SCH (08:09)
[2022-04-12] MEDS: GABAPENTIN 300 MG CAPSULE PO SCH ×3 (08:09→17:10)
[2022-04-12] MEDS: TAMSULOSIN HCL 0.4 MG CAPSULE PO SCH ×2 (08:10→17:12)
[2022-04-12] MEDS: LOXAPINE SUCCINATE 5 MG CAPSULE PO SCH ×3 (08:10→17:10)
[2022-04-12] MEDS: LOXAPINE SUCCINATE 25 MG CAPSULE PO SCH ×3 (08:10→17:10)
[2022-04-12] MEDS: TERBINAFINE HCL 1% 30 GM CREAM TP SCH ×2 (09:50→17:09)
[2022-04-12 16:11] VITALS: BP 133/77
[2022-04-12] MEDS: MELATONIN 5 MG TABLET PO SCH (21:15)
[2022-04-12] MEDS: PRAZOSIN HCL 2 MG CAPSULE PO SCH (21:15)
[2022-04-12] MEDS: TraZODone HCL 100 MG TABLET PO SCH (21:15)
[2022-04-13] MEDS: LURASIDONE HCL 60 MG TABLET PO SCH ×2 (06:41→16:47)
[2022-04-13 07:16] VITALS: BP 134/84
[2022-04-13] MEDS: IBUPROFEN 400 MG TABLET PO PRN (07:23)
[2022-04-13 08:00] VITALS: BP 113/83
[2022-04-13] MEDS: GABAPENTIN 300 MG CAPSULE PO SCH ×3 (08:23→16:48)
[2022-04-13] MEDS: FLUoxetine HCL 20 MG CAPSULE PO SCH (08:23)
[2022-04-13] MEDS: LOXAPINE SUCCINATE 5 MG CAPSULE PO SCH ×3 (08:23→16:47)
[2022-04-13] MEDS: TAMSULOSIN HCL 0.4 MG CAPSULE PO SCH ×2 (08:23→16:48)
[2022-04-13] MEDS: DOCUSATE SODIUM 100 MG CAPSULE PO SCH (08:23)
[2022-04-13] MEDS: LOXAPINE SUCCINATE 25 MG CAPSULE PO SCH ×3 (08:23→16:47)
[2022-04-13] MEDS: TERBINAFINE HCL 1% 30 GM CREAM TP SCH ×2 (08:25→16:48)
[2022-04-13 16:00] VITALS: BP 127/81
[2022-04-13] MEDS: TraZODone HCL 100 MG TABLET PO SCH (20:32)
[2022-04-13] MEDS: PRAZOSIN HCL 2 MG CAPSULE PO SCH (20:32)
[2022-04-13] MEDS: MELATONIN 5 MG TABLET PO SCH (20:33)
[2022-04-14] MEDS: LURASIDONE HCL 60 MG TABLET PO SCH ×2 (06:50→16:43)
[2022-04-14 08:00] VITALS: BP 136/86
[2022-04-14] MEDS: DOCUSATE SODIUM 100 MG CAPSULE PO SCH (08:26)
[2022-04-14] MEDS: FLUoxetine HCL 20 MG CAPSULE PO SCH (08:26)
[2022-04-14] MEDS: LOXAPINE SUCCINATE 25 MG CAPSULE PO SCH ×3 (08:27→16:43)
[2022-04-14] MEDS: GABAPENTIN 300 MG CAPSULE PO SCH ×3 (08:27→16:43)
[2022-04-14] MEDS: TAMSULOSIN HCL 0.4 MG CAPSULE PO SCH ×2 (08:27→16:43)
[2022-04-14] MEDS: LOXAPINE SUCCINATE 5 MG CAPSULE PO SCH ×3 (08:27→16:43)
[2022-04-14] MEDS: TERBINAFINE HCL 1% 30 GM CREAM TP SCH ×2 (08:28→16:43)
[2022-04-14 16:12] VITALS: BP 138/88
[2022-04-14] MEDS: MELATONIN 5 MG TABLET PO SCH (21:14)
[2022-04-14] MEDS: PRAZOSIN HCL 2 MG CAPSULE PO SCH (21:14)
[2022-04-14] MEDS: TraZODone HCL 100 MG TABLET PO SCH (21:14)
[2022-04-15] MEDS: LURASIDONE HCL 60 MG TABLET PO SCH ×2 (06:56→17:19)
[2022-04-15] MEDS: LOXAPINE SUCCINATE 25 MG CAPSULE PO SCH ×3 (08:18→16:47)
[2022-04-15] MEDS: LOXAPINE SUCCINATE 5 MG CAPSULE PO SCH ×3 (08:18→16:47)
[2022-04-15] MEDS: DOCUSATE SODIUM 100 MG CAPSULE PO SCH (08:19)
[2022-04-15 08:20] VITALS: BP 149/94
[2022-04-15] MEDS: TAMSULOSIN HCL 0.4 MG CAPSULE PO SCH ×2 (08:20→16:45)
[2022-04-15] MEDS: GABAPENTIN 300 MG CAPSULE PO SCH ×3 (08:20→16:47)
[2022-04-15] MEDS: FLUoxetine HCL 20 MG CAPSULE PO SCH (08:20)
[2022-04-15] MEDS: TERBINAFINE HCL 1% 30 GM CREAM TP SCH ×2 (08:21→16:47)
[2022-04-15 08:40] VITALS: BP 149/94
[2022-04-15 09:18] LABS: COVID AG,FIA SOURCE NASAL SWAB
[2022-04-15 16:10] VITALS: BP 112/76
[2022-04-15] MEDS: PRAZOSIN HCL 2 MG CAPSULE PO SCH (20:08)
[2022-04-15] MEDS: TraZODone HCL 100 MG TABLET PO SCH (20:08)
[2022-04-15] MEDS: MELATONIN 5 MG TABLET PO SCH (20:09)
[2022-04-15 21:00] VITALS: BP 100/66
[2022-04-16] MEDS: LURASIDONE HCL 60 MG TABLET PO SCH ×2 (06:43→16:53)
[2022-04-16 08:00] VITALS: BP 146/98
[2022-04-16] MEDS: TERBINAFINE HCL 1% 30 GM CREAM TP SCH ×2 (09:00→16:53)
[2022-04-16] MEDS: FLUoxetine HCL 20 MG CAPSULE PO SCH (09:14)
[2022-04-16] MEDS: LOXAPINE SUCCINATE 5 MG CAPSULE PO SCH ×3 (09:15→16:52)
[2022-04-16] MEDS: LOXAPINE SUCCINATE 25 MG CAPSULE PO SCH ×3 (09:15→16:52)
[2022-04-16] MEDS: DOCUSATE SODIUM 100 MG CAPSULE PO SCH (09:16)
[2022-04-16] MEDS: TAMSULOSIN HCL 0.4 MG CAPSULE PO SCH ×2 (09:16→16:52)
[2022-04-16] MEDS: GABAPENTIN 300 MG CAPSULE PO SCH ×3 (09:16→16:53)
[2022-04-16 16:17] VITALS: BP 148/79
[2022-04-16] MEDS: TraZODone HCL 100 MG TABLET PO SCH (20:25)
[2022-04-16] MEDS: PRAZOSIN HCL 2 MG CAPSULE PO SCH (20:26)
[2022-04-16] MEDS: MELATONIN 5 MG TABLET PO SCH (20:26)
[2022-04-17] MEDS: LURASIDONE HCL 60 MG TABLET PO SCH ×2 (06:36→17:24)
[2022-04-17 08:05] VITALS: BP 142/95
[2022-04-17] MEDS: LOXAPINE SUCCINATE 25 MG CAPSULE PO SCH ×3 (08:47→17:24)
[2022-04-17] MEDS: FLUoxetine HCL 20 MG CAPSULE PO SCH (08:47)
[2022-04-17] MEDS: GABAPENTIN 300 MG CAPSULE PO SCH ×3 (08:47→17:24)
[2022-04-17] MEDS: LOXAPINE SUCCINATE 5 MG CAPSULE PO SCH ×3 (08:47→17:24)
[2022-04-17] MEDS: TAMSULOSIN HCL 0.4 MG CAPSULE PO SCH ×2 (08:47→17:24)
[2022-04-17] MEDS: DOCUSATE SODIUM 100 MG CAPSULE PO SCH (08:47)
[2022-04-17] MEDS: LORazepam 2 MG TABLET PO PRN (08:50)
[2022-04-17] MEDS: TERBINAFINE HCL 1% 30 GM CREAM TP SCH ×2 (08:50→17:00)
[2022-04-17 16:16] VITALS: BP 124/88
[2022-04-17] MEDS: PRAZOSIN HCL 2 MG CAPSULE PO SCH (20:39)
[2022-04-17] MEDS: MELATONIN 5 MG TABLET PO SCH (20:39)
[2022-04-17] MEDS: TraZODone HCL 100 MG TABLET PO SCH (20:39)
[2022-04-18] MEDS: LURASIDONE HCL 60 MG TABLET PO SCH ×2 (06:40→17:15)
[2022-04-18] MEDS: LOXAPINE SUCCINATE 25 MG CAPSULE PO SCH ×3 (08:16→17:15)
[2022-04-18] MEDS: FLUoxetine HCL 20 MG CAPSULE PO SCH (08:16)
[2022-04-18] MEDS: LOXAPINE SUCCINATE 5 MG CAPSULE PO SCH ×3 (08:17→17:15)
[2022-04-18] MEDS: TAMSULOSIN HCL 0.4 MG CAPSULE PO SCH ×2 (08:17→17:15)
[2022-04-18] MEDS: GABAPENTIN 300 MG CAPSULE PO SCH ×3 (08:17→17:15)
[2022-04-18] MEDS: DOCUSATE SODIUM 100 MG CAPSULE PO SCH (08:17)
[2022-04-18] MEDS: TERBINAFINE HCL 1% 30 GM CREAM TP SCH ×2 (08:19→17:00)
[2022-04-18 08:35] VITALS: BP 134/97
[2022-04-18 16:41] VITALS: BP 128/86
[2022-04-18] MEDS: TraZODone HCL 100 MG TABLET PO SCH (20:46)
[2022-04-18] MEDS: MELATONIN 5 MG TABLET PO SCH (20:47)
[2022-04-18] MEDS: PRAZOSIN HCL 2 MG CAPSULE PO SCH (20:47)
[2022-04-19] MEDS: LURASIDONE HCL 60 MG TABLET PO SCH ×2 (06:42→17:09)
[2022-04-19] MEDS: DOCUSATE SODIUM 100 MG CAPSULE PO SCH (08:37)
[2022-04-19] MEDS: FLUoxetine HCL 20 MG CAPSULE PO SCH (08:37)
[2022-04-19] MEDS: GABAPENTIN 300 MG CAPSULE PO SCH ×3 (08:37→17:09)
[2022-04-19] MEDS: TAMSULOSIN HCL 0.4 MG CAPSULE PO SCH ×2 (08:37→17:09)
[2022-04-19] MEDS: LOXAPINE SUCCINATE 5 MG CAPSULE PO SCH ×3 (08:39→17:09)
[2022-04-19] MEDS: LOXAPINE SUCCINATE 25 MG CAPSULE PO SCH ×3 (08:39→17:08)
[2022-04-19 10:45] VITALS: BP 171/93
[2022-04-19] MEDS: CloNIDine HCL 0.1 MG TABLET PO PRN ×2 (10:45→11:27)
[2022-04-19] MEDS: IBUPROFEN 400 MG TABLET PO PRN (10:49)
[2022-04-19] MEDS: TERBINAFINE HCL 1% 30 GM CREAM TP SCH ×2 (11:27→17:10)
[2022-04-19] MEDS: LORazepam 2 MG TABLET PO PRN (11:32)
[2022-04-19] MEDS ORDERED: LORazepam 1 MG TABLET PO ONE (11:55)
[2022-04-19 12:08] VITALS: BP 141/86
[2022-04-19 12:36] VITALS: BP 135/97
[2022-04-19 12:40] VITALS: BP 135/97
[2022-04-19] MEDS: ACETAMINOPHEN 325 MG TABLET PO PRN (12:41)
[2022-04-19] MEDS: MAG HYDROX/AL HYDROX/SIMETH ES 30 ML SUSPENSION UDCUP PO PRN (12:41)
[2022-04-19] MEDS: HALOPERIDOL 5 MG TABLET PO PRN (12:41)
[2022-04-19 16:40] VITALS: BP 137/81
[2022-04-19] MEDS: MELATONIN 5 MG TABLET PO SCH (20:21)
[2022-04-19] MEDS: PRAZOSIN HCL 2 MG CAPSULE PO SCH (20:21)
[2022-04-19] MEDS: TraZODone HCL 100 MG TABLET PO SCH (20:21)
[2022-04-20] MEDS: LORazepam 2 MG TABLET PO PRN ×4 (06:34→22:01)
[2022-04-20 06:40] VITALS: BP 141/89
[2022-04-20] MEDS: LURASIDONE HCL 60 MG TABLET PO SCH ×2 (06:41→17:49)
[2022-04-20] MEDS: HALOPERIDOL 5 MG TABLET PO PRN ×2 (07:00→12:35)
[2022-04-20] MEDS: IBUPROFEN 400 MG TABLET PO PRN (07:01)
[2022-04-20 08:00] VITALS: BP 146/99
[2022-04-20] MEDS: FLUoxetine HCL 20 MG CAPSULE PO SCH (08:06)
[2022-04-20] MEDS: TAMSULOSIN HCL 0.4 MG CAPSULE PO SCH ×2 (08:06→17:49)
[2022-04-20] MEDS: GABAPENTIN 300 MG CAPSULE PO SCH ×3 (08:06→17:49)
[2022-04-20] MEDS: ONDANSETRON HCL 4 MG TABLET PO PRN (08:06)
[2022-04-20] MEDS: DOCUSATE SODIUM 100 MG CAPSULE PO SCH (08:06)
[2022-04-20] MEDS: LOXAPINE SUCCINATE 25 MG CAPSULE PO SCH ×3 (08:07→17:49)
[2022-04-20] MEDS: LOXAPINE SUCCINATE 5 MG CAPSULE PO SCH ×3 (08:07→17:49)
[2022-04-20] MEDS: TERBINAFINE HCL 1% 30 GM CREAM TP SCH ×2 (12:24→17:54)
[2022-04-20] MEDS: ACETAMINOPHEN 325 MG TABLET PO PRN (12:35)
[2022-04-20 16:44] VITALS: BP 117/87
[2022-04-20] MEDS: MELATONIN 5 MG TABLET PO SCH (21:28)
[2022-04-20] MEDS: PRAZOSIN HCL 2 MG CAPSULE PO SCH (21:28)
[2022-04-20] MEDS: TraZODone HCL 100 MG TABLET PO SCH (21:29)
[2022-04-21] MEDS: LURASIDONE HCL 60 MG TABLET PO SCH ×2 (06:42→16:43)
[2022-04-21 08:00] VITALS: BP 140/96
[2022-04-21] MEDS: FLUoxetine HCL 20 MG CAPSULE PO SCH (08:46)
[2022-04-21] MEDS: LOXAPINE SUCCINATE 25 MG CAPSULE PO SCH ×4 (08:46→16:42)
[2022-04-21] MEDS: LOXAPINE SUCCINATE 5 MG CAPSULE PO SCH ×4 (08:46→16:42)
[2022-04-21] MEDS: GABAPENTIN 300 MG CAPSULE PO SCH ×4 (08:47→16:42)
[2022-04-21] MEDS: DOCUSATE SODIUM 100 MG CAPSULE PO SCH (08:47)
[2022-04-21] MEDS: TAMSULOSIN HCL 0.4 MG CAPSULE PO SCH ×2 (08:47→16:42)
[2022-04-21] MEDS: TERBINAFINE HCL 1% 30 GM CREAM TP SCH ×2 (08:47→16:43)
[2022-04-21] MEDS: HALOPERIDOL 5 MG TABLET PO PRN (08:58)
[2022-04-21] MEDS: LORazepam 2 MG TABLET PO PRN ×2 (08:58→20:56)
[2022-04-21 16:10] VITALS: BP 149/96
[2022-04-21] MEDS: MELATONIN 5 MG TABLET PO SCH (20:54)
[2022-04-21] MEDS: TraZODone HCL 100 MG TABLET PO SCH (20:55)
[2022-04-21] MEDS: PRAZOSIN HCL 2 MG CAPSULE PO SCH (20:55)
[2022-04-22] MEDS: LOXAPINE SUCCINATE 5 MG CAPSULE PO SCH ×3 (08:14→17:08)
[2022-04-22] MEDS: FLUoxetine HCL 20 MG CAPSULE PO SCH (08:14)
[2022-04-22] MEDS: LOXAPINE SUCCINATE 25 MG CAPSULE PO SCH ×3 (08:15→17:08)
[2022-04-22] MEDS: LURASIDONE HCL 60 MG TABLET PO SCH ×2 (08:24→18:07)
[2022-04-22] MEDS: GABAPENTIN 300 MG CAPSULE PO SCH ×3 (08:24→17:08)
[2022-04-22] MEDS: TAMSULOSIN HCL 0.4 MG CAPSULE PO SCH ×2 (08:24→17:08)
[2022-04-22] MEDS: DOCUSATE SODIUM 100 MG CAPSULE PO SCH (08:24)
[2022-04-22] MEDS: TERBINAFINE HCL 1% 30 GM CREAM TP SCH ×2 (08:25→17:00)
[2022-04-22 09:09] VITALS: BP 130/71
[2022-04-22] MEDS: HALOPERIDOL 5 MG TABLET PO PRN ×2 (10:26→21:03)
[2022-04-22] MEDS: LORazepam 2 MG TABLET PO PRN ×2 (10:28→21:03)
[2022-04-22 10:41] LABS: COVID AG,FIA SOURCE NASAL SWAB
[2022-04-22] MEDS: MELATONIN 5 MG TABLET PO SCH (20:56)
[2022-04-22] MEDS: TraZODone HCL 100 MG TABLET PO SCH (20:57)
[2022-04-22] MEDS: PRAZOSIN HCL 2 MG CAPSULE PO SCH (21:01)
[2022-04-23] MEDS: LURASIDONE HCL 60 MG TABLET PO SCH ×2 (06:41→17:49)
[2022-04-23] MEDS: LOXAPINE SUCCINATE 25 MG CAPSULE PO SCH ×3 (08:27→17:39)
[2022-04-23] MEDS: LOXAPINE SUCCINATE 5 MG CAPSULE PO SCH ×3 (08:27→17:39)
[2022-04-23] MEDS: FLUoxetine HCL 20 MG CAPSULE PO SCH (08:27)
[2022-04-23] MEDS: TAMSULOSIN HCL 0.4 MG CAPSULE PO SCH ×2 (08:27→16:15)
[2022-04-23] MEDS: DOCUSATE SODIUM 100 MG CAPSULE PO SCH (08:28)
[2022-04-23] MEDS: GABAPENTIN 300 MG CAPSULE PO SCH ×3 (08:29→17:40)
[2022-04-23 08:30] VITALS: BP 145/97
[2022-04-23] MEDS: TERBINAFINE HCL 1% 30 GM CREAM TP SCH ×2 (08:30→16:16)
[2022-04-23] MEDS: HALOPERIDOL 5 MG TABLET PO PRN ×2 (09:18→19:05)
[2022-04-23] MEDS: LORazepam 2 MG TABLET PO PRN ×2 (09:18→19:05)
[2022-04-23] MEDS: PRAZOSIN HCL 2 MG CAPSULE PO SCH (21:07)
[2022-04-23] MEDS: MELATONIN 5 MG TABLET PO SCH (21:07)
[2022-04-23] MEDS: TraZODone HCL 100 MG TABLET PO SCH (21:07)
[2022-04-23] MEDS: ZOLPIDEM TARTRATE 10 MG TABLET PO PRN (21:59)
[2022-04-24] MEDS: LURASIDONE HCL 60 MG TABLET PO SCH ×2 (06:33→17:03)
[2022-04-24] MEDS: MAG HYDROX/AL HYDROX/SIMETH ES 30 ML SUSPENSION UDCUP PO PRN (06:44)
[2022-04-24 08:58] VITALS: BP 135/98
[2022-04-24] MEDS: IBUPROFEN 400 MG TABLET PO PRN (08:58)
[2022-04-24] MEDS: GABAPENTIN 300 MG CAPSULE PO SCH ×3 (08:58→17:03)
[2022-04-24] MEDS: TAMSULOSIN HCL 0.4 MG CAPSULE PO SCH ×2 (08:58→16:13)
[2022-04-24] MEDS: HALOPERIDOL 5 MG TABLET PO PRN ×2 (08:58→16:13)
[2022-04-24] MEDS: FLUoxetine HCL 20 MG CAPSULE PO SCH (08:58)
[2022-04-24] MEDS: DOCUSATE SODIUM 100 MG CAPSULE PO SCH (09:00)
[2022-04-24] MEDS: TERBINAFINE HCL 1% 30 GM CREAM TP SCH ×2 (09:00→17:04)
[2022-04-24] MEDS: LOXAPINE SUCCINATE 5 MG CAPSULE PO SCH ×3 (09:00→17:03)
[2022-04-24] MEDS: LOXAPINE SUCCINATE 25 MG CAPSULE PO SCH ×3 (09:01→17:03)
[2022-04-24 09:32] VITALS: BP 135/98
[2022-04-24] MEDS: LORazepam 2 MG TABLET PO PRN ×2 (09:43→16:13)
[2022-04-24 09:58] VITALS: BP 128/89
[2022-04-24] MEDS: HYDROCORTISONE 2.5% 30 GM CREAM TP PRN (10:26)
[2022-04-24 16:29] VITALS: BP 131/83
[2022-04-24] MEDS: MELATONIN 5 MG TABLET PO SCH (21:11)
[2022-04-24] MEDS: TraZODone HCL 100 MG TABLET PO SCH (21:11)
[2022-04-24] MEDS: PRAZOSIN HCL 2 MG CAPSULE PO SCH (21:12)
[2022-04-24] MEDS: ZOLPIDEM TARTRATE 10 MG TABLET PO PRN (22:18)
[2022-04-25] MEDS: LORazepam 2 MG TABLET PO PRN ×3 (01:35→15:59)
[2022-04-25] MEDS: HALOPERIDOL 5 MG TABLET PO PRN ×2 (01:36→17:52)
[2022-04-25] MEDS: MAGNESIUM HYDROXIDE SUSPENSION 30 ML UDCUP PO PRN (03:13)
[2022-04-25] MEDS: LURASIDONE HCL 60 MG TABLET PO SCH ×2 (06:30→16:57)
[2022-04-25] MEDS: DOCUSATE SODIUM 100 MG CAPSULE PO SCH (08:19)
[2022-04-25] MEDS: LOXAPINE SUCCINATE 5 MG CAPSULE PO SCH ×3 (08:19→16:58)
[2022-04-25] MEDS: GABAPENTIN 300 MG CAPSULE PO SCH ×3 (08:19→16:58)
[2022-04-25] MEDS: LOXAPINE SUCCINATE 25 MG CAPSULE PO SCH ×3 (08:19→16:57)
[2022-04-25] MEDS: TAMSULOSIN HCL 0.4 MG CAPSULE PO SCH ×2 (08:19→16:57)
[2022-04-25] MEDS: FLUoxetine HCL 20 MG CAPSULE PO SCH (08:19)
[2022-04-25] MEDS: TERBINAFINE HCL 1% 30 GM CREAM TP SCH ×2 (08:20→18:30)
[2022-04-25 10:07] VITALS: BP 137/89
[2022-04-25 16:12] VITALS: BP 119/82
[2022-04-25] MEDS: PRAZOSIN HCL 2 MG CAPSULE PO SCH (21:04)
[2022-04-25] MEDS: MELATONIN 5 MG TABLET PO SCH (21:04)
[2022-04-25] MEDS: TraZODone HCL 100 MG TABLET PO SCH (21:04)
[2022-04-25] MEDS: ZOLPIDEM TARTRATE 10 MG TABLET PO PRN (22:28)
[2022-04-26] MEDS: LURASIDONE HCL 60 MG TABLET PO SCH ×2 (06:33→16:11)
[2022-04-26] MEDS: TERBINAFINE HCL 1% 30 GM CREAM TP SCH ×2 (09:00→16:11)
[2022-04-26] MEDS: LOXAPINE SUCCINATE 5 MG CAPSULE PO SCH ×3 (09:07→16:10)
[2022-04-26] MEDS: LOXAPINE SUCCINATE 25 MG CAPSULE PO SCH ×3 (09:08→16:10)
[2022-04-26] MEDS: FLUoxetine HCL 20 MG CAPSULE PO SCH (09:08)
[2022-04-26] MEDS: GABAPENTIN 300 MG CAPSULE PO SCH ×3 (09:08→16:10)
[2022-04-26] MEDS: DOCUSATE SODIUM 100 MG CAPSULE PO SCH (09:08)
[2022-04-26] MEDS: TAMSULOSIN HCL 0.4 MG CAPSULE PO SCH ×2 (09:09→16:10)
[2022-04-26] MEDS: HYDROCORTISONE 2.5% 30 GM CREAM TP PRN (09:13)
[2022-04-26 09:15] VITALS: BP 148/99
[2022-04-26] MEDS: IBUPROFEN 400 MG TABLET PO PRN (09:15)
[2022-04-26 16:38] VITALS: BP 110/48
[2022-04-26] MEDS: MELATONIN 5 MG TABLET PO SCH (20:56)
[2022-04-26] MEDS: TraZODone HCL 100 MG TABLET PO SCH (20:56)
[2022-04-26] MEDS: PRAZOSIN HCL 2 MG CAPSULE PO SCH (20:56)
[2022-04-27] MEDS: LURASIDONE HCL 60 MG TABLET PO SCH ×2 (06:49→17:17)
[2022-04-27] MEDS: LOXAPINE SUCCINATE 5 MG CAPSULE PO SCH ×3 (08:33→16:12)
[2022-04-27] MEDS: TAMSULOSIN HCL 0.4 MG CAPSULE PO SCH ×2 (08:33→16:13)
[2022-04-27] MEDS: FLUoxetine HCL 20 MG CAPSULE PO SCH (08:33)
[2022-04-27] MEDS: LOXAPINE SUCCINATE 25 MG CAPSULE PO SCH ×3 (08:33→16:12)
[2022-04-27] MEDS: TERBINAFINE HCL 1% 30 GM CREAM TP SCH ×2 (08:34→17:00)
[2022-04-27] MEDS: DOCUSATE SODIUM 100 MG CAPSULE PO SCH (08:34)
[2022-04-27] MEDS: GABAPENTIN 300 MG CAPSULE PO SCH ×3 (08:34→16:13)
[2022-04-27 08:48] VITALS: BP 122/83
[2022-04-27 16:43] VITALS: BP 106/69
[2022-04-27] MEDS: TraZODone HCL 100 MG TABLET PO SCH (20:57)
[2022-04-27] MEDS: MELATONIN 5 MG TABLET PO SCH (20:58)
[2022-04-27] MEDS: PRAZOSIN HCL 2 MG CAPSULE PO SCH (20:58)
[2022-04-28] MEDS: LURASIDONE HCL 60 MG TABLET PO SCH ×2 (06:46→17:06)
[2022-04-28] MEDS: MAG HYDROX/AL HYDROX/SIMETH ES 30 ML SUSPENSION UDCUP PO PRN (08:17)
[2022-04-28] MEDS: LOXAPINE SUCCINATE 25 MG CAPSULE PO SCH ×3 (08:21→17:06)
[2022-04-28] MEDS: FLUoxetine HCL 20 MG CAPSULE PO SCH (08:21)
[2022-04-28] MEDS: LOXAPINE SUCCINATE 5 MG CAPSULE PO SCH ×3 (08:21→17:06)
[2022-04-28] MEDS: GABAPENTIN 300 MG CAPSULE PO SCH ×3 (08:21→17:06)
[2022-04-28] MEDS: TAMSULOSIN HCL 0.4 MG CAPSULE PO SCH ×2 (08:21→17:06)
[2022-04-28] MEDS: DOCUSATE SODIUM 100 MG CAPSULE PO SCH (08:23)
[2022-04-28] MEDS: TERBINAFINE HCL 1% 30 GM CREAM TP SCH ×2 (08:27→17:00)
[2022-04-28] MEDS: HYDROCORTISONE 2.5% 30 GM CREAM TP PRN (09:29)
[2022-04-28 09:30] VITALS: BP 131/83
[2022-04-28 16:08] VITALS: BP 112/76
[2022-04-28] MEDS: MELATONIN 5 MG TABLET PO SCH (21:14)
[2022-04-28] MEDS: TraZODone HCL 100 MG TABLET PO SCH (21:14)
[2022-04-28] MEDS: PRAZOSIN HCL 2 MG CAPSULE PO SCH (21:14)
[2022-04-29] MEDS: LORazepam 2 MG TABLET PO PRN (03:51)
[2022-04-29 04:14] VITALS: BP 115/75
[2022-04-29] MEDS: IBUPROFEN 400 MG TABLET PO PRN (04:16)
[2022-04-29] MEDS: LURASIDONE HCL 60 MG TABLET PO SCH ×2 (06:57→17:33)
[2022-04-29 08:02] LABS: COVID AG,FIA SOURCE NASAL SWAB
[2022-04-29 08:04] VITALS: BP 137/90
[2022-04-29] MEDS: TERBINAFINE HCL 1% 30 GM CREAM TP SCH ×2 (09:00→17:00)
[2022-04-29] MEDS: GABAPENTIN 300 MG CAPSULE PO SCH ×3 (09:24→17:15)
[2022-04-29] MEDS: FLUoxetine HCL 20 MG CAPSULE PO SCH (09:24)
[2022-04-29] MEDS: LOXAPINE SUCCINATE 25 MG CAPSULE PO SCH ×3 (09:25→17:15)
[2022-04-29] MEDS: LOXAPINE SUCCINATE 5 MG CAPSULE PO SCH ×3 (09:25→17:15)
[2022-04-29] MEDS: TAMSULOSIN HCL 0.4 MG CAPSULE PO SCH ×2 (09:25→17:16)
[2022-04-29] MEDS: DOCUSATE SODIUM 100 MG CAPSULE PO SCH (09:25)
[2022-04-29 16:00] VITALS: BP 119/85
[2022-04-29] MEDS: TraZODone HCL 100 MG TABLET PO SCH (20:41)
[2022-04-29] MEDS: PRAZOSIN HCL 2 MG CAPSULE PO SCH (20:42)
[2022-04-29] MEDS: MELATONIN 5 MG TABLET PO SCH (20:42)
[2022-04-30] MEDS: LURASIDONE HCL 60 MG TABLET PO SCH ×2 (07:01→17:19)
[2022-04-30] MEDS: TAMSULOSIN HCL 0.4 MG CAPSULE PO SCH ×2 (08:38→17:20)
[2022-04-30] MEDS: FLUoxetine HCL 20 MG CAPSULE PO SCH (08:38)
[2022-04-30] MEDS: GABAPENTIN 300 MG CAPSULE PO SCH ×3 (08:38→17:19)
[2022-04-30] MEDS: DOCUSATE SODIUM 100 MG CAPSULE PO SCH (08:39)
[2022-04-30] MEDS: LOXAPINE SUCCINATE 5 MG CAPSULE PO SCH ×3 (08:39→17:19)
[2022-04-30] MEDS: LOXAPINE SUCCINATE 25 MG CAPSULE PO SCH ×3 (08:39→17:20)
[2022-04-30] MEDS: TERBINAFINE HCL 1% 30 GM CREAM TP SCH ×3 (08:39→17:20)
[2022-04-30 09:23] VITALS: BP 140/100
[2022-04-30] MEDS ORDERED: HYDROCORTISONE 25 MG RECTAL SUPPOSITORY PR PRN (10:15)
[2022-04-30 17:23] VITALS: BP 128/76
[2022-04-30] MEDS: IBUPROFEN 400 MG TABLET PO PRN (17:23)
[2022-04-30] MEDS: MAGNESIUM HYDROXIDE SUSPENSION 30 ML UDCUP PO PRN (17:25)
[2022-04-30 18:23] VITALS: BP 124/78
[2022-04-30] MEDS: MELATONIN 5 MG TABLET PO SCH (20:31)
[2022-04-30] MEDS: PRAZOSIN HCL 2 MG CAPSULE PO SCH (20:31)
[2022-04-30] MEDS: TraZODone HCL 100 MG TABLET PO SCH (20:31)
[2022-05-01 04:33] VITALS: BP 120/71
[2022-05-01] MEDS: IBUPROFEN 400 MG TABLET PO PRN (04:33)
[2022-05-01] MEDS: LURASIDONE HCL 60 MG TABLET PO SCH ×2 (06:38→17:49)
[2022-05-01 08:47] VITALS: BP 115/81
[2022-05-01] MEDS: LOXAPINE SUCCINATE 25 MG CAPSULE PO SCH ×3 (08:50→17:49)
[2022-05-01] MEDS: FLUoxetine HCL 20 MG CAPSULE PO SCH (08:50)
[2022-05-01] MEDS: TAMSULOSIN HCL 0.4 MG CAPSULE PO SCH ×2 (08:50→17:49)
[2022-05-01] MEDS: GABAPENTIN 300 MG CAPSULE PO SCH ×3 (08:50→17:49)
[2022-05-01] MEDS: DOCUSATE SODIUM 100 MG CAPSULE PO SCH (08:50)
[2022-05-01] MEDS: LOXAPINE SUCCINATE 5 MG CAPSULE PO SCH ×3 (08:51→17:49)
[2022-05-01] MEDS: TERBINAFINE HCL 1% 30 GM CREAM TP SCH ×2 (08:51→17:00)
[2022-05-01] MEDS: LOPERAMIDE HCL 2 MG CAPSULE PO PRN (09:55)
[2022-05-01 17:05] VITALS: BP 101/65
[2022-05-01] MEDS: TraZODone HCL 100 MG TABLET PO SCH (21:33)
[2022-05-01] MEDS: MELATONIN 5 MG TABLET PO SCH (21:33)
[2022-05-01] MEDS: PRAZOSIN HCL 2 MG CAPSULE PO SCH (21:33)
[2022-05-01 21:49] VITALS: BP 119/77
[2022-05-02] MEDS: HYDROCORTISONE 2.5% 30 GM CREAM TP PRN (02:59)
[2022-05-02] MEDS: LURASIDONE HCL 60 MG TABLET PO SCH ×2 (06:33→16:53)
[2022-05-02] MEDS: LOXAPINE SUCCINATE 5 MG CAPSULE PO SCH ×3 (08:39→16:53)
[2022-05-02] MEDS: LOXAPINE SUCCINATE 25 MG CAPSULE PO SCH ×3 (08:39→16:52)
[2022-05-02] MEDS: DOCUSATE SODIUM 100 MG CAPSULE PO SCH (08:40)
[2022-05-02] MEDS: FLUoxetine HCL 20 MG CAPSULE PO SCH (08:40)
[2022-05-02] MEDS: GABAPENTIN 300 MG CAPSULE PO SCH ×3 (08:40→16:53)
[2022-05-02] MEDS: TAMSULOSIN HCL 0.4 MG CAPSULE PO SCH ×2 (08:41→16:53)
[2022-05-02] MEDS: TERBINAFINE HCL 1% 30 GM CREAM TP SCH ×2 (08:41→16:54)
[2022-05-02 09:11] VITALS: BP 151/98
[2022-05-02] MEDS: MELATONIN 5 MG TABLET PO SCH (20:50)
[2022-05-02] MEDS: PRAZOSIN HCL 2 MG CAPSULE PO SCH (20:50)
[2022-05-02] MEDS: TraZODone HCL 100 MG TABLET PO SCH (20:50)
[2022-05-03] MEDS: LURASIDONE HCL 60 MG TABLET PO SCH ×2 (06:41→17:38)
[2022-05-03] MEDS: FLUoxetine HCL 20 MG CAPSULE PO SCH (08:23)
[2022-05-03] MEDS: TAMSULOSIN HCL 0.4 MG CAPSULE PO SCH ×2 (08:23→17:38)
[2022-05-03] MEDS: DOCUSATE SODIUM 100 MG CAPSULE PO SCH (08:24)
[2022-05-03] MEDS: LOXAPINE SUCCINATE 5 MG CAPSULE PO SCH ×3 (08:24→17:38)
[2022-05-03] MEDS: LOXAPINE SUCCINATE 25 MG CAPSULE PO SCH ×3 (08:24→17:38)
[2022-05-03] MEDS: GABAPENTIN 300 MG CAPSULE PO SCH ×3 (08:24→17:38)
[2022-05-03] MEDS: HYDROCORTISONE 2.5% 30 GM CREAM TP PRN (08:25)
[2022-05-03] MEDS: LORazepam 2 MG TABLET PO PRN (08:27)
[2022-05-03] MEDS: HALOPERIDOL 5 MG TABLET PO PRN (08:28)
[2022-05-03] MEDS: TERBINAFINE HCL 1% 30 GM CREAM TP SCH ×2 (08:31→17:39)
[2022-05-03 09:18] VITALS: BP 136/96
[2022-05-03 16:44] VITALS: BP 140/88
[2022-05-03] MEDS: MELATONIN 5 MG TABLET PO SCH (20:34)
[2022-05-03] MEDS: TraZODone HCL 100 MG TABLET PO SCH (20:34)
[2022-05-03] MEDS: PRAZOSIN HCL 2 MG CAPSULE PO SCH (20:34)
[2022-05-04] MEDS: ZOLPIDEM TARTRATE 10 MG TABLET PO PRN (00:37)
[2022-05-04] MEDS: LURASIDONE HCL 60 MG TABLET PO SCH ×2 (06:48→16:54)
[2022-05-04 08:40] VITALS: BP 141/99
[2022-05-04] MEDS: FLUoxetine HCL 20 MG CAPSULE PO SCH (08:47)
[2022-05-04] MEDS: TAMSULOSIN HCL 0.4 MG CAPSULE PO SCH ×2 (08:48→16:54)
[2022-05-04] MEDS: LOXAPINE SUCCINATE 25 MG CAPSULE PO SCH ×3 (08:49→16:53)
[2022-05-04] MEDS: DOCUSATE SODIUM 100 MG CAPSULE PO SCH (08:49)
[2022-05-04] MEDS: LOXAPINE SUCCINATE 5 MG CAPSULE PO SCH ×3 (08:49→16:53)
[2022-05-04] MEDS: GABAPENTIN 300 MG CAPSULE PO SCH ×3 (08:49→16:53)
[2022-05-04] MEDS: HYDROCORTISONE 2.5% 30 GM CREAM TP PRN (08:50)
[2022-05-04] MEDS: TERBINAFINE HCL 1% 30 GM CREAM TP SCH ×2 (08:51→16:55)
[2022-05-04] MEDS: TraZODone HCL 100 MG TABLET PO SCH (20:51)
[2022-05-04] MEDS: PRAZOSIN HCL 2 MG CAPSULE PO SCH (20:51)
[2022-05-04] MEDS: MELATONIN 5 MG TABLET PO SCH (20:51)
[2022-05-04] MEDS: LORazepam 2 MG TABLET PO PRN (20:51)
[2022-05-05] MEDS: MAG HYDROX/AL HYDROX/SIMETH ES 30 ML SUSPENSION UDCUP PO PRN (04:58)
[2022-05-05] MEDS: LURASIDONE HCL 60 MG TABLET PO SCH ×2 (06:40→18:07)
[2022-05-05] MEDS: GABAPENTIN 300 MG CAPSULE PO SCH ×3 (08:21→18:09)
[2022-05-05] MEDS: TAMSULOSIN HCL 0.4 MG CAPSULE PO SCH ×2 (08:21→18:07)
[2022-05-05] MEDS: LORazepam 2 MG TABLET PO PRN ×2 (08:21→21:16)
[2022-05-05] MEDS: LOXAPINE SUCCINATE 5 MG CAPSULE PO SCH ×3 (08:21→18:07)
[2022-05-05] MEDS: FLUoxetine HCL 20 MG CAPSULE PO SCH (08:21)
[2022-05-05] MEDS: LOXAPINE SUCCINATE 25 MG CAPSULE PO SCH ×3 (08:21→18:07)
[2022-05-05] MEDS: HYDROCORTISONE 2.5% 30 GM CREAM TP PRN (08:22)
[2022-05-05] MEDS: TERBINAFINE HCL 1% 30 GM CREAM TP SCH ×2 (08:24→17:00)
[2022-05-05] MEDS: DOCUSATE SODIUM 100 MG CAPSULE PO SCH (08:24)
[2022-05-05] MEDS: HALOPERIDOL 5 MG TABLET PO PRN (08:25)
[2022-05-05 09:06] VITALS: BP 138/96
[2022-05-05 16:24] VITALS: BP 142/99
[2022-05-05] MEDS: TraZODone HCL 100 MG TABLET PO SCH (21:15)
[2022-05-05] MEDS: PRAZOSIN HCL 2 MG CAPSULE PO SCH (21:16)
[2022-05-05] MEDS: MELATONIN 5 MG TABLET PO SCH (21:16)
[2022-05-06] MEDS: LURASIDONE HCL 60 MG TABLET PO SCH ×2 (06:31→17:33)
[2022-05-06 07:29] LABS: COVID AG,FIA SOURCE NASAL SWAB
[2022-05-06 08:00] VITALS: BP 115/78
[2022-05-06] MEDS: GABAPENTIN 300 MG CAPSULE PO SCH ×3 (08:14→17:33)
[2022-05-06] MEDS: FLUoxetine HCL 20 MG CAPSULE PO SCH (08:14)
[2022-05-06] MEDS: DOCUSATE SODIUM 100 MG CAPSULE PO SCH (08:14)
[2022-05-06] MEDS: TAMSULOSIN HCL 0.4 MG CAPSULE PO SCH ×2 (08:14→17:32)
[2022-05-06] MEDS: LOXAPINE SUCCINATE 5 MG CAPSULE PO SCH ×3 (08:15→17:33)
[2022-05-06] MEDS: LOXAPINE SUCCINATE 25 MG CAPSULE PO SCH ×3 (08:15→17:32)
[2022-05-06] MEDS: TERBINAFINE HCL 1% 30 GM CREAM TP SCH ×2 (08:16→17:00)
[2022-05-06] MEDS: LORazepam 2 MG TABLET PO PRN ×2 (08:48→21:59)
[2022-05-06] MEDS: HALOPERIDOL 5 MG TABLET PO PRN (08:49)
[2022-05-06 17:18] VITALS: BP 125/72
[2022-05-06] MEDS: PRAZOSIN HCL 2 MG CAPSULE PO SCH (20:00)
[2022-05-06] MEDS: MELATONIN 5 MG TABLET PO SCH (20:00)
[2022-05-06] MEDS: TraZODone HCL 100 MG TABLET PO SCH (20:00)
[2022-05-07] MEDS: MAGNESIUM HYDROXIDE SUSPENSION 30 ML UDCUP PO PRN (03:43)
[2022-05-07] MEDS: LURASIDONE HCL 60 MG TABLET PO SCH ×2 (07:09→16:57)
[2022-05-07 08:06] VITALS: BP 138/97
[2022-05-07] MEDS: DOCUSATE SODIUM 100 MG CAPSULE PO SCH (08:46)
[2022-05-07] MEDS: GABAPENTIN 300 MG CAPSULE PO SCH ×3 (08:47→16:57)
[2022-05-07] MEDS: FLUoxetine HCL 20 MG CAPSULE PO SCH (08:47)
[2022-05-07] MEDS: LOXAPINE SUCCINATE 5 MG CAPSULE PO SCH ×3 (08:47→16:57)
[2022-05-07] MEDS: LOXAPINE SUCCINATE 25 MG CAPSULE PO SCH ×3 (08:47→16:57)
[2022-05-07] MEDS: TAMSULOSIN HCL 0.4 MG CAPSULE PO SCH ×2 (08:48→16:57)
[2022-05-07] MEDS: TERBINAFINE HCL 1% 30 GM CREAM TP SCH ×2 (09:00→17:00)
[2022-05-07] MEDS: LORazepam 2 MG TABLET PO PRN (11:06)
[2022-05-07] MEDS: HALOPERIDOL 5 MG TABLET PO PRN (11:06)
[2022-05-07] MEDS ORDERED: BISACODYL 5 MG EC TABLET PO PRN (13:00)
[2022-05-07] MEDS: PALIPERIDONE PALMITATE 234 MG/1.5 ML SYRINGE IM SCH (13:16)
[2022-05-07 16:32] VITALS: BP 142/91
[2022-05-07] MEDS: MELATONIN 5 MG TABLET PO SCH (20:27)
[2022-05-07] MEDS: PRAZOSIN HCL 2 MG CAPSULE PO SCH (20:27)
[2022-05-07] MEDS: TraZODone HCL 100 MG TABLET PO SCH (20:27)
[2022-05-07 22:31] VITALS: BP 140/85
[2022-05-07] MEDS: IBUPROFEN 400 MG TABLET PO PRN (22:31)
[2022-05-08] MEDS: LURASIDONE HCL 60 MG TABLET PO SCH ×2 (06:37→16:35)
[2022-05-08 09:00] VITALS: BP 140/82
[2022-05-08] MEDS: LOXAPINE SUCCINATE 25 MG CAPSULE PO SCH ×3 (09:02→16:35)
[2022-05-08] MEDS: DOCUSATE SODIUM 100 MG CAPSULE PO SCH (09:02)
[2022-05-08] MEDS: FLUoxetine HCL 20 MG CAPSULE PO SCH (09:02)
[2022-05-08] MEDS: TAMSULOSIN HCL 0.4 MG CAPSULE PO SCH ×2 (09:02→16:35)
[2022-05-08] MEDS: GABAPENTIN 300 MG CAPSULE PO SCH ×3 (09:02→16:36)
[2022-05-08] MEDS: LOXAPINE SUCCINATE 5 MG CAPSULE PO SCH ×3 (09:02→16:35)
[2022-05-08] MEDS: HYDROCORTISONE 2.5% 30 GM CREAM TP PRN (09:03)
[2022-05-08] MEDS: TERBINAFINE HCL 1% 30 GM CREAM TP SCH ×2 (09:06→16:36)
[2022-05-08] MEDS: MAG HYDROX/AL HYDROX/SIMETH ES 30 ML SUSPENSION UDCUP PO PRN (10:07)
[2022-05-08 18:12] VITALS: BP 140/97
[2022-05-08] MEDS: PRAZOSIN HCL 2 MG CAPSULE PO SCH (21:30)
[2022-05-08] MEDS: LORazepam 2 MG TABLET PO PRN (21:30)
[2022-05-08] MEDS: MELATONIN 5 MG TABLET PO SCH (21:30)
[2022-05-08] MEDS: TraZODone HCL 100 MG TABLET PO SCH (21:30)
[2022-05-09] MEDS: LURASIDONE HCL 60 MG TABLET PO SCH ×2 (06:36→16:59)
[2022-05-09] MEDS: MAG HYDROX/AL HYDROX/SIMETH ES 30 ML SUSPENSION UDCUP PO PRN (06:37)
[2022-05-09 08:16] VITALS: BP 141/92
[2022-05-09] MEDS: FLUoxetine HCL 20 MG CAPSULE PO SCH (08:48)
[2022-05-09] MEDS: DOCUSATE SODIUM 100 MG CAPSULE PO SCH (08:48)
[2022-05-09] MEDS: LOXAPINE SUCCINATE 5 MG CAPSULE PO SCH ×3 (08:49→16:59)
[2022-05-09] MEDS: GABAPENTIN 300 MG CAPSULE PO SCH ×3 (08:49→16:59)
[2022-05-09] MEDS: LOXAPINE SUCCINATE 25 MG CAPSULE PO SCH ×3 (08:49→16:59)
[2022-05-09] MEDS: TAMSULOSIN HCL 0.4 MG CAPSULE PO SCH ×2 (08:49→16:59)
[2022-05-09] MEDS: TERBINAFINE HCL 1% 30 GM CREAM TP SCH ×2 (08:50→17:00)
[2022-05-09 08:57] VITALS: BP 120/82
[2022-05-09] MEDS: IBUPROFEN 400 MG TABLET PO PRN (08:57)
[2022-05-09 12:13] VITALS: BP 123/80
[2022-05-09] MEDS: ACETAMINOPHEN 325 MG TABLET PO PRN (12:13)
[2022-05-09 16:21] VITALS: BP 107/63
[2022-05-09] MEDS: PRAZOSIN HCL 2 MG CAPSULE PO SCH (20:08)
[2022-05-09] MEDS: MELATONIN 5 MG TABLET PO SCH (20:08)
[2022-05-09] MEDS: TraZODone HCL 100 MG TABLET PO SCH (20:08)
[2022-05-09 20:22] VITALS: BP 118/84
[2022-05-10] MEDS: HYDROCORTISONE 2.5% 30 GM CREAM TP PRN (06:28)
[2022-05-10] MEDS: LURASIDONE HCL 60 MG TABLET PO SCH ×2 (06:51→16:43)
[2022-05-10] MEDS: LOXAPINE SUCCINATE 5 MG CAPSULE PO SCH ×3 (08:48→16:43)
[2022-05-10] MEDS: LOXAPINE SUCCINATE 25 MG CAPSULE PO SCH ×3 (08:48→16:42)
[2022-05-10] MEDS: TAMSULOSIN HCL 0.4 MG CAPSULE PO SCH ×2 (08:48→16:42)
[2022-05-10] MEDS: DOCUSATE SODIUM 100 MG CAPSULE PO SCH (08:48)
[2022-05-10] MEDS: FLUoxetine HCL 20 MG CAPSULE PO SCH (08:48)
[2022-05-10] MEDS: GABAPENTIN 300 MG CAPSULE PO SCH ×3 (08:49→16:43)
[2022-05-10] MEDS: TERBINAFINE HCL 1% 30 GM CREAM TP SCH ×2 (08:49→16:43)
[2022-05-10 09:29] VITALS: BP 115/75
[2022-05-10 11:40] VITALS: BP 122/87
[2022-05-10] MEDS: IBUPROFEN 400 MG TABLET PO PRN (11:40)
[2022-05-10 15:37] VITALS: BP 118/77
[2022-05-10] MEDS: LORazepam 2 MG TABLET PO PRN (15:37)
[2022-05-10] MEDS: MELATONIN 5 MG TABLET PO SCH (21:22)
[2022-05-10] MEDS: TraZODone HCL 100 MG TABLET PO SCH (21:22)
[2022-05-10] MEDS: PRAZOSIN HCL 2 MG CAPSULE PO SCH (21:23)
[2022-05-11] MEDS: LURASIDONE HCL 60 MG TABLET PO SCH ×2 (06:39→17:44)
[2022-05-11] MEDS: MAG HYDROX/AL HYDROX/SIMETH ES 30 ML SUSPENSION UDCUP PO PRN (06:57)
[2022-05-11] MEDS: TERBINAFINE HCL 1% 30 GM CREAM TP SCH ×2 (09:00→17:00)
[2022-05-11] MEDS: TAMSULOSIN HCL 0.4 MG CAPSULE PO SCH ×2 (09:24→17:43)
[2022-05-11] MEDS: LOXAPINE SUCCINATE 5 MG CAPSULE PO SCH ×3 (09:25→17:43)
[2022-05-11] MEDS: DOCUSATE SODIUM 100 MG CAPSULE PO SCH (09:25)
[2022-05-11] MEDS: LOXAPINE SUCCINATE 25 MG CAPSULE PO SCH ×3 (09:28→17:43)
[2022-05-11] MEDS: FLUoxetine HCL 20 MG CAPSULE PO SCH (09:29)
[2022-05-11] MEDS: GABAPENTIN 300 MG CAPSULE PO SCH ×3 (09:29→17:44)
[2022-05-11 09:40] VITALS: BP 130/100
[2022-05-11 16:42] VITALS: BP 108/70
[2022-05-11] MEDS: MELATONIN 5 MG TABLET PO SCH (20:46)
[2022-05-11] MEDS: PRAZOSIN HCL 2 MG CAPSULE PO SCH (20:47)
[2022-05-11] MEDS: TraZODone HCL 100 MG TABLET PO SCH (20:47)
[2022-05-12] MEDS: HYDROCORTISONE 2.5% 30 GM CREAM TP PRN (05:45)
[2022-05-12] MEDS: LURASIDONE HCL 60 MG TABLET PO SCH ×2 (06:54→18:03)
[2022-05-12 08:00] VITALS: BP 122/77
[2022-05-12] MEDS: TERBINAFINE HCL 1% 30 GM CREAM TP SCH ×2 (09:00→17:00)
[2022-05-12] MEDS: LOXAPINE SUCCINATE 5 MG CAPSULE PO SCH ×3 (09:40→18:01)
[2022-05-12] MEDS: LOXAPINE SUCCINATE 25 MG CAPSULE PO SCH ×3 (09:40→18:01)
[2022-05-12] MEDS: TAMSULOSIN HCL 0.4 MG CAPSULE PO SCH ×2 (09:42→18:02)
[2022-05-12] MEDS: GABAPENTIN 300 MG CAPSULE PO SCH ×3 (09:42→18:02)
[2022-05-12] MEDS: DOCUSATE SODIUM 100 MG CAPSULE PO SCH (09:43)
[2022-05-12] MEDS: FLUoxetine HCL 20 MG CAPSULE PO SCH (09:43)
[2022-05-12 16:38] VITALS: BP 124/70
[2022-05-12] MEDS: PRAZOSIN HCL 2 MG CAPSULE PO SCH (20:45)
[2022-05-12] MEDS: TraZODone HCL 100 MG TABLET PO SCH (20:45)
[2022-05-12] MEDS: MELATONIN 5 MG TABLET PO SCH (20:46)
[2022-05-13 04:40] VITALS: BP 147/97
[2022-05-13] MEDS: IBUPROFEN 400 MG TABLET PO PRN (04:42)
[2022-05-13] MEDS: HYDROCORTISONE 2.5% 30 GM CREAM TP PRN (05:20)
[2022-05-13] MEDS: MAG HYDROX/AL HYDROX/SIMETH ES 30 ML SUSPENSION UDCUP PO PRN (05:31)
[2022-05-13] MEDS: LURASIDONE HCL 60 MG TABLET PO SCH ×2 (06:54→17:07)
[2022-05-13] MEDS: GABAPENTIN 300 MG CAPSULE PO SCH ×3 (08:44→17:07)
[2022-05-13] MEDS: FLUoxetine HCL 20 MG CAPSULE PO SCH (08:44)
[2022-05-13] MEDS: LOXAPINE SUCCINATE 5 MG CAPSULE PO SCH ×3 (08:46→17:07)
[2022-05-13] MEDS: DOCUSATE SODIUM 100 MG CAPSULE PO SCH (08:46)
[2022-05-13] MEDS: LOXAPINE SUCCINATE 25 MG CAPSULE PO SCH ×3 (08:46→17:07)
[2022-05-13] MEDS: TAMSULOSIN HCL 0.4 MG CAPSULE PO SCH ×2 (08:47→17:08)
[2022-05-13] MEDS: TERBINAFINE HCL 1% 30 GM CREAM TP SCH ×2 (08:51→17:00)
[2022-05-13 09:02] VITALS: BP 141/86
[2022-05-13] MEDS: ACETAMINOPHEN 325 MG TABLET PO PRN (09:03)
[2022-05-13 10:02] VITALS: BP 138/84
[2022-05-13 16:08] VITALS: BP 132/86
[2022-05-13] MEDS: TraZODone HCL 100 MG TABLET PO SCH (21:31)
[2022-05-13] MEDS: PRAZOSIN HCL 2 MG CAPSULE PO SCH (21:32)
[2022-05-13] MEDS: MELATONIN 5 MG TABLET PO SCH (21:32)
[2022-05-14] MEDS: HYDROCORTISONE 2.5% 30 GM CREAM TP PRN (04:17)
[2022-05-14 04:32] VITALS: BP 129/91
[2022-05-14] MEDS: MAG HYDROX/AL HYDROX/SIMETH ES 30 ML SUSPENSION UDCUP PO PRN (04:32)
[2022-05-14] MEDS: ACETAMINOPHEN 325 MG TABLET PO PRN (04:32)
[2022-05-14] MEDS: LURASIDONE HCL 60 MG TABLET PO SCH ×3 (07:07→17:39)
[2022-05-14] MEDS: GABAPENTIN 300 MG CAPSULE PO SCH ×3 (08:13→16:23)
[2022-05-14] MEDS: FLUoxetine HCL 20 MG CAPSULE PO SCH (08:13)
[2022-05-14] MEDS: LOXAPINE SUCCINATE 25 MG CAPSULE PO SCH ×3 (08:13→16:23)
[2022-05-14] MEDS: LOXAPINE SUCCINATE 5 MG CAPSULE PO SCH ×3 (08:13→16:23)
[2022-05-14] MEDS: TERBINAFINE HCL 1% 30 GM CREAM TP SCH (08:14)
[2022-05-14] MEDS: TAMSULOSIN HCL 0.4 MG CAPSULE PO SCH ×2 (08:14→16:23)
[2022-05-14] MEDS: DOCUSATE SODIUM 100 MG CAPSULE PO SCH (08:14)
[2022-05-14 08:58] VITALS: BP 127/89
[2022-05-14 16:05] VITALS: BP 134/82
[2022-05-14] MEDS: MELATONIN 5 MG TABLET PO SCH (20:33)
[2022-05-14] MEDS: PRAZOSIN HCL 2 MG CAPSULE PO SCH (20:33)
[2022-05-14] MEDS: TraZODone HCL 100 MG TABLET PO SCH (20:34)
[2022-05-15 04:33] VITALS: BP 128/77
[2022-05-15] MEDS: IBUPROFEN 400 MG TABLET PO PRN (04:33)
[2022-05-15] MEDS: LURASIDONE HCL 60 MG TABLET PO SCH ×2 (07:30→17:30)
[2022-05-15] MEDS: DOCUSATE SODIUM 100 MG CAPSULE PO SCH (08:15)
[2022-05-15] MEDS: LOXAPINE SUCCINATE 25 MG CAPSULE PO SCH ×3 (08:15→17:41)
[2022-05-15] MEDS: TAMSULOSIN HCL 0.4 MG CAPSULE PO SCH ×2 (08:15→17:41)
[2022-05-15] MEDS: GABAPENTIN 300 MG CAPSULE PO SCH ×3 (08:15→17:41)
[2022-05-15] MEDS: LOXAPINE SUCCINATE 5 MG CAPSULE PO SCH ×3 (08:15→17:41)
[2022-05-15] MEDS: FLUoxetine HCL 20 MG CAPSULE PO SCH (08:16)
[2022-05-15 08:18] VITALS: BP 113/65
[2022-05-15] MEDS: ACETAMINOPHEN 325 MG TABLET PO PRN (08:18)
[2022-05-15 09:18] VITALS: BP 122/74
[2022-05-15] MEDS: LORazepam 2 MG TABLET PO PRN (11:42)
[2022-05-15] MEDS: HALOPERIDOL 5 MG TABLET PO PRN (11:42)
[2022-05-15 16:47] VITALS: BP 105/65
[2022-05-15] MEDS: TraZODone HCL 100 MG TABLET PO SCH (20:28)
[2022-05-15] MEDS: PRAZOSIN HCL 2 MG CAPSULE PO SCH (20:29)
[2022-05-15] MEDS: MELATONIN 5 MG TABLET PO SCH (20:29)
[2022-05-16 04:13] VITALS: BP 127/73
[2022-05-16] MEDS: MAG HYDROX/AL HYDROX/SIMETH ES 30 ML SUSPENSION UDCUP PO PRN (04:13)
[2022-05-16] MEDS: IBUPROFEN 400 MG TABLET PO PRN (04:13)
[2022-05-16] MEDS: LURASIDONE HCL 60 MG TABLET PO SCH ×2 (06:33→17:26)
[2022-05-16 08:00] VITALS: BP 156/97
[2022-05-16 08:52] LABS: COVID AG,FIA SOURCE NASAL SWAB
[2022-05-16] MEDS: FLUoxetine HCL 20 MG CAPSULE PO SCH (08:57)
[2022-05-16] MEDS: LOXAPINE SUCCINATE 5 MG CAPSULE PO SCH ×3 (08:57→17:26)
[2022-05-16] MEDS: LOXAPINE SUCCINATE 25 MG CAPSULE PO SCH ×3 (08:57→17:25)
[2022-05-16] MEDS: DOCUSATE SODIUM 100 MG CAPSULE PO SCH (08:58)
[2022-05-16] MEDS: GABAPENTIN 300 MG CAPSULE PO SCH ×3 (08:58→17:26)
[2022-05-16] MEDS: TAMSULOSIN HCL 0.4 MG CAPSULE PO SCH ×2 (08:58→17:26)
[2022-05-16] MEDS ORDERED: LURA60TA PO (10:51)
[2022-05-16] MEDS ORDERED: GABA-1181 PO (10:51)
[2022-05-16] MEDS ORDERED: PALI234D IM (10:51)
[2022-05-16] MEDS ORDERED: TRAZ-257 PO (10:51)
[2022-05-16] MEDS ORDERED: PRAZ2 PO (10:51)
[2022-05-16] MEDS ORDERED: LOXA25CA PO (10:51)
[2022-05-16] MEDS ORDERED: MELA5TAB40 PO (10:51)
[2022-05-16] MEDS ORDERED: PROZ20 PO (10:51)
[2022-05-16] MEDS ORDERED: FLUO40CA7 PO (11:05)
[2022-05-16] MEDS ORDERED: BUSP15 PO (11:05)
[2022-05-16] MEDS ORDERED: TRAZ-186 PO (11:05)
[2022-05-16] MEDS ORDERED: DIVA-80 PO (11:05)
[2022-05-16] MEDS ORDERED: LURA80TA2 PO (11:05)
[2022-05-16 18:03] VITALS: BP 123/77
[2022-05-16] MEDS: PRAZOSIN HCL 2 MG CAPSULE PO SCH (21:02)
[2022-05-16] MEDS: TraZODone HCL 100 MG TABLET PO SCH (21:02)
[2022-05-16] MEDS: MELATONIN 5 MG TABLET PO SCH (21:06)
[2022-05-17 05:45] VITALS: BP 132/82
[2022-05-17] MEDS: IBUPROFEN 400 MG TABLET PO PRN (05:47)
[2022-05-17] MEDS: MAG HYDROX/AL HYDROX/SIMETH ES 30 ML SUSPENSION UDCUP PO PRN (05:47)
[2022-05-17] MEDS: LURASIDONE HCL 60 MG TABLET PO SCH (06:36)
[2022-05-17 08:00] VITALS: BP 141/102
[2022-05-17] MEDS ORDERED: HYDR30CR3 TP (09:13)
[2022-05-17] MEDS ORDERED: TAMS-1 PO (09:13)
[2022-05-17] MEDS: TAMSULOSIN HCL 0.4 MG CAPSULE PO SCH (10:24)
[2022-05-17] MEDS: FLUoxetine HCL 20 MG CAPSULE PO SCH (10:24)
[2022-05-17] MEDS: DOCUSATE SODIUM 100 MG CAPSULE PO SCH (10:24)
[2022-05-17] MEDS: GABAPENTIN 300 MG CAPSULE PO SCH ×2 (10:24→14:39)
[2022-05-17] MEDS: LOXAPINE SUCCINATE 5 MG CAPSULE PO SCH ×2 (10:25→14:39)
[2022-05-17] MEDS: LOXAPINE SUCCINATE 25 MG CAPSULE PO SCH ×2 (10:25→14:39)
== END 2022-05-17 14:00 | DRG 750 ==
LOC: EMS 09:18 → B3A 12:31 → B2S 11-21 13:24 → 3EI 01-30 01:35
PROVIDERS: ADMIT Psychiatry & Neurology Child & Adolescent Psychiatry; ATTEND Psychiatry & Neurology Child & Adolescent Psychiatry
DX: F25.0 Schizoaffective disorder, bipolar type (principal); G40.909 Epilepsy, unspecified, not intractable, without status epilepticus; R45.851 Suicidal ideations; E03.9 Hypothyroidism, unspecified; N40.0 Benign prostatic hyperplasia without lower urinary tract symptoms; I10 Essential (primary) hypertension; F06.4 Anxiety disorder due to known physiological condition; F43.10 Post-traumatic stress disorder, unspecified; F60.0 Paranoid personality disorder; Z20.822 Contact with and (suspected) exposure to COVID-19; F84.0 Autistic disorder; H66.90 Otitis media, unspecified, unspecified ear; K59.00 Constipation, unspecified; L60.0 Ingrowing nail; Z59.00 Homelessness unspecified; Z88.1 Allergy status to other antibiotic agents; Z88.6 Allergy status to analgesic agent
CPT/HCPCS: 70450; 71045; 71101; 76870; 80053; 80164; 81001; 81003; 82550; 84153; 84443; 84484; 85025; 86003; 87081; 93005; 99285; G0480; J1200; J1630; J2060; J3230; J3535; Q0162; Q9967; 36415-L1; 36415-TC; U0003

== ENCOUNTER 2022-01-29 22:47 | Emergency (ER) | payer MEDICAID, OTHER ==
[~2022-01-29] VITALS: Ht 172.7 cm; Wt 98.6 kg
[~2022-01-29 22:47] MED LIST changes: +BUSP15 PO; -BUSP30TA2 PO; +DIVA-80 PO; -DIVA250T60 PO; +GABA-1201 PO; -GABA800T PO; -LURA20TA PO; +LURA80TA2 PO
[2022-01-29 22:51] VITALS: BP 118/65
[2022-01-29 23:47] LABS: BASOPHILS % (AUTO) 0.6 % (0.0-2.0); EOSINOPHILS % (AUTO) 1.2 % (1.0-6.0); HEMATOCRIT 39.3 % (41-53); HEMOGLOBIN 13.5 g/dL (13.5-17.5); LYMPHOCYTES # (AUTO) 2.3 K/uL (1.0-4.8); MEAN CORPUSCULAR HEMOGLOBIN 28.4 pg (26.0-34.0); MEAN CORPUSCULAR HGB CONC 34.4 G/dL (31.0-37.0); MEAN CORPUSCULAR VOLUME 82 fL (80-100); MONOCYTES # (AUTO) 0.6 K/uL (0.1-1.0); NEUTROPHILS # (AUTO) 5.2 K/uL (1.8-7.7); NEUTROPHILS % (AUTO) 63.2 % (40.0-70.0); PLATELET COUNT (AUTO) 283 K/uL (150-450); RED BLOOD CELL COUNT(AUTO) 4.77 MIL/uL (4.50-5.90); RED CELL DISTRIBUTION WIDTH 13.1 % (11.5-14.5)
[2022-01-29 23:53] LABS: ANION GAP 9 mmol/L (8-16); CALCIUM, TOTAL 9.4 mg/dL (8.8-10.5); CARBON DIOXIDE 29 mmol/L (22-29); CHLORIDE 101 mmol/L (98-107); CREATININE 1.11 mg/dL (0.60-1.30); GLUCOSE,RANDOM 113 mg/dL (70-110); POTASSIUM 3.6 mmol/L (3.5-5.1); SODIUM SERUM 139 mmol/L (136-145); UREA NITROGEN, BLOOD 19 mg/dL (7-18)
[2022-01-29 23:59] LABS: ALANINE AMINOTRANSFERASE 35 U/L (12-78); ALBUMIN 3.8 g/dL (3.4-5.0); ALKALINE PHOSPHATASE 66 U/L (46-116); ASPARTATE AMINOTRANSFERASE 15 U/L (15-37); BILIRUBIN,TOTAL 0.3 mg/dL (0.1-1.0); TOTAL PROTEIN, SERUM 7.4 g/dL (6.4-8.2)
[2022-01-30] LABS: GLOMERULAR FILTR. RATE CALC > 60 mL/min (>60)
[2022-01-30] MEDS ORDERED: TAMSULOSIN HCL 0.4 MG CAPSULE PO ONE (00:30)
[2022-01-30 00:37] LABS: APPEARANCE,URINE CLEAR (CLEAR); BILIRUBIN,URINE NEGATIVE (NEGATIVE); GLUCOSE, URINE (UA) NEGATIVE (NEGATIVE); KETONES,URINE NEGATIVE (NEGATIVE); LEUKOCYTE ESTERASE ,URINE NEGATIVE (NEGATIVE); NITRATE,URINE NEGATIVE (NEGATIVE); OCCULT BLOOD,URINE NEGATIVE (NEGATIVE); PROTEIN,URINE NEGATIVE (NEGATIVE); SPECIFIC GRAVITIY, URINE 1.007 (1.003-1.030); UROBILINOGEN,URINE <=1.0 mg/dL (<=1.0)
[2022-01-30 00:51] LABS: COVID AG,FIA SOURCE NASOPHARYNGEAL
[2022-01-30 00:53] LABS: BACTERIA,URINE None Seen /HPF (None Seen); RBC,URINE None Seen /HPF (0-2); WBC,URINE None Seen /HPF (0-5)
== END 2022-01-30 03:40 | disposition home or self-care (01) ==
LOC: EMS 22:49
DX: R33.9 Retention of urine, unspecified (principal); Z20.822 Contact with and (suspected) exposure to COVID-19; E03.9 Hypothyroidism, unspecified; F31.9 Bipolar disorder, unspecified; F20.9 Schizophrenia, unspecified; N40.0 Benign prostatic hyperplasia without lower urinary tract symptoms; F84.0 Autistic disorder; Z88.0 Allergy status to penicillin
CPT/HCPCS: 80053; 81001; 85025; 99283